=== PATIENT | male | born 1955 | race Caucasian/White ===

== ENCOUNTER 2021-08-21 08:49 | Emergency (ER) | payer MEDICARE, SELFPAY ==
[2021-08-21] VITALS (40 sets, daily range): BP systolic 116–162; BP diastolic 65–86; PULSE 49–69; RESP 10–23; TEMP 36.3–36.6; O2SAT 95–99
--- NOTE | 2021-08-21 08:45 | RT.EKG_ITS ---
APPROVED REPORT Exam: Resting ECG Reason for Exam: chest pain Patient Location: E HR:59 bpm ECG Measurements Heart Rate 59 AXIS MA 155 P 58 QRSd 106 QRS -40 QT 425 T -54 QTc 423 Conclusion Sinus bradycardia. Left axis deviation. Anterior Q >40mS, abnormal ST-T, V2-V5 Nonspecific repol abnormality, diffuse leads...ST dep, T flat/neg, ant/lat/inf
[2021-08-21 09:12] LABS: Abs Immature Grans 0.01 10^3/uL (0.0-0.06); Absolute Basophil Count 0.05 10^3/uL (0.0-0.2); Absolute Eosinophil Count 0.23 10^3/uL (0.0-0.7); Absolute Lymphocyte Count 1.09 10^3/uL (1.2-3.4); Absolute Monocyte Count 0.38 10^3/uL (0.1-0.8); Basophils % 1.1; Eosinophils % 4.9; HCT 45.5 % (40.0-50.0); HGB 15.3 g/dL (13.5-17.5); Immature Grans % 0.2; Lymphocytes % 23.4; MCH 30.7 pg (27.0-33.0); MCHC 33.6 % (32.0-36.0); MCV 91 fL (80-95); MPV 10.2 fL (8.0-11.0); Monocytes % 8.2; Neutrophils % 62.2; Platelet Count 172 10^3/uL (130-400); RBC 4.99 10^6/uL (4.36-5.78); RDW 11.9 % (11.8-14.1); RDW-SD 39.4 fL; WBC 4.66 10^3/uL (4.4-10.8)
--- NOTE | 2021-08-21 09:15 | ED.GENADUL_ITS ---
Discharge Plan Disposition Patient Disposition: HOME Condition: Stable Discharge Details Clinical Impression: Angina pectoris Primary Care Provider: Nisa Machado ED Provider: Good Molina Home Meds and New Rx's Prescriptions: New isosorbide mononitrate 30 mg tablet extended release 24 hr 30 mg PO DAILY 14 Days Qty: 14 0RF Continued losartan 50 mg tablet 50 tab PO DAILY Label Comments: TAKE ONE TABLET BY MOUTH EVERY DAY aspirin 81 mg Tablet,Delayed Release (Dr/Ec) 81 mg PO DAILY nitroglycerin 0.4 mg tablet, sublingual 0.4 tab sublingual PRN PRN Label Comments: PLACE ONE TABLET UNDER THE TONGUE EVERY DAY metoprolol succinate 25 mg tablet extended release 24 hr 25 mg PO DAILY Label Comments: TAKE ONE TABLET BY MOUTH EVERY DAY folic acid 800 mcg Tablet 800 mcg PO DAILY B12 Active 1,000 mcg Tablet,Chewable 1,000 mcg PO DAILY Discharge Instructions Instructions: Chest Pain (ED) Additional Instructions: I discussed your case with [facility] cardiology today. We will start Imdur 30 mg once daily in the morning. If you have chest/arm/jaw pain while on the Imdur, you may take a single nitroglycerin tablet by mouth, while seated. Any persistent discomfort should promote reevaluation in the ER. Return immediately or call 911 if you have persistent chest pain. Continue all previously prescribed medications. Medical Decision Making 66-year-old male with history of hypertension, who recently failed a stress test. Reports he has had 3 or more months of intermittent episodes of left arm and jaw discomfort associated with exertion. He also describes exertional weakness. This morning he slept later than usual, awoke feeling lightheaded, weak and with worse left arm pain. He notes that he had left arm pain yesterday for which he took his first nitroglycerin with improvement of the pain. He states that he is scheduled for outpatient cardiac catheterization on August 29 due to his recently failed stress test which was ordered by Dr. Ryan at [facility]. Patient arrives to ER complaining approximately 3 out of 10 left arm pain. His exam is reassuring. Patient placed on panel monitor and twelve-lead EKG obtained. This reveals a sinus rhythm at approximately [address] segment depressions and T wave inversions present in leads II, III and aVF. I received and reviewed medical records from [facility] noting stress test from July 29, 2021. This states that the ST segment depression in the lateral leads became more accentuated while in the patient exercised to 8 METS. The test was discontinued due to shortness of breath and fatigue. During recovery ST segments were found to be downgoing in leads 2, 3, aVF, V4 and V5. The patient does not have dynamic ST changes today, he appears to be at his baseline on twelve-lead EKG. Laboratory test today show an unremarkable CBC and chemistries. Troponin is negative x2. Chest x-ray unremarkable. Case discussed with on-call cardiology at [facility]. The patient's escalating anginal equivalents are concerning. They recommended starting Imdur 30 mg daily. Patient is able to discharge home per his wishes, but will have a strict return precaution. You may use 1 additional nitroglycerin while seated at home if needed. Any persistent discomfort should provoke a return to the ER. We will continue his other medications as recently initiated. HPI General Mode of arrival: ambulatory . Date/Time Provider Initiated Documentation: 08/21/21 08:50 . Limitations to Documentation: no limitations . Information obtained by: patient and family . History of Present Illness 66 year old M presents to the emergency department with the chief complaint of Weeks of arm and jaw, described as moderate, Quality is described as dull, and is localized to the left and upper extremity. Patient neck. Patient started experiencing this week(s) Rest improves symptom(s), Movement worsens symptoms . Patient notes weakness; denies diaphoresis. Patient did receive the following treatments prior to arrival, other (Took his morning medications) Related Data Home Medications Medication Instructions Recorded Confirmed aspirin 81 mg tablet,delayed 81 mg PO DAILY 08/21/21 08/21/21 release folic acid 800 mcg tablet 800 mcg PO DAILY 08/21/21 08/21/21 isosorbide mononitrate 30 mg 30 mg PO DAILY 2 weeks #14 tabs 08/21/21 tablet,extended release 24 hr losartan 50 mg tablet 50 tab PO DAILY 08/21/21 08/21/21 mecobalamin (vitamin B12) 1,000 1,000 mcg PO DAILY 08/21/21 08/21/21 mcg chewable tablet (B12 Active) metoprolol succinate 25 mg 25 mg PO DAILY 08/21/21 08/21/21 tablet,extended release 24 hr nitroglycerin 0.4 mg sublingual 0.4 tab sublingual PRN PRN 08/21/21 08/21/21 tablet Previous Rx's Medication Instructions Recorded isosorbide mononitrate 30 mg 30 mg PO DAILY 2 weeks #14 tabs 08/21/21 tablet,extended release 24 hr Allergies Allergy/AdvReac Type Severity Reaction Status Date / Time No Known Allergies Allergy Unverified 08/21/21 08:59 General Stated Complaint: Chest Pain GAURAV: 3 Review of Systems Narrative: No syncope. No significant chest pain. No recent illness. Reports exertional discomfort primarily in the left arm with weakness that improves with that improves with rest, occurring over weeks time. 8 systems were reviewed and otherwise negative PFSH All Active Problems (Updated 08/21/21 @ 13:21 by Good Molina MD) Injury, head (Acute) a. With contusion. b. with loc c. concussion Celiac disease (Chronic) Hypertension (Acute) Prediabetes (Acute) Angina pectoris (Chronic) Social History Smoking/Tobacco Use Status: Never Smoking risk assessment performed?: Yes Alcohol Intake: current Alcohol Intake frequency: a few times a week Drug use: Never Substance use type: does not use Do you feel safe at home: Yes Do you feel safe in your relationship?: Yes Exam Narrative Exam Narrative: GEN: awake, alert, oriented 3. Pleasant, well groomed, interactive. HEAD: Normocephalic, atraumatic ENT: Mucous membranes moist, oropharynx unremarkable, External ear exam unremarkable EYES: PERRL, EOMI NECK: Full ROM, no FILIPPO, no menigismus CHEST/RESP: Nontender, clear to auscultation bilateral, no wheeze/rhonchi/rales CARDIOVASCULAR: RRR, no murmur, rub michael. 2+ Rad pulse bilateral ABDOMEN: Soft, nontender, no mass. +Bowel sounds EXT: Full ROM, no edema, no rash Neuro: Grossly normal neurologic exam, conversant, interactive. Psych: Speech fluent, thoughts congruent, affect normal Course Vital Signs Vital signs: Vital Signs Temperature 36.6 C 08/21/21 08:53 Pulse 61 08/21/21 08:53 Respiratory Rate 15 08/21/21 08:53 Blood Pressure 144/80 H 08/21/21 08:53 Pulse Oximetry 99 08/21/21 08:53 Temperature 36.6 C 08/21/21 08:53 Temperature Source Skin 08/21/21 08:53 Pulse 63 08/21/21 09:09 Pulse 61 08/21/21 09:10 Respiratory Rate 23 08/21/21 09:10 Respiratory Effort 08/21/21 09:02 Respiratory Depth Normal 08/21/21 09:02 Respiratory Pattern Normal 08/21/21 09:02 Blood Pressure 162/85 H 08/21/21 09:09 Blood Pressure Mean 104 08/21/21 09:09 Blood Pressure Position Supine 08/21/21 08:53 Pulse Oximetry 99 08/21/21 09:10 Oxygen Delivery Method Room Air 08/21/21 08:53 Oxygen Flow Rate 0 08/21/21 08:53 Pain Level 4 08/21/21 08:53 Lab/Test Results Lab/Test Results: Laboratory Tests Range/Units 08/21/21 09:05 WBC (4.4-10.8) 10^3/uL 4.66 RBC (4.36-5.78) 10^6/uL 4.99 Hgb (13.5-17.5) g/dL 15.3 Hct (40.0-50.0) % 45.5 MCV (80-95) fL 91 MCH (27.0-33.0) pg 30.7 MCHC (32.0-36.0) % 33.6 RDW (11.8-14.1) % 11.9 Plt Count (130-400) 10^3/uL 172 MPV (8.0-11.0) fL 10.2 Immature Gran % 0.2 Neutrophils % 62.2 Lymphocytes % 23.4 Monocytes % 8.2 Eosinophils % 4.9 Basophils % 1.1 Nucleated RBC % (0.0-0.3) % 0.0 Absolute Neutrophils (1.2-6.7) 10^3/uL 2.90 Absolute Lymphocytes (1.2-3.4) 10^3/uL 1.09 L Absolute Monocytes (0.1-0.8) 10^3/uL 0.38 Absolute Eosinophils (0.0-0.7) 10^3/uL 0.23 Absolute Basophils (0.0-0.2) 10^3/uL 0.05 PAWSS Have you Been Recently Intoxicated or Drunk Within the Last 30 days?: Yes Have you Ever Experienced Previous Episodes of Alcohol Withdrawal?: No Have you ever Experienced Withdrawal Seizures?: No Have you ever Experienced Delirium Tremens(DT)s?: No Have you ever undergone Alcohol Rehabilitation Treatment (i.e, inpt ot outpatient treatment programs)?: No Have you ever Experienced Blackouts?: No Have you ever Combined Alcohol with other Downers within the last 90 days?: No Have you ever Combined Alcohol with any other Substance of Abuse during the last 90 days?: No Positive Blood Alcohol level on Presentation? [PCS.BAL]: No Evidence of Increased Autonomic Activity (i.e. HR>120, tremor, sweating, agitat ion, nausea)?: No Result: 1
[2021-08-21] MEDS: Aspirin 81 MG CHEW 162 MG PO (09:19)
[2021-08-21] MEDS: nitroGLYcerin 0.4 MG TAB SL (09:19)
--- OUTSIDE RECORDS SUMMARY | 2021-08-21 09:28 | XMS_ITS | Encounter Summary ---
:1955 Author Organization [facility] [place] [address] Care Team Providers Name Role Phone Nisa Machado MD Primary Care Provider Encounter Details Date Type Department Care Team Description 01/12/2020 Telephone Dermatology at [facility] Dilcia Pablo MD [address] [place] [address] [facility] [phone] [place], [place] [address] (Wo rk) Social History Tobacco Use Types Packs/Day Years Used Date Never Smoker Smokeless Tobacco: Never Used Alcohol Use Standard Drinks/Week Comments Yes 14 (1 standard drink = 0.6 oz pure alcoh ol) last drink 10/07/19 Alcohol Habits Answer Date Recorded How often do you have a drink containing alcohol? Not asked How many drinks containing alcohol do you have on a Not aske d typical day when you are drinking? How often do you have six or more drinks on one Not asked occasion? Comment: last drink 10/07/19 10/17/2019 Sex Assigned at Date Recorded Male 01/25/2021 11:16 AM EST documented as of this encounter Miscellaneous Notes Telephone Encounter - Keiry Venegas LPN - 01/12/2020 1:12 PM EST Spoke with patient and discussed biopsy results today indicating a BCC on the religious. Reviewed recommendation from Dr. Bella for [facility]. Patient verbalized understanding. Will refer to [facility] and patient will wait for call from [facility] accredited legal secretary to schedule documented in this encounter Plan of Treatment Upcoming Encounters Date Type Specialty Care Team Description 08/29/2021 Hospital Encounter Cardiology Wliliams Rodriguez, Scre ening for cardiovascular condition; Abnormal stress test; [facility] Chest dis comfort CARDIOLOGY DEPT. [place], [place] [address] 08/29/2021 Surgery Cardiology Williams Rodriguez, CARDIAC CA THETERIZATION [facility] CARDIOLOGY DEPT. [place], [place] [address] Scheduled Procedures Name Priority Associated Diagnoses Date/Time CORONARY ANGIOGRAPHY; W Screening for cardiovasc ular 08/29/2021 9:30 AM EDT LHC,POSSIBLE PCI condition Abnormal stress test Chest discomfort documented as of this encounter Visit Diagnoses Not on filedocumented in this encounter Care Teams Chief Science Officer Relationship Specialty Start Date End Date Nisa Machado MD PCP - General 07/26/14 [address] [place] [address] documented as of this encounter
--- OUTSIDE RECORDS SUMMARY | 2021-08-21 09:28 | XMS_ITS | Clinical Summary ---
:1955 Author Organization [facility] [place] [address] Care Team Providers Name Role Phone Nisa Machado MD Primary Care Provider Allergies Active Allergy Reactions Severity Noted Date Comments Gluten Diarrhea Medium 10/13/2014 Medications Medication Sig Dispensed Refills Start Date End Date Status ketoconazole (NIZORAL) Apply topically to 60 g 3 01/04/20 20 Active 2 % Cream affected area on the eyebrows twice daily as needed. losartan (Cozaar) 50 Take 50 mg by 0 Active mg Tablet mouth daily. Active Problems Problem Noted Date Nevus 10/13/2014 Seborrheic keratosis 10/13/2014 Encounters Date Type Specialty Care Team Description 08/09/2021 Orders Only Cardiology Cleveland Leon PA Screenmario g for cardiovascular condition; Abnormal stress test; Chest discomfor t from Last 3 Months Immunizations Name Administration Dates Next Due Moderna Covid-19 (Sensory Scientist 100mcg) Vaccine 12/15/2020, 2020, 04/25/2020 Social History Tobacco Use Types Packs/Day Years [...] Date Recorded Male 01/25/2021 11:16 AM EST Last Filed Vital Signs Vital Sign Reading Time Taken Comments Blood Pressure 136/83 03/14/2020 8:00 AM EST Pulse 67 03/14/2020 8:00 AM EST Temperature 36.2 ??C (97.2 ??F) 10/18/2019 11:43 AM EDT Respiratory Rate 14 10/18/2019 12:50 PM EDT Oxygen Saturation 99% 10/18/2019 12:50 PM EDT Inhaled Oxygen Concentration - - Weight 77.1 kg (170 lb) 10/18/2019 8:54 AM EDT Height 185.4 cm (6' 1) 10/18/2019 8:54 AM EDT Body Mass Index 22.43 10/18/2019 8:54 AM EDT Plan of Treatment Upcoming Encounters Date Type Specialty Care Team Description 08/29/2021 Hospital Encounter Cardiology Williams Rodriguez, Scre ening for cardiovascular condition; Abnormal stress test; [facility] Chest dis comfort CARDIOLOGY DEPT. [place] [address] 08/29/2021 Surgery Cardiology Williams Rodriguez, CARDIAC CA THETERIZATION [facility] CARDIOLOGY DEPT. [place], [place] [address] Scheduled Procedures Name Priority Associated Diagnoses Date/Time CORONARY ANGIOGRAPHY; W Screening for cardiovasc ular 08/29/2021 9:30 AM EDT LHC,POSSIBLE PCI condition Abnormal stress test Chest discomfort Health Maintenance Due Date Last Done Comments Hepatitis C Screening 08/09/1971 Lipid Screening 08/09/1971 Tdap adult 1972 Tetanus vaccine 1972 Colonoscopy 1998 Zoster vaccine (1 of 2) 08/09/2003 Pneumoccocal Vaccine: 65+ (1 - PCV) 2018 Influenza (Flu) vaccine (1 of 1 - 10/24/2020 Influenza standard series) Covid-19 Vaccine (4 - Booster for 04/17/2021 12/15/2020, , Moderna series) 04/25/2020 Procedures Procedure Name Priority Date/Time Associated Diagnosis Comme nts LAB SCAN 08/06/2021 12:00 AM Results for this EDT procedure are i n the results section . LAB SCAN 08/06/2021 12:00 AM Results for this EDT procedure are i n the results section . LAB SCAN 08/06/2021 12:00 AM Results for this EDT procedure are i n the results section . from Last 3 Months Results SCAN DOC: LAB (08/06/2021 12:00 AM EDT)Only the most recent of3 resultswithin the time period is included. Narrative This result has an attachment that is no t available. 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
--- OUTSIDE RECORDS SUMMARY | 2021-08-21 09:28 | XMS_ITS | Encounter Summary ---
:1955 Author Organization [facility] Address [address] [place] [address] Care Team Providers Name Role Phone Unavailable Primary Care Provider Unavailable Encounter Details Date Type Department Care Team Description 11/06/2008 Orders Only [facility] Javier Pearson MD [facility] [address] [place] [address] [place], [place] [address] [phone] Social History Tobacco Use Types Packs/Day Years Used Date Never Assessed Alcohol Habits Answer Date Recorded How often do you have a drink containing alcohol? Never 10/08/2019 How many drinks containing alcohol do you have on a typical Not asked day when you are drinking? How often do you have six or more drinks on one occasion? No t asked Comment: Not asked Sex Assigned at Date Recorded Not on file documented as of this encounter Plan of Treatment Not on filedocumented as of this encounter Procedures Procedure Name Priority Date/Time Associated Diagnosis Comme [facility] SURGICAL PATHOLOGY Routine 11/06/2008 0:00 EDT Re sults for this procedure are i n the results section. documented in this encounter Results SURGICAL PATHOLOGY (11/06/2008 0:00 EDT) Pathology Report: SURGICAL PATHOLOGY REPORT ? YAQUELIN REID Reports generated via [employer] interface contain original data; ? LAB however they are lacking the format of the original report. ? Caution should be taken when reading/interpreting unformatted reports. ? Name: ? LJ, RENÉ L ? Accession #: ? [id number] ? : ? 1955 (Age: 53) ??M ? Collec t Date: ? 11/06/2008 ? Location: ? [facility] ? R eceive Date: ? 11/06/2008 ? Provider: JAVIER TUTTLE MD ? Copy to: PANCHO HOLLINGSWORTH MD ? Final Pathologic Diagnosis: ? A. ?Duodenum, b iopsies: ? 1. ?Intraepithe lial lymphocytosis with mild villous blunting, suggestive of celiac sprue. ? B. ?Stomach, sherry dy, biopsies: ? 1. ?Oxyntic muc rigoberto with mild chronic inflammation. ? 2. ?No Helicoba cter pylori-like microorganisms on H&E-stained ? sections. ? C. ?Esophagus, biopsies: ? 1. ?Squamocolum aida junctional mucosa with reactive squamous and columnar epithelial changes. ? 2. ? Oxyntic-type column ar mucosa with mild chronic inflammation. ? 3. ? No goblet cells or intestinal metaplasia. ? 4. ? No intraepithelial eosinophils or neutrophils. ? D. ?Terminal il eum, biopsies: ? 1. ?Intestinal mucosa with no specific histopathologic diagnosis. ? E. ?Colon, righ t, random, biopsies: ? 1. ?Colonic muc rigoberto with focal surface epithelial hyperplastic change. ?? 2. ? No features of senior database administrator joselito inflammatory bowel disease. ? F. ?Colon, hepa tic flexure, polyp, biopsies: ? 1. ?Hyperplasti c polyp (three pieces); no adenoma. ? G. ?Colon, sple joselito flexure, polyp, biopsies: ? 1. ?Hyperplasti c polyp (two pieces); no adenoma. ? H. ?Colon, left , random, biopsies: ? 1. ?Colonic muc rigoberto with no specific histopathologic diagnosis. ? 2. ? No features of senior database administrator joselito inflammatory bowel disease. ? I. ?Colon, rect osigmoid, polyp, biopsy: ? 1. ?Colorectal mucosa (one piece) with surface epithelial hyperplastic ?? change. ? J. ?Rectum, ran dom, biopsies: ? 1. ?Colorectal mucosa with no specific histopathologic diagnosis. ? 2. ? No features of senior database administrator joselito inflammatory bowel disease. ? K. ?Rectum, low , polyp, biopsy: ? 1. ?Hyperplasti c polyp (one piece); no adenoma. ? Comment: ? This case was reviewe d at intradepartmental consultation conference. ??(Dr. Rowe)/mk ? Document reviewed and electr onically signed by: ? Nancy Rowe MD ? Report ??Date: 11/08/2008 15 :18 ? By the signature above, the attending physician certifies that he/she has ? personally conducted a gross and/or microscopic examination of the described ? specimens and rendered or co nfirmed the above diagnosis. ? Specimen(s) Received: ? A. ?Bx duodenum ? B. ? Bx gastric body ? C. ? Bx ? Rizzo's ? D. ? Bx terminal ileum ? E. ? Bx random right col on ??includes ascending and transverse colon ? F. ? Hepatic flexure donna yp ? G. ? Splenic flexure donna yp ? H. ? Bx random left colo n ? I. ? Rectosigmoid polyp ? J. ? Bx random rectum ? K. ? Low rectal polyp ? Clinical History: ? GERD, diarrhea; (+) F H celiac (brother); (+) celiac and IBD labs; A-C ??EGD; D-K - colonoscopy ? Gross Description: ? [facility] labelled René Calhoun and #1 bx ? duodenum are four biopsies which vary in size from 0.3 x 0.1 x 0.1 cm up to 0.6 x 0.4 x 0.3 cm. ??The specim ens are submitted intact as (A1) and (A2). ? [facility] René Calhoun and #2 bx gastric ? body are two biopsies measu ring 0.3 x 0.3 x 0.2 cm, each. ??The specimens are ?? submitted intact as (B). ? [facility]ceived in [facility] labelled René Calhoun and #3 bx ? Rizzo's are two biopsies measuring 0.3 x 0.2 x 0.1 cm and 0.3 x 0.3 x 0.3 cm. The specimens are submitted intact as (C). ? Received in [facility]'s fixat stacy labelled René Calhoun and #4 bx terminal ?? ileum are two biopsies radha uring 0.3 x 0.2 x 0.2 cm and 0.3 x 0.3 x 0.1 cm. ? The specimens are submitted intact as (D). ? Received in [facility]'s fixat stacy labelled René Calhoun and #5 bx random ? right colon are five biopsi es which vary in size from 0.1 cm in diameter up to 0.3 x 0.2 x 0.2 cm. ??The sp ecimens are submitted intact as (E1) and (E2). ? Received in [facility]'s fixat stacy labelled René Calhoun and #6 hepatic ? flexure polyp are three bio psies which vary in size from 0.2 x 0.1 x 0.1 cm up to 0.4 x 0.2 x 0.2 cm. ??The specimens are submitted intact as (F). ? Received in [facility]'s fixat stacy labelled Acesloane René and #7 splenic ? flexure polyp are two biops ies measuring 0.2 x 0.2 x 0.1 cm and 0.4 x 0.3 x 0.1 cm. ??The specimens are subm itted intact as (G). ? Received in [facility]'s fixat stacy labelled Lj René and #8 bx random left colon are five biopsies whi ch vary in size from 0.2 x 0.2 x 0.2 cm up to 0.8 x 0.2 x 0.1 cm. ??The specimen s are submitted intact as (H1) and (H2). ? Received in [facility]'s fixat stacy labelled Lj René and #9 rectosigmoid ?? polyp is a 0.3 x 0.2 x 0.2 cm polypoid biopsy. ??The specimen is submitted ? intact as (I). ? Received in [facility] fixat stacy labelled Lj René and #10 bx random ? rectum are two biopsies, ea ch measuring approximately 0.4 x 0.3 x 0.2 cm. ??The specimens are submitted inta ct as (J). ? Received in [facility] fixat stacy labelled Acesloane René and #11 low rectal ?? polyp is a 0.4 x 0.4 x 0.2 cm polypoid structure. ??The specimen is submitted ?? intact as (K). ??(SHERYL Tessito re)/cherryn ? End of Report ? Specimen Performing Organization Address City/State/ZIP Code Phon e Number [facility] [address] [place] [address] SERVICES [facility] [address] [place] [address] documented in this encounter Visit Diagnoses Not on filedocumented in this encounter
--- OUTSIDE RECORDS SUMMARY | 2021-08-21 09:28 | XMS_ITS | Encounter Summary ---
:1955 Author Organization [facility] Address [address] [place] [address] Care Team Providers Name Role Phone Unavailable Primary Care Provider Unavailable Encounter Details Date Type Department Care Team Description 04/26/2008 Before [facility] - Onel Skinner Converted Visit Elle Almazan MD (Elle) [address] [facility] [place] [address], [place] [id number] [place] [id number] Social History Tobacco Use Types Packs/Day Years [...] Procedure Name Priority Date/Time Associated Diagnosis [facility]me [facility] SURGICAL PATHOLOGY Routine 04/26/2008 0:00 EST Re sults for this procedure are i n the results section. documented in this encounter Results SURGICAL PATHOLOGY (04/26/2008 0:00 EST) Pathology Report: SURGICAL PATHOLOGY REPORT ? [facility] Reports generated via [employer] interface contain original data; ? LAB however they are lacking the format of the original report. ? Caution should be taken when reading/interpreting unformatted reports. ? Name: ? ZACHERY, RENÉ L ? Accession #: ? [id number] ? : ? 1955 (Age: 52) ??M ? Collec t Date: ? 04/26/2008 ? Location: ? [facility] ? Re ceive Date: ? 04/27/2008 ? Provider: MOHAMMED TARRABAIN MD ? Copy to: ? Final Pathologic Diagnosis: ? Skin of voodoo, right , shave biopsy: ? - Seborrheic keratosis, infl chung. ? Microscopic Description: ? The stratum corneum i s thickened by laminated orthohyperkeratosis. ??The ? epidermis is hyperplastic wi th papillomatosis and acanthosis. ??The keratinocytes have a basaloid appearance w ith round regular nuclei. ??(Dr. De Leon)/mpl ? Document reviewed and electr onically signed by: ? Ree De Leon MD ? Report ??Date: 05/01/2008 13 :14 ? By the signature above, the attending physician certifies that he/she has ? personally conducted a gross and/or microscopic examination of the described ? specimens and rendered or co nfirmed the above diagnosis. ? Specimen(s) Received: ? 2 cm shave bx (dermab lade) lesion from R voodoo ? Clinical History: ? Lesion on R voodoo fo r few weeks, raised, no itching ? Gross Description: ? Received in formalin labelled Tirey is a shave biopsy of neal skin which ?? measures 0.8 x 0.7 x 0.1 cm. There is an eccentric neal grainy irregular papule ?? which measures 0.5 x 0.4 x 0 .1 cm. ??The specimen is trisected and submitted ? entirely in one cassette. ?? (Ammy. Mehul)/mms ? End of Report ? Specimen Performing Organization Address City/State/ZIP Code Phon e Number [facility] [address] [place] [address] [facility] [address] [place] [address] documented in this encounter Visit Diagnoses Not on filedocumented in this encounter
--- OUTSIDE RECORDS SUMMARY | 2021-08-21 09:28 | XMS_ITS ---
:1955 Author Organization [facility] Address [address], [place] [id number] Care Team Providers Name Role Phone Nisa Machado Unavailable Unavailable PROBLEMS Type Condition ICD9-CM ZHR38-RV Onset Condition SNOMED Cod e Code Code Dates Status Problem Idiopathic peripheral 337.00 Active 98409719 autonomic neuropathy, unspecified Problem Cellulitis and abscess 682.3 Active 644717971 of upper arm and forearm Problem Other and unspecified 272.4 Active 99742152 hyperlipidemia Problem Pure 272.0 Active 353588938 hypercholesterolemia Problem Unspecified disorder of 709.9 Active 29352933 skin and subcutaneous tissue Problem Pure E78.00 Active 713631273 hypercholesterolemia, unspecified Problem Celiac disease 579.0 Active 38370 1005 Problem Male erectile disorder F52.21 Active 845510621 Problem Impaired fasting glucose 790.21 Activ e 745363902 Problem Unspecified hemorrhoids K64.9 Active 55624332 Problem Essential (primary) I10 Active 68988142 hypertension Problem Other idiopathic G90.09 Active 864 13584 peripheral autonomic neuropathy Problem Celiac disease K90.0 Active 91087 1005 ALLERGIES No Known Allergies ENCOUNTERS Encounter Location Date Diagnosis [facility] [address] [place] [address] Rd Jul, Chest angie n, unspecified R07.9 [facility] [address] [place], and Dyspnea, unspecified R06.00 [place] [id number] [facility] [address] Jul, Pain in r ight knee M25.561 [facility] [address] [place], [place] [id number] [facility] [address] June, Chest angie n, unspecified R07.9 ; [facility] [address] [place], Dyspnea, uns pecified R06.00 and [place] [id number] Other fatigue R5 3.83 [facility] [address] 19 Nov, 2020 [facility] [address] [place], [place] [id number] [facility] [address] [place] [address] Rd 15 Aug, 2020 Encounter for general adult [facility] [address] [place], medical exam ination without [place] [id number] abnormal finding s Z00.00 [facility] [address] [place] [address] Rd 15 Aug, 2020 Encounter for general adult [facility] [address] [place], medical exam ination without [place] [id number] abnormal finding s Z00.00 ; Essential (prima ry) hypertension I10 ; Other fatigue R53.83 ; Encounter for screening for ma lignant neoplasm of pros strickland Z12.5 and Male erectile di sorder F52.21 [facility] [address] [place] [address] Rd Feb, [facility] [address] [place], [place] [id number] [facility] [address] [place] [address] Rd 15 Feb, 2020 [facility] [address] [place] [id number] [facility] [address] [place] [address] Rd Dec, Essential (primary) [facility] [address] [place], hypertension I10 [place] [id number] [address] 12 Nov, 2019 Essential (primary) [facility] [address] [place], hypertension I10 [place] [id number] [address] 18 Oct, 2019 Pure hype rcholesterolemia, [facility] [address] [place], unspecified E78.00 [place] [id number] [facility] [address] [place] [address] Rd 10 Oct, 2019 Essential (primary) [facility] [address] [place], hypertension I10 [place] [id number] [address] Sep, Encounter for other [facility] [address] [place], preprocedura l examination [place] [id number] Z01.818 ; Spinal stenosis, lumbar region wi th neurogenic claudication M48 .062 and Encounter for im munization Z23 [facility] [address] [place] [address] Rd Sep, [facility] [address] [place] [id number] [address] Aug, [facility] [address] [place] [id number] [facility] [address] [place] [address] Rd Aug, Encounter for general adult [facility] [address] [place], medical exam ination with [place] [id number] abnormal finding s Z00.01 ; Pure hypercholesterol emia, unspecified E78. 00 ; Essential (primary) hypert ension I10 ; Celiac disease K 90.0 ; Encounter for va reening for malignant neopla sm of prostate Z12.[address] for screening for ma lignant neoplasm of colo n Z12.11 [facility] [address] [place] [address] Rd Jul, [facility] [address] [place], [place] [id number] [address] Jul, Medicine [address] [place] [id number] [address] Aug, Olecranon bursitis, left elbow [facility] [address] [place], M70.22 [place] [id number] [address] Jul, Otalgia, bilateral H92.03 and Medicine [address] [place], Pure hyperch olesterolemia, [place] [id number] unspecified E78. [address] May, Pure hype rcholesterolemia, Medicine [address] [place], unspecified E78.00 [place] [id number] [address] May, Medicine [address] [place] [id number] [address] Apr, Pure hype rcholesterolemia, [facility] [address] [place], unspecified E78.00 [place] [id number] [address] Apr, Encounter for general adult [facility] [address] [place], medical exam ination with [place] [id number] abnormal finding s Z00.01 ; Essential (prima ry) hypertension I10 ; Disorder of the skin and sub cutaneous tissue, unspecif ied L98.9 ; Pain in unspecif ied ankle and joints of unspec ified foot M25.579 ; Encoun ter for screening for ma lignant neoplasm of colo n Z12.11 and Trochanteric bur sitis, left hip M70.[address] Mar, [facility] [address] [place], [place] [id number] [address] Nov, [facility] [address] [place] [id number] [facility] [address] [place] [address] Rd Nov, Pain in r ight ankle and joints [facility] [address] [place], of right lazaro t M25.571 [place] [id number] [facility] [address] [place] [address] Rd Dec, Pain in l eft ankle and joints [facility] [address] [place], of left foot M25.572 ; [place] [id number] Trochanteric bur sitis, right hip M70.61 ; Ess ential (primary) hypert ension I10 and Encounter for im munization Z23 [facility] [address] [place] [address] Rd Aug, Celluliti s of right upper limb [facility] [address] [place], L03.113 and Encounter for [place] [id number] immunization Z23 [facility] [address] [place] [address] Rd June, Motion si ckness, sequela [facility] [address] [place] [address], T75.3XXS [place] [id number] [address] May, Encounter for general adult [facility] [address] [place], medical exam ination with [place] [id number] abnormal finding s Z00.01 ; Other idiopathic peripheral autonomic neurop athy G90.09 ; Celiac disease K 90.0 and Essential (prima ry) hypertension I10 [address] June, Encounter for general adult [facility] [address] [place], medical exam ination without [place] [id number] abnormal finding s Z00.[address] Dec, Encounter for general adult [facility] [address] [place] [address], medical exam ination with [place] [id number] abnormal finding s Z00.01 ; Unspecified hemo rrhoids K64.9 and Encounter fo r immunization Z23 [facility] [address] [place] [address] Rd Jul, Herpes zo ster without mention [facility] [address] [place], of complicat ion 053.9 and [place] [id number] Unspecified diso rder of skin and subcutaneous tissue 709.9 [facility] [address] [place] [address] Rd Feb, Acute bro nchitis 466.0 [facility] [address] [place] [id number] [facility] [address] [place] [address] Rd Jan, Pain in j oint, pelvic region [facility] [address] [place], and thigh 71 9.45 [place] [id number] [facility] [address] [place] [address] Rd Sep, Concussio n, with loss of [facility] [address] [place], consciousnes s of 30 minutes or [place] [id number] less 850.11 [facility] [address] [place] [address] Rd Aug, [facility] [address] [place], [place] [id number] [facility] [address] [place] [address] Rd Aug, [facility] [address] [place] [id number] [address] Aug, Routine g eneral medical [facility] [address] [place], examination at [facility] [id number] facility V70.0 ; Pure hypercholesterol emia 272.0 and Celiac disease 5 79.0 [facility] [address] [place] [address] Rd June, Other and unspecified [facility] [address] [place], hyperlipidem ia 272.4 [place] [id number] [facility] [address] [place] [address] Rd May, Routine g eneral medical [facility] [address] [place], examination at [facility] [id number] facility V70.0 ; Idiopathic peripheral auton omic neuropathy, unsp ecified 337.00 ; Impaired fasti ng glucose 790.21 ; Celiac disease 579.0 ; Lipoma of other skin and subcutaneous tis pablo 214.1 and Special screenin g for malignant neoplasm of pros strickland V76.44 [facility] [address] [place] [address] Rd Jan, Celluliti s and abscess of upper [facility] [address] [place], arm and fore arm 682.3 [place] [id number] [facility] [address] [place] [address] Rd Jan, Routine g eneral medical [facility] [address] [place], examination at [facility] [id number] facility V70.0 IMMUNIZATIONS Vaccine Route Administration Date Status FLUAD Unknown Oct 17, 2019 Administered Shingrix Unknown Apr 18, 2021 Administered zostavax Unknown Jan 17, 2015 Administered Pneumococcal Unknown Feb 21, 2021 Administered Influenza (split) Unknown Dec 25, 2017 Administered Influenza (split) Unknown Dec 31, 2016 Administered Moderna COVID 19 vaccine Unknown September 06, 2020 Adminis tered Influenza (split) Unknown Jan 12, 2015 Administered DTP Unknown September 18, 2016 Administered DT Unknown Feb 24, 2004 Administered SOCIAL HISTORY Qualifiers Date Never Smoker REASON FOR REFERRAL FUNCTIONAL STATUS PLAN OF CARE Activity Details Follow Up prn, 6 Weeks Reason:PE Future Appointment Provider Name:Nisa Conrad Artis chu, 2021-09-17 08:30:00 AM, [address] [facility], [address], [place], [place], [id number], Pending Test Urinalysis, Routine Pending Test Urinalysis, Complete Pending Test Urinalysis, Complete Pending Test Urinalysis, Complete Pending Test Urinalysis, Complete Pending Test Vitamin B12 Pending Test Folate (Folic Acid), Serum Future/Pending Procedure ECG RECORDING Future/Pending Procedure VENIPUNCT, ROUTINE* Future/Pending Procedure IMMUNIZATION ADMIN Future/Pending Procedure IMMUNIZATION ADMIN Future/Pending Procedure VENIPUNCT, ROUTINE* Future/Pending Procedure VENIPUNCT, ROUTINE* Future/Pending Procedure IMMUNIZATION ADMIN Future/Pending Procedure VENIPUNCT, ROUTINE* Future/Pending Procedure VENIPUNCT, ROUTINE* VITAL SIGNS Temperature 97.8 degrees Fahrenheit 2014-07-24 Temperature 97.8 degrees Fahrenheit 2014-03-10 Temperature 97.8 degrees Fahrenheit 2011-02-21 Heart Rate 60 /min 2021-07-29 Heart Rate 78 /min 2021-07-15 Heart Rate 72 /min 2020-09-06 Heart Rate 72 /min 2020-09-06 Heart Rate 72 /min 2020-01-03 Heart Rate 72 /min 2019-12-05 Heart Rate 78 /min 2019-11-03 Heart Rate 72 /min 2019-09-05 Heart Rate 72 /min 2015-06-25 Heart Rate 72 /min 2014-01-30 Heart Rate 65 /min 2013-10-17 Heart Rate 68 /min 2012-07-02 Heart Rate 72 /min 2012-06-21 Height 72 in 2021-07-29 Height 72 in 2021-07-15 Height 72 in 2020-09-06 Height 72 in 2020-09-06 Height 72 in 2020-01-03 Height 72 in 2019-12-05 Height 72 in 2019-11-03 Height 72 in 2019-10-17 Height 72 in 2019-09-05 Height 72 in 2018-09-21 Height 72 in 2018-08-10 Height 72 in 2018-05-04 Height 72 in 2017-12-15 Height 72 in 2016-12-31 Height 72 in 2016-09-18 Height 72 in 2016-07-10 Height 72 in 2016-06-10 Height 72 in 2015-06-25 Height 72 in 2015-01-12 Height 72 in 2014-07-24 Height 72 in 2014-03-10 Height 72 in 2014-01-30 Height 72 in 2013-10-17 Height 72 in 2013-09-16 Height N/A in 2012-07-02 Height 72 in 2012-06-21 Height 72 in 2011-02-21 Weight 181 lbs 2021-07-29 Weight 181 lbs 2021-07-15 Weight 181 lbs 2020-09-06 Weight 181 lbs 2020-09-06 Weight 180 lbs 2020-01-03 Weight 175 lbs 2019-12-05 Weight 171 lbs 2019-11-03 Weight 170 lbs 2019-10-17 Weight 177 lbs 2019-09-05 Weight 190 lbs 2018-08-10 Weight 195 lbs 2018-05-04 Weight 190 lbs 2017-12-15 Weight 190 lbs 2016-12-31 Weight 190 lbs 2016-09-18 Weight 190 lbs 2016-07-10 Weight 190 lbs 2016-06-10 Weight 185 lbs 2015-06-25 Weight 186 lbs 2015-01-12 Weight 180 lbs 2014-07-24 Weight 180 lbs 2014-03-10 Weight 180 lbs 2014-01-30 Weight 183 lbs 2013-09-16 Weight 176 lbs 2012-06-21 Weight 185 lbs 2011-02-21 BMI 24.55 kg/m2 2021-07-29 BMI 24.55 kg/m2 2021-07-15 BMI 24.55 kg/m2 2020-09-06 BMI 24.41 kg/m2 2020-01-03 BMI 23.73 kg/m2 2019-12-05 BMI 23.19 kg/m2 2019-11-03 BMI 23.05 kg/m2 2019-10-17 BMI 24.00 kg/m2 2019-09-05 BMI 25.77 kg/m2 2018-08-10 BMI 26.44 kg/m2 2018-05-04 BMI 25.77 kg/m2 2017-12-15 BMI 25.77 kg/m2 2016-12-31 BMI 25.77 kg/m2 2016-09-18 BMI 25.77 kg/m2 2016-07-10 BMI 25.77 kg/m2 2016-06-10 BMI 25.09 kg/m2 2015-06-25 BMI 25.22 kg/m2 2015-01-12 BMI 24.41 kg/m2 2014-07-24 BMI 24.41 kg/m2 2014-03-10 BMI 24.41 kg/m2 2014-01-30 BMI 24.82 kg/m2 2013-09-16 BMI 23.87 kg/m2 2012-06-21 BMI 25.09 kg/m2 2011-02-21 Blood pressure systolic 130 mm Hg 2021-07-29 Blood pressure diastolic 76 mm Hg 2021-07-29 MEDICATIONS Medication Instructions Dosage Frequency Start End Date Duration Stat us Sildenafil Orally Once a 1 tablet 24h Nov, Active Citrate 100 MG day as needed 2020 Ibuprofen 800 Orally Three 1 tablet 8h Not- Takin MG times a day with food g or milk as needed Losartan Orally Once a 1 tablet 24h Oct, Potassium 50 day 2019 Tylenol 325 MG Orally every 4 1 tablet 4h N ot-Takin hrs as needed g PROCEDURES Procedure Date Ordered Result Body Site FLUAD QIV Oct 17, 2019 VENIPUNCT, ROUTINE* Jan 12, 2015 URINE-NO MICRO September 05, 2019 GLYCATED HEMOGLOBIN TEST June 21, 2012 ANNUAL WELLNESS VST; PPS SUBSQT VST September 06, 2020 -ELECTROCARDIOGRAM, COMPLETE Oct 17, 2019 VENIPUNCT, ROUTINE* September 16, 2013 DOT June 25, 2015 General Health Panel Jan 12, 2015 URINALYSIS- COMPLETE May 04, 2018 ASSAY TEST FOR BLOOD, FECAL May 04, 2018 URINALYSIS- COMPLETE June 21, 2012 Influenza (split) Jan 12, 2015 VENIPUNCT, ROUTINE* June 10, 2016 ADMN FLU VAC NO FEE SCHED SAME DAY Oct 17, 2019 LIPID PANEL Jan 12, 2015 IMMUNIZATION ADMIN Dec 31, 2016 IMMUNIZATION ADMIN September 18, 2016 VITAMIN B-12 Jan 28, 2011 COLONOSCOPY AND BIOPSY 2007-08-30 Normal URINALYSIS- COMPLETE September 16, 2013 LIPID PANEL June 21, 2012 ANNUAL [facility] VST; PERSNL PPS INIT September 05, 2019 ASSAY OF PSA, TOTAL June 21, 2012 VENIPUNCT, ROUTINE* May 04, 2018 VENIPUNCT, ROUTINE* Jan 28, 2011 BLOOD FOLIC ACID SERUM Jan 28, 2011 VENIPUNCT, ROUTINE* June 21, 2012 TD VACCINE NO PRSRV >/= 7 IM September 18, 2016 IMMUNIZATION ADMIN Jan 12, 2015 DOT September 06, 2020 FLU VACC 4 NENITA 3 YRS PLUS IM Dec 31, 2016 RESULTS Name Result Date Reference Range BASIC METABOLIC PROFILE 2021-08-02 A/GAP 9.0 3.0-12.0 OSMOLARITY 274 275-295 B/CR 11.8 8.0-20.0 CBC, NO DIFF 2021-08-02 PROTHROMBIN TIME 2021-08-02 PROTIME 9.3 9.1-10.6 INR 0.9 0.9-1.1 INR_TEXT THERAPEUTIC INR RANGES FOR WARFARIN Uncomplicated venous thromboembolic disease 2 - 3 Lupus Anticoagulant and recurrent thrombosis 3 - 3.5 Mechanical prosthetic valve or recurrent thrombosis 2.5 - 3.5 VITAMIN B12 & FOLATE 2020-09-06 VIT B12 176 180-914 FOLATE 5.0 >=6.0 CBC, WITH AUTO DIFF 2020-09-06 COMPREHENSIVE METABOLIC 2020-09-06 PROFILE ALBUMIN 3.9 3.5-5.0 ALKALINE PHOS 58 32-92 A/GAP 10.0 3.0-12.0 B/CR 14.7 8.0-20.0 OSMOLARITY 277 275-295 GLOBULIN 1.9 2.3-3.5 A/G 2.1 1.0-2.5 PSA - SCREENING 2020-09-06 TSH 2020-09-06 TSH 1.40 0.45-5.33 CBC, WITH AUTO DIFF 2019-10-17 COMPREHENSIVE METABOLIC 2019-10-17 PROFILE ALBUMIN 3.9 3.5-5.0 ALKALINE PHOS 64 32-92 A/GAP 9.0 3.0-12.0 B/CR 27.2 8.0-20.0 OSMOLARITY 271 275-295 GLOBULIN 3.1 2.3-3.5 A/G 1.3 1.0-2.5 MR SPINE LUMBAR WO CONT 2019-10-11 CBC, WITH AUTO DIFF 2019-09-05 COMPREHENSIVE METABOLIC 2019-09-05 PROFILE ALBUMIN 3.7 3.5-5.0 ALKALINE PHOS 64 32-92 A/GAP 8.0 3.0-12.0 B/CR 16.5 8.0-20.0 OSMOLARITY 274 275-295 GLOBULIN 2.6 2.3-3.5 A/G 1.4 1.0-2.5 LIPID PROFILE 2019-09-05 LDL (CALCULATED) 143 RISK RATIO 4.1 RISK INTERP RISK MALE FEMALE 1/2 average 3.4 3.3 Average 5.0 4.4 2x Average 9.6 7.1 3x Average 23.4 11.0 PSA - SCREENING 2019-09-05 COMPREHENSIVE METABOLIC PANEL 2018-05-04 GLUCOSE 73 65-99 UREA NITROGEN (BUN) 15 7-25 CREATININE 1.12 0.70-1.25 eGFR NON-AFR. VINCENTIAN 69 > OR = 60 eGFR 80 > OR = 60 BUN/CREATININE RATIO NOT APPLICABLE 6-22 SODIUM 139 135-146 POTASSIUM 4.3 3.5-5.3 CHLORIDE 102 98-110 CARBON DIOXIDE 32 20-32 CALCIUM 9.3 8.6-10.3 PROTEIN, TOTAL 6.1 6.1-8.1 ALBUMIN 4.2 3.6-5.1 GLOBULIN 1.9 1.9-3.7 ALBUMIN/GLOBULIN RATIO 2.2 1.0-2.5 BILIRUBIN, TOTAL 0.6 0.2-1.2 ALKALINE PHOSPHATASE 70 40-115 AST 22 10-35 ALT 28 9-46 CBC (INCLUDES DIFF/PLT) 2018-05-04 WHITE BLOOD CELL COUNT 5.7 3.8-10.8 RED BLOOD CELL COUNT 5.25 4.20-5.80 HEMOGLOBIN 16.0 13.2-17.1 HEMATOCRIT 47.0 38.5-50.0 MCV 89.5 80.0-100.0 MCH 30.5 27.0-33.0 MCHC 34.0 32.0-36.0 RDW 12.6 11.0-15.0 PLATELET COUNT 185 140-400 MPV 11.6 7.5-12.5 ABSOLUTE NEUTROPHILS 3905 4027-0633 ABSOLUTE LYMPHOCYTES 6616 569-1613 ABSOLUTE MONOCYTES 479 200-950 ABSOLUTE EOSINOPHILS 251 15-500 ABSOLUTE BASOPHILS 63 0-200 NEUTROPHILS 68.5 LYMPHOCYTES 17.6 MONOCYTES 8.4 EOSINOPHILS 4.4 BASOPHILS 1.1 LIPID PANEL 2018-05-04 CHOLESTEROL, TOTAL 273 <200 HDL CHOLESTEROL 56 >40 TRIGLYCERIDES 294 <150 LDL-CHOLESTEROL 172 CHOL/HDLC RATIO 4.9 <5.0 NON HDL CHOLESTEROL 217 <130 TSH 2018-05-04 TSH 2.07 0.40-4.50 XR FOOT 3 VIEW RIGHT 2017-12-15 XR ANKLE 3 VIEWS LEFT 2016-12-31 COMPREHENSIVE METABOLIC PANEL 2016-06-10 GLUCOSE 105 65-99 UREA NITROGEN (BUN) 15 7-25 CREATININE 1.14 0.70-1.25 eGFR NON-AFR. VINCENTIAN 69 > OR = 60 eGFR 79 > OR = 60 BUN/CREATININE RATIO NOT APPLICABLE 08-14 SODIUM 140 135-146 POTASSIUM 4.2 3.5-5.3 CHLORIDE 104 98-110 CARBON DIOXIDE 26 20-31 CALCIUM 9.4 8.6-10.3 PROTEIN, TOTAL 6.2 6.1-8.1 ALBUMIN 4.1 3.6-5.1 GLOBULIN 2.1 1.9-3.7 ALBUMIN/GLOBULIN RATIO 2.0 1.0-2.5 BILIRUBIN, TOTAL 0.6 0.2-1.2 ALKALINE PHOSPHATASE 73 40-115 AST 20 10-35 ALT 26 9-46 CBC (INCLUDES DIFF/PLT) 2016-06-10 WHITE BLOOD CELL COUNT 5.8 3.8-10.8 RED BLOOD CELL COUNT 5.14 4.20-5.80 HEMOGLOBIN 15.6 13.2-17.1 HEMATOCRIT 46.9 38.5-50.0 MCV 91.3 80.0-100.0 MCH 30.4 27.0-33.0 MCHC 33.3 32.0-36.0 RDW 13.1 11.0-15.0 PLATELET COUNT 197 140-400 MPV 9.7 7.5-12.5 ABSOLUTE NEUTROPHILS 4083 2665-7037 ABSOLUTE LYMPHOCYTES [phone] ABSOLUTE MONOCYTES 429 200-950 ABSOLUTE EOSINOPHILS 209 15-500 ABSOLUTE BASOPHILS 58 0-200 NEUTROPHILS 70.4 LYMPHOCYTES 17.6 MONOCYTES 7.4 EOSINOPHILS 3.6 BASOPHILS 1.0 LIPID PANEL 2016-06-10 CHOLESTEROL, TOTAL 263 125-200 HDL CHOLESTEROL 51 > OR = 40 TRIGLYCERIDES 276 <150 LDL-CHOLESTEROL 157 <130 CHOL/HDLC RATIO 5.2 < OR = 5.0 NON HDL CHOLESTEROL 212 TSH 2016-06-10 TSH 1.79 0.40-4.50 COMPREHENSIVE METABOLIC PANEL 2015-01-12 GLUCOSE 96 65-99 UREA NITROGEN (BUN) 16 7-25 CREATININE 1.10 0.70-1.25 eGFR NON-AFR. VINCENTIAN 72 > OR = 60 eGFR 84 > OR = 60 BUN/CREATININE RATIO NOT APPLICABLE 22 SODIUM 140 135-146 POTASSIUM 4.6 3.5-5.3 CHLORIDE 104 98-110 CARBON DIOXIDE 29 19-30 CALCIUM 9.2 8.6-10.3 PROTEIN, TOTAL 6.8 6.1-8.1 ALBUMIN 4.3 3.6-5.1 GLOBULIN 2.5 1.9-3.7 ALBUMIN/GLOBULIN RATIO 1.7 1.0-2.5 BILIRUBIN, TOTAL 0.7 0.2-1.2 ALKALINE PHOSPHATASE 68 40-115 AST 20 10-35 ALT 19 9-46 CBC (INCLUDES DIFF/PLT) 2015-01-12 WHITE BLOOD CELL COUNT 5.7 3.8-10.8 RED BLOOD CELL COUNT 4.98 4.20-5.80 HEMOGLOBIN 15.7 13.2-17.1 HEMATOCRIT 46.6 38.5-50.0 MCV 93.5 80.0-100.0 MCH 31.6 27.0-33.0 MCHC 33.7 32.0-36.0 RDW 13.3 11.0-15.0 PLATELET COUNT 198 140-400 MPV 9.8 7.5-11.5 ABSOLUTE NEUTROPHILS 3608 8183-4157 ABSOLUTE LYMPHOCYTES [phone] ABSOLUTE MONOCYTES 496 200-950 ABSOLUTE EOSINOPHILS 148 15-500 ABSOLUTE BASOPHILS 51 0-200 NEUTROPHILS 63.3 LYMPHOCYTES 24.5 MONOCYTES 8.7 EOSINOPHILS 2.6 BASOPHILS 0.9 LIPID PANEL 2015-01-12 CHOLESTEROL, TOTAL 251 125-200 HDL CHOLESTEROL 66 > OR = 40 TRIGLYCERIDES 107 <150 LDL-CHOLESTEROL 164 <130 CHOL/HDLC RATIO 3.8 < OR = 5.0 NON HDL CHOLESTEROL 185 TSH 2015-01-12 TSH 1.86 0.40-4.50 COMPREHENSIVE METABOLIC PANEL 2013-09-16 GLUCOSE 101 65-99 UREA NITROGEN (BUN) 11 7-25 CREATININE 1.11 0.70-1.25 eGFR NON-AFR. VINCENTIAN 72 > OR = 60 eGFR 83 > OR = 60 BUN/CREATININE RATIO NOT APPLICABLE 6-22 SODIUM 139 135-146 POTASSIUM 4.4 3.5-5.3 CHLORIDE 103 98-110 CARBON DIOXIDE 25 19-30 CALCIUM 9.4 8.6-10.3 PROTEIN, TOTAL 7.0 6.1-8.1 ALBUMIN 4.3 3.6-5.1 GLOBULIN 2.7 1.9-3.7 ALBUMIN/GLOBULIN RATIO 1.6 1.0-2.5 BILIRUBIN, TOTAL 0.8 0.2-1.2 ALKALINE PHOSPHATASE 71 40-115 AST 24 10-35 ALT 26 9-46 CBC (INCLUDES DIFF/PLT) 2013-09-16 WHITE BLOOD CELL COUNT 5.5 3.8-10.8 RED BLOOD CELL COUNT 5.09 4.20-5.80 HEMOGLOBIN 15.7 13.2-17.1 HEMATOCRIT 47.3 38.5-50.0 MCV 93.0 80.0-100.0 MCH 30.9 27.0-33.0 MCHC 33.2 32.0-36.0 RDW 13.2 11.0-15.0 PLATELET COUNT 190 140-400 MPV 9.7 7.5-11.5 ABSOLUTE NEUTROPHILS 3883 0037-1856 ABSOLUTE LYMPHOCYTES [phone] ABSOLUTE MONOCYTES 374 200-950 ABSOLUTE EOSINOPHILS 99 15-500 ABSOLUTE BASOPHILS 39 0-200 NEUTROPHILS 70.6 LYMPHOCYTES 20.1 MONOCYTES 6.8 EOSINOPHILS 1.8 BASOPHILS 0.7 LIPID PANEL 2013-09-16 CHOLESTEROL, TOTAL 281 125-200 HDL CHOLESTEROL 63 > OR = 40 TRIGLYCERIDES 166 <150 LDL-CHOLESTEROL 185 <130 CHOL/HDLC RATIO 4.5 < OR = 5.0 NON HDL CHOLESTEROL 218 TSH 2013-09-16 TSH 1.99 0.40-4.50 CBC, WITH AUTO DIFF 2012-06-21 WBC 5.5 4.8-10.8 RBC 5.03 4.70-6.10 HEMOGLOBIN 15.6 14.0-18.0 HEMATOCRIT 47.0 42.0-52.0 MCV 93.3 80.0-94.0 MCH 31.1 27.0-31.0 MCHC 33.3 32.0-36.0 RDW 12.0 11.5-14.5 PLATELETS 186 130-400 MPV 9.6 7.4-10.4 NEUTROPHIL % 70.8 42.2-75.2 LYMPHS % 18.0 20.5-51.1 MONOCYTES % 8.1 1.7-9.3 EOSINOPHILS % 1.8 0.9-2.9 BASOPHILS % 1.3 0.0-0.8 NEUTROPHILS # 3.9 1.4-6.5 LYMPHOCYTES # 1.0 1.2-3.4 MONOCYTES # 0.4 0.1-0.6 EOSINOPHILS # 0.1 0.0-0.2 BASOPHILS # 0.1 0.0-0.2 COMPREHENSIVE METABOLIC 2012-06-21 PROFILE ANION GAP 6.0 3.0-12.0 BUN/CREATININE RATIO 15.2 8.0-20.0 OSMOLARITY 279 275-295 GLOBULIN 3.0 2.3-3.5 ALBUMIN/GLOBULIN RATIO 1.3 1.0-2.5 GLYCOHEMOGLOBIN A1C 2012-06-21 LIPID PROFILE 2012-06-21 LDL (CALCULATED) 160 10-100 RISK RATIO 3.8 PSA - SCREENING 2012-06-21 TSH 2012-06-21 REASON FOR VISIT Medicare Annual, follow up on stress test, right knee pain, Concern for BP, Rx Refill Request, Medical Certificate for [employer], Medicare Annual, RE:Re:COVID vaccine update, Re:COVID vaccine update,1 month follow up, follow up, Crestor Medication, BP is high, Pre Op for APD, BP has been high, nerve pain in back, Annual, Update Demographics - Additional Info, Update Demographics - Personal Info, Elbow infection, lipid follow up, Cholesterol Drug, follow up on cholesterol lab, Annual, Update Demographics - Personal Info, x rays, Thinks he may have broken a toe, hockey puck injury and hip pain, WC, dog bite, Would like a couple of rxs, 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 Insurance Providers [facility] Health Member Patient Patient Patient Patient Patient Subscriber Subscriber Subscriber Group Insurance Plan Plan Plan Plan ID Relationship Address Phone Name Date of ID Name Date of No Type Insurance Insurance Insurance Coverage to Subscriber Address Phone Name Dates Cigna [address] Cigna [address] self Alex [id number] [place] [address] Cigna True [phone] Cigna True self Alex [id number] [id number] [place] [id number] [phone] Alycia self Alex [id number] [facility] [id number] Medicare Ebony'l Medicare self Alex [id number] [facility] [employer] [address] [place] [address]
--- OUTSIDE RECORDS SUMMARY | 2021-08-21 09:28 | XMS_ITS | Encounter Summary ---
:1955 Author Organization [facility] Address [address] [place] [address] Care Team Providers Name Role Phone Nisa Machado MD Primary Care Provider Reason for Visit Reason Comments Leg Pain pt arrives with report of mu scle cramping and spasms in L leg down to L ankle. hx of same-caused by an injury. usually the pain is relieved with a chiropractor. he has an appt on thursday but is unable to sleep d/t pain. mildly uncomfortable in tria ge. hypertensive. other VSS. Encounter Details Date Type Department Care Team Description 10/08/2019 Emergency [facility] Emergency Department - Main [place] [address] [place] [id number] Social History Tobacco Use Types Packs/Day Years Used Date Never Smoker Smokeless Tobacco: Never Used Alcohol Use Standard Drinks/Week Comments Not Asked 0 (1 standard drink = 0.6 oz pure alcoho l) Alcohol Habits Answer Date Recorded How often do you have a drink containing alcohol? Never 10/08/2019 How many drinks containing alcohol do you have on a typical Not asked day when you are drinking? How often do you have six or more drinks on one occasion? No t asked Comment: Not asked Sex Assigned at Date Recorded Not on file COVID-19 Exposure Response Date Recorded In the last month, have you been in contact with No / Unsure 10/08/2019 0:31 EDT someone who was confirmed or suspected to have Coronavirus / COVID-19? documented as of this encounter Last Filed Vital Signs Vital Sign Reading Time Taken Comments Blood Pressure 166/111 10/08/2019 0030 EDT Pulse - - Temperature 36.6 ??C (97.9 ??F) 10/08/2019 0030 EDT Respiratory Rate 18 10/08/201929 EDT Oxygen Saturation 100% 10/08/201929 EDT Inhaled Oxygen Concentration - - Weight 79.4 kg (175 lb) 10/08/201929 EDT Height 182.9 cm (6') 10/08/201929 EDT Body Mass Index 23.73 10/08/201929 EDT documented in this encounter Discharge Disposition Disposition Code Departure Means Destination Left without being seen documented in this encounter ED Notes Nadia Hairston RN - 10/08/2019 0324 EDT Patient and walked out of ED before I could speak with them. The patient has been out of bed and ambulating around the ED appearing in no distress. Were made aware that delays were occurring and apologies for delays were made. Believe they left prior to being seen but they did not let us know before they left. Nadia Valentine RN - 10/08/2019 0230 EDT Back to room from triage. Aware that ER is full and PA will see patient as soon as possible. Appearscomfortable and in no distress. Nadia Valentine RN - 10/08/2019 0220 EDT OOB ambulating around ED 2. Gait steady. Awaiting PA/MD assessment. documented in this encounter Plan of Treatment Not on filedocumented as of this encounter Visit Diagnoses Not on filedocumented in this encounter Care Teams Custom Motorcycle Painter Relationship Specialty Start Date End Date Nisa Machado MD PCP - General 10/08/19 [address] [id number] documented as of this encounter
--- OUTSIDE RECORDS SUMMARY | 2021-08-21 09:28 | XMS_ITS | Encounter Summary ---
:1955 Author Organization [facility] [place] [address] Care Team Providers Name Role Phone Nisa Machado MD Primary Care Provider Reason for Visit Auth/Cert Specialty Diagnoses / Procedures Referred By Contact Refer red To Contact Diagnoses Spinal stenosis, lumbar region with neurogenic claudication HNP Procedures PRO LAMINOTOMY, LUMBAR DISK, 1 INTRSP PRO MICROSURG TECHNIQUES, REQ OPER MICROSCOPE LAMINOTOMY, DECOMPRESSION, FORAMINOTOMY, LUMBAR (WRVU 13.18) MICROSCOPE USE (WRVU 3.46) Referral ID Status Reason Start Date Expiration Date Visits Requ ested Visits Authorized [id number] 1 1 Encounter Details Date Type Department Care Team Description 10/18/2019 Ancillary Procedure Radiology Xray at [facility] [place] [address] Social History Tobacco Use Types Packs/Day Years [...] AM EST documented as of this encounter Plan of Treatment Upcoming Encounters Date Type Specialty Care Team Description 08/29/2021 Hospital Encounter Cardiology Williams Rodriguez, Scre ening for cardiovascular condition; Abnormal stress test; [facility] Chest dis comfort CARDIOLOGY DEPT. [place], [place] [address] 08/29/2021 Surgery Cardiology Williams Rodriguez, CARDIAC CA THETERIZATION [facility] CARDIOLOGY DEPT. [place], [place] [address] Scheduled Procedures Name Priority Associated Diagnoses Date/Time CORONARY ANGIOGRAPHY; W Screening for cardiovasc ular 08/29/2021 9:30 AM EDT LHC,POSSIBLE PCI condition Abnormal stress test Chest discomfort documented as of this encounter Procedures Procedure Name Priority Date/Time Associated Diagnosis Comme nts XR FLUORO NO RAD Routine 10/18/2019 11:30 AM Resu lts for this <1HR - OR USE EDT procedure are in the results section. documented in this encounter Results XR Fluoro No Rad <1Hr - OR Use (10/18/2019 11:30 AM EDT) Specimen (Source) Anatomical Location Collection Method / Collectio n Time Received Time / Laterality Volume Narrative RAD - 10/18/2019 11:30 AM EDT This exam is auto-finalizing. No interpr etation was done. Jelani Zuñiga MD IMG FLUORO ORDERABLES Performing Organization Address City/State/ZIP Code Phon e Number RAD [place], [place] documented in this encounter Visit Diagnoses Not on filedocumented in this encounter Care Teams Sales Department Manager Relationship Specialty Start Date End Date Nisa Machado MD PCP - General 07/26/[address] [place] [address] documented as of this encounter
--- OUTSIDE RECORDS SUMMARY | 2021-08-21 09:28 | XMS_ITS | Encounter Summary ---
:1955 Author Organization [facility] [place] [address] Care Team Providers Name Role Phone Nisa Machado MD Primary Care Provider Encounter Details Date Type Department Care Team Description 03/14/2020 [facility] Basal cell carcinoma Mee Lewis MD (BCC) of right [address] [facility] [address] [facility] [phone] [place] [address] Social History Tobacco Use Types Packs/Day Years [...] AM EST documented as of this encounter Progress Notes Iesha Mortensen LPN - 03/14/2020 7:45 AM EST Mohs consultation and preoperative note (H&P) Patient Name: Alex Calhoun Age: 64 y.o. Date of : 1955 Today's Date: 03/14/2020 REFERRING PROVIDER: prieto Bella MD CC: Mohs micrographic surgery for treatment of a cutaneous tumor HPI: Alex Calhoun is a 64 y.o. male presenting for biopsy-proven Basal Cell Carcinoma location on the Right [place] Sabianist. The dermatologic preoperative information sheet was reviewed with pertinent positive and negative as below. DERMATOLOGIC PRE-OPERATIVE EVALUATION AND REVIEW OF SYSTEMS History of Mohs surgery- Yes 06/11/2018 Right Sabianist region,Right Cheek,Dr. Rubio Pacemaker/Defibrillator-No Joint replacement or other implantable devices (e.g. Cochlear implant)-No Do you take a blood thinner-No History of organ transplant-No History of artificial valve or stroke-No History of liver disease or bleeding disorder-No Do you have any medical problems that may affect your upcoming surgery-No Do you have any concerns regarding your upcoming surgery-No Had back surgery in September 2019 We ask patients to discontinue Fish oil/Multivitamin/Vit E/?? supplements and natural medicines not prescribed by a physician 1 week prior to surgery. SOCIAL HISTORY: Makes Own Decisions Yes Hearing aid or other devices:No Relevant travel history or future plans:No Tobacco use (amount per day, type of tobacco.):No Do you have any physical limitations that may affect your surgery- No PAST MEDICAL HISTORY Past medical history reviewed PAST SURGICAL HISTORY Past surgical history reviewed ALLERGIES: Allergies reviewed MEDICATIONS: Medications reviewed documented in this encounter Plan of Treatment Upcoming Encounters Date Type Specialty Care Team Description 08/29/2021 Hospital Encounter Cardiology Williams Rodriguez, Scre ening for cardiovascular condition; Abnormal stress test; [facility] Chest dis comfort CARDIOLOGY DEPT. [place], [place] [address] 08/29/2021 Surgery Cardiology Williams Rodriguez, CARDIAC CA THETERIZATION [facility] CARDIOLOGY [place], [place] [address] Scheduled Procedures Name Priority Associated Diagnoses Date/Time CORONARY ANGIOGRAPHY; W Screening for cardiovasc ular 08/29/2021 9:30 AM EDT LHC,POSSIBLE PCI condition Abnormal stress test Chest discomfort documented as of this encounter Visit Diagnoses Diagnosis Basal cell carcinoma (BCC) of right temp le region Screening for cardiovascular condition Screening for other and unspecified card iovascular conditions Abnormal stress test Other nonspecific abnormal cardiovascula r system function study Chest discomfort Other chest pain Screening for cardiovascular condition Screening for other and unspecified card iovascular conditions Abnormal stress test Other nonspecific abnormal cardiovascula r system function study Chest discomfort Other chest pain documented in this encounter Care Teams Product Management Manager Relationship Specialty Start Date End Date Nisa Machado MD PCP - General 07/26/14 [address] [place] [address] documented as of this encounter
--- OUTSIDE RECORDS SUMMARY | 2021-08-21 09:28 | XMS_ITS | Clinical Summary ---
:1955 Author Organization [facility] Address [address] [place] [address] Care Team Providers Name Role Phone Nisa Machado MD Primary Care Provider Allergies Active Allergy Reactions Severity Noted Date Comments Gluten 10/08/2019 celiac Medications No known medications Surgical History Surgery Date Site/Laterality Comments ORTHOPEDIC SURGERY Medical History Medical History Date Comments Celiac disease Social History Tobacco Use Types Packs/Day Years [...] Assigned at Date Recorded Not on file Last Filed Vital Signs Vital Sign Reading Time Taken Comments Blood Pressure 166/111 10/08/2019 0030 EDT Pulse - - Temperature 36.6 ??C (97.9 ??F) 10/08/2019 0030 EDT Respiratory Rate 18 10/08/2019 0030 EDT Oxygen Saturation 100% 10/08/2019 0030 EDT Inhaled Oxygen Concentration - - Weight 79.4 kg (175 lb) 10/08/2019 0030 EDT Height 182.9 cm (6') 10/08/2019 0030 EDT Body Mass Index 23.73 10/08/2019 0030 EDT Plan of Treatment Health Maintenance Due Date Last Done Comments Fall Risk Screening 2018 Insurance Payer Benefit Plan / Subscriber ID Effective Phone Address T ype Group Dates MEDICARE MEDICARE A/B [id number] 2018-Prese [address] Medicare [place] [address] CIGNA CIGNA PPO [id number] 2006-Pres [phone] [id number] [phone] [place] [phone] Alex Calhoun Personal/Family Self 1955 [address] [place] [address] Alex Calhoun Personal/Family Self 1955 [address] [place] [address] Care Teams Electric Operator Relationship Specialty Start Date End Date Nisa Machado MD PCP - General 10/08/19 [address] [place] [address]
--- OUTSIDE RECORDS SUMMARY | 2021-08-21 09:28 | XMS_ITS | Encounter Summary ---
:1955 Author Organization [facility] Address [address] [place] [address] Care Team Providers Name Role Phone Nisa Machado MD Primary Care Provider Encounter Details Date Type Department Care Team Description 10/08/2019 Travel Social History Tobacco Use Types Packs/Day Years [...] / COVID-19? documented as of this encounter Plan of Treatment Not on filedocumented as of this encounter Visit Diagnoses Not on filedocumented in this encounter Care Teams Dip Brazier Relationship Specialty Start Date End Date Nisa Machado MD PCP - General 10/08/19 [address] [place] [address] documented as of this encounter
--- OUTSIDE RECORDS SUMMARY | 2021-08-21 09:28 | XMS_ITS | Encounter Summary ---
:1955 Author Organization [facility] [place] [address] Care Team Providers Name Role Phone Nisa Machado MD Primary Care Provider Encounter Details Date Type Department Care Team Description 03/14/2020 Procedure visit Dermatology at [facility] Jeff Abebe Basal cell carcinoma Mee Lewis MD (BCC) of right [address] [facility] [address] [facility] [phone] RD-DERMATOLOGY [place] [id number] Social History Tobacco Use Types Packs/Day Years [...] AM EST documented as of this encounter Last Filed Vital Signs Vital Sign Reading Time Taken Comments Blood Pressure 136/83 03/14/2020 8:00 AM EST Pulse 67 03/14/2020 8:00 AM EST Temperature - - Respiratory Rate - - Oxygen Saturation - - Inhaled Oxygen Concentration - - Weight - - Height - - Body Mass Index - - documented in this encounter Patient Instructions Patient InstructionsAlexanderTrueIesha waltonALICE - 03/14/2020 8:00 AM EST Your staff surgeon today was Jeff Abebe MD. Your wound(s) was repaired by [id number] stitchescalled a primary repair. You do not need to come back for suture removal because only absorbably sutures were used today. If the absorbable sutures bother your skin or do not absorb after 2 weeks, you may call us to remove them for you. Instructions are as below. Please keep this as a reference: Wound Care For wounds closed with absorbable-only stitches: ??? Gently remove your initial bandage (after 48 hours from surgery) and begin wound care as below. ??? If your initial bandage only lasts 24 hours (for example, falls off sooner), this is okay. Resume your wound care and bandaging instructions as below. ??? Change your bandage once a day (and whenever it becomes wet or soaks through). DO WOUND CARE FORONE WEEK. ??? For bandage changes: o Wash hands with soap and water, or use gloves that you can purchase a local pharmacy or drug store. o Clean the surgical area with cotton-tipped swabs or gauze dipped in soapy water (recommend liquid soap in clean room temperature water). Do not scrub the area or put direct shower water pressure ontoyour wound. It is okay to allow soapy water to run over your wound in the shower. o If you cannot remove crusted areas, you may soak with wet gauze first for 15 to 20 minutes to helpsoften it o Pat the area dry with clean gauze or cotton swabs. Do not rub. o Use a cotton swab to apply a generous layer of petroleum jelly over the incision lines and any open-wound areas. o Cover with clean nonstick gauze or other nonstick dressing, such as Telfa. This may be purchased over the counter at a drug store. Secure with paper tape or bandage. Band-aids are okay, but typicallyhave more adhesive that can irritate the skin compared to paper tape. o Continue wound care daily until stitches are removed. o Discontinue wound care after 7 days. o Allow the absorbable stitches to heal. If the top stitches that are absorbable are irritating yourskin, you may call us to have them removed. Otherwise, they will be absorbed naturally in approximately 2 weeks. It may absorb as quickly as 4 days. After Surgery 1. Avoid tobacco, smoking/vapors, cigars, and cannabis (marijuana) for at least 3 weeks after your surgery. These prevent proper healing and lead to worse scarring. Cutting back on tobacco is helpful if you cannot abstain completely. 2. Do not drink alcohol for roughly 3 days as this can slow healing or cause bleeding. 3. Do not participate in athletic activities for 1 week, unless you were told a different timeline during your visit. Athletic activity is a relative term, but this is considered to be anything that could potentially raise your heartrate or blood pressure. Elevating your heart rate and blood pressure increases the risk of swelling, bleeding, wound opening, and it could lead to worse scarring. Walkingat a leisurely pace is fine for most people, but not if you are walking for the purpose of exercise.When in doubt, take it easy or call us. 4. Do not lift anything heavier than 10 pounds until your sutures are removed. 5. Some manufacturing recruiter may need to be delayed or delegated such as vacuuming, mowing the lawn, snow shoveling, or caring for young children that need to be carried/lifted. Working any major muscle groups increases your heart rate and can increasing bleeding. 6. Avoid swimming, hot tubs, and direct water pressure for 3 weeks after surgery. You may shower, however, once your initial bandage comes off in 48 hours. 7. Avoid antibiotic ointments such as triple antibiotic creams. Stick with your wound care instructions, please. 8. Whenever possible, it is helpful to take photographs with your camera or cell phone of any problems or concerns you see with your wound. We often ask for photos when you call with questions. 9. Starting 2 months following surgery, you can begin firm massage to any areas of firm scar along your incision to soften the scar and reduce bumpiness. Do this 3 times per day, 3 minutes each time. Do not start massage before 2 months. 10. Your wound will appear almost completely healed soon after sutures are removed (about 1 week), but incisions can remain bright red for several weeks. Then the scarring and healing process continuesunder the skin for 6 months until to 2 years. The scar may become less red, less firm, and more subtle during this time; please note that the rate of improvement varies depending on the person. Most redness, discoloration, bumpiness resolves by 6 months, and most patients will look presentable within a few weeks after surgery. 11. Keep your follow-up appointments and make sure to continue to have your skin checked, as often as is recommended by your heel finisher, for new skin cancers. This is once per year for most patients. 12. Your can expect your scar to be red for several weeks with gradual fading of the redness. Your scar will also be raised and lumpy until the dissolvable sutures under the skin get absorbed by your body which can take 3-4 months. The scar will flatten eventually. a. If you have a skin condition called rosacea, the redness can last long-term, or you can get an increased appearance of red vessels to the skin. The appearance of vessels slightly improves, but tendsto respond well to laser treatments. 13. Occasionally, about 20% of the time on the face, the stitches under the skin can spit out of the incision to the surface. It can start out looking like a pimple or blemish directly on your incision. Sometimes you can feel something poking through the incision. it can look also minic a small areaof infection, so please let us know before you go to another provider for antibiotics. This means that the suture may need to be trimmed or removed when you return for your wound check. This typically occurs a few weeks after surgery if it does occur. 14. To optimize your scar, and best cosmetic result, please avoid direct sunlight to your incision for the first 6 months following surgery. UV ray exposure to your incision may cause the redness to last longer, or to cause permanent darkening of your scar. You can avoid sun by covering your incision w ith a bandage when outdoors, wearing broad-rimmed hats, and wearing SPF 30 to 50 sunscreen (broad spectrum). 15. Sometimes after your sutures are removed, your incision may still be healing for 1 more week. Because of this, avoid make-up and sunscreen until approximately 2 weeks after surgery. You can begin sooner if your skin edges look completely sealed. 16. Any time you have skin surgery or any type of surgery, you can experience mild sensation loss (numbness) in the area of surgery. Massage starting at 8 weeks after surgery can help. 17. Swelling and bruising is common, and expected, especially if your surgery site was on the forehead, cheeks, temples, nose, or eyelids. . Sometimes it can be quite profound, where the eyelids swell shut, or getting black eyes. This is especially true if you are on blood thinners such as aspirin. Swelling and bruising will peak at about 48 hours after surgery. Bruising and swelling will graduallyresolve. You can use ice packs or a bag of frozen peas for 15-20 minutes, 20 minutes off, up to 3-4 times daily to areas of swelling on the face. Use caution not to put the icy item directly onto your incision, or directly in contact with your skin as this can damage skin. Avoid prolonged use more than 20 minutes. The best way to use ice packs is over the bandage, or using a light cloth/paper towel barrier between the ice pack and your skin. You can ice for as many days as needed until swelling has resolved. Eyelid and lip swelling is typically the last type of swelling to resolve. o Keep in mind that if you do not want to use a bandage at all due to difficulty, allergies, irritation of skin, cost, time, or inconvenience --- you can certainly avoid bandages altogether. However, itis imperative that you continue with topical petrolatum ointment or Aquaphor (plain, fragrance-free). This may need to be applied several times daily if it gets wiped off, washed off, or dries out. Things to purchase for wound care: -Nonstick gauze -A tube or tub of petrolatum jelly (fragrance-free, no dye, not lotion) -paper tape -cotton swabs -gloves (optional) -Dial or other antibacterial liquid soap If you have specific questions or instructions, it can be written/typed by your nurse or doctor here: Antibiotics: If you were given antibiotic prescription, it is important to start them the evening of your surgerydate. However, most patients do not need antibiotics after surgery. For pain: Most patients of different ages do not require pain medications. If you do feel soreness, throbbing or sharp pains, start by taking over the counter extra strength acetaminophen (up to 3000 mg in a 24 hour period). Generally, we like you to avoid NSAIDS (non-steroid anti-inflammatory drugs such as ibuprofen) for the first 48 hours after surgery as this can increase risk of bleeding. However, if acetaminophen is not helping with pain, you can alternate acetaminophen with iburpofen or other NSAID. Icepacks over your bandage without getting your bandage wet can also help with pain and swelling. Frozen peas work well as ice packs. THIS IS AN EXAMPLE OF A PAIN TREATMENT SCHEDULE: 1) You can take 500 mg acetaminophen one tablet by mouth at 6:00pm. This is over the counter. 2) You can take 400 mg of ibuprofen two hours later, at 8:00 pm, or other NSAID such as naproxen, aslong as it does not interact with your other medications and your other doctors have not told you toavoid this. This is over the counter. Check to see how many milligrams (mg) each of your ibuprofen tablets are. Most of the time, ibuprofen comes in 200 mg tablets, so 400 mg would mean taking two of these tablets or capsules. 3) You can take 500 mg of acetaminophen at 10:00 pm. Keep track of your total acetaminophen in a 24 hour period as your maximum should be 3000 mg total in a 24 hour period of this medication. 4) At midnight, you can take another 400 mg of ibuprofen. 5) you can continue on this schedule over the next 2 days, making sure to keep tabs of your total acetaminophen. If you are still in pain after trying the above, please call us. When to call your surgeon: ??? Fever of 100.4 degrees Fahrenheit or higher ??? Bleeding not controlled with direct firm pressure to your wound. Bleeding is most common in the first 48 hours. ??? Pain that is worsening and not relieved by over the counter medications such as acetaminophen (up to 3000 mg in a 24 hour period) ??? Wound reopening after stitching ??? Pus or bad odor from your wound ??? Worsening redness and warmth around your wound ??? If you think your surgery site is infected, please call us before seeking care or antibiotics from other providers ??? Please call us before seeking care in an emergency room or primary care. ??? If you do call, please leave your full name, phone number, date of , date of surgery, and medical record number if you have it. If after hours, please call the pulp mill operator or [phone] and ask for the heel finisher on-call. If you have any non-urgent questions or concerns, please feel free to call my office or contact me through our patient portal, [employer], at [email or web address] How to contact us during business hours Dermatology at [facility] Road: Mohs scheduling or Mohs follow-up appointments: [phone] documented in this encounter Progress Notes Jeff Abebe MD - 03/14/2020 8:00 AM EST Images from the original note were not included. Summary of Procedure(s): Site: Right Superior [place] Tumor Type: Basal Cell Carcinoma Stages to clear tumor: Two Layers Repair: Complex Linear Closure Images: The patient was asked to call with any issues and is aware that I am available 15/09 should questionsarise. Please note that I have reviewed the preoperative checklist from today's nursing visit including relevant social history and medications. I have reviewed the preoperative photos if available and the biopsy report. VITAL SIGNS: Vitals: 03/14/20 0800 BP: 136/83 BP Location (NBP): Right arm Pulse: 67 PHYSICAL EXAMINATION: General: patient is awake, alert, oriented and in no acute distress. Skin: Focused examination of surgical site(s) performed which shows a well healed biopsy site with surrounding poorly defined pearly plaque. PHYSICIAN REVIEW OF REPORTS, RECORDS, IMAGES: 1) The accompanying pathology report(s) associated with aforementioned biopsy slide(s) were/was alsoreviewed. Assessment: Alex Calhoun is a 64 y.o. male presenting for: 1. Biopsy-proven Basal Cell Carcinoma,nodular, located on the Right Superior [facility] Plan: 1. Findings from the biopsy report, today's clinical exam, and other pertinent details were reviewedwith patient today. All questions were answered. 2. Discussed treatment options based on the above findings. We recommended Mohs micrographic surgeryfor treatment of this tumor. Mohs micrographic surgery was indicated due to patient, site and/or tumor characteristics (see operative report for specific indication). 3. We discussed risks, benefits, and alternative treatment options to the Mohs micrographic surgery procedure and pertinent information including but not limited to the following: ?? Risks include bleeding, infection, scar, recurrence, incomplete tumor removal or inability to cure with surgery alone if the tumor features are more aggressive than the initial pathology indicates. Occasionally, additional adjuvant treatments may be recommended. Additional risks include large wound, prolonged wound and healing, pain, swelling, bruising, increased appearance of vessels or worseningerythema of baseline skin; more rarely risks include damage to underlying structures such as nerves,cartilage, or muscle which could lead to temporary or permanent loss of sensation or motor function. ?? Benefit is precise tumor removal ?? If reconstruction is performed, it is specific to the patient and defect. ?? Discussed that the shape, size, depth of the wound is often not known until the tumor is cleared and thus the reconstruction options are sometimes not known until after tumor clearance. Occasionally, referrals to other providers may be recommended for reconstruction based on patient preference and need. ?? Reviewed the pros and cons of common reconstructions used for this tumor type, size, and location, and that reconstruction may lead to change in appearance. ?? Natural history of scar was discussed, including that the scar will continue to mature for 1-2 years. Recommended avoidance of special ointments or scar creams, and avoidance of direct sun exposure to the scar for optimal recovery. ?? Reviewed that there are some aspects of cosmesis that are dependent on patient's characteristics such as age, skin laxity/texture factors, inflammatory skin diseases such as rosacea, prior surgery/radiation, degree of actinic damage, smoking status, strength of the patient's immune system, diligentwound care, medications, and genetics. ?? Having Mohs surgery may lead to physical limitations for optimal healing, such as restricted physical activity and heavy lifting. 4. The nature of sun-induced photo-aging and skin cancers was discussed. Recommended sun avoidance when possible, especially peak hours of sun 10 am to 2pm, protective clothing such as wide-brimmed hats and long-sleeved clothing, and the use of SPF broad-spectrum sunscreen SPF 50 or higher. 5. Signs and symptoms of skin cancer reviewed. Patient to report any new, changing, or symptomatic lesions and follow up with his or her heel finisher or other skin provider. 6. Discussed avoiding direct sun exposure to scars for best cosmetic result. Note initiated by Iesha CHOWDHURY LPN has performed the documentation for this encounter in the presence of andacting as a scribe for Dr. Abebe I performed the above scribed service and agree with the accuracy of the documentation in this encounter. Reviewed and signed by: Jeff Abebe MD PhD Mohs Micrographic Surgery and Dermatologic Oncology Department of Dermatology Jeff Abebe MD - 03/14/2020 8:00 AM EST Mohs micrographic Surgery Operative Report Patient name: Alex Calhoun : 1955 Date: 03/14/2020 Staff Surgeon: Jeff Abebe MD PhD Nursing/Corrosion Technician(s): Iesha Chowdhury LPN Outside Laborer (s): Isatu Davies Pre-operative diagnosis: Basal Cell Carcinoma,nodular Post-operative diagnosis: Basal Cell Carcinoma,nodular Location/Site: Right Superior [place] Procedure: Mohs micrographic surgery Indication(s) for Mohs micrographic surgery: Anatomic location for tissue conservation Stages: 2 Preoperative size of tumor: 0.9 x 0.8 cm Stage I The nature and purpose of the procedure, associated risks, possible consequences and complications,and alternative forms of treatment were explained in detail. We reviewed the possible repairs based on the clinical appearance of tumor but discussed that often the repair options may not be known until the tumor has marc extirpated. Informed consent and permission to take photographs were obtained. The site was confirmed with the patient/authorized sales representative health insurance/referring physician and/or a photograph form time of biopsy. A pre-operative time-out (procedural pause) was conducted with no unresolved d iscrepancies noted. Local anesthesia was obtained with 1% lidocaine with 1:100,000 epinephrine. The surgical site was prepped and draped in the usual sterile manner. With all visible gross tumor completely excised, the borders of the tumor and 2-3 mm margins were excised as a complete layer. Hemostasis was achieved by electrocoagulation. The excised tissue was oriented and divided into 2 sections, chromacoded, and submitted for frozen sections. The patient to lerated the procedure well and without complications. On microscopic evaluation of the frozen sections, residual tumor was identified as Basal Cell Carcinoma on section A1 & A2. Stage II The surgical site was re-anesthetized with 1% lidocaine with 1:100,000 epinephrine, re-prepped and redraped in a sterile manner. The residual tumor was re-excised as a complete layer 2-3mm in thickness using the Mohs map to delineate area of residual tumor. Hemostasis was achieved with electrocoagulat ion. The tissue was oriented and divided into 1 sections, chromacoded, and submitted for frozen sections. The patient tolerated the procedure well and without complications. On microscopic evaluation of the frozen sections, no residual tumor was identified on the deep or outer border of the sections. Depth of excision subcutaneous tissue Final defect size: 1.5 x 1.4 cm Repair Operative Report (Complex Linear Repair) Patient name: Alex Calhoun : 1955 Clinical Diagnosis: Surgical defect secondary to Mohs microscopically controlled excision Size: 1.5 x 1.4 cm Location/Site: Right Superior [place] Indication: repair of wound for mormonism of function/anatomy Procedure: Complex linear layered closure of Mohs defect Staff Surgeon: Jeff Abebe MD PhD Nursing/Corrosion Technician(s): Sumaya Robles RN, Izabella Augustin CNC SPECIALIST, Iesha Chowdhury LPN, Radha Stinson CMA Due to the size and location of the defect resulting from the complete removal of the tumor, the postoperative risk of hemorrhage, infection, and the possibility of serious deformity from scarring, and in order to restore proper function and prevent loss of function, the defect was closed in the following manner. The nature and purpose of the procedure, associated risks, possible consequences, complications andalternative methods of treatment were explained to the patient in detail. An informed consent was obtained. The operative site was anesthetized with 1% lidocaine with 1:100,000 epinephrine. The site was prepped and draped in the usual sterile manner. The edges of the defect were widely undermined greater than the width of the defect as stated above. The edges could then be approximated without excesstension. Hemostasis was achieved with electrocoagulation. Redundant adjacent tissue was removed as needed. The deep tissues were apposed and sutured with 4-0 Monocryl sutures and the epidermal edges were approximated with 5-0 Fast Absorbing Gut running and/or interrupted sutures. The resulting complexlinear closure measured 3.0 cm. The surgical site was cleaned and white petrolatum with a Xeroform gauze pressure dressing applied.The patient tolerated the procedure well and without complications and was given both verbal and written instruction on postoperative wound care. Follow up as needed. The patient was discharged in goodcondition. Total local anesthesia with 1% lidocaine with 1:100,000 epinephrine used: 5cc Total local with 0.25% bupivacaine with 1:100,000 epinephrine used: 5cc Note initiated by Iesha CHOWDHURY LPN has performed the documentation for this encounter in the presence of andacting as a scribe for Dr. Abebe I performed the above scribed service and agree with the accuracy of the documentation in this encounter. Reviewed and signed by: Jeff Abebe MD PhD Mohs Micrographic Surgery and Dermatologic Oncology Department of Dermatology [address] [place] [address] documented in this encounter Plan of Treatment Upcoming Encounters Date Type Specialty Care Team Description 08/29/2021 Hospital Encounter Cardiology Williams Rodriguez, Scre ening for cardiovascular condition; Abnormal stress test; [facility] Chest dis comfort CARDIOLOGY DEPT. [place], [place] [address] 08/29/2021 Surgery Cardiology Williams Rodriguez, CARDIAC CA THETERIZATION [facility] CARDIOLOGY DEPT. [place], [place] [address] Scheduled Procedures Name Priority Associated [...] pain documented in this encounter Care Teams Automation Test Developer Relationship Specialty Start Date End Date Nisa Machado MD PCP - General 07/26/14 [address] [place] [address] documented as of this encounter
--- OUTSIDE RECORDS SUMMARY | 2021-08-21 09:28 | XMS_ITS | Encounter Summary ---
:1955 Author Organization [facility] [place] [address] Care Team Providers Name Role Phone Nisa [...] Expiration Date Visits Requ ested Visits Authorized [id number] 1 1 Encounter Details Date Type Department Care Team Description 10/18/2019 Anesthesia Event Operating Room Jeff Garcia Ziegler Day RETORT FURNACE OPERATOR [address] [place] [phone] ANESTHESIOLOGY [phone] [place], [place] [address] (Wo rk) Anesthesia Record Procedure Summary Procedure Name Responsible Anesthesia Start Anesthesia Stop Time Anesthesiologist Time Rush ÁLVAREZ Matthew D, RETORT FURNACE OPERATOR 10/18/19 1010 10/18/19 1151 DECOMPRESSION, FORAMINOTOMY, LUMBAR (WRVU 13.18) (Left Spine Lumbar) Events Date Time Event Comment 10/18/2019 0958 1010 AN Verify 1010 Start 1010 An Start Data 1015 An Induction 1015 An Intubation 1017 Anesthesia Ready 1127 Extubation/LMA Out 1139 an stop data 1139 Recovery or ICU Handoff Patient care was transferred to the destination unit staff after review of the patient's medica l history, current anesthetic/surgi jose status and plan, according to the Provider Handoff Checklist. 1151 Stop Name Total Midazolam 2 mg fentaNYL 100 mcg IV Lidocaine 100 mg Propofol 200 mg Rocuronium 40 mg Ondansetron 4 mg Dexamethasone 10 mg ePHEDrine 5 mg ceFAZolin (Ancef) 2 g in dextrose 5% 100 mL infusion 2 g lactated ringers infusion 100 mL Agents Name O2 Air N2O Sevoflurane (et) Blood No blood administrations on file. Lines, Drains, and Airways Type Details Placement Removal Incision 10/18/19; 1030; thoracic 10/18/19 1030 by Ray ospina spine Magali Ospina RN PIV 10/18/19; 0915; cephalic 10/18/19 0915 by Ramez, 10/18/19 1302 by vein (lateral side of arm), Sloane Conrad RN Stok es, Sarah Monsalve RN left; [id number] catheter system; 20 gauge; es; distraction; 1; cephalic vein (lateral side of arm), left, no redness, ecchymosis, warmth, swelling, pain, drainage; no longer indicated, removed per policy/procedure, catheter/device intact; 10/18/19; 1302 ETT Mask Ventilation: Easy (1); 10/18/19 1015 by Bakari dia, 10/18/19 1127 by ETT Type: Cuffed, Oral; ETT SANA Acosta, Jeff Mancia CRNA Size: 7.5 mm; Mac Blade: 4; Notes: Asleep, Pre-O2, Stylette; Attempts: 1; Laryngoscopy Grade: 2; ETT Placement Verified By: Auscultation, Capnometry, Visual; Secured at Teeth: 24 cm documented in this encounter Social History Tobacco Use Types Packs/Day Years [...] AM EST documented as of this encounter OR Notes Anesthesia Postprocedure Evaluation - Jeff Beverly CRNA - 10/18/2019 11:51 AM EDT Department of Anesthesiology Post-procedure Note Patient: Alex Calhoun Procedure Summary Date: 10/18/19 Room / Location: [facility] MA[facility] OR Anesthesia Start: 1010 Anesthesia Stop: 1151 Procedures: LAMINOTOMY, DECOMPRESSION, FORAMINOTOMY, LUMBAR (WRVU 13.18) (Left Spine Lumbar) MICROSCOPE USE (WRVU 3.46) (Left Back) Diagnosis: (HNP) Surgeon: Jelani Zuñiga MD Responsible Provider: Jeff Beverly CRNA Anesthesia Type: general ASA Status: 2 All Anesthesia Providers: SANA Independent: Jeff Beverly CRNA Vitals Value Taken Time BP Temp Pulse Resp SpO2 Pain Level Patient Location: PACU Level of Consciousness: Conscious but Sleepy Pain Management: Pain Being Addressed PONV: None Cardiovascular Status: At Baseline Respiratory Status: At Baseline Postoperative Fluid Status: Intravascular EUvolemia Possible Anesthetic Complications: NONE apparent at time of evaluation Final Primary Anesthesia Type: General (The anesthetic type performed was the same as planned.) Comments: Please see PACU flowsheet for VS. Report and care to RN Anesthesia Preprocedure Evaluation - Jeff Beverly CRNA - 10/18/2019 9:58 AM EDT Images from the original note were not included. Pre-Anesthesia Evaluation for: Alex Calhoun a 64 y.o. male. Procedure(s): LAMINOTOMY, DECOMPRESSION, FORAMINOTOMY, LUMBAR (WRVU 13.18) MICROSCOPE USE (WRVU 3.46) Patient Active Problem List Diagnosis ??? Nevus ??? Seborrheic keratosis Past Medical History: Diagnosis Date ??? High blood pressure last 3 to 4 months b/p high 10/17/19 ??? Transfusion history Past Surgical History: Procedure Laterality Date ??? ANKLE SURGERY Right 1979 ??? VASECTOMY 1994 Social History Tobacco Use ??? Smoking status: Never Smoker ??? Smokeless tobacco: Never Used Substance Use Topics ??? Alcohol use: Yes Alcohol/week: 14.0 standard drinks Types: 14 Cans of beer per week Comment: last drink 10/07/19 Social History Substance and Sexual Activity Drug Use Never Allergies Allergen Reactions ??? Gluten Diarrhea Medications: MAR and/or home medications have been reviewed. Physical Exam: Patient Vitals for the past 24 hrs: Temp Pulse Resp BP SpO2 O2 Device 10/18/19 0854 36.4 ??C (97.5 ??F) 96 16 163/87 98 % RA Body mass index is 22.43 kg/m??. Height: 185.4 cm (6' 1) Weight: 77.1 kg (170 lb) Airway Assessment: Mallampati: I TM distance: >3 FB Neck ROM: full Cardiovascular Assessment: Rhythm: regular Rate: normal Pulmonary Assessment: breath sounds clear to auscultation Dental Assessment: Misc Assessment: Patient is wearing No contact(s). IV access: Peripheral line Anesthesia Plan: ASA 2 general, with a(n) intravenous induction Informed Consent: Anesthetic plan and risks discussed with patient. Use of blood products discussed with patient who consented to blood products. PAT Clinic Note documented in this encounter Plan of Treatment Upcoming Encounters Date Type Specialty Care Team Description 08/29/2021 Hospital Encounter Cardiology Williams Rodriguez, Scre ening for cardiovascular condition; Abnormal stress test; [facility] Chest dis comfort CARDIOLOGY DEPT. [place], [place] [address] 08/29/2021 Surgery Cardiology Williams Rodriguez, CARDIAC CA THETERIZATION [facility] CARDIOLOGY DEPT. [place], [place] [address] Scheduled Procedures Name Priority Associated Diagnoses Date/Time CORONARY ANGIOGRAPHY; W Screening for cardiovasc ular 08/29/2021 9:30 AM EDT LHC,POSSIBLE PCI condition Abnormal stress test Chest discomfort documented as of this encounter Visit Diagnoses Not on filedocumented in this encounter Administered Medications Inactive Administered Medications - up to 3 most recent administrations Medication Order MAR Action Action Date Dose Rate Site ceFAZolin (Ancef) 2 g in dextrose Given 10/18/2019 10:23 AM EDT 2 g 5% 100 mL infusion 2 g, Intravenous, ONCE, 1 dose, On Thu10/18/19 at 0915, Administer over 30 Minutes, To be administered upon arrival to the OR within one hour prior to incision., Day of Surgery (Day of Procedure), Indication for (Active or Suspected): Prophylaxis dexamethasone (Decadron) injection Given 10/18/2019 10:15 AM EDT 10 mg PRN, Starting on Thu10/18/19 at 1015, Until Thu10/18/19 at 1151, Anesthesia Intra-op, Routine ePHEDrine injection Given 10/18/2019 10:41 AM EDT 5 mg PRN, Starting on Thu10/18/19 at 1041, Until Thu10/18/19 at 1151, Anesthesia Intra-op, Routine fentaNYL 50 mcg/mL multi-dose injection Given 10/18/2019 10:15 AM EDT 100 mcg PRN, Starting on Thu10/18/19 at 1015, Until Thu10/18/19 at 1151, Anesthesia Intra-op, Routine lidocaine (PF) (XYLOCAINE) 100 mg/5 mL (2 %) Given 10:15 AM EDT 100 mg injection PRN, Starting on Thu10/18/19 at 1015, Until Thu10/18/19 at 1151, Anesthesia Intra-op, Routine midazolam (PF) (VERSED) multi-dose injec tion Given 10/18/2019 10:10 AM EDT 2 mg PRN, Starting on Thu10/18/19 at 1010, Until Thu10/18/19 at 1151, Anesthesia Intra-op, Routine ondansetron (ZOFRAN) injection Given 10/18/2019 10:15 AM EDT 4 mg PRN, Starting on Thu10/18/19 at 1015, Until Thu10/18/19 at 1151, Anesthesia Intra-op, Routine propofol (DIPRIVAN) 10 mg/mL bolus injection Given 10:15 AM EDT 200 mg (Anesthesia) PRN, Starting on Thu10/18/19 at 1015, Until Thu10/18/19 at 1151, Anesthesia Intra-op rocuronium (Zemuron) 10 mg/mL injection Given 10/18/2019 10:15 AM EDT 40 mg PRN, Starting on Thu10/18/19 at 1015, Until Thu10/18/19 at 1151, Anesthesia Intra-op, Routine documented in this encounter Care Teams Electronic Bench Technician Relationship Specialty Start Date End Date Nisa Machado MD PCP - General 07/26/14 [address] [place] [address] documented as of this encounter
--- OUTSIDE RECORDS SUMMARY | 2021-08-21 09:28 | XMS_ITS | Encounter Summary ---
:1955 Author Organization [facility] Address [facility] [address] [place] [address] Care Team Providers Name Role Phone Nisa Machado MD Primary Care Provider Reason for Visit Reason Comments Skin Cancer Examination Encounter Details Date Type Department Care Team Description 01/31/2021 Office Visit Dermatology at [facility] borrheic keratoses; Mee Cheatham MD Dermal nevus; [address] [facility] Lipoma of left upper extremi ty; [place] [phone] Multiple benign nevi; [phone] [facility] History of basa l cell carcinoma (BCC) [address] [place], [place] [address] Social History Tobacco Use Types Packs/Day Years [...] documented as of this encounter Progress Notes Bill Bella MD - 01/31/2021 3:15 PM EST Images from the original note were not included. DEPARTMENT OF DERMATOLOGY Medical Dermatology Clinic Provider: BILL BELLA MD Patient's preferred name Jared Preferred contact method for results [x]Phone []myD-H []Letter Detailed phone message OK? Yes Are there any other people with whom we may discuss your care? 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 Patient returns to clinic today for a full skin exam with the following concerns: - Growth on the left scalp that that has recurred and is irritating - Raised lesion on the left cheek - Small pinpoint white nodules on the cheeks that intermittently appear. The lesions are hard. The lesions can be pruritic but are not painful. Last visit at Dermatology: 01/04/2020 Last visit with this provider: 01/04/2020 Medications: Reviewed in eD-H Allergies: Reviewed in eD-H Skin Examination: Full skin examination: Patient asked to undress to their comfort level. Verbalized that the provider???s preference is that the patient remove all clothing and that the provider will not examine areas patient elects to keep covered. Patient elects to keep underwear and socks on and have the following e xamined: scalp, hair, face, ears, neck, chest, axillae, abdomen, back, and upper and lower extremities (except feet). Genitalia and buttocks were not examined. Assessment/Plan A. Seborrheic Keratoses - Stuck on, waxy papules on the face, trunk, and extremities, including leftscalp. - Discussed benign nature of lesions and provided reassurance. No treatment necessary at this time. B. Dermal Nevus - [place], fleshy papule on the left cheek. - Discussed benign nature of lesion and provided reassurance. No treatment necessary at this time. C. Lipoma - 7 cm rubbery, subcutaneous nodule on the left upper arm. - Longstanding and unchanged. - Discussed benign nature of lesion and provided reassurance. No treatment necessary at this time. D. Benign Nevi - Scattered medium brown, evenly pigmented macules and papules on the trunk and extremities with reassuring pigment pattern on dermoscopy. - Discussed benign nature of lesions and provided reassurance. Will continue to monitor. E. History of BCC - Well-healed scars per skin history. - No evidence of recurrence; will continue to monitor. Other: ??? N/A RTC: 1 year for FSE []Note routed to departmental secretary [x]Recall placed in scheduling system []Appointment scheduled at checkout Scribe attestation: Katarzyna Sutherland and Mell Nettles CMA have performed the documentation forthis encounter in the presence of and acting as a scribe for BILL BELLA MD. I performed the above scribed service and agree with the accuracy of the documentation in this encounter. Reviewed and signed by: BILL BELLA MD Dermatology [facility] documented in this encounter Plan of Treatment Upcoming Encounters Date Type Specialty Care Team Description 08/29/2021 Hospital Encounter Cardiology Williams Rodriguez, Scre ening for cardiovascular condition; Abnormal stress test; [facility] Chest dis comfort CARDIOLOGY DEPT. [place], [place] [address] 08/29/2021 Surgery Cardiology Williams Rodriguez, CARDIAC CA THETERIZATION [facility] CARDIOLOGY DEPT. [place], [place] [address] Scheduled Procedures Name Priority Associated Diagnoses Date/Time CORONARY ANGIOGRAPHY; W Screening for cardiovasc ular 08/29/2021 9:30 AM EDT LHC,POSSIBLE PCI condition Abnormal stress test Chest discomfort documented as of this encounter Visit Diagnoses Diagnosis Seborrheic keratoses Dermal nevus Benign neoplasm of skin, site unspecifie d Lipoma of left upper extremity Multiple benign nevi Benign neoplasm of skin, site unspecifie d History of basal cell carcinoma (BCC) Screening for cardiovascular condition Screening for other and unspecified card iovascular conditions Abnormal stress test Other nonspecific abnormal cardiovascula r system function study Chest discomfort Other chest pain Screening for cardiovascular condition Screening for other and unspecified card iovascular conditions Abnormal stress test Other nonspecific abnormal cardiovascula r system function study Chest discomfort Other chest pain documented in this encounter Care Teams Checkering Machine Operator Relationship Specialty Start Date End Date Nisa Machado MD PCP - General 07/26/14 [address] [place] [address] documented as of this encounter
--- OUTSIDE RECORDS SUMMARY | 2021-08-21 09:28 | XMS_ITS | Encounter Summary ---
:1955 Author Organization [facility] Address [address] [place] [address] Care Team Providers Name Role Phone Nisa Machado MD Primary Care Provider Encounter Details Date Type Department Care Team Description 12/12/2019 Lab Requisition [facility] Encounter for Pathology & MD Ezekiel screening for Laboratory Medicine [address] [place] [address] RD of colon [address] [place] [phone] Social History Tobacco Use Types Packs/Day Years [...] Name Priority Date/Time Associated Diagnosis Comme nts SURGICAL PATHOLOGY Today 12/09/2019 10:31 Encounter for Resu lts for this EDT screening for procedure are in malignant neoplasm the resul ts of colon section. documented in this encounter Results SURGICAL PATHOLOGY (12/09/2019 10:31 EDT) Final Diagnosis A. COLON, ASCENDING, BIOPSY: [facility] - Tubular adenoma. [facility] B. COLON, HEPATIC FLEXURE, BIOPSY: SERVIC ES - Sessile serrated adenoma. C. RECTUM, BIOPSY: - Hyperplastic polyp. Attestation By the signature [facility] Amendment below, the attending CENTER electro nically physician certifies LABORATORY signed adriane Buchanan, that they have 1) SERVICES Opal Monsalve MD on personally conducted 020 at 1501 a gross and/or Electronicall y microscopic signed by Frank alva, examination of the Juanita Hooker on described 12/14/2019 at 1 052 specimen(s), and/or personally interpreted the results of laboratory testing of the described specimen(s), and 2) personally rendered or confirmed the above diagnosis. Clinical History Colorectal cancer [facility] screening; clinical CENTER diagnosis code: LABORATORY Z12.11 SERVICES Gross Description A. [facility] Received in formalin sonido d with proper patient identification (initials T, J) and A. Ascending colon polyp is a neal tissue (0.3 x 0.2 x 0.1 cm). Submitted in toto in A1. [facility] B. SERVICES Received in formalin sonido d with proper patient identification (initials T, J) and B. Hepatic flexure polyp is an aggregate of neal-brown tissue fragments (0.4 x 0.3 x 0.1 cm). Submitted in toto in B1. C. Received in formalin sonido d with proper patient identification (initials T, J) and C. Rectal polyp are 2 neal-brown tissue fragments (0.2 x 0.1 x 0.1 cm and 0.2 x 0.2 x 0.1 cm). Submitted in toto in C1. DANIEL DIAZ(ASC) 12/12/2019 8:55 Performing Lab [facility] Scanned Images [facility] SERVICES Specimen Tissue - Specimen from rectum (specimen) Tissue specimen (specimen) - Colon, Poly p Tissue specimen (specimen) - Specimen fr om rectum (specimen) Performing Organization Address City/State/ZIP Code Phon e Number [facility] [address] [place] [address] SERVICES documented in this encounter Visit Diagnoses Diagnosis Encounter for screening for malignant ne oplasm of colon Special screening for malignant neoplasm s, colon documented in this encounter Care Teams Inventory Checker Relationship Specialty Start Date End Date Nisa Machado MD PCP - General 10/08/19 [address] [place] [address] documented as of this encounter
--- OUTSIDE RECORDS SUMMARY | 2021-08-21 09:28 | XMS_ITS | Encounter Summary ---
:1955 Author Organization [facility] Address [address] [place] [address] Care Team Providers Name Role Phone Nisa Machado MD Primary Care Provider Reason for Visit Reason Comments Skin Check FSE Encounter Details Date Type Department Care Team Description 01/04/2020 Office Visit Dermatology at [facility] oplasm of uncertain behavior; Mee Cheatham MD SK (seborrheic keratosis); [address] [facility] Dermal nevus; [place] [address] Seborrheic dermatitis; [phone] [facility] History of basa l cell carcinoma (BCC) [address] [place], [place] [address] Social History Tobacco Use Types [...] documented as of this encounter Progress Notes Dilcia Bella MD - 01/04/2020 10:00 AM EST Images from the original note were not included. DERMATOLOGY ESTABLISHED PATIENT CLINIC NOTE Date of Service: 01/04/2020 Alex Calhoun : 1955 Provider: Dilcia Bella MD Chief Complaint Patient presents with ??? Skin Check FSE SKIN HX Personal History Y/N Date, location, treatment Melanoma N DN N SCC N BCC Y 06/01/18 A. Skin, right baptist, shave biopsy: - Basal cell carcinoma, infiltrating type with squamous differentiation, present at ??the peripheral and deep specimen edges S/p Mohs 06/18/2018 B. Skin, right cheek, shave ?? biopsy: - ??Basal cell carcinoma, superficial and early nodular type, present at the peripheral ??and deep specimen edges S/p Mohs 06/18/2018 AK or field cancerization therapy N 5FU/Carac: PDT: nicotinamide: [] Yes [] No Immunosuppression or malignancy N Blistering sunburns or tanning bed use N Other (i.e., eczema, psoriasis) Benign Appearing Nevi Seborrheic Keratoses Skin Tag Lipoma of Left Shoulder Relevant social history -?? 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 Family History Y/N Parents, siblings, children Melanoma Y Father NMSC N Other N Patient Preferences Preferred name Jared Preferred contact method [] Home [x] Cell [] myD-H [] Other: Permission to leave detailed message including results [x] Yes [] No Permission to discuss care with Lyudmila Preferred pharmacy [facility] Procedure Screening Questions Y/N Allergies to lidocaine or epinephrine N Blood thinners N Pacemaker or defibrillator N HPI Alex Calhoun is a 64 y.o. male, established patient last seen by me on 01/04/2019. Here today for a full skin exam with the following concerns: - [place] last [place] - Lesion on right baptist, seems to have started opening up in the last week, otherwise asymptomatic - New raised mole on the left postauricular - Dryness beneath his eyes - Raised area on left cheek Last FSE: 01/04/2019 MEDS Current Outpatient Medications Medication Sig Dispense Refill ??? HYDROcodone-acetaminophen (Thicket) 5-325 mg Tablet Take 1-2 tablets by mouth every 6 hours as needed for Pain. 10 tablet 0 No current facility-administered medications for this visit. ADR Allergies Allergen Reactions ??? Gluten Diarrhea ROS General: Feeling well Skin: Denies other skin complaints EXAM General: NAD, pleasant, cooperative Skin: Patient was asked to undress to the level of his comfort. Verbalized that the provider will not examine areas covered by underwear/mucous membranes. Patient's decision was to keep underwear and socks on and have the following examined: skin of the scalp, hair, face, ears, neck, chest, abdomen, back, axillae, upper and lower extremities, hands, and feet. Areas of face under mask examined (COVID-19): [x] Yes [] No Significant Skin Findings: A. Right baptist: 0.4cm pink scaly papule [Figure 1, Specimen A] Figure 1. A right baptist Photo(s) taken and charted with patient's verbal consent. B. Left cheek: [place], fleshy papule. C. Face, left postauricular: Brown papule/plaques with waxy stuck-on appearance. D. Eyebrows: Diffuse greasy, loosely adherent, scale E. Well-healed hypopigmented scar per skin history. ASSESSMENT/PLAN A. BCC vs. AK - Recommended a skin biopsy to confirm/clarify the nature of the skin lesion. After discussion of potential risks (scarring, bleeding, infection) and recurrence, patient agreed to proceed. - Patient denies allergy to lidocaine or epinephrine. Procedure: Skin biopsy by shave technique Location: right baptist Time: 10:30AM Discussed indications for procedure and expectations including risks and benefits. Verbal consent obtained. Skin prep with alcohol. Local anesthesia with 1% xylocaine, 1/100,000 epinephrine. A sample of the lesion was removed by shave technique to the level of the dermis and submitted to Pathology. Hemostasis obtained (AlCl and/or electrocautery). There were no complications; the pt. tolerated the procedure well. The wound was dressed. Post-procedure expectations, wound care and activity restrictions were reviewed. Follow-up based on pathology results. B. Dermal Nevus - Discussed benign nature of lesion and provided reassurance. No treatment necessary at this time. C. Seborrheic Keratoses - Etiology discussed - Patient reassured that benign in nature D. Seborrheic Dermatitis - Rx: ketoconazole 2% cream: Apply topically to affected area on the eyebrows twice daily as needed. E. H/O BCC - NER, will continue to monitor Follow Up: Based on biopsy results; otherwise RTC in 1 year (pt prefers to be seen in October 2020) for: [x] FSE [] Follow up [x] Recall placed in system [] Appointment scheduled before exiting Note initiated by: ANGELA Perales I am documenting this encounter acting as the scribe for and in the presence of Dr. Bella: Catherine Gibson I performed the above scribed service and agree with the accuracy of the documentation in this encounter. Dilcia Bella MD Radiologist Physician of Dermatology Department of Dermatology [facility] cc: Nisa Machado MD Dilcia Bella MD - 01/04/2020 10:00 AM EST CD, Biopsy shows BCC, recommend Mohs. Please notify patient and refer for Mohs. documented in this encounter Plan of Treatment Upcoming Encounters Date Type Specialty Care Team Description 08/29/2021 Hospital Encounter Cardiology Williams Rodriguez, Scre ening for cardiovascular condition; Abnormal stress test; [facility] Chest dis comfort CARDIOLOGY DEPT. [place], [place] [address] 08/29/2021 Surgery Cardiology Williams Rodriguez, CARDIAC CA THETERIZATION [facility] CARDIOLOGY DEPT. [place], [place] [address] Scheduled Procedures Name Priority Associated Diagnoses Date/Time CORONARY ANGIOGRAPHY; W Screening for cardiovasc ular 08/29/2021 9:30 AM EDT LHC,POSSIBLE PCI condition Abnormal stress test Chest discomfort documented as of this encounter Procedures Procedure Name Priority Date/Time Associated Diagnosis Comme nts SPECIMEN TO Routine 01/04/2020 11:07 AM Neoplasm of Results for this PATHOLOGY EST uncertain behavior procedure are in the results section. SURGICAL PATHOLOGY Routine 01/04/2020 10:30 AM Re sults for this REPORT EST procedure are i n the results section. documented in this encounter Results Specimen to Pathology (01/04/2020 11:07 AM EST) Specimen Anatomical Collection Method Collection Time Receive d Time (Source) Location / / Volume Laterality AP Specimen 01/04/2020 11:07 01/04/2020 4:03 AM EST PM EST Narrative [facility] - 01/04/2020 4:03 PM EST Specimen requisition ordered. ??Separate Pathology report to follow Resulting Agency Comment Spec In Lab Dilcia Bella MD PATHOLOGY/CYTOLOGY ORDERABLE S Performing Organization Address City/State/[place] [address] Surgical Pathology Report (01/04/2020 10:30 AM EST) Component Value Ref Test Analysis Performed At [facility] gist Range Method Time Signature Surgical [id number] ? Location: [facility] Report The signing pathologist has (i) examined the relevant preparation(s) for the [facility] specimen(s) and (ii) rendered or confirmed the diagnosis(es) . H[facility] . ?Surgic al Pathology DIAGNOSIS Right baptist, skin shave biopsy: - ??Basal cell carcinoma, nodular type, present at the speci men edges Electronically signed by: ??Larry Paez MD Verified: ??01/10/2020 ?Dermatopathologist Performed at: ??-[facility] Dept. of Pathology, [place], [place] SPECIMEN(S) SUBMITTED A - right baptist, skin shave biopsy (1) CLINICAL INFORMATION 4 mm pink scaly papule; BCC vs. AK SPECIMEN PROCESSING A - Labeled/Fixative: Patient demographics, formalin. Quantity/Size: ??Single, 0.4 x 0.2 x 0.1 cm. Tissue Description: Shave of granular, neal-white skin. Sections/Processing: Inked, bisected and entirely submitted in 1 cassette labeled A1. ??PPS Specimen (Source) Anatomical Collection Method Collection Time Re ceived Time Location / / Volume Laterality 01/04/2020 10:30 AM EST Dilcia Bella MD PATHOLOGY/CYTOLOGY ORDERABLE S Performing Organization Address City/State/[place] [address] documented in this encounter Visit Diagnoses Diagnosis Neoplasm of uncertain behavior Neoplasm of uncertain behavior, site uns pecified SK (seborrheic keratosis) Other seborrheic keratosis Dermal nevus Benign neoplasm of skin, site unspecifie d Seborrheic dermatitis Seborrheic dermatitis, unspecified History of basal cell carcinoma (BCC) Screening [...] pain documented in this encounter Care Teams Manager Bank Relationship Specialty Start Date End Date Nisa Machado MD PCP - General 07/26/14 [address] [place] [address] documented as of this encounter
--- OUTSIDE RECORDS SUMMARY | 2021-08-21 09:28 | XMS_ITS | Encounter Summary ---
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 Chest discomfort [facility] [place] [address] [place], [place] [phone] (Work) [phone] Social History Tobacco Use Types Packs/Day Years [...] ening for cardiovascular condition; Abnormal stress test; [facility] Chest dis comfort CARDIOLOGY DEPT. [place], [place] [address] 08/29/2021 Surgery Cardiology Williams Rodriguez, CARDIAC CA THETERIZATION [facility] CARDIOLOGY DEPT. [place], [place] [address] Scheduled Orders Name Type Priority Associated Diagnoses Order S chedule CBC (with Diff) Lab Routine Screening for Expected: 0 08/09/2021 cardiovascular c ondition (Approximate) Abnormal stress test Chest discomfort Basic Metabolic Panel Lab Routine Screening for Expec shashi: 08/09/2021 (non-fasting) cardiovascular c ondition (Approximate) Abnormal stress test Chest discomfort Scheduled Procedures Name Priority Associated Diagnoses Date/Time CORONARY ANGIOGRAPHY; W Screening for cardiovasc ular 08/29/2021 9:30 AM EDT LHC,POSSIBLE PCI condition Abnormal stress test Chest discomfort documented as of this encounter Visit Diagnoses Diagnosis Screening for cardiovascular condition Screening for other [...] pain documented in this encounter Care Teams Wind Up Worker Relationship Specialty Start Date End Date Nisa Machado MD PCP - General 07/26/14 [address] [place] [address] documented as of this encounter
--- OUTSIDE RECORDS SUMMARY | 2021-08-21 09:28 | XMS_ITS | Encounter Summary ---
:1955 Author Organization [facility] [place] [address] Care Team Providers Name Role Phone Nisa [...] Expiration Date Visits Requ ested Visits Authorized [id number] 1 1 Encounter Details Date Type Department Care Team Description 10/18/2019 Surgery Operating Room Maureen Mathis MD LAMINOTOMY, [facility] [address] DECOMPRESSION, [address] [place] [address] NEUROSURGERY-UVNN (WRVU 13.18) [phone] [place], [place] [address] (Wo rk) Social History Tobacco Use Types [...] Sign Reading Time Taken Comments Blood Pressure 156/93 10/18/2019 12:22 PM EDT Pulse 84 10/18/2019 12:22 PM EDT Temperature 36.2 ??C (97.2 ??F) 10/18/2019 11:43 AM EDT Respiratory Rate 14 10/18/2019 12:22 PM EDT Oxygen Saturation 98% 10/18/2019 12:22 PM EDT Inhaled Oxygen Concentration - - Weight 77.1 kg (170 lb) 10/18/2019 8:54 AM EDT Height 185.4 cm (6' 1) 10/18/2019 8:54 AM EDT Body Mass Index 22.43 10/18/2019 8:54 AM EDT documented in this encounter Discharge Instructions Patient InstructionsKatherine Castro PA - 10/18/2019 9:51 AM EDT Full recovery will depend on your having a strong, positive attitude, setting small goals for improvement and working steadily to accomplish each goal. FOLLOW UP APPOINTMENTS: You will be scheduled for a follow-up appointment four to six weeks after surgery with a Physician???s Metalizing Machine Operator Automatic at the surgeon???s office. You will have a follow up appointment with the neurosurgeon in three months. If you have sutures that need to be removed, a suture removal appointment will be made for 10-14 days after surgery. MEDICATIONS: ??? Take your medicine at the time your doctor ordered. ??? Keep a list of your medicines, vitamins, and herbal supplement you take. Keep this list with youat all times. Show it to your caregiver at every visit. Keep the list up-to-date. ??? Ask your caregiver or pharmacist to write an explanation of each medicine you are taking. This should include: why you are taking it, possible side effects, best time of day to take it, what foods to take the medication with or foods to avoid, and when to stop taking it. ??? Only take gioh-lma-zvklliq or prescription medicine for pain, discomfort or fever as directed byyour caregiver. ??? Consult your doctor or pharmacist with any questions. NEW MEDICATIONS AT DISCHARGE: []None []Given prescriptions in office preoperatively OR: Medication Dose/Route/ Frequency Prescription given? Reason for medication Medscape monograph discussed []Yes []No []Yes []No []Yes []No []Yes []No []Yes []No []Yes []No PAIN: ??? It is normal to have pain after your surgery; especially in the lower back. ??? This does not mean that the procedure was unsuccessful or that your recovery will be delayed. ??? Leg aching is also not uncommon. o This is primarily caused by inflammation of the previously compressed nerve. o The discomfort will gradually decrease as the nerve continues to heal. ??? You may also experience muscle spasms across your back and into your legs. ??? Medications will be given to control pain and decrease spasm intensity. ??? Moist heat and/or ice and frequent repositioning may also be helpful. DIET: ??? You may adjust your diet back to normal as your appetite returns. ??? Be sure to drink plenty of fluids, particularly water, and eat whole grain cereals, fruits and fruit juices to combat constipation that is sometimes caused by pain medications. ??? If constipation does occur, an over the counter laxative is acceptable. ??? Call your surgeon if you experience persistent nausea and vomiting. ACTIVITY: ??? Increase your activity slowly. Daily walking is the best exercise. Try to increase your distancea little each day. Go at a pace that doesn???t make you too tired or cause too much pain. ??? It is normal to tire easily for the first week or so after you return home. ??? Swimming after ten to fourteen days is encouraged, if feasible. ??? DO NOT sit for prolonged periods of time for six weeks following your surgery. o Brief periods of time, not to exceed thirty minutes are acceptable (meals or using the bathroom). o Change positions frequently to help eliminate muscle spasm and aching. o When sitting, choose a firm chair that will provide plenty of support. ??? DO NOT lift anything over five pounds. Keep in mind a gallon of milk weighs eight pounds. Do notlift anything that you cannot easily lift with one hand. ??? If you drop something on the floor, pick it up by bending at the knees to lower yourself. DO NOTbend at the waist. ACTIVITY (continued): ??? Sexual relations may be resumed during the recovery period, but positions that strain the back or cause pain should be avoided. ??? Consult your surgeon in regards to your driving status. There are no set time restrictions. Use common sense and do not attempt to resume driving until you feel completely comfortable to drive in an uninhibited manner. ??? It is recommended that you do not drive for the first 1-2 weeks or while taking narcotic pain relievers. ??? You may resume other physical activities including work only after consulting with your treatingphysician. POST ANESTHESIA/SEDATION: ??? You have received medication for sedation and comfort during your procedure. Because these have not completely left your system, please observe the following precautions: o Plan to relax for the next several hours. o DO NOT drive or operate machinery until the day after your procedure, longer as recommended by your surgeon. o Avoid alcohol for the next 24 hours. o Do not make any important personal or business decisions today. BANDAGE/SHOWERING: ??? You will have Dermabond over the incision (typically a purple glue like substance), with inner sutures that do not need to be removed. The Dermabond will gradually fall off. ??? You may have sutures that require removal. If these are used you will be scheduled for a suture removal appointment within 10 to 14 days of the procedure. ??? You may shower after three to five days. ??? Do NOT scrub the incision. ??? Pat the area dry with a towel after showering. ??? Avoid soaking (baths, hot tubs, swimming, etc) until approximately two weeks after your surgery,when your wound is all the way healed. SEEK IMMEDIATE MEDICAL CARE/CALL YOUR SURGEON IF: ??? There is redness, swelling or increasing pain at the wound. SEEK IMMEDIATE MEDICAL CARE/CALL YOUR SURGEON IF (continued): ??? You notice purulent (colored, pus-like) drainage coming from the wound. ??? You notice a foul smell coming from the wound or bandage. ??? You experience urinary problems. ??? You experience any NEW weakness or numbness in your arms or legs. ??? You develop an oral temperature above 101 degrees F. ??? There is a breaking open of the wound. The edges do not stay together after the sutures or tape has been removed. ??? There is persistent bleeding from an incision. If you have any questions, please call [facility] Neuro[facility] at [phone], during business hours of Thursday through Thursday from 8:00 a.m. until 4:00 p.m. In case of emergency duringnon-business hours, please call the same main number and follow the prompts to page the neurosurgeonon call. SMOKING CESSATION INFORMATION: ??? [place] QUITLINE: ??? [place] QUITLINE: ??? [email or web address] If you smoke, stop now! Smoking may impede healing. MAKE SURE YOU: ??? Understand these instructions. ??? Will seek medical care if you are feeling poor, or get worse. ??? Will call the surgeon???s office with any questions or concerns at : [phone] The above information has been presented or demonstrated. I/we have had the opportunity to ask questions. I/we fully understand the instructions given. I/we have received a copy of this form. documented in this encounter Medications at Time of Discharge Medication Sig Dispensed Refills Start Date End Date HYDROcodone-acetaminophe Take 1-2 tablets by 10 tablet 0 03/14/2020 n (Croswell) 5-325 mg mouth every 6 hours Tablet as needed for Pain. documented as of this encounter Progress Notes Sarah Duron RN - 10/18/2019 1:10 PM EDT Pt walked to BR with gait belt and stand by assist. All instruction reviewed and written given to ptand family by Charlette Mota RN. No further questions at this time. documented in this encounter H&P Notes Katherine Castro PA - 10/18/2019 9:30 AM EDT Patient Name: Alex Calhoun Patient Age: 64 y.o. Birthdate: 1955 Admit date: 10/18/2019 Attending Physician: Jelani Zuñiga MD The patient's history and physical exam have been reviewed and completed. There has been no intervalchange from that of the pre-operative history and physical exam done within the last 30 days. documented in this encounter Miscellaneous Notes Op Note - Jelani Zuñiga MD - 10/18/2019 11:41 AM EDT [facility] [place] [address] Patient Name: Alex Calhoun : [id number] MR#: [id number] Case Date: 10/18/2019 Case Scheduled Time: 1003 Surgeon: Surgeon(s) and Role: * Jelani Zuñiga MD - Primary * Katherine Castro PA - Physician Metalizing Machine Operator Automatic Preoperative diagnosis: HNP Postoperative diagnosis: HNP Procedure(s) (LRB): LAMINOTOMY, DECOMPRESSION, FORAMINOTOMY, LUMBAR (WRVU 13.18) (Left) MICROSCOPE USE (WRVU 3.46) (Left) Anesthesia: General Estimated Blood Loss: * No values recorded between 10/18/2019 10:30 AM and 10/18/2019 11:23 AM * Specimens removed during surgery: None Drains: * No LDAs found * Surgical Closure: Primary Closure - skin incision is completely closed without any wires, milena, drains or other devices Disposition: awakened from anesthesia, extubated and taken to the recovery room in a stable condition, having suffered no apparent untoward event. Condition: doing well without problems Complications: none (Please see the Surgical Encounter Summary for any Implant and Specimen details pertinent to this patient.) Findings: hnp. No complications or problems. No csf. No unusual bleeding. No motor discharges. Sponge and needle counts correct. Correct level confirmed at multiple points throughout the surgery with intraoperative fluoroscopy and of course the intraoperative findings. Surgical Indications: Alex Calhoun is a 64 y.o. year old male who is suffering from a ruptured lumbar disc at L4/5 eccentric to the left. Please refer to my office notes for details of presentation,findings on exam, and medical decision making. he has requested that we consider surgical treatment of this condition. Pros and cons, rationale and risks, options and alternatives have been thoroughly reviewed. The patient acknowledges the extensive list of risk of this surgery as explained in no uncertain terms. The patient acknowledges that I cannot provide a guarantee regarding the success of the p rocedure, the avoidance of complication, or the durability of the result. There has been ample opportunity for the patient to ask and have answered any and all questions, seek any additional information needed to make an informed decision, or seek additional professional opinion if desired. Understanding all of this, he requests that we proceed with operation. Procedure Description: Alex Calhoun was brought into the operating room. he underwent induction of a general endotracheal anesthetic, positioned prone and padded appropriately. The back was then prepped and draped in usual sterile fashion. We paused to confirm the patient's name and identifying information, site and type of surgery to be performed, presence of films if needed, availability of all anticipated necessary equipment and implants, administration of antibiotics and discussion of all other data relevant and required by the preoperative check-list. Once this had all been confirmed, we proceeded to localize the operative level fluoroscopically. Incision was made in the midline to allow access to the operative level. Dissection of the subcutaneous tissues was carried out using the monopolar electrocautery. A self retaining retractor was inserted. We opened the lumbar fascia in the midline, preserving the interspinous ligament. We then elevated the paraspinal musculature on the left side at the L 4/5 level. This was done in the subpereosteal plane. A Montanez retractor was utilized to maintain our exposure. We confirmed our level again with the fluoroscope. We brought in the high-powered operative microscope. Hemilaminotomy was performed along with a limited medial facetectomy. The ligamentum flavum was opened and removed in piecemeal fashion. Under the microscope, we were able tomobilize the thecal sac and nerve root, thereby exposing the disc herniation. The disc material was removed and the nerve root and thecal sac sufficiently decompressed. We followed the disc herniation back to the hiatus which would not permit passage of an instrument and appeared to be scarred down. Please see the Findings section for additional detail. We inspected thoroughly to ensure complete hemostasis. The dura was soft and pulsatile. There was no CSF seen. The retractors were released. The soft tissues were inspected to ensure complete hemostasis. We then infiltrated the paraspinal musculature, subcutaneous and subcuticular tissues with a mixture of exparel and 0.5% bupivacaine. The wound was flushed thoroughly with antibiotic irrigant. The effluent was crystal clear. Fentanyl epidural anesthetic was instilled. The lumbar fascia was reapproximated with interrupted 2-0 Vicryl sutures. Thesubcutaneous tissues were closed with inverted 2-0 Vicryl sutures. The subcuticular layer was closedwith inverted 3-0 Vicryl sutures. The skin edges were approximated with Dermabond, Benzoin and papertape. The patient was then allowed to awaken from anesthetic and transferred to the post-anesthesia c are unit in stable condition. Infection Bundle used? N/A Katherine Castro PA-C worked under my direction for the duration of the operative session. The medical billing assistant adequately prepped the operative site and maintained the best possible exposure of anatomy incident to the procedure. Jelani Zuñiga MD 10/18/2019 documented in this encounter Plan of Treatment Upcoming Encounters Date Type Specialty Care Team Description 08/29/2021 Hospital Encounter Cardiology [place], Scre ening for cardiovascular condition; Abnormal stress test; [facility] Chest dis comfort CARDIOLOGY DEPT. [place], [place] [address] 08/29/2021 Surgery Cardiology [place], CARDIAC CA THETERIZATION [facility] CARDIOLOGY DEPT. [place], [place] [address] Scheduled Procedures Name Priority Associated Diagnoses Date/Time CORONARY ANGIOGRAPHY; W Screening for cardiovasc ular 08/29/2021 9:30 AM EDT LHC,POSSIBLE PCI condition Abnormal stress test Chest discomfort documented as of this encounter Procedures Procedure Name Priority Date/Time Associated Comments Diagnosis XR FLUORO NO RAD Routine 10/18/2019 11:30 AM Resu lts for this <1HR - OR USE EDT procedure are in the results section. MICROSCOPE USE (WRVU 10/18/2019 10:09 AM HNP 3.46) EDT LAMINOTOMY, 10/18/2019 10:09 AM HNP DECOMPRESSION, EDT FORAMINOTOMY, LUMBAR (WRVU 13.18) documented in this encounter Results XR Fluoro No Rad <1Hr - OR Use (10/18/2019 11:30 AM EDT) Specimen (Source) Anatomical Location Collection Method / Collectio n Time Received Time / Laterality Volume Narrative RAD - 10/18/2019 11:30 AM EDT This exam is auto-finalizing. No interpr etation was done. Jelani Zuñiga MD IMG FLUORO ORDERABLES Performing Organization Address City/State/ZIP Code Phon e Number [place], [place] documented in this encounter Visit Diagnoses Not on filedocumented in this encounter Administered Medications Inactive Administered Medications - up to 3 most recent administrations Medication Order MAR Action Action Date Dose Rate Site BUpivacaine (PF) Given 10/18/2019 10:40 AM 30 mLs 19- Surgical Site (MARCAINE) 0.5 % (5 EDT mg/mL) injection ONCE PRN, Starting on 10/18/19 at 1040, Until Tu10/18/19 at 1310, Intra-Operative (Intra-Procedure), Routine BUpivacaine liposome (PF) Given 10/18/2019 10:41 AM 20 mLs 19- Surgical Site (EXPAREL) 1.3 % (13.3 mg/mL) EDT injection for infiltration ONCE PRN, Starting on 10/18/19 at 1041, Until 10/18/19 at 1310, Intra-Operative (Intra-Procedure) ceFAZolin (Ancef) injection Given 10/18/2019 10:41 AM EDT 1 g 19- Surgical Site ONCE PRN, Starting on 10/18/19 at 1041, Until 10/18/19 at 1310, Intra-Operative (Intra-Procedure), Routine HYDROcodone-acetaminophen (Croswell) 5-325 mg Given 10/17 12:22 PM EDT 1 tablet per tablet 2 tablet 2 tablet, Oral, EVERY 4 HOURS PRN, Starting on Thu10/18/19 at 1153, Until Thu10/18/19 at 1309, Pain, For moderate to severe pain (4-10) Initial dose 5mg. If pain control not adequate in 60 minutes, give an additional 5 mg., PACU Recovery, Routine lactated ringers infusion New Bag 10/18/2019 9:15 AM EDT 1,000 mLs 50 mL/hr 1,000 mL, at 50 mL/hr, Intravenous, CONTINUOUS, Starting on Thu10/18/19 at 1030, Until Thu10/18/19 at 1309, Day of Surgery (Day of Procedure) thrombin (bovine) Given 10/18/2019 10:42 AM 5,000 Units 19- Surgical Site (THROMBIN-JMI) solution EDT ONCE PRN, Starting on Thu10/18/19 at 1042, Until Thu10/18/19 at 1310, Intra-Operative (Intra-Procedure) documented in this encounter Active and Recently Administered Medications Times are shown in EDT. Scheduled Medication Order 10/16/2019 10/17/2019 10/18/2019 ceFAZolin (Ancef) 2 g in dextrose 5% 100 mL infusion (COMPLETED) 1023 (Given - Provider: Jeff Beverly CRNA) 2 g, Intravenous, ONCE, 1 dose, 10/17 at 0915, Administer over 30 Minutes, To be administered upon arrival to the OR within one hour prior to incision., Day of Surgery (Day of Procedure), Indication for (Active or Suspected): Prophylaxis Continuous Medication Order 10/16/2019 10/17/2019 10/18/2019 lactated ringers infusion (CANCELED) 0915 (New Bag - Provider: Sloane Myrick RN)1010 (Anesthesia Volume Adjustment - Provider: Jeff Beverly CRNA) 1,000 mL, at 50 mL/hr, Intravenous, CONT INUOUS, Starting e 10/18/19 at 1030, Until Thu10/18/19 at 1309, Day of Surgery (Day of Procedure) PRN Medication Order 10/16/2019 10/17/2019 10/18/2019 BUpivacaine (PF) (MARCAINE) 0.5 % (5 mg/mL) injection (CANCELED) 1040 (Given - Provider: Jelani Zuñiga MD) ONCE PRN, Starting 10/18/19 at 1040, Until 10/18/19 at 1310, Intra- Operative (Intra-Procedure), Routine BUpivacaine liposome (PF) (EXPAREL) 1.3 % (13.3 mg/mL) injection for infiltration (CANCELED) 1041 (Given - Pr ovider: Jelani Zuñiga MD) ONCE PRN, Starting 10/18/19 at 1041, Until 10/18/19 at 1310, Intra- Operative (Intra-Procedure), Routine ceFAZolin (Ancef) injection (CANCELED) 1041 (Given - Provider: Jelani Zuñiga MD - Comment: 1 G Ancef in 1,000 mL NS) ONCE PRN, Starting 10/18/19 at 1041, Until 10/18/19 at 1310, Intra- Operative (Intra-Procedure), Routine HYDROcodone-acetaminophen ([place]) 5-325 mg per tablet 2 tablet ( CANCELED) 1222 (Given - Provider: Gricel Mota RN) 2 tablet, Oral, EVERY 4 HOURS PRN, Start ing e 10/18/19 at 1153, Until 10/18/19 at 1309, Pain, For moderate to severe pain (4-10) Initial dose 5mg. If pain control not adequate in 60 minutes, give an additional 5 mg., PACU Recovery, Routine thrombin (bovine) (THROMBIN-JMI) solution (CANCELED) 1042 (Given - Provider: Jelani Zuñiga MD) ONCE PRN, Starting 10/18/19 at 1042, Until 10/18/19 at 1310, Intra- Operative (Intra-Procedure) documented in this encounter Care Teams Bottom Turner Relationship Specialty Start Date End Date Nisa Machado MD PCP - General 07/26/14 [address] [place] [address] documented as of this encounter
--- OUTSIDE RECORDS SUMMARY | 2021-08-21 09:29 | XMS_ITS | Encounter Summary ---
:1955 Author Organization [facility] Address [address] [place] [address] Care Team Providers Name Role Phone Nisa Machado MD Primary Care Provider Encounter Details Date Type Department Care Team Description 06/18/2018 Telephone Dermatology at [facility] Nadia Pittman RN [address] [place] [address] Social History Tobacco Use Types Packs/Day Years Used Date Never Smoker Sex Assigned at Date Recorded Male 01/25/2021 11:16 AM EST documented as of this encounter Miscellaneous Notes Telephone Encounter - Nadia Pittman RN - 06/18/2018 2:57 PM EDT Returned Alex's call regarding wound care. Instructions reviewed, patient verbalized understanding and will call with any further questions. documented in this encounter Plan of Treatment Upcoming Encounters Date Type Specialty Care Team Description 08/29/2021 Hospital Encounter Cardiology [place], Scre ening for cardiovascular condition; Abnormal stress test; [facility] Chest dis comfort DR CARDIOLOGY DEPT. [place], [place] [address] 08/29/2021 Surgery Cardiology [place], CARDIAC CA THETERIZATION [facility] CARDIOLOGY DEPT. [place], [place] [address] Scheduled Procedures Name Priority Associated Diagnoses Date/Time CORONARY ANGIOGRAPHY; W Screening for cardiovasc ular 08/29/2021 9:30 AM EDT LHC,POSSIBLE PCI condition Abnormal stress test Chest discomfort documented as of this encounter Visit Diagnoses Not on filedocumented in this encounter Care Teams Client Technical Support Associate Relationship Specialty Start Date End Date Nisa Machado MD PCP - General 07/26/14 [address] [place] [address] documented as of this encounter
--- OUTSIDE RECORDS SUMMARY | 2021-08-21 09:29 | XMS_ITS | Encounter Summary ---
:1955 Author Organization [facility] [place] [address] Care Team Providers Name Role Phone Nisa Machado MD Primary Care Provider Encounter Details Date Type Department Care Team Description 10/17/2019 External Results Pre-Admission Testing at [facility] [address] [place] [address] Social History Tobacco Use Types Packs/Day [...] Description 08/29/2021 Hospital Encounter Cardiology [place], Alexia ening for cardiovascular condition; Abnormal stress test; [facility] Chest dis comfort DR CARDIOLOGY DEPT. [place], [place] [address] 08/29/2021 Surgery Cardiology [place], CARDIAC CA THETERIZATION [facility] CARDIOLOGY DEPT. [place], [place] [address] Scheduled Procedures Name Priority Associated Diagnoses Date/Time CORONARY ANGIOGRAPHY; W Screening for cardiovasc ular 08/29/2021 9:30 AM EDT LHC,POSSIBLE PCI condition Abnormal stress test Chest discomfort documented as of this encounter Procedures Procedure Name Priority Date/Time Associated Diagnosis Comme nts LAB SCAN Routine 10/17/2019 Results for thi s procedure are in the resu lts section. ECG SCAN Routine 10/17/2019 Results for thi s procedure are in the resu lts section. documented in this encounter Results Scan Doc: Lab (10/17/2019) Narrative This result has an attachment that is no t available. Historical Provider MEDIA MGR SCAN EXT ORDR/RSLT Scan Doc: ECG (10/17/2019) Narrative This result has an attachment that is no t available. Historical Provider MEDIA MGR SCAN EXT ORDR/RSLT documented in this encounter Visit Diagnoses Not on filedocumented in this encounter Care Teams Forestry Aid Relationship Specialty Start Date End Date Nisa Machado MD PCP - General 07/26/14 [address] [place] [address] documented as of this encounter
--- OUTSIDE RECORDS SUMMARY | 2021-08-21 09:29 | XMS_ITS | Encounter Summary ---
:1955 Author Organization [facility] [place] [address] Care Team Providers Name Role Phone Nisa [...] Expiration Date Visits Requ ested Visits Authorized [id number] 1 1 Encounter Details Date Type Department Care Team Description 10/18/2019 Hospital Encounter Post Acute Care Jelani Zuñiga acement of lumbar Unit at Estela Cardenas MD intervertebral disc Day 10 [address] without myelopathy [address] [place] [facility] [address] [place] [address] Social History Tobacco Use Types Packs/Day Years [...] Sign Reading Time Taken Comments Blood Pressure 174/99 10/18/2019 12:50 PM EDT Pulse 76 10/18/2019 12:50 PM EDT Temperature 36.2 ??C (97.2 ??F) [...] six weeks after surgery with a Physician???s Embossing Unit Operator at the surgeon???s office. You will have [...] to stop taking it. ??? Only take volz-nts-meajreg or prescription medicine for pain, discomfort or [...] If you have any questions, please call [facility] Neurology and Neurosurgery at [phone], during business hours of Thursday through Thursday from 8:00 a.m. until 4:00 p.m. In case of emergency duringnon-business hours, please call the same main number and follow the prompts to page the neurosurgeonon call. SMOKING CESSATION INFORMATION: ??? [place] QUITLINE: ??? [place] QUITLINE: ??? www.[employer] If you smoke, stop now! Smoking may impede healing. MAKE SURE YOU: ??? Understand these instructions. ??? Will seek medical care if you are feeling poor, or get worse. ??? Will call the surgeon???s office with any questions or concerns at : [phone] The above information has been presented or demonstrated. I/we have had the opportunity to ask questions. I/we fully understand the instructions given. I/we have received a copy of this form. documented in this encounter Medications at Time of Discharge Medication Sig Dispensed Refills Start Date End Date HYDROcodone-acetaminophe Take 1-2 tablets by 10 tablet 0 03/14/2020 n ([place]) 5-325 mg mouth every 6 hours Tablet [...] Zuñiga MD - 10/18/2019 11:41 AM EDT [facility] [place] [address] Patient Name: Alex Calhoun : [id number] MR#: [id number] Case Date: 10/18/2019 Case Scheduled Time: 1003 Surgeon: Surgeon(s) and Role: * Jelani Zuñiga MD - Primary * Katherine Castro PA - Physician Embossing Unit Operator Preoperative diagnosis: HNP Postoperative diagnosis: HNP Procedure(s) [...] the duration of the operative session. The nurses medical assistants phlebotomists adequately prepped the operative site and maintained the best possible exposure of anatomy incident to the procedure. Jelani Zuñiga MD 10/18/2019 documented in this encounter Plan of Treatment Upcoming Encounters Date Type Specialty Care Team Description 08/29/2021 Hospital Encounter Cardiology Williams Rodriguez, Scre ening for cardiovascular condition; Abnormal stress test; [facility] Chest dis comfort CARDIOLOGY DEPT. [place], [place] [address] 08/29/2021 Surgery Cardiology Williams Rodriguez, CARDIAC CA THETERIZATION [facility] CARDIOLOGY DEPT. [place], [place] [address] Scheduled Procedures Name Priority Associated [...] Time Received Time / Laterality Volume Narrative DH RAD - 10/18/2019 11:30 AM EDT This exam is auto-finalizing. No interpr etation was done. Jelani Zuñiga MD IMG FLUORO ORDERABLES Performing Organization Address City/State/ZIP Code Phon e Number RAD RAD [place], [place] documented in this encounter Visit Diagnoses Diagnosis Displacement of lumbar intervertebral di sc without myelopathy Screening for cardiovascular condition Screening for other and unspecified card iovascular conditions Abnormal stress test Other nonspecific abnormal cardiovascula r system function study Chest discomfort Other chest pain Screening for cardiovascular condition Screening for other and unspecified card iovascular conditions Abnormal stress test Other nonspecific abnormal cardiovascula r system function study Chest discomfort Other chest pain documented in this encounter Administered Medications Inactive Administered Medications - up to 3 most recent administrations Medication Order MAR Action Action Date Dose Rate Site HYDROcodone-acetaminophen Given 10/18/2019 12:22 PM EDT 1 tablet ([place]) 5-325 mg per tablet 2 tablet 2 tablet, Oral, [...] 1309, Day of Surgery (Day of Procedure) documented in this encounter Active and Recently Administered Medications Times are shown in EDT. Scheduled Medication Order 10/16/2019 10/17/2019 10/18/2019 ceFAZolin (Ancef) 2 g in dextrose 5% 100 mL infusion (COMPLETED) 1023 (Given - Provider: Jeff Beverly CRNA) 2 g, Intravenous, ONCE, 1 dose, Tue 10/17 at 0915, Administer over 30 Minutes, [...] at 50 mL/hr, Intravenous, CONT INUOUS, Starting 10/18/19 at 1030, Until 10/18/19 at 1309, Day of Surgery (Day of [...] ovider: Jelani Zuñiga MD) ONCE PRN, Starting Tue 8/ at 1041, Until Tue 8/20 at 1310, Intra- Operative (Intra-Procedure), Routine ceFAZolin (Ancef) injection (CANCELED) 1041 (Given - Provider: Jelani Zuñiga MD - Comment: 1 G Ancef in 1,000 mL NS) ONCE PRN, Starting Tue 8/ at 1041, Until Tue 8 at 1310, Intra- Operative (Intra-Procedure), Routine HYDROcodone-acetaminophen ([place]) 5-325 mg per tablet 2 tablet ( CANCELED) 1222 (Given - Provider: Gricel Mota RN) 2 tablet, Oral, EVERY 4 HOURS PRN, Start ing Thu10/18/19 at 1153, Until Thu10/18/19 at 1309, Pain, For moderate to severe pain (4-10) Initial dose 5mg. If pain control not adequate in 60 minutes, give an additional 5 mg., PACU Recovery, Routine thrombin (bovine) (THROMBIN-JMI) solution (CANCELED) 1042 (Given - Provider: Jelani Zuñiga MD) ONCE PRN, Starting e 10/18/19 at 1042, Until Thu10/18/19 at 1310, Intra- Operative (Intra-Procedure) documented in this encounter Care Teams Geriatric Nurse Practitioner Relationship Specialty Start Date End Date Nisa Machado MD PCP - General 07/26/14 [address] [place] [address] documented as of this encounter
--- OUTSIDE RECORDS SUMMARY | 2021-08-21 09:29 | XMS_ITS | Encounter Summary ---
:1955 Author Organization [facility] [place] [address] Care Team Providers Name Role Phone Nisa Machado MD Primary Care Provider Encounter Details Date Type Department Care Team Description 06/04/2018 Telephone Dermatology at [facility] [address] Call, Shaka Cedeno MD [address] [facility] [address] [facility] [phone] [place], [place] [address] (Wo rk) Social History Tobacco Use Types Packs/Day Years Used Date Never Smoker Sex Assigned at Date Recorded Male 01/25/2021 11:16 AM EST documented as of this encounter Miscellaneous Notes Telephone Encounter - Shaka Hagen - 06/04/2018 6:14 PM EDT Called patient to discuss the following biopsy results: Surgical Pathology DIAGNOSIS A. Skin, right jew, shave biopsy: - Basal cell carcinoma, infiltrating type with squamous differentiation, present at the peripheral and deep specimen edges B. Skin, right cheek, shave biopsy: - Basal cell carcinoma, superficial and early nodular type, present at the peripheral and deep specimen edges We reviewed the etiology of the diagnosis. After reviewing various treatment options, joint decisionto treat with Mohs. Instructed patient that he will be contacted by physician office secretary for further scheduling. Otherwise, patient states that the biopsy site is healing well. Instructed to continue with follow up in for 6 months for FBSE and to call with any questions or concerns. documented in this encounter Plan of Treatment Upcoming Encounters Date Type Specialty Care Team Description 08/29/2021 Hospital Encounter Cardiology Williams Rodriguez, Scre ening for cardiovascular condition; Abnormal stress test; [facility] Chest dis comfort DR CARDIOLOGY DEPT. [place], [place] [address] 08/29/2021 Surgery Cardiology Williams Rodriguez, CARDIAC CA THETERIZATION [facility] CARDIOLOGY DEPT. [place], [place] [address] Scheduled Procedures Name Priority Associated Diagnoses Date/Time CORONARY ANGIOGRAPHY; W Screening for cardiovasc ular 08/29/2021 9:30 AM EDT LHC,POSSIBLE PCI condition Abnormal stress test Chest discomfort documented as of this encounter Visit Diagnoses Not on filedocumented in this encounter Care Teams Neighborhood Planner Relationship Specialty Start Date End Date Nisa Machado MD PCP - General 07/26/[address] [place] [address] documented as of this encounter
--- OUTSIDE RECORDS SUMMARY | 2021-08-21 09:29 | XMS_ITS | Encounter Summary ---
:1955 Author Organization [facility] [place] [address] Care Team Providers Name Role Phone Nisa Machado MD Primary Care Provider Encounter Details Date Type Department Care Team Description 10/11/2019 Ancillary Procedure Radiology Library at [facility], Ara Cardenas [facility] [place] [address] [facility] [phone] [place], [place] [address] (Wo rk) Social History Tobacco Use Types Packs/Day Years Used Date Never Smoker Smokeless Tobacco: Never Used Sex Assigned at Date Recorded Male 01/25/2021 11:16 AM EST documented as of this encounter Plan of Treatment Upcoming Encounters Date Type Specialty Care Team Description 08/29/2021 Hospital Encounter Cardiology Williams Rodriguez, Scre ening for cardiovascular condition; Abnormal stress test; [facility] Chest dis comfort CARDIOLOGY DEPT. [place], [place] [address] 08/29/2021 Surgery Cardiology Williams Rodriguez, CARDIAC CA THETERIZATION [facility] CARDIOLOGY DEPT. [place], [place] [address] Scheduled Procedures Name Priority Associated Diagnoses Date/Time CORONARY ANGIOGRAPHY; W Screening for cardiovasc ular 08/29/2021 9:30 AM EDT C,POSSIBLE PCI condition Abnormal stress test Chest discomfort documented as of this encounter Procedures Procedure Name Priority Date/Time Associated Diagnosis Comme nts FILM LIBRARY Routine 10/11/2019 11:22 AM Results for this STORAGE ONLY MR EDT procedure ar e in SPINE the results section. documented in this encounter Results Film Library- Storage Only MR Spine (10/11/2019 11:22 AM EDT) Specimen (Source) Anatomical Location Collection Method / Collectio n Time Received Time / Laterality Volume Narrative RAD - 10/11/2019 11:22 AM EDT This exam is auto-finalizing. It's purpo se is for storage only. Jay Moore MD IMG FILM LIBRARY ORDERABLES Performing Organization Address City/State/ZIP Code Phon e Number [place], [place] documented in this encounter Visit Diagnoses Not on filedocumented in this encounter Care Teams Religion Department Chair Relationship Specialty Start Date End Date Nisa Machado MD PCP - General 07/26/14 [address] [place] [address] documented as of this encounter
--- OUTSIDE RECORDS SUMMARY | 2021-08-21 09:29 | XMS_ITS | Encounter Summary ---
:1955 Author Organization [place] [address] Care Team Providers Name Role Phone Nisa Machado MD Primary Care Provider Encounter Details Date Type Department Care Team Description 06/25/2018 Telephone Dermatology at [facility] Shaka Hagen MD [address] [facility] [place] [address] [facility] [phone] [place], [place] [address] (Wo rk) Social History Tobacco Use Types Packs/Day Years Used Date Never Smoker Sex Assigned at Date Recorded Male 01/25/2021 11:16 AM EST documented as of this encounter Miscellaneous Notes Telephone Encounter - Ca [place] - 06/25/2018 1:58 PM EDT I received a phone call from Alex Calhoun wanting to know if Dr. Hagen wanted to see him back for any kind of follow up. He did not have one scheduled. He had his mohs surgery done on 06/[address] Abebe did not mention anything about him coming back. He would like a call back at [phone] and it is ok to leave detailed message. documented in this encounter Plan of Treatment Upcoming Encounters Date Type Specialty Care Team Description 08/29/2021 Hospital Encounter Cardiology Williams Rodriguez, Scre ening for cardiovascular condition; Abnormal stress test; [facility] Chest dis comfort CARDIOLOGY DEPT. [place], [place] [address] 08/29/2021 Surgery Cardiology Williams Rodriguez, CARDIAC CA THETERIZATION MD [facility] CARDIOLOGY DEPT. [place], [place] [address] Scheduled Procedures Name Priority Associated Diagnoses Date/Time CORONARY ANGIOGRAPHY; W Screening for cardiovasc ular 08/29/2021 9:30 AM EDT LHC,POSSIBLE PCI condition Abnormal stress test Chest discomfort documented as of this encounter Visit Diagnoses Not on filedocumented in this encounter Care Teams Ply Splicer Relationship Specialty Start Date End Date Nisa Machado MD PCP - General 07/26/[address] [place] [address] documented as of this encounter
--- OUTSIDE RECORDS SUMMARY | 2021-08-21 09:29 | XMS_ITS | Encounter Summary ---
:1955 Author Organization [facility] [place] [address] Care Team Providers Name Role Phone Nisa Machado MD Primary Care Provider Reason for Visit Reason Comments Skin Check Encounter Details Date Type Department Care Team Description 10/13/2014 Office Visit Dermatology at [facility]; [place] MD Seborrheic keratosis [address] Brice B DERMATOLOGY [place], [place] [id number] [phone] Social History Tobacco Use Types Packs/Day Years Used Date Never Smoker Sex Assigned at Date Recorded Male 01/25/2021 11:16 AM EST documented as of this encounter Progress Notes Sher Haney MD - 10/13/2014 10:19 AM EDT Problem: Skin check. Jared is a 59-year-old gentleman who is referred today by Dr. Nisa Machado and Jay Cao for a general skin check. He has no personal history of skin cancer or melanoma. He had one mole on his right elbow that was once biopsied but came back benign. He is not aware of any personal or family history of skin cancer or melanoma. Physical examination reveals a pleasant 59-year-old gentleman who has a benign examination of the balding parietal scalp, the head and the neck, the chest, the back, hands, arms, forearms, thighs, and calves, feet, including the soles of the feet and the toe web spaces. Examination of the buttocks is also unremarkable. He has a seborrheic keratosis 1 cm in diameter on the left temporal scalp. Assessment and Plan: Benign skin examination. a. Patient reassured about benign skin examination. b. Discussed recognition of skin cancer. c. Reinforced sun avoidance precautions. d. Recommend that I see him p.r.n. for any skin lesions of concern. COPY: Jay Cao M.D. documented in this encounter Plan of Treatment Upcoming Encounters Date Type Specialty Care Team Description 08/29/2021 Hospital Encounter Cardiology Williams Rodriguez, Scre ening for cardiovascular condition; Abnormal stress test; [facility] Chest dis comfort DR CARDIOLOGY DEPT. [place], [place] [address] 08/29/2021 Surgery Cardiology Williams Rodriguez, CARDIAC CA THETERIZATION [facility] CARDIOLOGY DEPT. [place], [place] [address] Scheduled Procedures Name Priority Associated Diagnoses Date/Time CORONARY ANGIOGRAPHY; W Screening for cardiovasc ular 08/29/2021 9:30 AM EDT C,POSSIBLE PCI condition Abnormal stress test Chest discomfort documented as of this encounter Visit Diagnoses Diagnosis Nevus Benign neoplasm of skin, site unspecifie d Seborrheic keratosis Other seborrheic keratosis Screening for cardiovascular condition Screening for other and unspecified card iovascular conditions Abnormal stress test Other nonspecific abnormal cardiovascula r system function study Chest discomfort Other chest pain Screening for cardiovascular condition Screening for other and unspecified card iovascular conditions Abnormal stress test Other nonspecific abnormal cardiovascula r system function study Chest discomfort Other chest pain documented in this encounter Care Teams Care Transition Mgr Relationship Specialty Start Date End Date Nisa Machado MD PCP - General 07/26/14 [address] [place] [address] documented as of this encounter
--- OUTSIDE RECORDS SUMMARY | 2021-08-21 09:29 | XMS_ITS | Encounter Summary ---
:1955 Author Organization [facility] [place] [address] Care Team Providers Name Role Phone Nisa Machado MD Primary Care Provider Encounter Details Date Type Department Care Team Description 10/17/2019 Telephone Pre-Admission Jimena maria at [facility] [address] [place] [address] Social History Tobacco Use Types Packs/Day [...] documented as of this encounter Progress Notes Francine Cisneros RN - 10/17/2019 2:21 PM EDTSummary: covid screen EXPOSURE: Have you been in contact with anyone suspected of or confirmed to have COVID-19 in the PAST 14 DAYS? []Yes [x]No COVID-19 SCREENING: In the past 14 days, have you had any of the following symptoms: [] Fever (subjective or documented fever) [] Chills [] Cough [] Shortness of breath or difficulty breathing [] Fatigue [] Muscle or body aches [] Headache [] New loss of taste or smell [] Sore throat [] Nausea or vomiting [] Diarrhea [x]NONE OF THE ABOVE documented in this encounter Plan of Treatment Upcoming Encounters Date Type Specialty Care Team Description 08/29/2021 Hospital Encounter Cardiology Williams Rodriguez, Scre ening for cardiovascular condition; Abnormal stress test; [facility] Chest dis comfort CARDIOLOGY DEPT. [place], [place] [address] 08/29/2021 Surgery Cardiology Williams Rodriguez, CARDIAC CA THETERIZATION [facility] CARDIOLOGY DEPT. [place], [place] [address] Scheduled Procedures Name Priority Associated Diagnoses Date/Time CORONARY ANGIOGRAPHY; W Screening for cardiovasc ular 08/29/2021 9:30 AM EDT LHC,POSSIBLE PCI condition Abnormal stress test Chest discomfort documented as of this encounter Visit Diagnoses Not on filedocumented in this encounter Care Teams Waterproof Material Folder Relationship Specialty Start Date End Date Nisa Machado MD PCP - General 07/26/14 [address] [place] [address] documented as of this encounter
--- OUTSIDE RECORDS SUMMARY | 2021-08-21 09:29 | XMS_ITS | Encounter Summary ---
:1955 Author Organization [facility] [place] [address] Care Team Providers Name Role Phone Nisa Machado MD Primary Care Provider Reason for Visit Reason Comments Skin Check Focused Exam Encounter Details Date Type Department Care Team Description 01/04/2019 Office Visit Dermatology at [facility] De rmal nevus; Mee Cheatham MD SK (seborrheic keratosis); [address] [facility] History of basal cell carcin kirsten (BCC) [place] [address] [address] [phone] [facility] [place], [place] [address] Social History Tobacco Use Types Packs/Day Years Used Date Never Smoker Smokeless Tobacco: Never Used Sex Assigned at Date Recorded Male 01/25/2021 11:16 AM EST documented as of this encounter Progress Notes Dilcia Bella MD - 01/04/2019 11:15 AM EST DERMATOLOGY ESTABLISHED PATIENT CLINIC NOTE Date of service: 01/04/2019 Alex Calhoun : 1955 Provider: Dilcia Bella MD Chief Complaint Patient presents with ??? Skin Check Focused Exam SKIN HISTORY: 06/01/18 A. Skin, right adventism, shave biopsy: - Basal cell carcinoma, infiltrating type with squamous differentiation, present at ??the peripheral and deep specimen edges B. Skin, right cheek, shave ?? biopsy: - ??Basal cell carcinoma, superficial and early nodular type, present at the peripheral ??and deep specimen edges Other: Benign Appearing Nevi Seborrheic Keratoses Skin Tag Lipoma of Left Shoulder ?? Family History: Melanoma: Father ?? 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 No Pacemaker or Defibrillator? No Preferred name: Jared Preferred method of contact for results: Cell Phone OK to leave detailed message including biopsy results?: Yes Are there any other people with whom we may discuss your care with? , Lyudmila Porter Preferred Pharmacy? [facility] Alex Calhoun is a 63 y.o. year old male, established patient, new to me. Last seen by Dr. Hagen on06/01/18. Here today for a focused exam. Patient reports a raised spot on his left cheek, noticed inthe spring. Denies any associated itching, bleeding, or pain. MEDS: Current Outpatient Medications Medication Sig Dispense Refill ??? rosuvastatin (CRESTOR) 10 mg Tablet take 1 tablet by mouth once daily 0 No current facility-administered medications for this visit. ADR: Allergies Allergen Reactions ??? Gluten ROS General: feeling well Skin: denies other skin complaints EXAM General: NAD, pleasant, cooperative Skin: A focused skin examination of the face, significant for??the following: Significant skin findings: A. Left cheek: [place], fleshy papule. B. Face: Brown papule/plaques with waxy stuck-on appearance. C. Right adventism, right cheek: Well-healed hypopigmented scars per skin history. ASSESSMENT/PLAN: A. Dermal Nevus - Discussed benign nature of lesion and provided reassurance. No treatment necessary at this time. B. Seborrheic Keratoses - Etiology discussed - Patient reassured that benign in nature C. H/O BCC - NER, will continue to monitor - Discussed importance of sun protection, sun avoidance strategies, protective clothing, and sunscreen. Follow up: RTC in June 2019 for follow up and full skin exam, sooner if needed. Reminder placed in scheduling system. Instructed to call with questions or concerns. I am documenting this encounter acting as the scribe for and in the presence of Dr. Bella: ROLAND THOMAS LPN and Catherine Gibson I performed the above scribed service and agree with the accuracy of the documentation in this encounter. Dilcia Bella MD Gym Instructor of Dermatology, Department of Surgery [facility] documented in this encounter Plan of Treatment Upcoming Encounters Date Type Specialty Care Team Description 08/29/2021 Hospital Encounter Cardiology Williams Rodriguez, Scre ening for cardiovascular condition; Abnormal stress test; [facility] Chest dis comfort DR CARDIOLOGY DEPT. [place], [place] [address] 08/29/2021 Surgery Cardiology Williams Rodriguez, CARDIAC CA THETERIZATION MD [facility] DR CARDIOLOGY DEPT. [place], [place] [address] Scheduled Procedures Name Priority Associated Diagnoses Date/Time CORONARY ANGIOGRAPHY; W Screening for cardiovasc ular 08/29/2021 9:30 AM EDT LHC,POSSIBLE PCI condition Abnormal stress test Chest discomfort documented as of this encounter Visit Diagnoses Diagnosis Dermal nevus Benign neoplasm of skin, site unspecifie d SK (seborrheic keratosis) Other seborrheic keratosis History of basal cell carcinoma (BCC) Screening [...] pain documented in this encounter Care Teams Prep Person Relationship Specialty Start Date End Date Nisa Machado MD PCP - General 07/26/14 [address] [place] [address] documented as of this encounter
--- OUTSIDE RECORDS SUMMARY | 2021-08-21 09:29 | XMS_ITS | Encounter Summary ---
:1955 [place] [address] Care Team Providers Name Role Phone Nisa Machado MD Primary Care Provider Reason for Visit Reason Comments Skin Lesion Consultation (Routine) - Specialty Diagnoses / Procedures Referred By Contact Refer red To Contact Dermatology Diagnoses Disorder of the skin and subcutaneous tissue, unspecified Nisa Machado MD [facility] Dermatology [address] [place] [address] [place] [address] [place] [address] Referral ID Status Reason Start Date Expiration Date Visits V isits Requested Authorized [id number] Consult, Test 05/04/2018 11/04/2018 3 3 & Treat PCP Updated and/or Approved Encounter Details Date Type Department Care Team Description 06/01/2018 [facility]; [facility] Neoplasm of uncertain behavi or of skin; [address] [place] (seborrheic keratosis); [place] [address] [facility] Seborrheic keratosis, inflam ed; [phone] RD-DERMATOLOGY Skin tag; [place], [place] [address] Lipoma, unspecified site Social History Tobacco Use Types Packs/Day Years Used Date Never Smoker Sex Assigned at Date Recorded Male 01/25/2021 11:16 AM EST documented as of this encounter Patient Instructions Patient InstructionsAkosua Waller LPN - 06/01/2018 9:30 AM EDT Treatment and Wound Care Instructions Your treatment today: You have had a shave biopsy of your skin, which is a removal of tissue for examination under a microscope. This wound will heal without stitches. Allow 3-6 weeks for the wound to heal. If bleeding occurs, hold firm pressure against the wound for 15 minutes. If bleeding continues, calls the office or go to your local emergency room. Please allow 1-2 weeks for the biopsy results to return. Your physician or nurse will contact you with the results by phone or letter; follow-up will be discussed at that time. Wound Care Instructions: You will need to keep the dressing placed over the wound dry and intact for 24 hours. Afterwards, perform the following wound care daily: ?? Wash your hands before changing the dressing. ?? Remove the bandage and clean the area with mild soap and water, then gently pat the area dry. ?? Apply a small amount of Vaseline to the area, then cover the wound with a band-aid. Change your dressing daily until the wound is fully healed. ?? A small amount of yellow drainage is part of normal healing. The area might appear as a small depression with redness around the edge of the wound. This is normal. ?? Please contact the office you you notice any of the following signs of infection: increased tenderness, pain, drainage, or redness that becomes hot or hard around the wound. If you have further questions or concerns, please call the office at [phone]. If it is after 5PM, or a holiday or weekend, please call [phone] and ask for the Welding Machine Operator [employer] Arc on-call. Inflamed Seborrheic Keratoses You were treated today with Liquid Nitrogen. Liquid nitrogen is extremely cold, and freezes the surface of the skin, causing the lesion to flake off. Treatment with liquid nitrogen can be uncomfortable, but discomfort should subside after a couple of hours. The area treated will look red and irritated, and it may blister up or turn dark, then fall off. This is normal! You do not need any special treatment for the area, but you may find cold compresses and/or a light application of Vaseline soothing. For best results, do not rub or pick at the healing lesion. Expected healing time is 3-4 weeks. Please contact the Dermatology clinic at [phone] if the lesion has not fully resolved after 6 weeks. documented in this encounter Progress Notes Call, Shaka Pao - 06/01/2018 9:30 AM EDT Images from the original note were not included. DERMATOLOGY - NEW PATIENT NOTE Date of service: 06/01/2018 Alex Calhoun : 1955, 62 y.o. Chief Complaint: Chief Complaint Patient presents with ??? Skin Lesion HPI: Alex Calhoun is a 62 y.o. male referred by Nisa Machado with the following concerns: Spot on the right Faith that has been there for a 3-4 years now. Patient states this spot comes andgoes. Patient states it scabs then falls off and scabs again. Currently this spot is healing. A second spot on the right cheek asymptomatic. Patient requesting head exam today. Relevant Skin History: - Okay to leave detailed message with results? 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 rosuvastatin (CRESTOR) 10 mg Tablet take 1 tablet by mouth once daily 0 No current facility-administered medications for this visit. Allergies: Allergies Allergen Reactions ??? Gluten Review of Systems: - General: Feels well. - Skin: No other skin concerns. Examination: - Constitutional: Patient was alert, well-appearing and in no noticeable distress. - Patient was asked to disrobe to the level of their comfort. Examination of skin from the waist up was performed. This includes examination of the skin of the face, ears, neck, chest, axillae, left and right upper extremities, hands, back, and abdomen. - A female nurse was present and on standby during my examination. Diagnosis/Skin findings/Assessment/Plan: # Benign Appearing Nevi: On the left cheek, and back multiple, 0.3-0.5cm, medium-brown, evenly-pigmented macules and papules. - Reassurance, discussed importance of ABCDE's and monthly self exams # Seborrheic Keratosis: Scattered brown and flesh colored waxy nummular stuck on plaques located on scalp - Reassured of benign nature, return to clinic if these lesions become inflamed or irritating # Rule out BCC. Caroline atrophic 6mm papule on the right church Shave??Biopsy Procedure Note:?? Location: Right church [A] The patient's consent was obtained. Risk of infection, scarring, nerve damage, pigment change, numbness, incomplete removal, recurrence, bleeding, pain and uncommonly so, allergic reaction to anesthesia were all reviewed. Alcohol preparation was used. Anesthesia obtained with 0.5% lidocaine without epi nephrine. A??shave biopsy was obtained and the specimen was sent to pathology for histologic evaluation.??Hemostasis obtained. (AlCl and/or electrocautery). ??Vaseline and bandaid were applied. Wound care was reviewed.There were no complications; the pt. tolerated the procedure well. # Rule out superficial BCC. On the right cheek thin ill defined 5mm pink papule. Shave??Biopsy Procedure Note:?? Location: Right cheek [B] The patient's consent was obtained. Risk of infection, scarring, nerve damage, pigment change, numbness, incomplete removal, recurrence, bleeding, pain and uncommonly so, allergic reaction to anesthesia were all reviewed. Alcohol preparation was used. Anesthesia obtained with 0.5% lidocaine without epi nephrine. A??shave biopsy was obtained and the specimen was sent to pathology for histologic evaluation.??Hemostasis obtained. (AlCl and/or electrocautery). ??Vaseline and bandaid were applied. Wound care was reviewed.There were no complications; the pt. tolerated the procedure well. # ISK vs SCCis: on the right arm erythematous scaly plaque Procedure Note: Procedure: Destruction of lesion(s) with cryotherapy. Number: 1 Location: as above Discussed procedure and expectations including risks (including risk of hypopigmentation) and benefits. Verbal consent obtained. Frozen with LN2, 15-30 second thaw time, TWICE. There were no complications; the patient tolerated the procedure well. Post-procedure expectations and wound care were reviewed. # Skin Tag/ Acrochordon: Patient with flesh colored soft pedunculated papules on the axilla. Discussed that these are benign cutaneous growths, many times associated with obesity, diabetes and increasing age - Reassurance # Lipoma: Patient with non tender, non fixed soft subcutaneous nodule located on the left shoulder - Instructed patient no treatment necessary, if the lesion become tender or begins to grow to contact clinic. RTC: Pending Pathology The following photos were obtained with patient consent: Note initiated by Akosua Waller LPN. I, Akosua Waller LPN, have performed the documentation for this encounter in the presence of andacting as a scribe for Shaka Hagen MD. I performed the services which were documented by the scribe, and I agree with the accuracy of the documentation in this encounter. Shaka Hagen MD Reviewed and signed by Shaka Hagen MD Resident in Dermatology [facility] Patient seen in conjunction with staff building construction contractor: Katrina Laboy MD Section of Dermatology [facility] Katrina Laboy MD - 06/01/2018 9:30 AM EDT I directly supervised Dr. Shaka Hagen during this office visit. Dr. Hagen presented the history and physical exam to me. I then saw and examined this patient with Dr. Hagen. We reviewed the history and pertinent details and I confirmed the physical findings. I agree with the details of the history and physical exam as documented in Dr. Hagen's note. ?? KATRINA LABOY MD Staff Physician Shaka Hagen - 06/01/2018 9:30 AM EDT Notified patient of results. Recommend Mohs surgery for both lesions. Informed patient that they would be contacted for surgery Lauri Hagen MD documented in this encounter Miscellaneous Notes Addendum Note - Katrina Laboy MD - 06/01/2018 9:30 AM EDT Addended by: KATRINA LABOY on: 06/02/2018 09:55 AM Modules accepted: Level of Service documented in this encounter Plan of Treatment Upcoming Encounters Date Type Specialty Care Team Description 08/29/2021 Hospital Encounter Cardiology Williams Rodriguez, Scre ening for cardiovascular condition; Abnormal stress test; [facility] Chest dis comfort DR CARDIOLOGY DEPT. [place], [place] [address] 08/29/2021 Surgery Cardiology Williams Rodriguez, CARDIAC CA THETERIZATION [facility] DR CARDIOLOGY DEPT. [place], [place] [address] Scheduled Procedures Name Priority Associated Diagnoses Date/Time CORONARY ANGIOGRAPHY; W Screening for cardiovasc ular 08/29/2021 9:30 AM EDT C,POSSIBLE PCI condition Abnormal stress test Chest discomfort documented as of this encounter Procedures Procedure Name Priority Date/Time Associated Diagnosis Comme nts SPECIMEN TO Routine 06/01/2018 12:19 PM Neoplasm of Results for this PATHOLOGY EDT uncertain behavior procedure are in of skin the results section. SURGICAL PATHOLOGY Routine 06/01/2018 9:30 AM Res ults for this REPORT EDT procedure are i n the results section. documented in this encounter Results Specimen to Pathology (06/01/2018 12:19 PM EDT) Specimen Anatomical Collection Method Collection Time Receive d Time (Source) Location / / Volume Laterality AP Specimen 06/01/2018 12:19 06/01/2018 6:18 PM EDT PM EDT Narrative [facility] - 06/01/2018 6:18 PM EDT Specimen requisition ordered. ??Separate Pathology report to follow Resulting Agency Comment Spec In Lab Katrina Laboy MD PATHOLOGY/CYTOLOGY ORDERABLE S Performing Organization Address City/State/ZIP Code Phon [place] [address] [facility] Surgical Pathology Report (06/01/2018 9:30 AM EDT) Component Value Ref Test Analysis Performed At [facility] gist Range Method Time Signature Surgical [id number] ? Location: [facility] Pathology [place] Report The signing pathologist has (i) examined the relevant preparation(s) for the [facility] specimen(s) and (ii) rendered or confirmed the diagnosis(es) . HOSPITAL LABORATORY . ?Surgic al Pathology DIAGNOSIS A. Skin, right church, shave biopsy: - Basal cell carcinoma, infi ltrating type with squamous differentiation, present at the peripheral and deep specimen edges B. Skin, right cheek, shave ?? biopsy: - ??Basal cell carcinoma, loyd perficial and early nodular type, present at the peripheral and deep specimen edges Electronically signed by: ??Savannah MARRERO, Karlos Cedeno Verified: ??06/04/2018 ?Dermatopathologist Performed at: ??-[facility] [place], [place], [place] CLINICAL INFORMATION Specimen Submitted: A - Skin, right church, shave biopsy (1) B - Skin, right cheek, shave (1) Clinical History and Diagnosis: A - Caroline atrophic 6 mm papule; rule out BCC B - Thin ill-defined 5 mm pink papule; rule out superficial BCC SPECIMEN PROCESSING A - Labeled/Fixative: A right church, formalin. Quantity/Size: ??Single, 0.7 x 0.4 x 0.1 cm. Tissue Description: Shave of neal-white and blue dyed, slight ly scaly skin. Sections/Processing: Inked, trisected and entirely submitted in 1 cassette labele d A1. B - Labeled/Fixative: B right cheek, formalin. Quantity/Size: ??Single, 0.5 x 0.3 x 0.1 cm. Tissue Description: Shave of kennedy-white and peripherally thai e dyed skin. Sections/Processing: Inked, bisected and entirely submitted in 1 cassette labeled B1. ??apb Specimen (Source) Anatomical Collection Method Collection Time Re ceived Time Location / / Volume Laterality 06/01/2018 9:30 AM EDT Shaka Hagen MD PATHOLOGY/CYTOLOGY ORDERABLE S Performing Organization Address City/State/ZIP [place] [address] documented in this encounter Visit Diagnoses Diagnosis Benign nevus Benign neoplasm of skin, site unspecifie d Neoplasm of uncertain behavior of skin SK (seborrheic keratosis) Other seborrheic keratosis Seborrheic keratosis, inflamed Inflamed seborrheic keratosis Skin tag Unspecified hypertrophic and atrophic co ndition of skin Lipoma, unspecified site Screening for cardiovascular condition Screening for other and unspecified card iovascular conditions Abnormal stress test Other nonspecific abnormal cardiovascula r system function study Chest discomfort Other chest pain Screening for cardiovascular condition Screening for other and unspecified card iovascular conditions Abnormal stress test Other nonspecific abnormal cardiovascula r system function study Chest discomfort Other chest pain documented in this encounter Care Teams Product Safety Professional Relationship Specialty Start Date End Date Nisa Machado MD PCP - General 07/26/[address] [place] [address] documented as of this encounter
--- OUTSIDE RECORDS SUMMARY | 2021-08-21 09:29 | XMS_ITS | Encounter Summary ---
:1955 Author Organization [facility] [place] [address] Care Team Providers Name Role Phone Nisa Machado MD Primary Care Provider Encounter Details Date Type Department Care Team Description 06/18/2018 Telephone Dermatology at [facility] MisJeff gregory MD [address] [facility] [place] [address] [facility]-DERMATOLOGY [phone] [place], [place] [address] (Wo rk) Social History Tobacco Use Types Packs/Day Years Used Date Never Smoker Sex Assigned at Date Recorded Male 01/25/2021 11:16 AM EST documented as of this encounter Miscellaneous Notes Telephone Encounter - Amarilis Mcclelland R - 06/18/2018 8:25 AM EDT Alex contacted the clinic today with a few questions following his recent procedure: 1) Wound care instructions state to discontinue wound care after 7 days. Is this 7 days from the surgery date or 7 days from removal/change of initial bandage (which he was instructed to leave on for 48 hours after his surgery) 2) Are there any recommendations for wound care/ scar care after the 7 days period? (Example: continue to apply vaseline) 3) When will be okay for him to begin applying sunblock to the surgical area? Patient can be reached at [phone] to discuss the above questions. If he is not available when called he has given permission to leave a detailed message. documented in this encounter Plan of Treatment Upcoming Encounters Date Type Specialty Care Team Description 08/29/2021 Hospital Encounter Cardiology Williams Rodriguez, Scre ening for cardiovascular condition; Abnormal stress test; [facility] Chest dis comfort CARDIOLOGY DEPT. [place], [place] [address] 08/29/2021 Surgery Cardiology Williams Rodriguez, CARDIAC CA THETERIZATION [facility] CARDIOLOGY DEPT. [place], [place] [address] Scheduled Procedures Name Priority Associated Diagnoses Date/Time CORONARY ANGIOGRAPHY; W Screening for cardiovasc ular 08/29/2021 9:30 AM EDT LHC,POSSIBLE PCI condition Abnormal stress test Chest discomfort documented as of this encounter Visit Diagnoses Not on filedocumented in this encounter Care Teams Telephone Quotation Clerk Relationship Specialty Start Date End Date Nisa Machado MD PCP - General 07/26/14 [address] [place] [address] documented as of this encounter
--- OUTSIDE RECORDS SUMMARY | 2021-08-21 09:29 | XMS_ITS | Encounter Summary ---
:1955 Author Organization [facility] [place] [address] Care Team Providers Name Role Phone Nisa Machado MD Primary Care Provider Reason for Visit Reason Comments Basal Cell Carcinoma Encounter Details Date Type Department Care Team Description 06/11/2018 Procedure visit D[facility]ology at [facility] Basal cell carcinoma (BCC) of right mormon region; Mee RMD Basal cell carcinoma (BCC) of right aury k [address] [place] [facility] [address] [facility] [phone] [place] [id number] Social History Tobacco Use Types Packs/Day Years Used Date Never Smoker Sex Assigned at Date Recorded Male 01/25/2021 11:16 AM EST documented as of this encounter Last Filed Vital Signs Vital Sign Reading Time Taken Comments Blood Pressure 150/86 06/11/2018 10:08 AM EDT Pulse 67 06/11/2018 10:08 AM EDT Temperature - - Respiratory Rate - - Oxygen Saturation - - Inhaled Oxygen Concentration - - Weight - - Height - - Body Mass Index - - documented in this encounter Patient Instructions Patient InstructionsIesha Mortensen LPN - 06/11/2018 10:30 AM EDT Your staff surgeon today was Jeff Abebe MD. Your wound(s) was repaired by [id number] stitches called a primary repair. You do not need to come back for suture removal because only absorbably sutures were used today. If the absorbable sutures bother your skin or do not absorb after 2 weeks, youmay call us to remove them for you. [...] until your sutures are removed. 5. Some employment agency manager may need to be delayed or delegated [...] as often as is recommended by your base filler operator, for new skin cancers. This is once [...] it. If after hours, please call the boom operator or [phone] and ask for the base filler operator on-call. If you have any non-urgent questions or concerns, please feel free to call my office or contact me through our patient portal, [employer], at [email or web address] How to contact us during business hours Dermatology at [facility] [address]: Mohs scheduling or Mohs follow-up appointments: [phone] documented in this encounter Progress Notes Jeff Abebe MD - 06/11/2018 10:30 AM EDT Images from the original note were not included. Summary of Procedure(s): Site: right cheek / right mormon Tumor Type: Basal Cell Carcinoma Stages to clear tumor: right cheek - one stage, right mormon- two stages Repair: Right cheek- intermediate linear closure, right mormon- complex linear closure Images: All absorbable sutures were used and the patient can return as needed. The patient was asked to callwith any issues and is aware that I am available 15/09 should questions arise. Mohs consultation and preoperative note (H&P) Patient Name: Alex Calhoun Age: 62 y.o. Date of : 1955 Today's Date: 06/11/2018 REFERRING PROVIDER: Shaka Hagen MD CC: Mohs micrographic surgery for treatment of a cutaneous tumor HPI: Alex Calhoun is a 62 y.o. male presenting for biopsy-proven Basal Cell Carcinoma,infiltrating type with squamous differentiation ,present a the peripheral and deep specimen edges location on the Right Judaism. Basal Cell Carcinoma,superficial and early nodular type,present at the peripheral and deep specimen edges,located on the Right cheek. The dermatologic preoperative information sheet was reviewed with pertinent positive and negative as below. DERMATOLOGIC PRE-OPERATIVE EVALUATION AND REVIEW OF SYSTEMS History of Mohs surgery-No Pacemaker/Defibrillator-No Joint replacement or other implantable devices-No (e.g. Cochlear implant)-No Do you take a blood thinner- No History of organ transplant-No History of artificial valve or stroke- No History of liver disease or bleeding disorder- No Do you have any medical problems that may affect your upcoming surgery-No Do you have any concerns regarding your upcoming surgery-No We ask patients to discontinue Fish oil/Multivitamin/Vit E/?? supplements and natural medicines not prescribed by a physician 1 week prior to surgery. SOCIAL HISTORY: Makes Own Decisions Yes Hearing aid or other devices: No Relevant travel history or future plans: No Tobacco use (amount per day, type of tobacco.):No Do you have any physical limitations that may affect your surgery-No PAST MEDICAL HISTORY Past medical history reviewed PAST SURGICAL HISTORY Past surgical history reviewed ALLERGIES: Allergies reviewed MEDICATIONS: Medications reviewed VITAL SIGNS: BP 150/86 (BP Location (NBP): Left arm, Patient Position: Sitting, BP Cuff Sizes: Adult (25-34 cm)) Pulse 67 PHYSICAL EXAMINATION: General: patient is awake, alert, oriented and in no acute distress. Skin: Focused examination of surgical site(s) performed which shows an erythematous scar corresponding with recent biopsy site with surrounding poorly defined pearly plaques. PHYSICIAN REVIEW OF REPORTS, RECORDS, IMAGES: 1) The accompanying pathology report(s) associated with aforementioned biopsy slide(s) were/was alsoreviewed. Assessment: Alex Calhoun is a 62 y.o. male presenting for: 1. Biopsy-proven basal cell carcinoma located on the right cheek. 2. Biopsy-proven basal cell carcinoma located on the right mormon. Plan: 1. Findings from the biopsy report, my independent review of the histopathology from the biopsy slides, today's clinical exam, and other pertinent details were reviewed with patient today. All questions were answered. 2. [...] and follow up with his or her base filler operator or other skin provider. 6. Discussed avoiding direct sun exposure to scars for best cosmetic result. Jeff Abebe MD PhD Mohs Micrographic Surgery and Dermatologic Oncology Section of Dermatology, Department of Surgery Jeff Abebe MD - 06/11/2018 10:30 AM EDT Mohs micrographic Surgery Operative Report Site 1- right cheek Patient name: Alex Calhoun : 1955 Date: 06/11/2018 Staff Surgeon: Jeff Abebe MD PhD Nursing/Ux Consultant(s):Assistants: Sumaya Robles LPN, Izabella Judd CMA, Nadia SketlonTrue JENKINS; Radha Stinson CMA, Ruth Vincent LPN Patent Engineer (s): Anabel Johnson Pre-operative diagnosis: Basal Cell Carcinoma, superficial Post-operative diagnosis: Basal Cell Carcinoma, superficial Location/Site: right cheek Procedure: Mohs micrographic surgery Indication(s) for Mohs micrographic surgery: Anatomic location for tissue conservation Stages: 1 Preoperative size of tumor: 0.7 x 0.6 cm Stage I The nature and purpose [...] The site was confirmed with the patient/authorized tour sales representative/referring physician and/or a photograph form time of [...] deep or outer border of the sections. The final size of the defect after complete tumor removal was 1.1 x 1.0 cm, extending to level of subcutaneous tissue. Repair Operative Report Clinical Diagnosis: 1.1 X 1.0 cm surgical defect secondary to Mohs microscopically controlled excision Location/Site: right cheek Indication: repair of wound for anatomic/functional jew Procedure: Intermediate linear closure of Mohs defect Due to the size and location of [...] and draped in the usual sterile manner. Moderate undermining of the surrounding tissue was performed for tension free closure as necessary and redundant tissue excised. The deep tissues were apposed and sutured with 4-0 Monocryl sutures and the epidermal edges were approximated with 6-0 Fast A bsorbing Gut running and/or interrupted sutures. .The resulting intermediate linear closure measured3.3 cm. The surgical site was cleaned and white petrolatum with a pressure dressing was applied. Mohs micrographic Surgery Operative Report Site 2- right mormon Patient name: Alex Calhoun : 1955 Date: 06/11/2018 Staff Surgeon: Jeff Abebe MD PhD Nursing/Ux Consultant(s): Assistants: Sumaya Robles LPN, Izabella Judd CMA, Nadia Pittman RN, Iesha Mortensen LPN; Radha Stinson CMA, Ruth Vincent LPN Patent Engineer (s): Melinda Johnson Pre-operative diagnosis: Basal Cell Carcinoma, infiltrative Post-operative diagnosis: Basal Cell Carcinoma infiltrative Location/Site: right mormon Procedure: Mohs micrographic surgery Indication(s) for Mohs micrographic surgery: Anatomic location for tissue conservation Stages: 2 Preoperative size of tumor: 0.7 x 0.7 cm Stage I The nature and purpose [...] The site was confirmed with the patient/authorized tour sales representative/referring physician and/or a photograph form time of [...] frozen sections, residual tumor was identified as basal cell carcinoma, infiltrative on section A2 (see section number on map). Stage II The surgical site was re-anesthetized with 1% lidocaine with 1:100,000 epinephrine, re-prepped and redraped in a sterile manner. The residual tumor was re-excised as a complete layer 2-3mm in thickness using the Mohs map to delineate area of residual tumor. Hemostasis was achieved with electrocoagulat ion. The tissue was oriented and divided into 2 sections, chromacoded, and submitted for frozen sections. The patient tolerated the procedure well and without complications. On microscopic evaluation of the frozen sections, no residual tumor was identified on the deep or outer border of the sections. Depth of excision subcutaneous tissue Final defect size: 1.4 x 1.1 cm Repair Operative Report (Complex Linear Repair) Patient name: Alex Calhoun : 1955 Clinical Diagnosis: 1.4 x 1.1 cm surgical defect secondary to Mohs microscopically controlled excision Location/Site: right mormon Indication: repair of wound for jew of function/anatomy Procedure: Complex linear layered closure of Mohs defect Due to the size and location of [...] edges of the defect were widely undermined at the dermal subcutaneous layer in all directions. Hemostasis was achieved with electrocoagulation. The edges could then be approximated without excess tension. The deep tissues were apposed and sutured with 4.0 Monocryl sutures and the epidermal edges were approximated with 6-0 fast absorbing gut runningand/or interrupted sutures. .The resulting complex linear closure measured 4.0 cm. The surgical site was cleaned and white petrolatum with a Xeroform gauze pressure dressing applied.The patient tolerated the procedure well and without complications and was given both verbal and written instruction on postoperative wound care. Follow up as needed. The patient was discharged in goodcondition. Total local anesthesia with 1% lidocaine with 1:100,000 epinephrine used: 10 cc Total local with 0.25% bupivacaine with 1:100,000 epinephrine used: 5 cc Jeff Abebe MD PhD Mohs Micrographic Surgery and Dermatologic Oncology Section of Dermatology, Department of Surgery documented in this encounter Plan of Treatment Upcoming Encounters Date Type Specialty Care Team Description 08/29/2021 Hospital Encounter Cardiology Michael, Williams T, Scre ening for cardiovascular condition; Abnormal stress test; [facility] Chest dis comfort CARDIOLOGY DEPT. [place], [place] [address] 08/29/2021 Surgery Cardiology Williams Rodriguez, CARDIAC CA THETERIZATION [facility] CARDIOLOGY DEPT. [place], [place] [address] Scheduled Procedures Name Priority Associated Diagnoses Date/Time CORONARY ANGIOGRAPHY; W Screening for cardiovasc ular 08/29/2021 9:30 AM EDT LHC,POSSIBLE PCI condition Abnormal stress test Chest discomfort documented as of this encounter Visit Diagnoses Diagnosis Basal cell carcinoma (BCC) of right temp le region Basal cell carcinoma (BCC) of right aury k Screening for cardiovascular condition Screening for other and unspecified card iovascular conditions Abnormal stress test Other nonspecific abnormal cardiovascula r system function study Chest discomfort Other chest pain Screening for cardiovascular condition Screening for other and unspecified card iovascular conditions Abnormal stress test Other nonspecific abnormal cardiovascula r system function study Chest discomfort Other chest pain documented in this encounter Care Teams Manager Drilling Relationship Specialty Start Date End Date Nisa Machado MD PCP - General 07/26/[address] [place] [address] documented as of this encounter
--- OUTSIDE RECORDS SUMMARY | 2021-08-21 09:29 | XMS_ITS | Encounter Summary ---
:1955 [place] [address] Care Team Providers Name Role Phone Nisa Machado MD Primary Care Provider Encounter Details Date Type Department Care Team Description 06/08/2018 Telephone Dermatology at [facility] MisJeff MD [address] [facility] [place] [address] [facility] [phone] [place], [place] [address] (Wo rk) Social History Tobacco Use Types Packs/Day Years Used Date Never Smoker Sex Assigned at Date Recorded Male 01/25/2021 11:16 AM EST documented as of this encounter Miscellaneous Notes Telephone Encounter - Iesha Mortensen LPN - 06/08/2018 3:52 PM EDT Mohs consultation and preoperative note (H&P) Patient Name: Alex Calhoun Age: 62 y.o. Date of : 1955 Today's Date: 06/08/2018 REFERRING PROVIDER: Shaka Hagen MD CC: Mohs micrographic surgery for treatment of a cutaneous tumor HPI: Alex Calhoun is a 62 y.o. male presenting for biopsy-proven Basal Cell Carcinoma,infiltrating type with squamous differentiation ,present a the peripheral and deep specimen edges location on the Right Catholic. Basal Cell Carcinoma,superficial and early nodular type,present [...] ening for cardiovascular condition; Abnormal stress test; [facility] Chest dis comfort CARDIOLOGY DEPT. [place], [place] [address] 08/29/2021 Surgery Cardiology Williams Rodriguez, CARDIAC CA THETERIZATION [facility] CARDIOLOGY DEPT. [place], [place] [address] Scheduled Procedures Name Priority Associated Diagnoses Date/Time CORONARY ANGIOGRAPHY; W Screening for cardiovasc ular 08/29/2021 9:30 AM EDT C,POSSIBLE PCI condition Abnormal stress test Chest discomfort documented as of this encounter Visit Diagnoses Not on filedocumented in this encounter Care Teams Staff Engineer Relationship Specialty Start Date End Date Nisa Machado MD PCP - General 07/26/[address] [place] [address] documented as of this encounter
--- NOTE | 2021-08-21 09:30 | RT.EKG_ITS ---
APPROVED REPORT Exam: Resting ECG Reason for Exam: L chest pain Patient Location: E HR:56 bpm ECG Measurements Heart Rate 56 AXIS VA 166 P 68 QRSd 111 QRS -34 QT 448 T -40 QTc 431 Conclusion Sinus bradycardia. Left axis deviation. Anterior Q >40mS, abnormal ST-T, V2-V5 Nonspecific repol abnormality, diffuse leads...ST dep, T flat/neg, ant/lat/inf. No significant change
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
[2021-08-21 09:34] LABS: ALT 24 U/L (16-63); AST 18 U/L (15-37); Albumin 3.4 g/dL (3.4-5.0); Alkaline Phosphatase 76 U/L (46-116); Anion Gap 5.6 mmol/L (3-11); BUN 15 mg/dL (7-18); Bilirubin, Total 0.7 mg/dL (0.2-1.0); CO2 29.4 mmol/L (21.0-32.0); Calcium 8.8 mg/dL (8.5-10.1); Chloride 104 mmol/L (98-107); Glucose 109 mg/dL (74-106); Magnesium 2.3 mg/dL (1.8-2.4); Sodium 139 mmol/L (136-145); Total Protein 6.5 g/dL (6.4-8.2); Troponin I < 50 ng/L (<or=60)
--- NOTE | 2021-08-21 09:41 | DI.RAD_ITS ---
Exam(s) XR PORTABLE CHEST AP EXAM: XR PORTABLE CHEST AP CLINICAL HISTORY: L arm pain. TECHNIQUE: 2D digital imaging was performed. COMPARISON: No exams were available for comparison FINDINGS: LUNGS: Clear. No pleural abnormality seen. HEART: Normal. MEDIASTINUM: Normal. OTHER FINDINGS: None. IMPRESSION: No acute pulmonary findings. DATA REPOSITORY: RADIATION DOSE DELIVERED: Total DLP
[2021-08-21 09:49] LABS: Creatine Kinase 101 U/L (39-308)
--- NOTE | 2021-08-21 12:00 | RT.EKG_ITS ---
APPROVED REPORT Exam: Resting ECG Reason for Exam: CHest pain Patient Location: E HR:50 bpm ECG Measurements Heart Rate 50 AXIS WI 161 P 54 QRSd 105 QRS -35 QT 462 T -36 QTc 420 Conclusion Sinus bradycardia...rate< 60 LVH with secondary repolarization abnormality...multi-LVH criteria, abnrm ST-T Anterior infarct, old...Q >40mS, abnormal ST-T, V2-V5
[2021-08-21 12:16] LABS: Troponin I < 50 ng/L (<or=60)
[2021-08-21] MEDS: Isosorbide Mononitrate 30 MG TABCR PO (13:25)
== END 2021-08-21 14:07 | disposition home or self-care (01) ==
PROVIDERS: Emergency Provider Emergency Medicine; PCP Internal Medicine
DX: I20.9 Angina pectoris, unspecified (principal); M79.602 Pain in left arm; R07.9 Chest pain, unspecified
CPT/HCPCS: 36415; 80053; 82550; 93005; 99284; 71045; 83735; 84484; 85025; 93010

== ENCOUNTER 2021-10-23 08:00 | Outpatient (RCR) | payer MEDICARE, SELFPAY | END 2021-10-23 23:59 | disposition home or self-care (01) | LOC: CR 08:00 | PROVIDERS: PCP Internal Medicine; Referring Provider Internal Medicine; Visit Provider Internal Medicine Cardiovascular Disease | DX: Z51.89 Encounter for other specified aftercare (principal); I25.10 Atherosclerotic heart disease of native coronary artery without angina pectoris; Z95.1 Presence of aortocoronary bypass graft | CPT/HCPCS: S9472 ==

== ENCOUNTER 2021-11-20 08:12 | Outpatient (RCR) | payer MEDICARE, SELFPAY ==
--- OUTSIDE RECORDS SUMMARY | 2021-11-08 08:45 | XMS_ITS | Encounter Summary ---
:1955 Author Organization [facility] Address [address] [place] [address] Care Team Providers Name Role Phone Unavailable Primary Care Provider Unavailable Encounter Details Date Type Department Care Team Description 04/26/[address] [facility] Converted Visit Elle Almazan MD (Elle) [address] [facility] [address] [place], [place] [id number] [place] [id number] Social History Tobacco Use Types Packs/Day Years [...] Procedure Name Priority Date/Time Associated Diagnosis Comme [facility] SURGICAL PATHOLOGY Routine 04/26/2008 0:00 EST Re sults for this procedure are i n the results section. documented in this encounter Results SURGICAL PATHOLOGY (04/26/2008 0:00 EST) Pathology Report: SURGICAL PATHOLOGY REPORT ? [facility] Reports generated via [employer] interface contain original data; ? LAB however they are lacking the format of the original report. ? Caution should be taken when reading/interpreting unformatted reports. ? Name: ? ZACHERY, RENÉ L ? Accession #: ? [id number] ? : ? 1955 (Age: 52) ??M ? Collec t Date: ? 04/26/2008 ? Location: ? [facility] ? Re ceive Date: ? 04/27/2008 ? Provider: MOHAMMED TARRABAIN MD ? Copy to: ? Final Pathologic Diagnosis: ? Skin of congregational, right , shave biopsy: ? - Seborrheic [...] shave bx (dermab lade) lesion from R congregational ? Clinical History: ? Lesion on R congregational fo r few weeks, raised, no itching [...] Organization Address City/State/ZIP Code Phon e Number [facility] [address] [place] [address] SERVICES [facility] [address] [place] [address] documented in this encounter Visit Diagnoses Not on filedocumented in this encounter
--- OUTSIDE RECORDS SUMMARY | 2021-11-08 08:45 | XMS_ITS | Encounter Summary ---
:1955 Author Organization [facility] Address [address] [place] [address] Care Team Providers Name Role Phone Unavailable Primary Care Provider Unavailable Encounter Details Date Type Department Care Team Description 11/06/2008 Orders Only [facility] Javier Pearson MD [facility] [address] [place] [address] [place], [place] [address] [phone] Social History Tobacco Use Types Packs/Day Years [...] Procedure Name Priority Date/Time Associated Diagnosis [facility] SURGICAL PATHOLOGY Routine 11/06/2008 0:00 EDT Re sults for this procedure are i n the results section. documented in this encounter Results SURGICAL PATHOLOGY (11/06/2008 0:00 EDT) Pathology Report: SURGICAL PATHOLOGY REPORT ? YAQUELIN REID Reports generated via [employer] interface contain original data; ? LAB however they are lacking the format of the original report. ? Caution should be taken when reading/interpreting unformatted reports. ? Name: ? LJ, RENÉ L ? Accession #: ? [id number] ? : ? 1955 (Age: 53) ??M [...] change. ?? 2. ? No features of charge rn joselito inflammatory bowel disease. ? F. ?Colon, hepa tic flexure, polyp, biopsies: ? 1. ?Hyperplasti c polyp (three pieces); no adenoma. ? G. ?Colon, sple joselito flexure, polyp, biopsies: ? 1. ?Hyperplasti c polyp (two pieces); no adenoma. ? H. ?Colon, left , random, biopsies: ? 1. ?Colonic muc rigoberto with no specific histopathologic diagnosis. ? 2. ? No features of charge rn joselito inflammatory bowel disease. ? I. ?Colon, rect osigmoid, polyp, biopsy: ? 1. ?Colorectal mucosa (one piece) with surface epithelial hyperplastic ?? change. ? J. ?Rectum, ran dom, biopsies: ? 1. ?Colorectal mucosa with no specific histopathologic diagnosis. ? 2. ? No features of charge rn joselito inflammatory bowel disease. ? K. ?Rectum, [...] colonoscopy ? Gross Description: ? [facility] labelled René Calhoun and #1 bx ? duodenum are four biopsies which vary in size from 0.3 x 0.1 x 0.1 cm up to 0.6 x 0.4 x 0.3 cm. ??The specim ens are submitted intact as (A1) and (A2). ? [facility] labelled René Calhoun and #2 bx gastric ? body are two biopsies measu ring 0.3 x 0.3 x 0.2 cm, each. ??The specimens are ?? submitted intact as (B). ? [facility] in [facility] labelled René Calhoun and #3 bx ? Rizzo's are two biopsies measuring 0.3 x 0.2 x 0.1 cm and 0.3 x 0.3 x 0.3 cm. The specimens are submitted intact as (C). ? Received in [facility] fixat stacy labelled René Calhoun and #4 bx terminal ?? ileum are two biopsies radha uring 0.3 x 0.2 x 0.2 cm and 0.3 x 0.3 x 0.1 cm. ? The specimens are submitted intact as (D). ? Received in [facility]'s fixat stacy labelled René Calhoun and #5 bx random ? right colon are five biopsi es which vary in size from 0.1 cm in diameter up to 0.3 x 0.2 x 0.2 cm. ??The sp ecimens are submitted intact as (E1) and (E2). ? Received in [facility]'s fixat stacy labelled René Calhoun and #6 hepatic ? flexure polyp are three bio psies which vary in size from 0.2 x 0.1 x 0.1 cm up to 0.4 x 0.2 x 0.2 cm. ??The specimens are submitted intact as (F). ? Received in [facility]'s fixat stacy labelled Acesloane René and #7 splenic ? flexure polyp are two biops ies measuring 0.2 x 0.2 x 0.1 cm and 0.4 x 0.3 x 0.1 cm. ??The specimens are subm itted intact as (G). ? Received in [facility]'s fixat stacy labelled Lj René and #8 bx random left colon are five biopsies whi ch vary in size from 0.2 x 0.2 x 0.2 cm up to 0.8 x 0.2 x 0.1 cm. ??The specimen s are submitted intact as (H1) and (H2). ? Received in [facility]'s fixat stacy labelled Lj René and #9 [...] Organization Address City/State/ZIP Code Phon e Number [facility] [address] [place] [address] SERVICES [facility] [address] [place] [address] documented in this encounter Visit Diagnoses Not on filedocumented in this encounter
--- OUTSIDE RECORDS SUMMARY | 2021-11-08 08:45 | XMS_ITS | Encounter Summary ---
:1955 Author Organization Health system Address [address] [place] [address] Care Team Providers Name Role Phone Nisa Machado MD Primary Care Provider Encounter Details Date Type Department Care Team Description 12/12/2019 Lab Requisition [facility] Harrison Martinez Encounter for Pathology & MD Ezekiel screening for Laboratory Medicine [address] [place] [address] RD of colon [address] [place] [phone] Social History Tobacco Use Types Packs/Day Years [...] - Hyperplastic polyp. Attestation By the signature [facility] Amendment below, the attending CENTER electro [...] the above diagnosis. Clinical History Colorectal cancer [facility] screening; clinical CENTER diagnosis code: LABORATORY Z12.11 SERVICES Gross Description A. [facility] Received in formalin sonido d with [...] C1. DANIEL DIAZ(ASC) 12/12/2019 8:55 Performing Lab [facility] Scanned Images [facility] Specimen Tissue - Specimen from rectum (specimen) Tissue specimen (specimen) - Colon, Poly p Tissue specimen (specimen) - Specimen fr om rectum (specimen) Performing Organization Address City/State/ZIP Code Phon e Number [facility] [address] [place] [address] SERVICES documented in this encounter Visit Diagnoses Diagnosis Encounter for screening for malignant ne oplasm of colon Special screening for malignant neoplasm s, colon documented in this encounter Care Teams Multimedia Teacher Relationship Specialty Start Date End Date Nisa Machado MD PCP - General 10/08/19 [address] [place] [address] documented as of this encounter
--- OUTSIDE RECORDS SUMMARY | 2021-11-08 08:45 | XMS_ITS | Encounter Summary ---
:1955 Author Organization [facility] Address [address] [place] [address] Care Team Providers Name Role Phone Nisa [...] on filedocumented in this encounter Care Teams Leather Sorter Relationship Specialty Start Date End Date Nisa Machdao MD PCP - General 10/08/19 [address] [place] [address] documented as of this encounter
--- OUTSIDE RECORDS SUMMARY | 2021-11-08 08:45 | XMS_ITS | Clinical Summary ---
:1955 Author Organization Health system Address [address] [place] [address] Care Team Providers Name Role Phone Nisa [...] T ype Group Dates MEDICARE MEDICARE A/B [id number] 2018-Prese [address] [place] [id number] CIGNA CIGNA PPO [id number] 2006-Pres [phone] [id number] [place]ENDR[place] GIBBS [phone] Alex Calhoun Personal/Family Self 1955 [address] [place] [address] Alex Calhoun Personal/Family Self 1955 [address] [place] [address] Care Teams Public Accountant Relationship Specialty Start Date End Date Nisa Machado MD PCP - General 10/08/19 [address] [place] [address]
--- OUTSIDE RECORDS SUMMARY | 2021-11-08 08:46 | XMS_ITS | Encounter Summary ---
:1955 Author Organization [place] [address] Care Team Providers Name Role Phone Nisa Machado MD Primary Care Provider Reason for Referral Home Health Care (Routine) - Authorized Specialty Diagnoses / Procedures Referred By Contact Refer red To Contact Diagnoses S/P CABG (coronary artery bypass graft) Camron Guthrie MD [facility] [place] [address] Referral ID Status Reason Start Date Expiration Visits Visits Date Requested Authorized [id number] Authorized Consult, 09/02/2021 03/01/2022 999 999 Test & Treat Reason for Visit Reason Comments Chest Pain Left arm Auth/Cert Specialty Diagnoses / Procedures Referred By Contact Refer red To Contact Diagnoses Chest pain Coronary artery disease of [place] artery of [place] heart with stable angina pectoris Camron Guthrie MD [facility] Procedures PRO INPT INITIAL COMP/COMP/HIGH 70 MIN ER IPI [facility] [place] [address] Referral ID Status Reason Start Date Expiration Date Visits Requ ested Visits Authorized [id number] 1 1 Encounter Details Date Type Department Care Team Description 08/25/2021 - Hospital Encounter Cardiac Special Daniel Helton DO [facility] [place] [address] S/P CABG (coronary artery bypass graft) (Primary Dx); 09/02/2021 Care Unit Camron Darby MD [facility] [place] [address] Chest pain; [facility] Coronary artery disease of [place] artery of [place] heart with stable angina pectoris; [facility] Coronary artery disease invo lving [place] coronary artery of [place] heart [place] [id number] Social History Tobacco Use Types Packs/Day Years [...] Sign Reading Time Taken Comments Blood Pressure 122/73 09/02/2021 3:59 AM EDT Pulse 66 09/02/2021 3:59 AM EDT Temperature 36.6 ??C (97.9 ??F) 09/02/2021 3:59 AM EDT Respiratory Rate 16 09/02/2021 3:59 AM EDT Oxygen Saturation 97% 09/02/2021 3:59 AM EDT Inhaled Oxygen Concentration - - Weight 85 kg (187 lb 6.3 oz) 08/31/2021 5:58 AM EDT Height 185.4 cm (6' 1) 08/25/2021 12:31 PM EDT Body Mass Index 24.72 08/25/2021 12:31 PM EDT documented in this encounter Discharge Summaries Timo Dotson PA - 09/02/2021 6:46 AM EDT Inpatient - Discharge Summary Patient Name: Alex Bingham Patient Age: 66 y.o. Birthdate: 1955 Language: Citizen Of [place] Race: White Ethnicity: Not nor Admit Date: 08/25/2021 Discharge Date: 09/02/21 Attending Physician: Camron Guthrie MD Follow-up Recommendations for Providers: ??? Please continue routine management of cardiovascular risk factors including blood pressure, lipids, glucose, etc. ??? Please note any changes to medications. ??? Patient to follow up with Cardiac Surgeon, Dr. Camron Guthrie, 4 weeks with a chest x-ray and EKG. 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 Chest pain Resolved Hospital Problems No resolved problems to display. Other Diagnoses (Chronic Problems): Active Non-Hospital Problems Diagnosis ??? CAD (coronary artery disease) ??? Nevus ??? Seborrheic keratosis Discharged to: Patient discharged to home Functional and Cognitive Status: Stable Discharge Conditions/Prognosis: Stable Past Medical History: Diagnosis Date ??? High blood pressure last 3 to 4 months b/p high 10/17/19 ??? in the past 3 months ??? Transfusion history Past Surgical History: Procedure Laterality Date ??? ANKLE SURGERY Right 1979 ? ? PRG CATH PLOR LEFT HEART CATH & ARTS W/INJ & ANGIO IMG S&I N/A 08/23/2021 CORONARY ANGIOGRAPHY; W [facility],POSSIBLE PCI performed by Renard Weber MD at [facility] CATH LABS ??? PRO CABG, ARTERIAL, SINGLE N/A 08/28/2021 @CABG, USING ARTERIAL GRAFT;SINGLE ARTERIAL GRAFT (WRVU 33.75) performed by Camron Guthrie MD at [facility] MAIN OR ??? PRO CABG, ARTERY-VEIN, FIVE N/A 08/28/2021 @CABG; 5 VENOUS GRAFTS & ARTERIAL GRAFT (WRVU 14.14) performed by Camron Guthrie MD at [facility] MAIN OR ??? PRO ENDOSCOPY W/VIDEO-ASST VEIN HARVEST, CABG N/A 08/28/2021 ENDOSCOPIC HARVEST VEIN(S) FOR CABG (WRVU 0.31) performed by Camron Guthrie MD at [facility] MAIN OR ??? PRO LAMINOTOMY, LUMBAR DISK, 1 INTRSP Left 10/18/2019 LAMINOTOMY, DECOMPRESSION, FORAMINOTOMY, LUMBAR (WRVU 13.18) performed by Jelani Zuñiga MD at [facility] MAIN OR ??? PRO MICROSURG TECHNIQUES, REQ OPER MICROSCOPE Left 10/18/2019 MICROSCOPE USE (WRVU 3.46) performed by Jelani Zuñiga MD at [facility] OR ??? VASECTOMY 1994 Prior To Admission Medications Medications Prior to Admission Medication Sig Dispense Refill Last Dose ??? metoprolol succinate XL (Toprol-XL) 25 mg Tablet Sustained Release 24 hr Take 25 mg by mouth daily. 08/25/2021 at Unknown time ??? isosorbide mononitrate CR (Imdur) 30 mg Tablet Sustained Release 24 hr Take 30 mg by mouth daily. 08/25/2021 at Unknown time ??? aspirin EC 81 mg Tablet, Delayed Release (E.C.) Take 81 mg by mouth daily. 08/25/2021 at Unknown time ??? cyanocobalamin, Vitamin B-12, (Vitamin B-12) 1,000 mcg Tablet Take 1,000 mcg by mouth daily. 08/25/2021 at Unknown time ??? folic acid (FOLVITE) 800 mcg Tablet Take 800 mcg by mouth daily. 08/25/2021 at Unknown time ??? losartan (Cozaar) 50 mg Tablet Take 50 mg by mouth daily. 08/25/2021 at Unknown time ??? [DISCONTINUED] chlorhexidine (HIBICLENS) 4 % Liquid Apply topically daily as needed. Shower fromhead to toe with Chlorhexidine the night before surgery . 120 mL 0 ??? ketoconazole (NIZORAL) 2 % Cream Apply topically to affected area on the eyebrows twice daily asneeded. 60 g 3 More than a month at Unknown time Updated Allergies/ADRs: Allergies Allergen Reactions ??? Gluten Diarrhea History of Presentation: Alex Bingham is a 66 y.o. male with a history of stable angina - his anginal equivalent being left arm pain - who was found to have severe multivessel CAD on cardiac cath last Thursday. He elected to go home on house arrest until planned CABG this Thursday but unfortunately today after doing some light walking in his driveway and around his house he developed left arm pain again. He took a sl nitro and came to the ED. Current pain level is 1-2/10 in his left arm, worst it's ever been is 6/10, he's had left chest and jaw pain as well as nausea in the past but denies those symptoms today. ?? Denies chest pain, dyspnea, lightheadedness, syncope, palpitations, cough, edema, nausea, vomiting, diaphoresis, weight gain. Major Procedures/Operations: 08/28/21: CABGx6; CABG times 6: FERNANDO to LAD, SVG to rca and pl, svg to om1 with svg to om2 and om3 y'ed off it. Hospital Course: Unstable Angina MV CAD s/p CABGx6 Alex Bingham was admitted to [facility] on 08/25/2021 via the Cardiac Surgery Service with unstable angina. His angina was managed with IV nitroglycerin and heparin. GDMT with aspirin, statin, and beta blockade was continued. He remained stable while he awaited surgery and wasbrought to the operating room where Dr. Camron Guthrie performed coronary artery bypass grafting. He tolerated the procedure and was brought to the Cardiovascular Intensive Care Unit for recovery. He initially required the pharmacologic support of intravenous levophed. He was extubated from the ventilator on the day of surgery. All drips were weaned to off. Routine postoperative and home medications were started. Aspirin 81mg daily was started. Statin therapy was started. He was started on beta blockade and this was optimized. Diuretics were not started and he autodiuresed appropriately. Plavix was started for [place]gi[place] CAD. He was transferred to the Intermediate Cardiac Care Unit for continued rehabilitation. All tubes, lines, and epicardial pacing wires were removed without incident. He voided normally after his [place] was removed. POSTOP AFIB He developed atrial fibrillation post-operative and was loaded with amiodarone for rhythm control. He will continue on amiodarone for 1 month until follow up with cardiac surgery. His statin dose was halved given the interaction with amiodarone and increased risk of rhabdomyolysis. He was already on beta blockade as above. He converted to sinus rhythm on amiodarone. He was in sinus at the time of discharge. He was seen by Physical Therapy and Cardiac Rehabilitation. Sternal precaution education was provided. His discharge plan at this time is to discharge home with VNA. The remainder of his hospital course was uneventful and by postoperative day #5 he had met all criteria for discharge. Pain was controlled on oral medications. He had walked 5 minutes and gone up and down stairs. He was tolerating a regular diet and had a bowel movement. Vital Signs at Discharge: Last set of vitals: BP 122/73 (BP Location (NBP): Left arm, Patient Position: Lying) Pulse 66 Temp 36.6 ??C (97.9 ??F) (Oral) Resp 16 Ht 185.4 cm (6' 1) Wt 85 kg (187 lb 6.3 oz) SpO2 97% BMI 24.72 kg/m?? Patient Vitals for the past 168 hrs: Weight 08/31/21 0558 85 kg (187 lb 6.3 oz) 08/30/21 0514 87.3 kg (192 lb 7.4 oz) 08/29/21 0500 84.9 kg (187 lb 2.7 oz) 08/28/21 0554 81.9 kg (180 lb 8.9 oz) 08/27/21 0551 81.6 kg (179 lb 14.3 oz) Current weight: 85 kg kg Admit/Preop weight: 81.6 kg Pertinent physical exam findings prior to discharge: Physical Exam: General: Sitting in bed. NAD. Pleasant. Neuro: Awake and alert. Moves all extremities with equal strength. CN intact. Lungs: Normal effort on RA Heart: RRR, NSR on tele. Abdomen: Soft, NTND Ext: warm, trace LE Edema bilat Incisions: BRODY CDI. Tubes/Lines/Drains: PIV Important Studies and Lab Data: Lab Results Component Value Date WBC 9.6 (H) 08/30/2021 RBC 3.64 (L) 08/30/2021 HGB 11.2 (L) 08/30/2021 HCT 32.6 (L) 08/30/2021 PLATELET 162 08/30/2021 Recent Labs 08/28/21 1701 INR 1.5 Lab Results Component Value Date NA 136 08/30/2021 K 4.0 09/02/2021 CL 102 08/30/2021 CO2 26 08/30/2021 BUN 13 08/30/2021 CREATININE 0.88 08/30/2021 Pending Studies and Lab Data: none Immunizations Given this Hospitalization: Immunization History Administered Date(s) Administered ??? Moderna Covid-19 (Museum Curator 100mcg) Vaccine 04/25/2020, 05/23/2020, 12/15/2020 Smoking Status at Discharge: Social History Tobacco Use Smoking Status Never Smoker Smokeless Tobacco Never Used STS Data Medications: Pre-operative beta yoel? Given Discharge beta yoel? Given Discharge lipid therapy? Given Discharge anti-platelet therapy? Given Discharge SHELBIE or ARB restarted? Not indicated Discharge Medications: Your Medications New Medications Dose Details acetaminophen 500 mg Tab Commonly known as: Tylenol Take 2 tablets by mouth every 6 hours as needed for Pain. 1,000 mg Quantity: 30 tablet Refills: 1 AMIOdarone 200 mg Tab Commonly known as: Paceron Take 1 tablet by mouth 2 times daily. 200 mg Quantity: 60 tablet Refills: 0 atorvastatin 80 mg Tab Commonly known as: Lipitor Take 0.5 tablets by mouth every evening. 40 mg Quantity: 30 tablet Refills: 1 clopidogreL 75 mg Tab Commonly known as: Plavix Take 1 tablet by mouth daily. 75 mg Quantity: 90 tablet Refills: 3 metoproloL tartrate 25 mg Tab Commonly known as: Lopressor Take 1 tablet by mouth 2 times daily. 25 mg Quantity: 60 tablet Refills: 1 Continued medications, unchanged Dose Details aspirin EC 81 mg Tbec Take 81 mg by mouth daily. 81 mg Refills: 0 cyanocobalamin (Vitamin B-12) 1,000 mcg Tab Commonly known as: Vitamin B-12 Take 1,000 mcg by mouth daily. 1,000 mcg Refills: 0 folic acid 800 mcg Tab Commonly known as: FOLVITE Take 800 mcg by mouth daily. 800 mcg Refills: 0 ketoconazole 2 % Crea Commonly known as: Nizoral Apply topically to affected area on the eyebrows twice daily as needed. Quantity: 60 g Refills: 3 STOPPED Medications chlorhexidine 4 % Liqd Commonly known as: HIBICLENS isosorbide mononitrate CR 30 mg Tablet sr Commonly known as: Imdur losartan 50 mg Tab Commonly known as: Cozaar metoprolol succinate XL 25 mg Tablet sr Commonly known as: Toprol-XL Instructions Given to Patient at Discharge: General Instructions None Cardiac Surgery Discharge Instructions: Call your doctor if: You have a fever of greater than 101 degrees, shaking chills, if you develop redness or drainage from your incision sites, or if you have questions. Please call your surgeon's office if you have any discharge or drainage from your chest incision. Your surgeon, Dr. Camron Guthrie and/or the Cardiac Surgery Physician Travel Pta Team may be reached at . Weight: Weigh yourself daily. Please call the office if you notice increasing weight, increasing fluid retention (edema), and/or SOB. Sternal (breast bone) precautions: No lifting greater than 7-10 pounds; no pushing or pulling with upper extremities; no excessive chest stretching for the first 4 weeks. Further instructions will be given to you at your follow-up appointment. Activity level: Walk three times a day. You should continue to increase your walks by 1-2 minutes each day. It is expected that you will be walking 20-30 minutes twice a day within 3-4 weeks after discharge to home. Rest between activities and after meals. Use common sense, don't exhaust yourself. Biking: You may use a stationary bicycle whenever you are comfortable enough to permit this. Tightenthe resistance slightly. Increase the amount of time on the bicycle as you would do for your walks, a minute or two each day. No biking outside until after your return appointment with Dr. Camron Guthrie. You may use a Runge Track or treadmill but avoid any pulling motion with the arms. Home activities: You may do light housework, e.g. dusting, setting the table, washing dishes, preparing a meal. Light carpentry and gardening are allowed. Avoid trying to open tight jars and stuck windows. No vacuuming, mopping, raking, shoveling, digging or hoeing until after your return visit with the surgeon. Sexual activity: You may engage in sexual activity when you feel ready. Use a position that protectsyour sternum (breastbone). Do not have your partner lie on your chest. Stairs: There are no restrictions on stair climbing. Use common sense. Don't exhaust yourself. Activities outside the home: After the first week home you may go out to dinner, visit friends, go to a movie, go to mormon, etc. Heavy activities: No hunting, skiing, jogging, snow shoveling, snowmobiling, lawn mowing, swimming, golf or tennis until after your return appointment with the surgeon. Do not ride motorcycles, [employer] tractors or horses. Avoid the use of a rifle with kickback against the shoulder for six months. Sleep: Try to establish normal sleep patterns. Long naps during the day may make it hard for you to sleep at night. Use the pain medication at bedtime for the first week at home. Smoking: It is very important that you not smoke after surgery. Smoking cessation education was provided as appropriate. If you need further assistance with this please call and you will be referred toa smoking cessation specialist. Medications: Take only those medications listed on your discharge information. Keep your pain under control so you can be active, do your coughing and breathing exercises and sleep. Contact us if the pain medication isn't working for you. Do not take any herbal preparations until after you return to see the surgeon. Special Physician Instructions: DO NOT USE ANY IBUPROFEN (ADVIL, MOTRIN, ETC) OR OTHER NSAIDS (NONSTEROIDAL ANTI-INFLAMMATORY DRUGS) FOR A TOTAL OF 10 DAYS AFTER SURGERY. PLEASE CONTACT THE CARDIOTHORACIC SURGERY OFFICE IF YOU HAVE QUESTIONS ABOUT WHICH DRUGS YOU SHOULD NOT USE. . Diet: You should follow a regular diet until your appetite returns to normal. At that point in time you should resume a low fat, low cholesterol, [place] [employer] Diet. Driving: No driving until cleared by your surgeon. Avoid long trips if possible. If you must go on along trip, stop the car and walk every hour. Shower/Bath: You may shower daily. No baths, soaking, or swimming until cleared by your surgeon. Wound care: Wash your incisions daily with soap and rinse well, pat dry. Assess for any signs of infection such as increased redness, pain, warmth or drainage. Please call your surgeon's office if you have any discharge or drainage from your chest incision. If there is a lot of swelling, apply shelbie wraps during the day and remove at bedtime. Elevate your legs when you are sitting. MEDICATION REFILL REQUESTS - Please note that Cardiac Surgery will not maintain regular refill requests for your medications as these can change during and after your recovery while being managed by your PCP and/or Forest Nursery Worker. For future medication refills, please refer to your PCP and/or Forest Nursery Worker after your discharge from our service. Thank you REMOVE CHEST TUBE SUTURES ON OR AFTER 09/07/21 Home oxygen therapy: N/A Follow up appointments: ??? You have an appointment with your Cardiac Surgeon, Dr. Camron Guthrie, 4 weeks on 10/08 with a chest x-ray and EKG before your appointment. Cardiac Rehabilitation: You will be contacted as an outpatient. Future Appointments and Orders Future Appointments and Orders Future Appointments Provider Department Dept Phone 10/08/2021 11:45 AM [facility] DX ROOM 1 XRay at [facility] Arrive at: Program Writer Area [phone] Please go to Program Writer Area ([place] Location). 10/08/2021 1:00 PM Camron Guthrie MD Cardiac Surgery at [facility] Arrive at: Program Writer Area [phone] Future Orders Complete By Expires Referral to Home Health [REF34 Custom] As directed Process Instructions: If no progress note charted, please enter Clinical details in comments. Scheduling Instructions: Comments: Please evaluate Alex Bingham for admission to Home Health. [address] [address] (home) Date of : 1955 Inpatient DOCUMENTATION FOR VNA SERVICES (INCLUDING THOSE PATIENTS WITH MEDICARE COVERAGE REQUIRING HOME VNA SERVICES AND/OR HOSPICE SERVICES) PATIENT'S LOCATION: Alex Bingham [address] [address] (home) Cell: Telephone Information: Exterior Interior Specialist's Name: Self In discussion with the attending physician, it is certified that this patient is under their care and that they, or a Nurse Practitioner,Clinical Nurse specialist or Physician Travel Pta who is working directly with them, had a face to face encounter that meets the physician face to face encounter requirements with this patient on 09/02/21 The encounter with the patient was in whole, or in part, for the following medical condition, which is the primary reason for home health care services: s/p cabg 08/28/10 In discussion with the provider, it is certified that, based on their findings, the following services are medically necessary for home health services. To provide the following care/treatments with the clinical findings supporting the need for servicesas follows: HOME CARE ORDERS: RN ORDERS:Assess wound or incision, vital signs, cardiopulmonary status, nutrition, hydration, elimination, meds effectiveness and management; reinforce education re health issues PT ORDERS: Continue rehab for endurance, gait stability and strength with mobility and transfers. Home safety evaluation. Home exercise program if appropriate. OT: assess and continue rehab for managing ADL's. HOME HEALTH CARE AGENCY: [facility] [address] [place] [address] Start of care: 24 to 48 hours FOR MEDICARE ONLY: (please delete this section if not Medicare) In discussion with the attending physician, it is certified that the clinical findings support that this patient is homebound because absences from home require considerable and taxing effort due to: Patient is unable to leave home without assistance and ambulation is severely limited by pain, decreased strength and/or endurance. Please note that any additional orders needs or changes will need to be obtained from this patient'sPCP: Nisa Machado MD [address] [facility] [address] All VNA agencies which cover the area of patient's residence have been reviewed, either verbally or in writing, and patient/family have chosen the home health care agency noted Questions: Disciplines Requested: Nursing Physical Therapy Occupational Therapy Arrangements for VNA/home care: As above. VN RN OR PCP TO PLEASE REMOVE CHEST TUBE SUTURES ON OR AFTER 09/07/21 Signed: TIMO DOTSON PA-C [facility] Section of Cardiac Surgery [facility] [phone] FAX [phone] Date: 09/02/2021 CC: MD Shin Belle Joseph P, MD [facility] [place] [address] documented in this encounter Discharge Instructions Patient InstructionsTimo Dotson PA - 09/02/2021 9:30 AM EDT Cardiac Surgery Discharge Instructions: Call your doctor if: You have a fever of greater than 101 degrees, shaking chills, if you develop redness or drainage from your incision sites, or if you have questions. Please call your surgeon's office if you have any discharge or drainage from your chest incision. Your surgeon, Dr. Camron Guthrie and/or the Cardiac Surgery Physician Travel Pta Team may be reached at . Weight: Weigh yourself daily. Please call the office if you notice increasing weight, increasing fluid retention (edema), and/or SOB. Sternal (breast bone) precautions: No lifting greater than 7-10 pounds; no pushing or pulling with upper extremities; no excessive chest stretching for the first 4 weeks. Further instructions will be given to you at your follow-up appointment. Activity level: Walk three times a day. You should continue to increase your walks by 1-2 minutes each day. It is expected that you will be walking 20-30 minutes twice a day within 3-4 weeks after discharge to home. Rest between activities and after meals. Use common sense, don't exhaust yourself. Biking: You may use a stationary bicycle whenever you are comfortable enough to permit this. Tightenthe resistance slightly. Increase the amount of time on the bicycle as you would do for your walks, a minute or two each day. No biking outside until after your return appointment with Dr. Camron Guthrie. You may use a Runge Track or treadmill but avoid any pulling motion with the arms. Home activities: You may do light housework, e.g. dusting, setting the table, washing dishes, preparing a meal. Light carpentry and gardening are allowed. Avoid trying to open tight jars and stuck windows. No vacuuming, mopping, raking, shoveling, digging or hoeing until after your return visit with the surgeon. Sexual activity: You may engage in sexual activity when you feel ready. Use a position that protectsyour sternum (breastbone). Do not have your partner lie on your chest. Stairs: There are no restrictions on stair climbing. Use common sense. Don't exhaust yourself. Activities outside the home: After the first week home you may go out to dinner, visit friends, go to a movie, go to mormon, etc. Heavy activities: No hunting, skiing, jogging, snow shoveling, snowmobiling, lawn mowing, swimming, golf or tennis until after your return appointment with the surgeon. Do not ride motorcycles, [employer] tractors or horses. Avoid the use of a rifle with kickback against the shoulder for six months. Sleep: Try to establish normal sleep patterns. Long naps during the day may make it hard for you to sleep at night. Use the pain medication at bedtime for the first week at home. Smoking: It is very important that you not smoke after surgery. Smoking cessation education was provided as appropriate. If you need further assistance with this please call and you will be referred toa smoking cessation specialist. Medications: Take only those medications listed on your discharge information. Keep your pain under control so you can be active, do your coughing and breathing exercises and sleep. Contact us if the pain medication isn't working for you. Do not take any herbal preparations until after you return to see the surgeon. Special Physician Instructions: DO NOT USE ANY IBUPROFEN (ADVIL, MOTRIN, ETC) OR OTHER NSAIDS (NONSTEROIDAL ANTI-INFLAMMATORY DRUGS) FOR A TOTAL OF 10 DAYS AFTER SURGERY. PLEASE CONTACT THE CARDIOTHORACIC SURGERY OFFICE IF YOU HAVE QUESTIONS ABOUT WHICH DRUGS YOU SHOULD NOT USE. . Diet: You should follow a regular diet until your appetite returns to normal. At that point in time you should resume a low fat, low cholesterol, [place] [employer] Diet. Driving: No driving until cleared by your surgeon. Avoid long trips if possible. If you must go on along trip, stop the car and walk every hour. Shower/Bath: You may shower daily. No baths, soaking, or swimming until cleared by your surgeon. Wound care: Wash your incisions daily with soap and rinse well, pat dry. Assess for any signs of infection such as increased redness, pain, warmth or drainage. Please call your surgeon's office if you have any discharge or drainage from your chest incision. If there is a lot of swelling, apply shelbie wraps during the day and remove at bedtime. Elevate your legs when you are sitting. MEDICATION REFILL REQUESTS - Please note that Cardiac Surgery will not maintain regular refill requests for your medications as these can change during and after your recovery while being managed by your PCP and/or Forest Nursery Worker. For future medication refills, please refer to your PCP and/or [facility] Nurs[facility] Worker after your discharge from our service. Thank you REMOVE CHEST TUBE SUTURES ON OR AFTER 09/07/21 Home oxygen therapy: N/A Follow up appointments: You have an appointment with your Cardiac Surgeon, Dr. Camron Guthrie, 4 weeks on 10/08 with a chest x-ray and EKG before your appointment. Cardiac Rehabilitation: You will be contacted as an outpatient. documented in this encounter Medications at Time of Discharge Medication Sig Dispensed Refills Start Date End Date acetaminophen (Tylenol) Take 2 tablets by 30 tablet 1 09/02 500 mg Tablet mouth every 6 hours as needed for Pain. atorvastatin (Lipitor) 80 Take 0.5 tablets by 30 tablet 1 0 09/02/2021 mg Tablet mouth every evening. clopidogreL (Plavix) 75 mg Take 1 tablet by 90 tablet 3 12/2021 Tablet mouth daily. metoproloL tartrate Take 1 tablet by 60 tablet 1 09/02/2021 (Lopressor) 25 mg Tablet mouth 2 times daily. aspirin EC 81 mg Tablet, Take 81 mg by mouth 0 Delayed Release (E.C.) daily. cyanocobalamin, Vitamin Take 1,000 mcg by 0 B-12, (Vitamin B-12) 1,000 mouth daily. mcg Tablet folic acid (FOLVITE) 800 Take 800 mcg by mouth 0 mcg Tablet daily. ketoconazole (NIZORAL) 2 % Apply topically to 60 g 3 1 03/05/2019 Cream affected area on the eyebrows twice daily as needed. AMIOdarone (Paceron) 200 Take 1 tablet by 60 tablet 0 09/02 mg Tablet mouth 2 times daily. documented as of this encounter Progress Notes Yuan Cortez, PT - 09/01/2021 11:35 AM EDT Physical Therapy Note Treatment Number PT: 3 Patient profile: Alex Bingham??is a 66 y.o.??male??with PMH of ??CAD, pre- diabetic, peripheral neuropathy, HTN, s/p lumbar discectomy??who is??1 Day Post- Op??s/p CABGx6 Interval History: on iv amio, but ready to transition to oral per team. Social History: Pt lives with his in a multi-level home with 3 stairs to enter and a flight of stairs to bedroom. 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 Does not use a device. ?? Precautions/Special Considerations: STERNAL PRECAUTIONS (No pushing, pulling or lifting >8-10lbs); at risk to fall; cardiac monitoring Mobility and Positioning Recommendations: ?? Ambulate 3-4x/daily with nursing with no device and supervision ?? OOB in chair for all meals Subjective: My wants to speak with a PT about moving at home? Objective: Patient seen for physical therapy and demonstrated the following: Pain: c/o some mild incisional discomfort (un-rated) Vital Signs: SpO2 98%, HR 70; BP 121/71 sitting Mental Status: A&O x 4, safety awareness good throughout session with exception to bed mobility (Wanted to slide off bed into quadruped position and push up from the floor, which in addition to being unsafe would violate sternal precautions.) ?? Skin: Sternal incision CDI. ?? Musculoskeletal: ROM: WFL Strength: Charlette MCQUEEN's 5/5 Bed Mobility: HOB flat, without bed rails Supine to Sit: X 2 reps after instruction with his present. She was able to practice assisting him with trunk sidely to sit. He is able to roll independently and he is able to get LE' over the EOBindependently. Sit to Supine: with Supervision after instruction x 2 reps with present. Transfers: Sit to Stand: IND (able to maintain precautions / get up without pushing whatsoever) Stand to Sit: IND Bed to Chair: IND Gait: Did not practice as he has been walking with nsg. He was able to walk in/out of bathroom with IV pole independently. Stairs: nt Balance: wfl sitting and standing. Pt and instructed at length on safety at home, precautions and reasons behind them, walking program at home until cardiac rehab is initiated. Pt and his had many questions about precautions, car transfers, activity at home and home going. Questions were answered and goals have been met. Assessment: Alex Bingham was seen today for physical therapy treatment. Patient was seen with hiswife today so that she could observe his mobility and assist with bed mobility. Pt is mobilizing independently without a device on level and stairs. His is able to assist with bed mobility as needed. She verbalized understanding today and was able to assist. All goals have been met. D/c inpt PT. Discharge Recommendations: Based on the current findings, Anticipated Discharge Disposition (PT): home when medically ready forhospital discharge. Consult Recommendations: No other consults recommended at this time. Equipment needs: Anticipated Equipment Needs at Discharge (PT): None Goals to be achieved by 09/01/21. 1. Pt will perform supine to sit transfers with supervision to/from flat bed, log roll technique with assist of family. Met, 2. Pt will perform sit><stand transfers with supervision with no device MET 3. Pt will perform bed to chair transfers with supervision with no device MET 4. Pt will ambulate at least 160' with supervision with no device. MET 5. Pt will perform 12 stairs with rail, LRAD and supervision. MET ?? Plan: Therapy Frequency (PT): MonitorPatient agrees with plan as stated. Total Minutes, Physical Therapy: 30 (TEF x 2 745-8:00 and [id number]) YUAN CORTEZ, PT Pager: [phone] Physical Therapy Inpatient Rehabilitation Department William Willis PA - 09/01/2021 10:31 AM EDT Cardiac Surgery Progress Note HPI Alex Bingham is a 66 y.o. male with PMH of CAD, pre-diabetic, peripheral neuropathy, HTN, s/p lumbar discectomy who is 4 Days Post-Op s/p CABGx6 Events: Afib with RVR. Converted to SR on amio drip ~1000 JU overnight S: Feels tired. Could feel his heart racing when it was going fast. Ambulating. Tolerating diet. Voiding. +BM. Denies dyspnea. O: Temp: [36.4 ??C (97.5 ??F)-37.1 ??C (98.8 ??F)] Heart Rate: [63-86] Resp: [16-18] BP: (107-146)/(51-77) SpO2: [96 %-99 %] Heart Rate from SpO2: [63 bpm-78 bpm] I/O last 3 completed shifts: In: 1575 [P.O.:1570; I.V.:5] Out: 2850 [Urine:2850] I/O this shift: In: - Out: 600 [Urine:600] Physical Exam: General: Sitting in bed. NAD. Pleasant. Neuro: Awake and alert. Moves all extremities with equal strength. CN intact. Lungs: Normal effort on RA Heart: RRR, NSR on tele. Abdomen: Soft, NTND Ext: warm, trace LE Edema bilat Incisions: BRODY CDI. Tubes/Lines/Drains: PIV A&P 66 y.o. male 4 Days Post-Op CABGx6. Recovering well from surgery. Post-op afib. Amio to PO Increase BB prn No lasix Plavix for burden of [place] CAD. Indefinitely if tolerated. Neuro: APAP 1g q6h, Oxy 5-10 q4h prn CV: metop 25, amio 200 bid, statin Pulm: RA, pulm toilet GI: Regular diet, protonix, RBOs : Voiding Renal: UOP adequate, no lasix Heme: ASA 81, Plavix for [place] burden of CAD, B12, folate ID: no issues Endo: no DM Dispo: Floor status, Full code Discussed with attending surgeon on AM rounds DANIEL LOONEY 09/01/2021 Vidhya Hdz, PT - 08/31/2021 4:53 PM EDT Physical Therapy Note Treatment Number PT: 2 Patient profile: Alex Bingham??is a 66 y.o.??male??with PMH of ??CAD, pre- diabetic, peripheral neuropathy, HTN, s/p lumbar discectomy??who is??1 Day Post- Op??s/p CABGx6 Interval History: Moved to [facility]. Short bursts of afib overnight. Social History: Pt lives with his in a multi-level home with 3 stairs to enter and a flight of stairs to bedroom. 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 Does not use a device. ?? Precautions/Special Considerations: STERNAL PRECAUTIONS (No pushing, pulling or lifting >8-10lbs); at risk to fall; cardiac monitoring Mobility and Positioning Recommendations: ?? Ambulate 3-4x/daily with nursing with no device and supervision ?? OOB in chair for all meals Subjective: What if I slid off the bed onto my hands and knees and got up from there? Objective: Patient seen for physical therapy and demonstrated the following: Pain: c/o some mild incisional discomfort (un-rated) Vital Signs: VSS on RA Mental Status: A&O x 4, safety awareness good throughout session with exception to bed mobility (Wanted to slide off bed into quadruped position and push up from the floor, which in addition to being unsafe would violate sternal precautions.) ?? Skin: Sternal incision CDI. ?? Musculoskeletal: ROM: WFL Strength: B CHARISSE's 5/5 Bed Mobility: HOB flat, without bed rails Supine to Sit: many repetitions with verbal cues to roll onto side, and use momentum from bringing legs off EOB to bring trunk to upright position. Patient reminded to avoid pushing through arms and totry and stay in the tube, but consistently required Ozzy to come to fully upright position EOB. Patient educated on using extra pillows/wedge to assist with transition. Sit to Supine: supervision Transfers: Sit to Stand: IND (able to maintain precautions / get up without pushing whatsoever) Stand to Sit: IND Bed to Chair: IND Gait: Distance: 750 ft Device used: none Level of assist: line mgmt Gait mechanics: Presents with no significant gait deviations Stairs: Number of steps: 20 Device used: railx1 (for balance only/fngertip assist, not pushing) Level of assist: supervision Balance: Sitting Static: good Sitting Dynamic: good Standing Static: good Standing Dynamic / Gait: good Pt left in bedside recliner chair, with all needs met and with call jimenez in reach following visit. Assessment: Alex Bingham was seen today for physical therapy treatment. Patient tolerated therapywell and demonstrated improvements from his evaluation. Notably he was able to tolerate a significantly larger volume of therapy, and required less assist with all functional activities. That being said, Patient continues to require light assist when transitioning from supine > sit from flat bed, and would benefit from 1 additional PT session to practice bed mobility strategies prior to discharge. Discharge Recommendations: Based on the current findings, Anticipated Discharge Disposition (PT): home when medically ready forhospital discharge. Consult Recommendations: No other consults recommended at this time. Equipment needs: Anticipated Equipment Needs at Discharge (PT): None Goals to be achieved by 09/01/21. 1. Pt will perform supine to sit transfers with supervision to/from flat bed, log roll technique with assist of family. Improving 2. Pt will perform sit><stand transfers with supervision with no device MET 3. Pt will perform bed to chair transfers with supervision with no device MET 4. Pt will ambulate at least 160' with supervision with no device. MET 5. Pt will perform 12 stairs with rail, LRAD and supervision. MET ?? Plan: Therapy Frequency (PT): 1-2 more times for therapy interventions as outlined in initial evaluation. Patient agrees with plan as stated. Time IN / OUT: 2636-8136 Total Minutes, Physical Therapy: 25 Vidhya Hdz PT , DPT Pager: [phone] Physical Therapy Inpatient Rehabilitation Department Cinthia Nagy RN - 08/31/2021 3:04 PM EDT OUTCOME EVALUATION NOTE: OUTCOME SUMMARY: Patient converted to AFIB c RVR this AM. AOx4, no reports of CP or SOB. Denies pain. Remains on RA. Ambulated Twice in hallway Currently SR with PAC on tele. See scanned docs. Amiodarone running @ 0.5mg/min. Clean, dry and wellapproximated Incisions. PLAN MOVING FORWARD: Continue to actively monitor. D/C planning as appropriate INDIVIDUALIZED FALL PREVENTION INTERVENTIONS: Patient-specific fall risk factors per assessment: [current deficits]: tele wires, unfamiliar environment. Assistance [level of assistance required for transfers and ambulation]: SBA Supervision [direct monitoring required during toileting and ADLs]: Eyes only Surveillance [continuous indirect monitoring]: Tele, purposeful rounding, call jimenez within reach Patient-specific fall prevention interventions for sensory deficits provided, if applicable: Room near RN station, Door open, non-skin socks on when OOB, Lighting adjusted for specific tasks/activities, bed in lowest locked position. CARE PLAN GOAL OUTCOME EVALUATION: Ongoing Large BM this evening. Timo Dotson PA - 08/31/2021 5:51 AM EDT Cardiac Surgery Progress Note HPI Alex Bingham is a 66 y.o. male with PMH of CAD, pre-diabetic, peripheral neuropathy, HTN, s/p lumbar discectomy who is 3 Days Post-Op s/p CABGx6 Events: -Short bursts afib overnight and this AM. PO amio load began. -Plavix started for [place] burden of coronary disease S: Doing ok. No big complaints other than can feel his heart racing when it goes fast. Glad it does not sustain. Breathing ok. Pain tolerable. Winsome diet. + flatus. -BM. Denies n/v, fever, chills, SOB, CP, abd pain. O: Temp: [36.6 ??C (97.9 ??F)-36.9 ??C (98.4 ??F)] Heart Rate: [85-100] Resp: [15-20] BP: (117-147)/(63-86) SpO2: [95 %-100 %] Heart Rate from SpO2: [71 bpm-166 bpm] Physical Exam: General: Sitting in bed. NAD. Pleasant. Neuro: Awake and alert. Moves all extremities with equal strength. CN intact. Lungs: Normal effort on RA, Bs equal bilat, no w/r/r Heart: RRR, S1S2, NSR on tele. Abdomen: Soft, NTND, hypoactive bowel sounds. Ext: warm, trace LE Edema bilat Incisions: dressing CDI without drainage or crepitus. Tubes/Lines/Drains: I/O last 3 completed shifts: In: 1265 [P.O.:1260; I.V.:5] Out: 2825 [Urine:2825] A&P 66 y.o. male 3 Days Post-Op s/p CABGx6. Recovering well from surgery. Post-op afib. Metop at 25 bid may increase later Amio gtt and bolus No lasix Plavix for burden of [place] CAD. Indefinitely if tolerated. Neuro:APAP 1g q6h, Oxy 5-10 q4h prn CV: metop 25, amio gtt and bolus, statin Pulm: NC to keep spo2>92%, pulm toilet GI: Regular diet, protonix, RBOs : Voiding Renal: UOP adequate, no lasix Heme: ASA 81, Plavix for [place] burden of CAD ID: periop abx complete Endo: no DM Dispo: Floor status, Full code Discussed with attending surgeon on AM rounds DANIEL OTTO 08/31/2021 Jenny Zayas RN - 08/30/2021 11:43 PM EDT OUTCOME EVALUATION NOTE: OUTCOME SUMMARY: Pt A&Ox4. VSS on RA, see flowsheet. No reports of CP or SOB. NSR on tele with frequent PACs, seescanned docs. Pt had short run of atrial tach up to 170s, notified, VSS and asymptomatic. One time metop given per order. Another short run of atrial tach, notified and amiodarone given per order, see MAR. CXR this AM. IND in room, following sternal precautions. I/O, see flowsheet. Call jimenez within reach. PLAN MOVING FORWARD: Monitor Tele CT Pathway - needs BM Discharge planning as appropriate Christiano Rabago RN - 08/30/2021 10:19 PM EDT Report called to [facility] RN Jinny, pt transferred to [facility] in wheelchair with belongings/chart. Transferred on RA, no active gtts. Jay Ortiz PA - 08/30/2021 10:30 AM EDT Cardiac Surgery Progress Note HPI Alex Bingham is a 66 y.o. male with PMH of CAD, pre-diabetic, peripheral neuropathy, HTN, s/p lumbar discectomy who is 2 Days Post-Op s/p CABGx6 Events: Pathway, floor status Metop CTs out Continues to autodiurese Plavix started for [place] burden of coronary disease S: Pain controlled. OOB to chair. Tolerating sips and chips. No nausea/vomiting. Denies fever or chills. O: Temp: [36.6 ??C (97.9 ??F)-36.9 ??C (98.4 ??F)] Heart Rate: [74-100] Resp: [9-20] BP: (113-137)/(65-77) SpO2: [95 %-99 %] Heart Rate from SpO2: [74 bpm-99 bpm] Physical Exam: General: Sitting in chair. NAD. Pleasant. Neuro: Awake and alert. Moves all extremities with equal strength. Lungs: Normal effort on RA, Bs equal bilat, no w/r/r Heart: RRR, S1S2, NSR on tele. Abdomen: Soft, NTND, hypoactive bowel sounds. Ext: warm, trace LE Edema bilat Incisions: dressing CDI without drainage or crepitus. Tubes/Lines/Drains: TPW, Valladares Drips: none I/O last 3 completed shifts: In: 1825.2 [P.O.:780; I.V.:1045.2] Out: 4200 [Urine:3885; Drains:15; Other:300] Net -1.1L A&P 66 y.o. male 2 Days Post-Op s/p CABGx6. Recovering well from surgery. Metop 12.5' No lasix Plavix for burden of [place] CAD. Indefinitely if tolerated. PW out Valladares out Neuro:APAP 1g q6h, Oxy 5-10 q4h prn CV: metop 12.5', statin Pulm: NC to keep spo2>92%, pulm toilet GI: Regular diet, protonix, RBOs : Valladares out Renal: UOP adequate, no lasix Heme: ASA 81, Plavix for [place] burden of CAD ID: periop abx complete Endo: no DM Dispo: Floor status, Full code Discussed with attending surgeon on AM rounds DANIEL Castillo 08/30/2021 Song Shen, PT - 08/29/2021 3:13 PM EDT Physical Therapy Evaluation Patient profile:Alex Bingham is a 66 y.o. male with PMH of CAD, pre-diabetic, peripheral neuropathy, HTN, s/p lumbar discectomy who is 1 Day Post-Op s/p CABGx6 Events: Pathway Extubated 2200 On nitro/nicard overnight for HTN Autodiuresing ~2L UOP overnight Patient with the following active problems: Past Medical History: Diagnosis Date ??? High blood pressure last 3 to 4 months b/p high 10/17/19 ??? in the past 3 months ??? Transfusion history Past Surgical History: Procedure Laterality Date ??? ANKLE SURGERY Right 1979 ??? PRO CABG, ARTERIAL, SINGLE N/A 08/28/2021 @[facility], USING ARTERIAL GRAFT;SINGLE ARTERIAL GRAFT (WRVU 33.75) performed by Camron Guthrie MD at [facility] MAIN OR ??? PRO CABG, ARTERY-VEIN, FIVE N/A 08/28/2021 @[facility]; 5 VENOUS GRAFTS & ARTERIAL GRAFT (WRVU 14.14) performed by Camron Guthrie MD at [facility] MAIN OR ??? PRO ENDOSCOPY W/VIDEO-ASST VEIN HARVEST, CABG N/A 08/28/2021 ENDOSCOPIC HARVEST VEIN(S) FOR CABG (WRVU 0.31) performed by Camron Guthrie MD at [facility] MAIN OR ??? PRO LAMINOTOMY, LUMBAR DISK, 1 INTRSP Left 10/18/2019 LAMINOTOMY, DECOMPRESSION, FORAMINOTOMY, LUMBAR (WRVU 13.18) performed by Jelani Zuñiga MD at [facility] MAIN OR ??? PRO MICROSURG TECHNIQUES, REQ OPER MICROSCOPE Left 10/18/2019 MICROSCOPE USE (WRVU 3.46) performed by Jelani Zuñiga MD at [facility] MAIN OR ??? VASECTOMY 1994 Social History: Pt lives with his in a multi-level home with 3 stairs to enter and a flight of stairs to bedroom. 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 Does not use a device. Precautions/Special Considerations: STERNAL PRECAUTIONS (No pushing, pulling or lifting >8-10lbs); at risk to fall; IJ; luis; pacing wires Mobility and Positioning Recommendations: ?? Ambulate 3-4x/daily with nursing with no device and 1 assist ?? OOB in chair for all meals Subjective: ???I am pretty active. I will try to do more. Maybe some pain medication would be good.?? Objective: Pt seen in the [facility] for initial evaluation, post operative protocol exs and precaution teaching w/ transfers and gait. Pt in chair at start of session; in chair at end of session with call jimenez in reach. Vital Signs: SpO2 (RA) 100 % BP (MAP) 144/58 mmHg HR 88 bpm Incentive Spirometer: 1750 mL with cues Pain: 6/10 reported by patient at rest; 6/10 with mobility. Medicated at start of session Mental Status: A & O x 4 Skin: Sternal incision CDI. Musculoskeletal: ROM: WFL Strength: Charlette LE's 5/5 Bed Mobility: Supine ->Sit: not assessed; up in chair at start of session Transfers: Sit to Stand: cg assist x 1, no device Stand to Sit: cg assist x 1 Gait: Ambulated 160 ft with no device with Cg assist x 1; 2 standing rest breaks; cues for breathingtechnique. Balance: good Stairs: not assessed Education/Exercise Instruction: Pt issued an exercise list and instructed in the ex's for home including: ankle pumps, shoulder ff to prevent shoulder contractures, IS with deep breathing and cough technique. Pt was instructed in precautions and demonstrated understanding. Assessment: Pt is s/p above CT surgery with sternotomy presenting with expected post operative pain,impaired skin integrity, impaired breathing mechanics, impaired cough, impaired activity tolerance resulting in decreased functional balance, impaired transfers and gait. Pt requires cues for sternal precautions, pacing and breathing techniques with all mobility at this time. Pt ambulated around the unit today with good balance with vitals stable on RA. Anticipate pt will make gains with mobility andbe safe for home d/c with assist once medically ready. He will benefit from frequent walks with nursing. Plan: 1-2 more sessions for continued transfer training, gait, stairs and pt education. Discharge Recommendations: Home with Equipment needs for home at d/c: No equipment necessary Goals to be achieved by 09/01/21. 1. Pt will perform supine to sit transfers with supervision to/from flat bed, log roll technique with assist of family. 2. Pt will perform sit><stand transfers with supervision with no device 3. Pt will perform bed to chair transfers with supervision with no device 4. Pt will ambulate at least 160' with supervision with no device. 5. Pt will perform 12 stairs with rail, LRAD and supervision. Patient status, treatment, and mobility recommendations have been discussed with nursing, Care management and Medical team. Thank you for this consult. 2017 PT Evaluation Code Rationale: ?? Diagnosis & Pertinent Co-Morbidities, personal factors, and present illness affecting Plan ofCare: (see above); Additional personal factors or co- morbidities that impact plan: ?? Total # of Factors: 0 1-2 3+ x ?? Examination of body system impairments, functional limitations and behaviors, and/or participation restrictions. Addressing 1-2 elements Addressing 3 + elements Addressing 4 + elements x ?? Clinical presentation: See assessment above. Stable/Uncomplicated Evolving/Fluctuating Symptoms Unstable/Unpredictable x ?? Clinical decision making of moderate complexity based on pt's functional performance as outlined in this evaluation. SONG SHEN, PT Pager: [phone] Physical Therapy Inpatient Rehabilitation Department Time IN / OUT: 145-215 Total time: 30 mins (eval) Jay Ortiz PA - 08/29/2021 9:05 AM EDT Cardiac Surgery Progress Note HPI Alex Bingham is a 66 y.o. male with PMH of CAD, pre-diabetic, peripheral neuropathy, HTN, s/p lumbar discectomy who is 1 Day Post-Op s/p CABGx6 Events: Pathway Extubated 2200 On nitro/nicard overnight for HTN Autodiuresing ~2L UOP overnight S: Pain controlled. OOB to chair. On RA this AM. Tolerating sips and chips. No nausea/vomiting. Denies fever or chills. O: Temp: [35 ??C (95 ??F)-37 ??C (98.6 ??F)] Heart Rate: [52-94] Resp: [10-23] BP: (106-118)/(54-61) SpO2: [95 %-100 %] Heart Rate from SpO2: [49 bpm-94 bpm] Physical Exam: General: Sitting in chair. NAD. Pleasant. Neuro: Awake and alert. Moves all extremities with equal strength. Lungs: Normal effort on RA, decreased at the bases bilat Heart: RRR, S1S2, NSR on tele. Abdomen: Soft, NTND, hypoactive bowel sounds. Ext: warm, trace LE Edema bilat Incisions: dressing CDI without drainage or crepitus. Tubes/Lines/Drains: RIJ, A-line, Mediastinal CT, TPW, Valladares, PIV Hemodynamics: CI 2.8 PAP 18/2 CVP 1 Drips: none I/O last 3 completed shifts: In: 2184.4 [P.O.:120; I.V.:1247.4; Blood:817] Out: 5555 [Urine:5070; Drains:15; Other:370; Blood:100] Mediastinal CTs - 370 since OR, SS, no air leak Net -1.6L A&P 66 y.o. male 1 Day Post-Op s/p CABGx6. Extubated. HDS off vasoactive drips. Recovering well from surgery. Metop 12.5 No lasix CTs out Plavix for burden of [place] CAD. Indefinitely if tolerated. Transfer Neuro:APAP 1g q6h, Oxy 5-10 q4h prn CV: metop 12.5, statin Pulm: NC to keep spo2>92%, pulm toilet GI: NPO till flatus, protonix, RBOs : [place] Renal: UOP adequate, no lasix Heme: ASA 81, Plavix for [place] burden of CAD ID: periop abx complete Endo: no DM Dispo: CVCC, Full code, Transfer Discussed with attending surgeon on AM rounds DANIEL Castillo 08/29/2021 Timo Dotson PA - 08/28/2021 6:24 AM EDT Cardiac Surgery Progress Note Alex Bingham is a 66 y.o. male with severe multivessel CAD who admitted with UA. PMH of CAD, pre-diabetic, peripheral neuropathy, HTN, lumbar discectomy. 24h Events: Hemodynamically stable on nitro and heparin. TO OR TODAY. S: Currently without complaints. Doing ok. No discomfort on nitro and heparin. Ready for surgery today. Winsome diet. Ambulating. Breathing ok. Denies SOB, dizziness, palpitations. O: Temp: [36.4 ??C (97.5 ??F)-37 ??C (98.6 ??F)] Heart Rate: [50-57] Resp: [16] BP: (100-124)/(52-66) SpO2: [96 %-100 %] Heart Rate from SpO2: [47 bpm-59 bpm] Drips: Nitro 30 Hep gtt 08/27 700 - 08/28 07 In: 820 [P.O.:820] Out: 2425 [Urine:2425] Admit weight: 81.65 kg Current weight: Weight: 81.9 kg (180 lb 8.9 oz) Physical Exam: General: no acute distress, in bed Pulm: non-labored, CTA bilat Cardiac: regular rate and rhythm, without murmur/gallop/rub Vascular: warm, no LE edema Abd: non-tender, non-distended, active bowel sounds Neuro: A&Ox4, no focal deficits Integ: no rashes or lesions Assessment/Plan: 66 y.o. male with known severe multivessel CAD who is admitted with unstable angina. Plan for CABG Thursday unless symptoms progress or patient becomes unstable. Cont medical management - ASA, statin, BB Hold losartan today. Nitro and heparin gtt for chest pain Monitor for further symptoms Second case today for OR. Neuro: acetaminophen PRN, dilaudid PRN CV: Nitro gtt, atorvastatin, metoprolol, losartan Pulm: RA GI: Gluten free diet : Voiding Renal: Cr WNL, UOP adequate Heme: ASA 81, heparin gtt ID: No issues Endo: Pre-DM, no insulin coverage needed at this time Dispo: ICCU, full code Discussed with attending surgeon on rounds this morning. DANIEL OTTO 08/28/2021 Between the hours of 1800 - 0600 and on the weekends please page [phone]. Roxy Parkinson RN - 08/28/2021 5:13 AM EDT OUTCOME EVALUATION NOTE: A/O X4, VSS on RA. Currently in sinus brett (see scan). Nitro is hanging at 30 mcg/min, heparin is hanging at is hanging running at 1000 u/hr. Ambulated independently in room. Night otherwise uneventful PLAN MOVING FORWARD: CABG monitor INDIVIDUALIZED FALL PREVENTION INTERVENTIONS: Patient-specific fall risk factors per assessment: [current deficits]: Tele, IV, unfamiliar environment Assistance [level of assistance required for transfers and ambulation]: ind Supervision [direct monitoring required during toileting and ADLs]: Independent Surveillance [continuous indirect monitoring]: Tele, pulse ox, purposeful hourly rounding Patient-specific fall prevention interventions for sensory deficits provided, if applicable: Non-skid socks on, room well lit and free of clutter, call jimenez within reach, personal items within reach, upper side rails raised X2, bed in lowest possible position CPG GOAL OUTCOME EVALUATION: Oxana Herrera RN - 08/27/2021 6:29 PM EDT OUTCOME EVALUATION NOTE: OUTCOME SUMMARY: Mr Bingham is A&Ox4 and on RA. Complained of 3/10 left arm pain relieved by titrating nitro gtt. EKG obtained, team aware. No SOB or headache. Ambulated in schulte x3. SB on tele - see scanned docs. Nitro and heparin gtt running. Call jimenez within reach. PLAN MOVING FORWARD: CABG afternoon 08/28. Continue to actively monitor. Discharge planning as appropriate. INDIVIDUALIZED FALL PREVENTION INTERVENTIONS: Patient-specific fall risk factors per assessment: [current deficits]: Tele wires, unfamiliar environment Assistance [level of assistance required for transfers and ambulation]: Ind Supervision [direct monitoring required during toileting and ADLs]: Ind Surveillance [continuous indirect monitoring]: Tele, purposeful hourly rounding, call jimenez within reach. Patient-specific fall prevention interventions for sensory deficits provided, if applicable: Lighting adjusted for specific tasks/activities, non-skid socks, bed in lowest/locked position. CPG GOAL OUTCOME EVALUATION: Ongoing Timo Dotson PA - 08/27/2021 7:54 AM EDT Cardiac Surgery Progress Note Alex Bingham is a 66 y.o. male with severe multivessel CAD who admitted with UA. PMH of CAD, pre-diabetic, peripheral neuropathy, HTN, lumbar discectomy. 24h Events: Hemodynamically stable on nitro and heparin S: Currently without complaints. Doing ok. No discomfort on nitro and heparin. Winsome diet. Ambulating.Breathing ok. Denies SOB, dizziness, palpitations. O: Temp: [36.5 ??C (97.7 ??F)-36.7 ??C (98.1 ??F)] Heart Rate: [46-57] Resp: [16-20] BP: (101-143)/(49-79) SpO2: [98 %-100 %] Heart Rate from SpO2: [46 bpm-58 bpm] Drips: Nitro 30 Hep gtt 08/26 0701 - 08/27 0700 In: 440 [P.O.:440] Out: 1250 [Urine:1250] Admit weight: 81.65 kg Current weight: Weight: 81.6 kg (179 lb 14.3 oz) Physical Exam: General: no acute distress, in bed Pulm: non-labored, CTA bilat Cardiac: regular rate and rhythm, without murmur/gallop/rub Vascular: warm, no LE edema Abd: non-tender, non-distended, active bowel sounds Neuro: A&Ox4, no focal deficits Integ: no rashes or lesions Assessment/Plan: 66 y.o. male with known severe multivessel CAD who is admitted with unstable angina. Plan for CABG Thursday unless symptoms progress or patient becomes unstable. Cont medical management - ASA, statin, BB Nitro and heparin gtt for chest pain Monitor for further symptoms NPO midnight Neuro: acetaminophen PRN, dilaudid PRN CV: Nitro gtt, atorvastatin, metoprolol, losartan Pulm: RA GI: Gluten free diet : Voiding Renal: Cr WNL, UOP adequate Heme: ASA 81, heparin gtt ID: No issues Endo: Pre-DM, no insulin coverage needed at this time Dispo: ICCU, full code Discussed with attending surgeon on rounds this morning. DANIEL OTTO 08/27/2021 Between the hours of 1800 - 0600 and on the weekends please page [phone]. Roxy Parkinson RN - 08/27/2021 6:00 AM EDT OUTCOME EVALUATION NOTE: A/O X4, VSS on RA. Currently in Sinus brett (see scan). Nitro is hanging running at 30mcg/min. Ambulated independently in room. Night otherwise uneventful. PLAN MOVING FORWARD: CABG on thursday INDIVIDUALIZED FALL PREVENTION INTERVENTIONS: Patient-specific fall risk factors per assessment: [current deficits]: Tele, IV, unfamiliar environment Assistance [level of assistance required for transfers and ambulation]: ind Supervision [direct monitoring required during toileting and ADLs]: ind Surveillance [continuous indirect monitoring]: Tele, pulse ox, purposeful hourly rounding Patient-specific fall prevention interventions for sensory deficits provided, if applicable: Non-skid socks on, room well lit and free of clutter, call jimenez within reach, personal items within reach, upper side rails raised X2, bed in lowest possible position CPG GOAL OUTCOME EVALUATION: Oxana Herrera RN - 08/26/2021 6:31 PM EDT OUTCOME EVALUATION NOTE: OUTCOME SUMMARY: Mr Bingham had an uneventful shift and is A&Ox4 on RA. No reports of CP or SOB. Complained of 3/10left arm pain and tingling in hand around 1500 . MD aware. Pain and tingling resolved with titratingnitro gtt to 40mcg/min, later reduced to 30mcg/min. Ambulated in schulte. NSR - SB on tele - see scanned docs. Heparin gtt initiated and nitro gtt maintained at 30 mcg. Call jimenez within reach. PLAN MOVING FORWARD: Prep for CABG 08/28. Continue to actively monitor. Discharge planning as appropriate. INDIVIDUALIZED FALL PREVENTION INTERVENTIONS: Patient-specific fall risk factors per assessment: [current deficits]: Tele wires, unfamiliar environment Assistance [level of assistance required for transfers and ambulation]: Ind Supervision [direct monitoring required during toileting and ADLs]: Ind Surveillance [continuous indirect monitoring]: Tele, purposeful hourly rounding, call jimenez within reach. Patient-specific fall prevention interventions for sensory deficits provided, if applicable: Lighting adjusted for specific tasks/activities, non-skid socks, bed in lowest/locked position. CPG GOAL OUTCOME EVALUATION: Ongoing Dona Oropeza PA - 08/26/2021 9:25 AM EDT Cardiac Surgery Progress Note Alex Bingham is a 66 y.o. male with severe multivessel CAD who admitted with UA. PMH of CAD, pre-diabetic, peripheral neuropathy, HTN, lumbar discectomy. 24h Events: Admitted from the ED with UA Started on nitro gtt, titrated to 20 overnight for left chest/arm pain with resolution Troponin neg x3 Hemodynamically stable S: Currently without complaint, denies pain to chest or left arm since nitro increased. Denies SOB, dizziness, palpitations. O: Temp: [36.5 ??C (97.7 ??F)-37 ??C (98.6 ??F)] Heart Rate: [49-58] Resp: [10-18] BP: (111-148)/(61-80) SpO2: [95 %-100 %] Heart Rate from SpO2: [54 bpm] Drips: Nitro 20 08/25 700 - 08/26 07 In: 736.3 [P.O.:670; I.V.:66.3] Out: 1100 [Urine:1100] Admit weight: 81.65 kg Current weight: Weight: 82 kg (180 lb 12.4 oz) Physical Exam: General: no acute distress, in bed Pulm: non-labored, CTA bilat Cardiac: regular rate and rhythm, without murmur/gallop/rub Vascular: warm, no LE edema Abd: non-tender, non-distended, active bowel sounds Neuro: A&Ox4, no focal deficits Integ: no rashes or lesions Assessment/Plan: 66 y.o. male with known severe multivessel CAD who is being admitted with unstable angina. Plan for CABG Thursday unless symptoms progress or patient becomes unstable. Cont medical management - ASA, statin, BB Nitro gtt for chest pain Starting heparin gtt given angina overnight Monitor for further symptoms Neuro: acetaminophen PRN, dilaudid PRN CV: Nitro gtt, atorvastatin, metoprolol, losartan Pulm: RA GI: Gluten free diet : Voiding Renal: Cr WNL, UOP adequate Heme: ASA 81, heparin gtt ID: No issues Endo: Pre-DM, no insulin coverage needed at this time Dispo: ICCU, full code Discussed with attending surgeon on rounds this morning. DANIEL Forbes 08/26/2021 Between the hours of 1800 - 0600 and on the weekends please page [phone]. Oxana Herrera RN - 08/25/2021 5:22 PM EDT OUTCOME EVALUATION NOTE: OUTCOME SUMMARY: Mr Bingham arrived from ED around 1530. He is A&Ox4 and on RA. No reports of CP or SOB. Complains of 2/10 left arm pain managed with Nitro gtt. Ambulated in room. NSR - SB on tele - see scanned docs.Nitro gtt running. Call jimenez within reach. PLAN MOVING FORWARD: NPO at midnight. Continue to actively monitor. Discharge planning as appropriate. INDIVIDUALIZED FALL PREVENTION INTERVENTIONS: Patient-specific fall risk factors per assessment: [current deficits]: Tele wires, unfamiliar environment Assistance [level of assistance required for transfers and ambulation]: Ind Supervision [direct monitoring required during toileting and ADLs]: Ind Surveillance [continuous indirect monitoring]: Tele, purposeful hourly rounding, call jimenez within reach. Patient-specific fall prevention interventions for sensory deficits provided, if applicable: Lighting adjusted for specific tasks/activities, non-skid socks, bed in lowest/locked position. CPG GOAL OUTCOME EVALUATION: Ongoing documented in this encounter H&P Notes William Willis PA - 08/25/2021 12:29 PM EDT Cardiac Surgery Admission H&P CC: left arm pain HPI: Alex Bingham is a 66 y.o. male with a history of stable angina - his anginal equivalent being left arm pain - who was found to have severe multivessel CAD on cardiac cath last Thursday. He elected to go home on house arrest until planned CABG this Thursday but unfortunately today after doing s ome light walking in his driveway and around his house he developed left arm pain again. He took a sl nitro and came to the ED. Current pain level is 1-2/10 in his left arm, worst it's ever been is 6/10, he's had left chest and jaw pain as well as nausea in the past but denies those symptoms today. Denies chest pain, dyspnea, lightheadedness, syncope, palpitations, cough, edema, nausea, vomiting, diaphoresis, weight gain. He took all of his meds this morning: Toprol XL 25 Imdur 30 Aspirin 81 Losartan 50 B12 Folate Review of Systems Constitutional: Negative for chills, diaphoresis and fever. Cardiovascular: Negative for chest pain, dyspnea on exertion, leg swelling and palpitations. Gastrointestinal: Negative for dysphagia, hematemesis, hematochezia, melena, nausea and vomiting. Genitourinary: Negative for hematuria. Neurological: Positive for numbness and paresthesias. Negative for focal weakness. Past Medical History: Severe multivessel CAD Pre-diabetic Peripheral neuropathy in both feet HTN Past Surgical History: Past Surgical History: Procedure Laterality Date ??? ANKLE SURGERY Right 1979 ??? PRO LAMINOTOMY, LUMBAR DISK, 1 INTRSP Left 10/18/2019 LAMINOTOMY, DECOMPRESSION, FORAMINOTOMY, LUMBAR (WRVU 13.18) performed by Jelani Zuñiga MD at [facility] MAIN OR ??? PRO MICROSURG TECHNIQUES, REQ OPER MICROSCOPE Left 10/18/2019 MICROSCOPE USE (WRVU 3.46) performed by Jelani Zuñiga MD at [facility] MAIN OR ??? VASECTOMY 1994 Denies previous chest surgery, abdominal surgery, vein, or other vascular surgery Social History: Social History Tobacco Use ??? Smoking status: Never Smoker ??? Smokeless tobacco: Never Used Substance Use Topics ??? Alcohol use: Yes Alcohol/week: 14.0 standard drinks Types: 14 Cans of beer per week Comment: last drink 10/07/19 ??? Drug use: Never Social History Social History Narrative ??? Not on file Family - here with and son Smoking - never ETOH - regular light use, none since Thursday Illicit drug use - denies Family History: No premature CAD Meds Prior to Admission: (Not in a hospital admission) Current Meds: Scheduled Meds: Continuous Infusions: PRN Meds:. Allergies: Allergies Allergen Reactions ??? Gluten Diarrhea Physical Exam: BP 148/76 Pulse 53 Temp 36.6 ??C (97.9 ??F) (Temporal) Resp 14 Ht 185.4 cm (6' 1) Wt 81.6kg (180 lb) SpO2 98% BMI 23.75 kg/m?? General: Sitting in bed. NAD. Appears stated age. Neuro: Awake and alert. Speech clear. Grossly nonfocal Heart: Brett, regular, SB on tele Lungs: Non-labored respirations on room air Abdomen: Soft Extremities: Warm, no edema, no varicosities. Diagnostics: Lab Results Component Value Date WBC 5.3 08/25/2021 RBC 4.70 08/25/2021 HGB 14.3 08/25/2021 HCT 42.8 08/25/2021 PLATELET 193 08/25/2021 Recent Labs 07/03/22 1244 INR 1.0 Lab Results Component Value Date NA 140 08/23/2021 K 4.2 08/23/2021 CL 105 08/23/2021 CO2 28 08/23/2021 BUN 10 08/23/2021 CREATININE 0.94 08/23/2021 Troponin: < 0.01 EKG: NSR, no ischemic changes CATH: severe multivessel CAD, 50% LM, total LAD and RCA, 80% OM1 TTE: normal LVEF 57%, +anteroseptal WMA, no HDS valvular disease CXR: clear Assessment and Plan: 66 y.o. male with known severe multivessel CAD who is being admitted with unstable angina. Will manage angina symptoms below and add heparin as needed if symptoms do not jose withnitroglycerin or troponin becomes positive. IV nitroglycerin Cycle troponin x3 total EKG prn for worsening angina Oxygen / dilaudid prn Plan for CABG Thursday unless symptoms worsen or patient becomes unstable -Admit to Cardiac Surgery, Dr. Guthrie Attending. -Condition: Guarded. Code status: Full code. -Activity: bedrest with bathroom privileges -Diet: Regular -VS and I/Os per protocol. -Telemetry. -Titrate NC O2 for SPO2 >94%. -PIV access. -Routine labs. T and S -Medications: Home medications reconciled as appropriate. Signed: DANIEL LOONEY 08/25/2021 documented in this encounter ED Notes Hope Herrera RN - 08/25/2021 2:36 PM EDT Attempting to call report to floor for over 20 min, will attempt to call back. Hope Herrera RN - 08/25/2021 2:19 PM EDT Pt with cont 2-3/10 intermittent pain to left arm, no n/t to fingers, NGT gtt infusing, pt with no c/o CP/SOB, no headache, diet order released and water/ice given, pt gluten free. Cullen Basilio MD - 08/25/2021 12:43 PM EDT ED Resident Note HPI: Alex Bingham is a 66 y.o. male who presents to the Emergency Department with a chief complaint ofchest tightness with shooting pain radiating from his chest down his left arm and to his left hand. He had a cardiac cath performed Thursday, 08/23, during which he was found to have severe multivessel CADand was scheduled for CABG with CT surgery for Monday 08/28, but was instructed to return to the hospital if he had any new or worsening chest pain. His chest pain started about an hour prior to arrival to the ED while he was resting in a chair at home and was not alleviated with sublingual nitro. Patient denies chest pain radiating to the back or neck, nausea, palpitations, pain with palpation of the sternum, cough, dyspnea. He has been taking all home medications as prescribed. Denies history of stroke or previous cardiac stents. Pt was seen under the supervision of an attending physician. ROS: Pertinent positives and negatives are included in the HPI, otherwise at least ten systems were reviewed and negative. Past Medical and Surgical Histories, Social History, Medications, Allergies were reviewed in the chart. Vitals: ED Triage Vitals BP: 148/76 [08/25/21 1230] Heart Rate: 53 [08/25/21 1230] Resp: 14 [08/25/21 1230] Temp: 36.6 ??C (97.9 ??F) [08/25/21 1231] Temp src: Temporal [08/25/21 1231] SpO2: 98 % [08/25/21 1230] O2 Device: RA [08/25/21 123] O2 Flow Rate (L/min): n/a Physical Exam: General: AAOx4, in NAD, reclined in bed HEENT: Normocephalic/atraumatic, EOMI Neck: Supple, full range of motion Cardiovascular: Regular rhythm. HR 55, no murmus Pulmonary: LCTAB, no retractions, no apparent respiratory dirstress Abdomen: Soft, non-distended Skin: [place], warm, dry Extremities: No deformities. ROM: full, upper and lower extremities bilaterally. Neuro: CN II-XII grossly intact bilaterally Psych: Normal mood and thought pattern. ED Course: I have reviewed labs and imaging, images and available reports, and they are significant for: CBC with diff, BMP, PT, INR, Troponin-T within normal limits. Nitro drip started Patient admitted to ICCU for nitro drip management and evaluation by CT surgery. I reviewed the EKG tracing: Rhythm: sinus bradycardia Rate: 49 BPM Relevant findings: T wave inversions in lead III with minimal ST segment elevations in leads V2, V3 and minimal depression in lead II. Assessment and Plan: 66 y.o. male with known severe triple vessel CAD presenting with chest tightness radiating into the left arm not alleviated by medications. Differential includes unstable angina 2/2 progression of known severe triple vessel CAD. Other less likely diagnoses considered include costochondritis, aortic dissection, GERD. EKG without evidence of STEMI. Troponin T within normal limits. Nitro drip started and patient admitted to ICCU. Patient is known to CT surgery and had CABG scheduled for this coming Thursday, 08/28. Cullen Basilio MD Resident 08/25/21 1721 Associated attestation - Oxana Helton DO - 08/26/2021 9:12 AM EDT ED ATTENDING ATTESTATION NOTE The patient was seen in conjunction with the resident physician. I have independently performed the reilly portions of the history and physical exam. I have reviewed the nursing notes, vital signs, and all diagnostic studies personally including labs, imaging studies and EKGs. I have discussed the details of the case with the resident and agree with the assessment and plan as described in the resident note unless noted otherwise. Oxana Helton DO - 08/25/2021 12:36 PM EDT Brief Attending Note I cared for the patient with the resident physician. Please see Dr. Basilio's note, associated with the encounter, for more details. HPI: Alex Bingham is a 66 y.o. with history of recent cardiac catheterization with known three-vessel disease who was anticipated to have a CABG on August 28 who presents to the ED with complaints of left shoulder pain. States that he had a cardiac catheterization earlier this week due to concern for coronary disease with persistent intermittent left shoulder pain, was diagnosed with three-vessel disease and scheduled to have CABG this week. Advised to return to the hospital if he had any worsening of his symptoms or persistence of his symptoms, this morning while at rest he developed left-sided shoulder pain which improved somewhat with sublingual nitro but never fully went away. He denies any nausea or diaphoresis, is not having any chest pain, no radiation of the symptoms, there is been no fevers or chills cough or cold symptoms. Patient called Dr. Guthrie who notified me of the patient's impending arrival and their desire to admit. ROS: Pertinent positives and negatives are included in the history of present illness, otherwise 10 systems are reviewed and negative Allergies: Allergies Allergen Reactions ??? Gluten Diarrhea Past Medical History: Diagnosis Date ??? High blood pressure last 3 to 4 months b/p high 10/17/19 ??? in the past 3 months ??? Transfusion history Past Surgical History: Procedure Laterality Date ??? ANKLE SURGERY Right 1979 ??? PRO LAMINOTOMY, LUMBAR DISK, 1 INTRSP Left 10/18/2019 LAMINOTOMY, DECOMPRESSION, FORAMINOTOMY, LUMBAR (WRVU 13.18) performed by Jelani Zuñiga MD at [facility] MAIN OR ??? PRO MICROSURG TECHNIQUES, REQ OPER MICROSCOPE Left 10/18/2019 MICROSCOPE USE (WRVU 3.46) performed by Jelani Zuñiga MD at [facility] MAIN OR ??? VASECTOMY 1994 Social History Tobacco Use ??? Smoking status: Never Smoker ??? Smokeless tobacco: Never Used Substance Use Topics ??? Alcohol use: Yes Alcohol/week: 14.0 standard drinks Types: 14 Cans of beer per week Comment: last drink 10/07/19 Last value Range last 24 hrs Temperature Temp: 36.6 ??C (97.8 ??F) Temp: [36.5 ??C (97.7 ??F)-37 ??C (98.6 ??F)] Heart Rate Heart Rate: 54 Heart Rate: [49-58] Blood Pressure BP: 134/70 BP: (111-148)/(61-80) Respiratory Rate Resp: 18 Resp: [10-18] SpO2 SpO2: 100 % SpO2: [95 %-100 %] Art BP BP (Arterial Line): -- Gen: well appearing, no distress Head: atraumatic, normocephalic ENT: anicteric sclera Resp: no respiratory distress CV: well perfused Abd: soft, nt Skin: warm and dry MS: No obvious deformity Neuro: speech fluent, no obvious deficit Psych: Normal mood ED Course as of 08/26/21 0911 Sun Aug 25, 2021 1252 I reviewed the patient's EKG: Sinus bradycardia with rate approximately 50, left axis deviation, there is no ST elevation, there is T wave inversion in lead III Assessment: 66 y.o. male presenting with left shoulder pain, concerning for unstable angina in the setting of known three-vessel disease. EKG without evidence of STEMI, nitro drip ordered and cardiothoracic surgery notified of the patient's arrival. He will be admitted to their service. Oxana Helton DO 08/26/21910 Emi Gonsalez RN - 08/25/2021 12:34 PM EDT DANIEL Villatoro paged by this RN per Dr. Guthrie request- returned call and confirmed that he will be in to see patient. documented in this encounter Miscellaneous Notes Consult Note - Macarena Aviles RN - 09/02/2021 10:17 AM EDT [facility] Alex Bingham was seen today regarding participation in the outpatient Phase 2 Cardiac Rehabilitation at [facility]. The patient agrees to a referral to this program. The referral will be sent at discharge and the patient should be contacted by the Program within 1- 2 weeks from discharge. Care Management Discharge - Thania العلي RN - 09/02/2021 9:38 AM EDT CARE MANAGEMENT FINAL DISCHARGE NOTE Chart reviewed, care reviewed with primary team and at interdisciplinary rounds. Patient is medically ready for discharge to home. Needs for Transition of Care: Per discharge instructions. Plan for discharge is: Home w/ Services Outpatient Agency/Support Group Needs: Homecare agency Home Health Services: Registered Nurse, Physical Therapy, Anticoagulation monitoring, Wound care Agency Referrals & Follow-up Care: Contact information for [facility], [address] [place] [address] Transportation: family or friend will provide Wheelchair van/Ambulance? No Functional status prior to admission: Independent Home Environment: Others in the home: spouse, child(patel), adult (Lives with Lyudmila and son Jorge). Current Living Arrangements: home/apartment/condo. Accessibility Concerns:Multilevel home. Current Functional Ability: Independent DME used at home: none DME Needed at Discharge: None Patient is insured through: Primary Insurance: [employer] MANAGED MEDICARE Payor: [employer] MEDICARE / Plan: [employer] TRUE CHOICE MANAGED MEDICARE PPO / Product Type: *No Product type* / Secondary Insurance: N/A Prescription Coverage: Yes This plan was formulated with input from patient, (please identify family/friend involved if applicable) and team. All are in agreement with plan. Plan of Care - Donna Felder RN - 09/01/2021 4:51 PM EDT OUTCOME EVALUATION NOTE: OUTCOME SUMMARY:Pt's amiodarone gtt is off, the pill form initiated, pt is in NSR, he ambulates independently, very good bed mobility. PLAN MOVING FORWARD: Continue ambulation with proper body mechanics. INDIVIDUALIZED FALL PREVENTION INTERVENTIONS: Patient-specific fall risk factors per assessment: [current deficits]: fresh post op Assistance [level of assistance required for transfers and ambulation]: none Supervision [direct monitoring required during toileting and ADLs]: none Surveillance [continuous indirect monitoring]: telemetry Patient-specific fall prevention interventions for sensory deficits provided, if applicable: n/a CPG GOAL OUTCOME EVALUATION: ongoing Plan of Care - Cinthia Nagy RN - 08/31/2021 3:12 PM EDT Problem: Adult Inpatient Plan of Care Goal: Plan of Care Review Outcome: Ongoing (Interventions Implemented as Appropriate) Goal: Patient-Specific Goal (Individualized) Outcome: Ongoing (Interventions Implemented as Appropriate) Goal: Absence of Hospital-Acquired Illness or Injury Outcome: Ongoing (Interventions Implemented as Appropriate) Goal: Optimal Comfort and Wellbeing Outcome: Ongoing (Interventions Implemented as Appropriate) Goal: Readiness for Transition of Care Outcome: Ongoing (Interventions Implemented as Appropriate) Problem: Dysrhythmia Goal: Normalized Cardiac Rhythm Outcome: Ongoing (Interventions Implemented as Appropriate) Problem: Activity Intolerance (Cardiovascular Surgery) Goal: Improved Activity Tolerance Outcome: Ongoing (Interventions Implemented as Appropriate) Problem: Adjustment to Surgery (Cardiovascular Surgery) Goal: Optimal Coping with Heart Surgery Outcome: Ongoing (Interventions Implemented as Appropriate) Problem: Bleeding (Cardiovascular Surgery) Goal: Absence of Bleeding Outcome: Ongoing (Interventions Implemented as Appropriate) Problem: Bowel Elimination Impaired (Cardiovascular Surgery) Goal: Effective Bowel Elimination Outcome: Ongoing (Interventions Implemented as Appropriate) Problem: Cardiac Function Impaired (Cardiovascular Surgery) Goal: Effective Cardiac Function Outcome: Ongoing (Interventions Implemented as Appropriate) Problem: Cerebral Tissue Perfusion Risk (Cardiovascular Surgery) Goal: Effective Cerebral Perfusion Outcome: Ongoing (Interventions Implemented as Appropriate) Problem: Fluid Imbalance (Cardiovascular Surgery) Goal: Fluid Balance Outcome: Ongoing (Interventions Implemented as Appropriate) Problem: Infection (Cardiovascular Surgery) Goal: Absence of Infection Signs and Symptoms Outcome: Ongoing (Interventions Implemented as Appropriate) Problem: Ongoing Anesthesia Effects (Cardiovascular Surgery) Goal: Anesthesia/Sedation Recovery Outcome: Ongoing (Interventions Implemented as Appropriate) Problem: Pain (Cardiovascular Surgery) Goal: Acceptable Pain Control Outcome: Ongoing (Interventions Implemented as Appropriate) Problem: Postoperative Nausea and Vomiting (Cardiovascular Surgery) Goal: Nausea and Vomiting Relief Outcome: Ongoing (Interventions Implemented as Appropriate) Problem: Postoperative Urinary Retention (Cardiovascular Surgery) Goal: Effective Urinary Elimination Outcome: Ongoing (Interventions Implemented as Appropriate) Problem: Respiratory Compromise (Cardiovascular Surgery) Goal: Effective Oxygenation and Ventilation Outcome: Ongoing (Interventions Implemented as Appropriate) Care Management - Thania العلي RN - 08/30/2021 10:24 AM EDT OFFICE OF CARE MANAGEMENT PROGRESS NOTE LOS: Hospital Day 5 days Chart reviewed, care reviewed with primary team and at interdisciplinary rounds. Patient continues to meet inpatient level of care related to: chest pain Functional status prior to admission: Independent Home Environment: Others in the home: spouse, child(patel), adult (Lives with Lyudmila and son Jorge). Current Living Arrangements: home/apartment/condo. Accessibility Concerns: Multilevel home. Current Functional Ability: Independent DME used at home: none DME Needed at Discharge: None Patient is insured through: Primary Insurance: CIGNA MANAGED MEDICARE Payor: CIGNA MANAGED MEDICARE / Plan: [employer] CHOICE MANAGED MEDICARE PPO / Product Type: *No Product type* / Secondary Insurance: N/A Last Physical Therapy Recommendation: (home with ) with None Last Occupational Therapy Recommendation: with Plan for discharge is: Home w/ Services Outpatient Agency/Support Group Needs: Homecare agency Home Health Services: Registered Nurse, Physical Therapy, Anticoagulation monitoring, Wound care Agency Referrals: Not Applicable - [facility] Transportation: family or friend will provide Barriers to discharge: None ICU Needs: none / ready for downgrade Plan going forward: Care Management will continue to follow and assist with discharge planning and coordination of care as indicated. Anticipated Date of Discharge: 09/03/2021 OR Attestation - Camron Guthrie MD - 08/28/2021 2:14 PM EDT Attestation: Case Date: 08/28/2021 I performed this procedure without the involvement of a resident. Camron Guthrie MD 08/30/2021 Brief Op Note - Camron Guthrie MD - 08/28/2021 2:12 PM EDT Brief Operative Note Patient Name: Alex Bingham : [id number] MR#: [id number] Case Date: 08/28/2021 Surgeon: Surgeon(s) and Role: * Camron Guthrie MD - Primary * Keiko Torres PA - Physician Travel Pta * Dona Oropeza PA - Physician Travel Pta Preoperative diagnosis: CAD Postoperative diagnosis: CAD Procedure(s) (LRB): @CABG, USING ARTERIAL GRAFT;SINGLE ARTERIAL GRAFT (WRVU 33.75) (N/A) @CABG; 5 VENOUS GRAFTS & ARTERIAL GRAFT (WRVU 14.14) (N/A) ENDOSCOPIC HARVEST VEIN(S) FOR CABG (WRVU 0.31) (N/A) Anesthesia: General Findings: good targets of moderate size, good conduit Complications: none Estimated Blood Loss: * No values recorded between 08/28/2021 2:12 PM and 08/28/2021 5:40 PM No values recorded between 08/28/2021 2:12 PM and 08/28/2021 5:40 PM * Specimens removed during surgery: None Fluids: Intraprocedure Crystalloid Total Intake Cell Saver Volume 573 mL Platelets Volume 244 mL Total Intake 817 mL Output Urine Output 975 mL Blood Loss 100 mL Total Output 1075 mL Net Net Volume -258 mL PRBCs: none (See Anesthesia Record/Report for Other Blood Products) Urine Output: 975 mL Drains: 2 med tubes Disposition: taken directly to the ICU, intubated and in a critical condition. Condition: doing well without problems (Please see the Surgical Encounter Summary for any Implant and Specimen details pertinent to this patient.) Surgical Infection Prevention Bundle Used? No Op Note - Camron Guthrie MD - 08/28/2021 2:12 PM EDT 08/30/2021 Alex Bingham 1955 [id number] Preoperative Diagnosis: Coronary artery disease Unstable Angina Postoperative Diagnosis: Coronary artery diseaseUnstable Angina Procedure: CABG times 6: FERNANDO to LAD, SVG to rca and pl, svg to om1 with svg to om2 and om3 y'ed off it. Endoscopic vein harvest Surgeon: Camron Guthrie M.D. Travel Pta: Sarita MARQUEZ Anesthesia: General endotracheal anesthesia Drains: Two mediastinal tubes Pacing Wires: Two A-wires, two V-wires. EBL: 200 mL Findings: good targets of moderate size, good conduit Procedure: The patient was taken to the Operating Room and had a radial A-line placed. All the proper lines and monitors were placed by Anesthesia. The patient was then prepped and draped in the normalsterile fashion. The right leg was used to harvest the greater saphenous vein using an endoscopic technique. A vertical incision was made on the medial aspect of the knee. The Hemopro2 system was used to dissect out the vein anterior and posteriorly. All the side branches were cauterized. The vein was ligated distallyand proximally. It was removed through the incision at the knee. The vein was flushed with heparinized saline in a reverse direction. All the side branches were clipped. The vein was untwisted and striped with a sterile pen. The leg had a FINESSE drain placed in it. It was irrigated out with antibiotic solution and closed immediately. The chest was opened along the midline. Cautery was used on the sternal edges and bone wax was lightly applied to the divided marrow of the sternum. The left latoya-sternum was elevated. The pleura were taken down, and the mammary artery was dissected free clipping all side branches. Heparin was given. Several minutes later the distal end of the mammary was clipped and tied on the chest wall, and the bleeding end had a bulldog placed across it. It was prepared for bypass by spatulating it open, injecting it with verapamil, and rolling it up into a nitroglycerin-soaked sponge. The MORRO had excellent flow. The Rultract was removed. Two antibiotic-soaked towels were used to bumper the sternum. The sternal retractor was used to openthe sternum. The overlying pericardium was opened in an inverse-T fashion and hung to the edge of the sternal retractor. Full-dose heparin was given. The aorta was cannulated. The right atrium had the venous cannula placed through the IVC. A retrograde was placed through the right atrium into the coronary sinus. The antegrade was place mid ascending aorta which also doubled as the root vent. With theACT above 450, we went on bypass. The targets were inspected. The aorta was crossclamped and the heart was arrested with cold blood cardioplegia antegrade and retrograde. We drifted to 32 degrees Celsius. The bypasses were as follows: The pl target was identified and opened and in an end to side fashion the SVG was anastomosed with arunning 7.0 prolene. Cardiopelegia was given down the graft and there were no leaks. The heart was filled and the graft was measured for length and trimmed. A punch was made in the aorta and a proximalanastomosis was created with a 6-0. A washer was used to identify the proximal. The same procedures was completed for rca, om1 om2 and om3 and cardioplegia was given between all bypasses. The morro was taken out of the left chest and a slit was created in the L side of the pericardium making sure to identify the L phrenic nerve. The morro was anastomosed to the LAD with a running 8-0 prolene. The bulldog was removed to test the graft then replaced. At this point, hotshots were given. The heart began beating in a sinus rhythm. The crossclamp was removed. The grafts were inspected. The heart was allowed to re-perfuse. The retrograde was removed andoversewn; so was the antegrade. An angled chest tube was placed behind the heart. Both chests were suctioned out, and the lungs were re-inflated. After a period of rewarming and allowing the heart to re-perfuse, we from bypass. The venous cannula was removed and the pursestring was tied downand oversewn. Protamine was given. The aortic cannula was removed. Both pursestrings were tied down and oversewn. We had no further bleeding. A straight chest tube was placed in front of the heart. Vanco paste was applied to the sternum. Interrupted steel cables were used to close the chest, several layers of Vicryl, and a 4-0 Monocryl were used to close the overlying soft tissue. Glue and clean dry sterile dressings were applied. The patient was transported to the [facility] on [facility]. All counts were correct. Care Management - Thania العلي RN - 08/27/2021 12:56 PM EDT OFFICE OF CARE MANAGEMENT PROGRESS NOTE LOS: Hospital Day 2 days Chart reviewed, care reviewed with primary team and at interdisciplinary rounds. Patient continues to meet inpatient level of care related to: chest pain Functional status prior to admission: Independent Home Environment: Others in the home: spouse, child(patel), adult (Lives with Lyudmila and son Jorge). Current Living Arrangements: home/apartment/condo. Accessibility Concerns: Multilevel home. Current Functional Ability: Independent DME used at home: none DME Needed at Discharge: None Patient is insured through: Primary Insurance: [employer] MANAGED MEDICARE Payor: [employer] MEDICARE / Plan: [employer] TRUE CHOICE MANAGED MEDICARE PPO / Product Type: *No Product type* / Secondary Insurance: N/A Last Physical Therapy Recommendation: with Last Occupational Therapy Recommendation: with Plan for discharge is: Home w/ Services Outpatient Agency/Support Group Needs: Homecare agency Home Health Services: Registered Nurse, Physical Therapy, Anticoagulation monitoring, Wound care Agency Referrals: I have met with the patient to: ?? discuss discharge planning needs. ?? provide the [facility], Office of Care Management letter from the Special Warfare Boat Operator pertaining to rehab referrals. ?? provide a letter describing our affiliations within the [facility] and educate about their right to choose where referrals are sent. ?? provide a list of Home Health Agencies / Durable Medical Equipment vendors which serve their preferred geographic area. ?? provided patient with [facility] Star Quality Rating handout. They have requested referrals to: [facility] [address] [place] [id number] Note routed to a It Applications Manager who will communicate referrals to facilities and provide any required information. Transportation: family or friend will provide Barriers to discharge: None Plan going forward: Care Management will continue to follow and assist with discharge planning and coordination of care as indicated. Anticipated Date of Discharge: 09/02/2021 Plan to monitor patient progress. Assess care needs and make referrals as needed. CABG tomorrow. Consult Note - Mell Quiroga RPH - 08/26/2021 9:42 AM EDT [facility] Medication List Update for Medication Reconciliation 08/26/21 9:42 AM Alex Bingham 1955 Allergies Allergen Reactions ??? Gluten Diarrhea ??? Person Interviewed: patient ??? Quality of Interview/accuracy of medication list: excellent ??? Sources used to compile medication list: [x] Epic medication list [x] SureScripts [] PCP/Specialist list [] Retail pharmacy [] Patient list [] MAR [] Other ??? Changes made to home medication list: o Additions: - none o Deletions: - Chlorhexidine o Changes: - Folic acid 800mcg PO daily ??? Additional Notes: none ??? Recommended changes: none The home medication list is now updated to the best of my knowledge and is ready to be reconciled bythe provider. Please contact the [facility] Medication Reconciliation Pharmacist at for any questions. Mell Quiroga RPH Initial Assessments - Ramana Chavez RN - 08/25/2021 2:28 PM EDTSummary: No CM discharge needs identified Office of Care Management Initial Assessment Medical record reviewed. Reason for Hospitalization: 66 y.o. male with known severe multivessel CAD who is being admitted with unstable angina. Will manage angina symptoms below and add heparin as needed if symptoms do not jose with nitroglycerin or troponin becomes positive. (from 08/25/21 Cardiac Surgery H&P) Last COVID test: None ordered Present on Admission: ??? Chest pain Hospitalizations Within the Past 30 Days: planned readmission (Admitted inpatient to on 08/23 for coronary artery disease: discharged to wait at home for 08/28 catheter finisher and inspector appointment.) Patient receiving hospital care under Inpatient status. Admission order reviewed. Primary Insurance on file: CIGNA MANAGED MEDICARE Secondary Insurance on file: None Primary care provider on file: Nisa Machado MD [phone] Pharmacy: [id number] - [facility], [place] - [address] [facility] [address] [facility] [address] Advance Care Planning: Attempt Cardiopulmonary Resuscitation - Inpatient Received -Advanced Directive: Yes, on file Who is your DPOA-HC?: Child (Amor Patel [phone] is primary DPOAH; son Agus [phone] secondary.) Current Functional Ability: Independent Functional Status Prior to Admission: Independent Home Environment: Others in the home: spouse, child(patel), adult (Lives with Lyudmila and son Jorge). Current Living Arrangements: home/apartment/condo. Accessibility Concerns:Multilevel home Current DME: none [address] [place], [place] [id number] Social & Family Supports: Extended Emergency Contact Information Primary Emergency Contact: Lyudmila Porter Address: [address] [place] [address] Mobile Relation: Spouse Secondary Emergency Contact: Jorge Bingham Address: [address] [place] [address] Mobile Relation: Child Current Care Provided by: self Transportation: no concerns Transportation Anticipated: family or friend will provide Assessment: Patient with no apparent RNCM/SW needs at this time. No housing, transportation, insurance, resources concerns identified at this time. Supports in place to achieve a safe post-hospital transition. No identified barriers to accessing necessary care and/or follow-up after discharge. Plan: Patient to d/c to home via private vehicle when medically ready. Registered Nurse Leaf Sticker / Concrete Batching Plant Operator will continue to follow patient???s progress and remain available if situation changes for coordination of care, psychosocial support and/or discharge planning. ED Triage - Hope Herrera RN - 08/25/2021 12:31 PM EDT Pt to have Card Cath on Thu, now told to come to ED for shooting left arm pain/n/t to finger tips, on monitors, EKG ordered, family at side, Pt is fully vaccinated for COVID. HPI (Adult) Stated Reason for Visit: pt with hx of cardiac cath scheduled for Thu, told by Dr Guthrie to come to ED as pt now experiencing intermittent shooting pain with n/t to tips of left arm, no SOB/CP, on monitors brett, EKG ordered, family at side, fully vax. History Obtained From: patient, family, physician office Precipitating Event(s): none Onset of Symptoms: worsening Duration (Hours): 3 Additional Details: 81mg ASA documented in this encounter Plan of Treatment Upcoming Encounters Date Type Specialty Care Team Description 11/26/2021 Appointment Radiology Camron Guthrie MD [facility] [place], [place] [address] (Wo rk) 11/26/2021 Office Visit Cardiac Surgery Camron Guthrie MD [facility] [place], [place] [address] (Wo rk) Scheduled Orders Name Type Priority Associated Order Schedule Diagnoses Transesophageal Echo/OR Echocardiography Routine Coronary josee ry One Time for 1 disease of [place] Occurrence s artery of [place] starting heart with stable 08/25/2021 until angina pectoris 08/25/2021 Transesophageal Echo/OR Echocardiography Routine Coronary josee ry One Time for 1 disease involving Occurrence s [place] coronary starting artery of [place] 08/25/2021 until heart with 08/25/2021 unstable angina pectoris Scheduled Referrals Name Type Priority Associated Diagnoses Order S chedule Referral to Home Outpatient Referral Routine S/P CABG (coronar y Ordered: Health artery bypass graft) 022 documented as of this encounter Procedures Procedure Name Priority Date/Time Associated Comments Diagnosis LAB SCAN 09/03/2021 12:00 AM EDT HC POTASSIUM Routine 09/02/2021 4:15 Results for this AM EDT procedure are i n the results section. HC VENIPUNCTURE Routine 09/01/2021 4:48 Results f or this AM EDT procedure are i n the results section. XR CHEST PA AND LATERAL Routine 08/31/2021 8:50 R esults for this AM EDT procedure are i n the results section. HEMOGRAM Routine 08/30/2021 11:08 Results for this PM EDT procedure are i n the results section. DIFFERENTIAL, AUTOMATED Routine 08/30/2021 11:08 Results for this PM EDT procedure are i n the results section. HC CBC,PLT & AUTO DIFF Routine 08/30/2021 11:08 PM EDT HC VENIPUNCTURE Routine 08/30/2021 11:08 Results for this PM EDT procedure are i n the results section. HC POTASSIUM Routine 08/30/2021 5:00 Results for this AM EDT procedure are i n the results section. POCT GLUCOSE Routine 08/29/2021 12:15 Results for this PM EDT procedure are i n the results section. POCT GLUCOSE Routine 08/29/2021 8:08 Results for this AM EDT procedure are i n the results section. POCT GLUCOSE Routine 08/29/2021 6:00 Results for this AM EDT procedure are i n the results section. HEMOGRAM Routine 08/29/2021 2:15 Results for this AM EDT procedure are i n the results section. DIFFERENTIAL, AUTOMATED Routine 08/29/2021 2:15 R esults for this AM EDT procedure are i n the results section. HC CBC,PLT & AUTO DIFF Routine 08/29/2021 2:15 AM EDT HC TROPONIN T Routine 08/29/2021 2:15 Results for this AM EDT procedure are i n the results section. BASIC METABOLIC PANEL Routine 08/29/2021 2:15 Res ults for this (NON-FASTING) AM EDT procedure are in the results section. POCT GLUCOSE Routine 08/29/2021 2:11 Results for this AM EDT procedure are i n the results section. POCT GLUCOSE Routine 08/29/2021 12:02 Results for this AM EDT procedure are i n the results section. EXTUBATE Routine 08/28/2021 9:57 PM EDT HC HEMOGLOBIN, BLOOD Routine 08/28/2021 9:51 Resu lts for this PM EDT procedure are i n the results section. HC POTASSIUM Routine 08/28/2021 9:51 Results for this PM EDT procedure are i n the results section. BLOOD GAS 2 ARTERIAL Routine 08/28/2021 9:49 Resu lts for this PM EDT procedure are i n the results section. XR CHEST ONE VIEW STAT 08/28/2021 7:35 Results for this PM EDT procedure are i n the results section. ENDOTRACHEAL TUBE Routine 08/28/2021 6:52 POSITION CHANGE PM EDT XR CHEST ONE VIEW STAT 08/28/2021 6:42 Results for this PM EDT procedure are i n the results section. BLOOD GAS 2 ARTERIAL Routine 08/28/2021 6:32 Resu lts for this PM EDT procedure are i n the results section. EKG 12-LEAD STAT 08/28/2021 6:12 S/P CABG (coronary Result s for this PM EDT artery bypass procedure are in graft) the results section. PREPARE PLATELETS, STAT 08/28/2021 5:30 Result s for this APHERESIS PM EDT procedure are i n the results section. SCAN, PERIPHERAL BLOOD STAT 08/28/2021 5:01 Re sults for this PM EDT procedure are i n the results section. HC HEMOGRAM STAT 08/28/2021 5:01 Results for this PM EDT procedure are i n the results section. HC PARTIAL STAT 08/28/2021 5:01 Results for this THROMBOPLASTIN TIME PM EDT procedur e are in the results section. HC PROTHROMBIN TIME STAT 08/28/2021 5:01 Resul ts for this PM EDT procedure are i n the results section. HC FIBRINOGEN TITER STAT 08/28/2021 5:01 Resul ts for this PM EDT procedure are i n the results section. BLOOD GAS 2 ARTERIAL Routine 08/28/2021 4:34 Resu lts for this PM EDT procedure are i n the results section. HC HEMOGLOBIN, BLOOD STAT 08/28/2021 4:19 Resu lts for this PM EDT procedure are i n the results section. HC FIBRINOGEN TITER STAT 08/28/2021 4:19 Resul ts for this PM EDT procedure are i n the results section. HC PLATELET COUNT STAT 08/28/2021 4:19 Results for this PM EDT procedure are i n the results section. BLOOD GAS 2 ARTERIAL Routine 08/28/2021 4:00 Resu lts for this PM EDT procedure are i n the results section. BLOOD GAS 2 ARTERIAL Routine 08/28/2021 3:22 Resu lts for this PM EDT procedure are i n the results section. BLOOD GAS 2 ARTERIAL Routine 08/28/2021 3:00 Resu lts for this PM EDT procedure are i n the results section. BLOOD GAS 2 VENOUS Routine 08/28/2021 2:59 Result s for this PM EDT procedure are i n the results section. BLOOD GAS 2 ARTERIAL Routine 08/28/2021 2:07 Resu lts for this PM EDT procedure are i n the results section. ENDOSCOPIC HARVEST Yes 08/28/2021 1:22 Coronary artery VEIN(S) FOR CABG (WRVU PM EDT disease involving 0.31) [place] coronary artery of [place] heart with unstable angina pectoris @CABG; 5 VENOUS GRAFTS & Yes 08/28/2021 1:22 Coronary josee ry ARTERIAL GRAFT (WRVU PM EDT disease involving 14.14) [place] coronary artery of [place] heart with unstable angina pectoris @CABG, USING ARTERIAL Yes 08/28/2021 1:22 Coronary artery GRAFT;SINGLE ARTERIAL PM EDT disease involving GRAFT (WRVU 33.75) [place] coronary artery of [place] heart with unstable angina pectoris TRANSESOPHAGEAL Routine 08/28/2021 12:50 Chest pain Results for this ECHOCARDIOGRAM IN THE OR PM EDT pro cedure are in the results section. PREPARE RBC STAT 08/28/2021 12:30 Results for this PM EDT procedure are i n the results section. POCT GLUCOSE Routine 08/28/2021 12:12 Results for this PM EDT procedure are i n the results section. 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 HEMOGRAM Routine 08/28/2021 5:17 Results for this AM EDT procedure are i n the results section. DIFFERENTIAL, AUTOMATED Routine 08/28/2021 5:17 R esults for this AM EDT procedure are i n the results section. HC VENIPUNCTURE Routine 08/28/2021 5:17 AM EDT EKG 12-LEAD STAT 08/27/2021 11:43 Chest pain Results for this AM EDT procedure are i n the results section. HC UNFRACTIONATED Routine 08/27/2021 4:48 Results for this HEPARIN (HEP UFH) AM EDT procedure are in the results section. HEMOGRAM Routine 08/27/2021 4:48 Results for this AM EDT procedure are i n the results section. DIFFERENTIAL, AUTOMATED Routine 08/27/2021 4:48 R esults for this AM EDT procedure are i n the results section. HC CBC,PLT & AUTO DIFF Routine 08/27/2021 4:48 AM EDT HC VENIPUNCTURE Routine 08/26/2021 9:57 Results f or this PM EDT procedure are i n the results section. HC TROPONIN T STAT 08/26/2021 4:46 Results for this AM EDT procedure are i n the results section. HC TROPONIN T STAT 08/25/2021 7:55 Results for this PM EDT procedure are i n the results section. POCT GLUCOSE Routine 08/25/2021 7:54 Results for this PM EDT procedure are i n the results section. TYPE AND SCREEN VALIDITY STAT 08/25/2021 1:26 Results for this PM EDT procedure are i n the results section. ABORH RECHECK STATUS STAT 08/25/2021 1:26 Resu lts for this PM EDT procedure are i n the results section. ABO/RH TYPING STAT 08/25/2021 1:26 Results for this PM EDT procedure are i n the results section. ANTIBODY SCREEN STAT 08/25/2021 1:26 Results f or this PM EDT procedure are i n the results section. HC ANTIBODY STAT 08/25/2021 1:26 DETECTION,CAPTURE-R PM EDT HEMOGRAM STAT 08/25/2021 12:44 Results for this PM EDT procedure are i n the results section. DIFFERENTIAL, AUTOMATED STAT 08/25/2021 12:44 Results for this PM EDT procedure are i n the results section. HC PROTHROMBIN TIME STAT 08/25/2021 12:44 Resu lts for this PM EDT procedure are i n the results section. HC CBC,PLT & AUTO DIFF STAT 08/25/2021 12:44 PM EDT HC TROPONIN T STAT 08/25/2021 12:44 Results fo r this PM EDT procedure are i n the results section. BASIC METABOLIC PANEL STAT 08/25/2021 12:44 Re sults for this (NON-FASTING) PM EDT procedure are in the results section. EKG 12-LEAD STAT 08/25/2021 12:38 Results for this PM EDT procedure are i n the results section. documented in this encounter Results SCAN DOC: LAB (09/03/2021 12:00 AM EDT) Narrative This result has an attachment that is no t available. Unknown MEDIA MGR SCAN EXT ORDR/RSLT Potassium (09/02/2021 4:15 AM EDT) athologist Signature Potassium 4.0 3.5 - 5.0 [facility] LABORATORY Comment: Please note: ??Patients with WBC >100,00 0 may have falsely elevated Potassium levels. ??For accurate Potassium quantif ication in these patients send serum separator tube (gold top) for subsequent determinations. ??Contact the Clinical Chemistry Laboratory if there are any qu estions. Specimen Anatomical Collection Method Collection Time Receive d Time (Source) Location / / Volume Laterality Blood 09/02/2021 4:15 AM 2 4:57 EDT AM EDT Resulting Agency Comment Spec In Lab Camron Guthrie MD CHEMISTRY ORDERABLES Performing Organization Address City/State/[place] [address] Potassium (09/01/2021 4:48 AM EDT) athologist Signature Potassium 4.3 3.5 - 5.0 [facility] LABORATORY Comment: Please note: ??Patients with WBC >100,00 0 may have falsely elevated Potassium levels. ??For accurate Potassium quantif ication in these patients send serum separator tube (gold top) for subsequent determinations. ??Contact the Clinical Chemistry Laboratory if there are any qu estions. Specimen Anatomical Collection Method Collection Time Receive d Time (Source) Location / / Volume Laterality Blood 09/01/2021 4:48 AM 2 5:15 EDT AM EDT Resulting Agency Comment Spec In Lab Camron Guthrie MD CHEMISTRY ORDERABLES Performing Organization Address City/State/ZIP Code Phon e Number [place] [id number] XR Chest PA & Lateral (Generic) (08/31/2021 8:50 AM EDT) Anatomical Region Laterality Modality Chest N/A Digital Radiography Specimen (Source) Anatomical Location Collection Method / Collectio n Time Received Time / Laterality Volume Impressions 08/31/2021 8:59 AM EDT Interval removal of the support apparatus. Interval development of bibasilar opacities, left greater than right, like ly some combination of pleural fluid and atelectasis. The aerated pulmonary paren chyma is clear. Thank you for letting us participate in the care of this patient. ??If you are a health care provider and have any questi ons regarding this report, please contact the number below. ??For patients who have questions please contact the health outdoor emergency care technician that requested your imaging first. ? Narrative 08/31/2021 8:59 AM EDT EXAMINATION: XR CHEST PA AND LATERAL (GENERIC) CLINICAL HISTORY: s/p CABG TECHNIQUE: PA and lateral views of the chest COMPARISON: August 28, 2021 FINDINGS: See impression. Procedure Note Geovani Collins MD - 08/31/2021For matting of this note might be different from the original. EXAMINATION: XR CHEST PA AND LATERAL (FluentialIC) CLINICAL HISTORY: s/p CABG TECHNIQUE: PA and lateral views of the chest COMPARISON: August 28, 2021 FINDINGS: See impression. IMPRESSION Interval removal of the support apparatu s. Interval development of bibasilar opacities, left greater than right, like ly some combination of pleural fluid and atelectasis. The aerated pulmonary paren chyma is clear. Thank you for letting us participate in the care of this patient. If you are a health care provider and have any questi ons regarding this report, please contact the number below. For patients w ho have questions please contact the health outdoor emergency care technician that requested your imaging first. Camron Guthrie MD IMG DX ORDERABLES (ABNORMAL) Differential, Automated (08/30/2021 11:08 PM EDT) [facility] Method Time Signature Neutrophils % 74.4 % [facility] LABORATORY Neutr Abs (ANC) 7.11 (H) 1.70 - [facility] 6.10 [facility] x10(3)/[facility] LABORATORY Lymphocytes % 10.7 % [facility] LABORATORY Lymphocytes Abs 1.0 0.9 - 3.2 [facility] x10(3)/[facility] LABORATORY Monocytes % 11.3 % [facility] LABORATORY Monocyte Abs 1.1 (H) 0.3 - 0.9 [facility] x10(3)/[facility] LABORATORY Eosinophils % 2.8 % [facility] LABORATORY Eosinophils Abs 0.3 0.0 - 0.4 [facility] x10(3)/[facility] LABORATORY Basophils % 0.4 % [facility] LABORATORY Basophils Abs 0.0 0.0 - 0.1 [facility] x10(3)/[facility] LABORATORY Immature Gran % 0.40 % [facility] LABORATORY Comment: Immature granulocytes(IG's)percentage an d absolute count will include metamyelocytes, myelocytes, and promyelo cytes. Blood smears from CBCs yielding IG's will be scanned manually for concor dance. If this scan disagrees with the automated IG or if promyelocytes are not ed, a manual differential will be performed. Lily Gran Abs 0.04 0.00 - 0.04 x10(3)/[facility] LABORATORY Specimen Anatomical Collection Method Collection Time Receive d Time (Source) Location / / Volume Laterality Blood 08/30/2021 11:08 08/30/2021 PM EDT 11:22 PM EDT Resulting Agency Comment Spec In Lab Jay SANCHEZ HEMATOLOGY ORDERABLES Performing Organization Address City/State/[place] [address] (ABNORMAL) Hemogram (08/30/2021 11:08 PM EDT) Analysis Performed At Patho logist Time Signature WBC 9.6 (H) 4.0 - 9.5 [facility] x10(3)/[facility] LABORATORY RBC 3.64 (L) 4.58 - [facility] 5.[facility] x10(6)/[facility] LABORATORY Hemoglobin 11.2 (L) 13.7 - [facility] 16.5 g/dL [facility] LABORATORY Hematocrit 32.6 (L) 40.5 - [facility] 48.5 % [facility] LABORATORY MCV 89.6 82.9 - [facility] 93.1 [facility] LABORATORY MCH 30.8 27.5 - [facility] 32.1 pg [facility] LABORATORY MCHC 34.4 32.0 - [facility] 35.7 g/dL [facility] LABORATORY Platelets 162 145 - 357 [facility] x10(3)/[facility] LABORATORY RDWSD 39.8 36.0 - [facility] 45.0 [facility] LABORATORY RDWCV 12.2 11.4 - [facility] 13.8 % [facility] LABORATORY MPV 10.8 7.6 - 12.9 [facility] LABORATORY nRBC % Auto 0.0 % [facility] LABORATORY nRBC Abs Auto 0.000 0.000 - [facility] 0.000 [facility] x10(3)/[facility] LABORATORY Specimen Anatomical Collection Method Collection Time Receive d Time (Source) Location / / Volume Laterality Blood 08/30/2021 11:08 08/30/2021 PM EDT 11:22 PM EDT Resulting Agency Comment Spec In Lab Jay SANCHEZ HEMATOLOGY ORDERABLES Performing Organization Address City/State/[place] [address] (ABNORMAL) Basic Metabolic Panel (non-fasting) (08/30/2021 11:08 PM EDT) P athologist Signature Glucose Lvl 125 65 - 199 [facility] mg/dL [facility] LABORATORY Comment: Diabetes: >=200 mg/dL plus symp toms BUN 13 10 - 20 mg/dL [facility] LABORATORY Creatinine 0.88 0.80 - 1.50 mg/dL [facility] LABORATORY Sodium 136 135 - 145 mmol/L [facility] LABORATORY Potassium 3.8 3.5 - 5.0 mmol/L [facility] LABORATORY Comment: Please note: ??Patients with WBC >100,00 0 may have falsely elevated Potassium levels. ??For accurate Potassium quantif ication in these patients send serum separator tube (gold top) for subsequent determinations. ??Contact the Clinical Chemistry Laboratory if there are any qu estions. Chloride 102 98 - 107 mmol/L [facility] LABORATORY CO2 26 22 - 31 mmol/L [facility] LABORATORY Anion Gap 8 5 - 15 mmol/L [facility] LABORATORY Calcium 8.2 (L) 8.5 - 10.5 mg/dL [facility] LABORATORY Estimated GFR 94 >=60 mL/min/1.73 m?? [facility] LABORATORY Comment: This patient's estimated GFR was calcula shashi using the 2020 CKD-EPI equation. The estimated GFR can vary from the radha ured GFR by up to 30% in the absence of rapidly changing kidney function. Assess ment of the estimated GFR is not appropriate when creatinine concentratio ns are rapidly changing. For clinical situations in which a more precise estim ate of GFR is necessary, consider alternative methods of GFR estimation loyd ch as a 24-hour urine creatinine clearance. Assignment of CKD stage 1-5 for patients with an eGFR near the transition point between stages may be based on clinical assessment of muscle mass and symptoms in addition to eGFR. Specimen Anatomical Collection Method Collection Time Receive d Time (Source) Location / / Volume Laterality Blood 08/30/2021 11:08 08/30/2021 PM EDT 11:22 PM EDT Resulting Agency Comment Spec In Lab Camron Guthrie MD CHEMISTRY ORDERABLES Performing Organization Address City/[facility]/[place] [address] Potassium (08/30/2021 5:00 AM EDT) athologist Signature Potassium 4.2 3.5 - 5.0 [facility] mmol/L [facility] LABORATORY Comment: Please note: ??Patients with WBC >100,00 0 may have falsely elevated Potassium levels. ??For accurate Potassium quantif ication in these patients send serum separator tube (gold top) for subsequent determinations. ??Contact the Clinical Chemistry Laboratory if there are any qu estions. Specimen Anatomical Collection Method Collection Time Receive d Time (Source) Location / / Volume Laterality Blood 08/30/2021 5:00 AM 5:14 EDT AM EDT Resulting Agency Comment Spec In Lab Camron Guthrie MD CHEMISTRY ORDERABLES Performing Organization Address [facility] Code Phon e Number [address] POCT Glucose (08/29/2021 12:15 PM EDT) athologist Signature POC Glucose 125 65 - 199 [facility] mg/dL [facility] LABORATORY Comment: Supplemental ranges: <140 mg/dL before meals <180 mg/dL all other times of the day Specimen Anatomical Collection Method Collection Time Receive d Time (Source) Location / / Volume Laterality Blood 08/29/2021 12:15 08/29/2021 PM EDT 12:15 PM EDT Camron Guthrie MD POINT OF CARE TEST ORDERABLE S Performing Organization Address City/[facility]/[place] [address] POCT Glucose (08/29/2021 8:08 AM EDT) athologist Signature POC Glucose 143 65 - 199 [facility] mg/dL [facility] LABORATORY Comment: Supplemental ranges: <140 mg/dL before meals <180 mg/dL all other times of the day Specimen Anatomical Collection Method Collection Time Receive d Time (Source) Location / / Volume Laterality Blood 08/29/2021 8:08 AM 2 8:08 EDT AM EDT Camron Guthrie MD POINT OF CARE TEST ORDERABLE S Performing Organization Address City/State/ZIP Code Phon e Number [address] POCT Glucose (08/29/2021 6:00 AM EDT) athologist [facility] POC Glucose 121 65 - 199 [facility] mg/dL [facility] LABORATORY Comment: Supplemental ranges: <140 mg/dL before meals <180 mg/dL all other times of the day Specimen Anatomical Collection Method Collection Time Receive d Time (Source) Location / / Volume Laterality Blood 08/29/2021 6:00 AM 2 6:00 EDT AM EDT Camron Guthrie MD POINT OF CARE TEST ORDERABLE S Performing Organization Address City/State/ZIP Code Phon e Number [address] (ABNORMAL) Differential, Automated (08/29/2021 2:15 AM EDT) [facility] gist Method Time Signature Neutrophils % 89.6 % [facility] LABORATORY Neutr Abs (ANC) 9.77 (H) 1.70 - [facility] 6.10 [facility] x10(3)/[facility] L LABORATORY Lymphocytes % 4.1 % [facility] LABORATORY Lymphocytes Abs 0.4 (L) 0.9 - 3.2 [facility] x10(3)/[facility] LABORATORY Monocytes % 5.2 % [facility] LABORATORY Monocyte Abs 0.6 0.3 - 0.9 [facility] x10(3)/[facility] LABORATORY Eosinophils % 0.2 % [facility] LABORATORY Eosinophils Abs 0.0 0.0 - 0.4 [facility] x10(3)/[facility] LABORATORY Basophils % 0.4 % [facility] LABORATORY Basophils Abs 0.0 0.0 - 0.1 [facility] x10(3)/[facility] LABORATORY Immature Gran % 0.50 % [facility] LABORATORY Comment: Immature granulocytes(IG's)percentage an d absolute count will include metamyelocytes, myelocytes, and promyelo cytes. Blood smears from CBCs yielding IG's will be scanned manually for concor dance. If this scan disagrees with the automated IG or if promyelocytes are not ed, a manual differential will be performed. Lily Gran Abs 0.06 (H) 0.00 - 0.04 x10(3)/[facility] LABORATORY Specimen Anatomical Collection Method Collection Time Receive d Time (Source) Location / / Volume Laterality Blood 08/29/2021 2:15 AM 2:20 EDT AM EDT Resulting Agency Comment Spec In Lab William SANCHEZ HEMATOLOGY ORDERABLES Performing Organization Address City/State/[place] [address] (ABNORMAL) Hemogram (08/29/2021 2:15 AM EDT) Analysis Performed At Patho logist Time Signature WBC 10.9 (H) 4.0 - 9.5 [facility] x10(3)/[facility] LABORATORY RBC 4.20 (L) 4.58 - [facility] 5.54 [facility] x10(6)/[facility] LABORATORY Hemoglobin 12.9 (L) 13.7 - [facility] 16.5 g/dL [facility] LABORATORY Hematocrit 37.4 (L) 40.5 - [facility] 48.5 % [facility] LABORATORY MCV 89.0 82.9 - [facility] 93.1 fL [facility] LABORATORY MCH 30.7 27.5 - [facility] 32.1 pg [facility] LABORATORY MCHC 34.5 32.0 - [facility] 35.7 g/dL [facility] LABORATORY Platelets 180 145 - 357 [facility] x10(3)/[facility] LABORATORY RDWSD 38.7 36.0 - [facility] 45.0 [facility] LABORATORY RDWCV 11.9 11.4 - [facility] 13.8 % [facility] LABORATORY MPV 10.5 7.6 - 12.9 [facility] LABORATORY nRBC % Auto 0.0 % [facility] LABORATORY nRBC Abs Auto 0.000 0.000 - [facility] 0.000 [facility] x10(3)/[facility] LABORATORY Specimen Anatomical Collection Method Collection Time Receive d Time (Source) Location / / Volume Laterality Blood 08/29/2021 2:15 AM 2:20 EDT AM EDT Resulting Agency Comment Spec In Lab William SANCHEZ HEMATOLOGY ORDERABLES Performing Organization Address City/State/[place] [address] (ABNORMAL) Basic Metabolic Panel (non-fasting) (08/29/2021 2:15 AM EDT) P athologist Signature Glucose Lvl 146 65 - 199 [facility] mg/dL [facility] LABORATORY Comment: Diabetes: >=200 mg/dL plus symp toms BUN 10 10 - 20 mg/dL [facility] LABORATORY Creatinine 0.75 (L) 0.80 - 1.50 mg/dL [facility] LABORATORY Sodium 135 135 - 145 mmol/L [facility] LABORATORY Potassium 4.1 3.5 - 5.0 mmol/L [facility] LABORATORY Comment: Please note: ??Patients with WBC >100,00 0 may have falsely elevated Potassium levels. ??For accurate Potassium quantif ication in these patients send serum separator tube (gold top) for subsequent determinations. ??Contact the Clinical Chemistry Laboratory if there are any qu estions. Chloride 105 98 - 107 mmol/L [facility] LABORATORY CO2 21 (L) 22 - 31 mmol/L [facility] LABORATORY Anion Gap 9 5 - 15 mmol/L [facility] LABORATORY Calcium 7.7 (L) 8.5 - 10.5 mg/dL [facility] LABORATORY Estimated GFR 98 >=60 mL/min/1.73 m?? [facility] LABORATORY Comment: This patient's estimated GFR was calcula shashi using the 2020 CKD-EPI equation. The estimated GFR can vary from the radha ured GFR by up to 30% in the absence of rapidly changing kidney function. Assess ment of the estimated GFR is not appropriate when creatinine concentratio ns are rapidly changing. For clinical situations in which a more precise estim ate of GFR is necessary, consider alternative methods of GFR estimation loyd ch as a 24-hour urine creatinine clearance. Assignment of CKD stage 1-5 for patients with an eGFR near the transition point between stages may be based on clinical assessment of muscle mass and symptoms in addition to eGFR. Specimen Anatomical Collection Method Collection Time Receive d Time (Source) Location / / Volume Laterality Blood 08/29/2021 2:15 AM 2 2:20 EDT AM EDT Resulting Agency Comment Spec In Lab Camron Guthrie MD CHEMISTRY ORDERABLES Performing Organization Address City/State/[place] [address] (ABNORMAL) Troponin (08/29/2021 2:15 AM EDT) athologist Signature Troponin-T 0.45 (H) 0.00 - [facility] 0.00 ng/mL [facility] LABORATORY Comment: The 99th percentile for Troponin T is le ss than 0.01 ng/mL, any detectable cTnT concentration using this assay should be considered elevated. According to the third universal definit ion of myocardial infarction the following criteria with a clinical prese ntation consistent with acute myocardial ischemia meets the diagnosis for a myocardial infarction (DE). Detection of a rise and/or fall of cTnT, with at least one value greater than the 99th percentile (> or = 0.01) and wi th at least one of the following ?? Symptoms of ischemia ?? New or presumed new significant ST-se gment-T wave (ST-T) changes or new left bundle branch block (LBBB) ?? Development of pathologic Q waves in the ECG ?? Imaging evidence of new loss of viabl e myocardium or new regional wall motion abnormality ?? Identification of an intracoronary th rombus by angiography or autopsy Samples for cTnT testing should be obtai abdoulaye serially upon first assessment and again 3 to 6 hours later. If the clinica l suspicion is high and previous samples have been negative an additional sample may be indicated. Reference: Third [place] Definition of Myocardial Infarction. Journal of the [place] [employer] 2012;60:1581-98 Specimen Anatomical Collection Method Collection Time Receive d Time (Source) Location / / Volume Laterality Blood 08/29/2021 2:15 AM 2 2:20 EDT AM EDT Resulting Agency Comment Spec In Lab Camron Guthrie MD CHEMISTRY ORDERABLES Performing Organization Address City/[facility]/ZIP [facility] Phon e Number [address] POCT Glucose (08/29/2021 2:11 AM EDT) athologist Signature POC Glucose 135 65 - 199 [facility] mg/dL [facility] LABORATORY Comment: Supplemental ranges: <140 mg/dL before meals <180 mg/dL all other times of the day Specimen Anatomical Collection Method Collection Time Receive d Time (Source) Location / / Volume Laterality Blood 08/29/2021 2:11 AM 2 2:11 EDT AM EDT Camron Guthrie MD POINT OF CARE TEST ORDERABLE S Performing Organization Address City/[facility]/[place] [address] POCT Glucose (08/29/2021 12:02 AM EDT) athologist Signature POC Glucose 122 65 - 199 [facility] mg/dL [facility] LABORATORY Comment: Supplemental ranges: <140 mg/dL before meals <180 mg/dL all other times of the day Specimen Anatomical Collection Method Collection Time Receive d Time (Source) Location / / Volume Laterality Blood 08/29/2021 12:02 08/29/2021 AM EDT 12:02 AM EDT Camron Guthrie MD POINT OF CARE TEST ORDERABLE S Performing Organization Address City/[facility]/[place] [address] (ABNORMAL) Hemoglobin (08/28/2021 9:51 PM EDT) P athologist Signature Hemoglobin 13.1 (L) 13.7 - [facility] 16.[facility] g/dL [facility] LAB[facility]ORY Specimen Anatomical Collection Method Collection Time Receive d Time (Source) Location / / Volume Laterality Blood 08/28/2021 9:51 PM 2 EDT 10:01 PM EDT Resulting Agency Comment Spec In Lab Camron Guthrie MD HEMATOLOGY ORDERABLES Performing Organization Address [facility]/ZIP [facility] Phon e Number [address] Potassium (08/28/2021 9:51 PM EDT) athologist Signature Potassium 4.6 3.5 - 5.0 [facility] mmol/L [facility] LAB[facility] Comment: Please note: ??Patients with WBC >100,00 0 may have falsely elevated Potassium levels. ??For accurate Potassium quantif ication in these patients send serum separator tube (gold top) for subsequent determinations. ??Contact the Clinical Chemistry Laboratory if there are any qu estions. Specimen Anatomical Collection Method Collection Time Receive d Time (Source) Location / / Volume Laterality Blood 08/28/2021 9:51 PM 2 EDT 10:01 PM EDT Resulting Agency Comment Spec In Lab Camron Gutrhie MD CHEMISTRY ORDERABLES Performing Organization Address City/[facility] [place] [address] (ABNORMAL) BLOOD GAS 2 ARTERIAL (08/28/2021 9:49 PM EDT) Analysis Performed At Patho logist Time Signature pH Art 7.34 (L) 7.35 - [facility] 7.45 [facility] LABOR[facility]ORY pCO2 Art 42 35 - 45 [facility] mmHg [facility] pO2 Art 90 85 - 104 [facility] LABORATORY HCO3 Art 21.7 20.0 - [facility] 26.0 [facility] mmol/[facility] LABORATORY BE Art -4.2 (L) -3.0 - 3.0 [facility] mmol/L [facility] LABOR[facility]ORY Hgb Blood Gas 14.2 13.7 - [facility] 16.5 g/dL [facility] O2HB Art 94.7 94.0 - [facility] 97.0 % [facility] COHB Art 0.3 % [facility] LABORAT[facility] Comment: Nonsmokers: 0.5-1.5% COHB Smokers: Variable, but usually less than 10% Toxic: 20-30% COHB Lethal: Greater than 60% COHB METHB Art 0.8 <=1.5 % [facility] LABORATORY Na Whole Blood 137 135 - 145 mmol/L [facility]OR[facility] K Whole Blood 4.5 3.5 - 5.0 mmol/L [facility] Comment: Please note: Patients with WBC >100,000 may have falsely elevated Potassium levels. Contact the Clinical Chemistry L aboratory if there are any questions. ICa Whole Blood 1.22 1.15 - 1.33 mmol/L [facility] LABOR[facility] Comment: Note: ??Total bilirubin higher than 20 m g/dL may lead to falsely low ionized calcium. CL Whole Blood 106 98 - 107 mmol/L [facility] LABORATORY Gluc Whole Bld 145 65 - 199 mg/dL [facility] LABORATORY Comment: Diabetes: >=200 mg/dL plus symp toms. Lactate WB 1.4 0.5 - 2.2 mmol/L [facility] LABORATORY FIO2 Art 40 % [facility] PF Ratio Art 225 [facility] LABORATORY Specimen Anatomical Collection Method Collection Time Receive d Time (Source) Location / / Volume Laterality Blood 08/28/2021 9:49 PM 9:49 EDT PM EDT Camron Guthrie MD CHEMISTRY ORDERABLES Performing Organization Address City/State/[place] [address] XR Chest One View (08/28/2021 7:35 PM EDT) Anatomical Region Laterality Modality Chest N/A Digital Radiography Specimen (Source) Anatomical Location Collection Method / Collectio n Time Received Time / Laterality Volume Impressions 08/28/2021 7:37 PM EDT Satisfactorily positioned endotracheal tube 5 cm proximal to the wes. Thank you for letting us participate in the care of this patient. ??If you are a health care provider and have any questi ons regarding this report, please contact the number below. ??For patients who have questions please contact the health outdoor emergency care technician that requested your imaging first. ? Electronically signed by: Kayleen Mckeon MD , [facility] ([phone]), at 08/28/2021 7:37 PM Narrative 08/28/2021 7:37 PM EDT EXAMINATION: XR CHEST ONE VIEW CLINICAL HISTORY: pulled back ett 1 cm TECHNIQUE: 1 view of the chest COMPARISON: August 28, 2021 at 1844 hours FINDINGS: Endotracheal tube satisfactorily positio abdoulaye 5 cm proximal to the wes. Remaining tubes and lines are unchanged. No pleural effusion. No pneumothorax. No consolidation. Procedure Note Kayleen Mckeon MD - 08/28/2021 EXAMINATION: XR CHEST ONE VIEW CLINICAL HISTORY: pulled back ett 1 cm TECHNIQUE: 1 view of the chest COMPARISON: August 28, 2021 at 1844 hours FINDINGS: Endotracheal tube satisfactorily positio abdoulaye 5 cm proximal to the wes. Remaining tubes and lines are unchanged. No pleural effusion. No pneumothorax. No consolidation. IMPRESSION Satisfactorily positioned endotracheal t ube 5 cm proximal to the wes. Thank you for letting us participate in the care of this patient. If you are a health care provider and have any questi ons regarding this report, please contact the number below. For patients w ho have questions please contact the health outdoor emergency care technician that requested your imaging first. Electronically signed by: Kayleen Mckeon MD , [facility] ([phone]), at 08/28/2021 7:37 PM Camron Guthrie MD IMG DX ORDERABLES XR Chest One View (08/28/2021 6:42 PM EDT) Anatomical Region Laterality Modality Chest N/A Digital Radiography Specimen (Source) Anatomical Location Collection Method / Collectio n Time Received Time / Laterality Volume Impressions 08/28/2021 7:04 PM EDT Cannot assess position of endotracheal tube. Recommend repeat radiograph. Thank you for letting us participate in the care of this patient. ??If you are a health care provider and have any questi ons regarding this report, please contact the number below. ??For patients who have questions please contact the health outdoor emergency care technician that requested your imaging first. ? Electronically signed by: Kayleen Mckeon MD , [facility] ([phone]), at 08/28/2021 7:04 PM Narrative 08/28/2021 7:04 PM EDT EXAMINATION: XR CHEST ONE VIEW CLINICAL HISTORY: s/p cabg TECHNIQUE: 1 view of the chest COMPARISON: August 23, 2021 FINDINGS: Endotracheal tube tip is obscured by julio c rnotomy cables. Mediastinal drains. Enteric tube satisfactorily positioned w ith port just beyond the anticipated region of the gastroesophageal junction. Right internal jugular [place] catheter tip in the descending interloba r right pulmonary artery. CABG clips are present. Midline sternoto my cables. Reduced lung volumes. No pneumothorax. N o radiographic evident pleural effusion. Procedure Note Kayleen Mckeon MD - 08/28/2021 EXAMINATION: XR CHEST ONE VIEW CLINICAL HISTORY: s/p cabg TECHNIQUE: 1 view of the chest COMPARISON: August 23, 2021 FINDINGS: Endotracheal tube tip is obscured by julio c rnotomy cables. Mediastinal drains. Enteric tube satisfactorily positioned w ith port just beyond the anticipated region of the gastroesophageal junction. Right internal jugular [place] catheter tip in the descending interloba r right pulmonary artery. CABG clips are present. Midline sternoto my cables. Reduced lung volumes. No pneumothorax. N o radiographic evident pleural effusion. IMPRESSION Cannot assess position of endotracheal t ube. Recommend repeat radiograph. Thank you for letting us participate in the care of this patient. If you are a health care provider and have any questi ons regarding this report, please contact the number below. For patients w ho have questions please contact the health outdoor emergency care technician that requested your imaging first. Electronically signed by: Kayleen Mckeon MD , [facility] ([phone]), at 08/28/2021 7:04 PM Camron Guthrie MD IMG DX ORDERABLES (ABNORMAL) BLOOD GAS 2 ARTERIAL (08/28/2021 6:32 PM EDT) Analysis Performed At Patho logist Time Signature pH Art 7.41 7.35 - [facility] 7.45 [facility] pCO2 Art 33 (L) 35 - 45 [facility] mmHg [facility] pO2 Art 399 (H) 85 - 104 [facility] LABORATORY HCO3 Art 20.5 20.0 - [facility] 26.0 [facility] mmol/L [facility] LABORATORY BE Art -4.1 (L) -3.0 - 3.0 [facility] mmol/L [facility] Hgb Blood Gas 12.4 (L) 13.7 - [facility] 16.5 g/dL [facility] O2HB Art 97.9 (H) 94.0 - [facility] 97.0 % [facility] COHB Art 0.3 % [facility] Comment: Nonsmokers: 0.5-1.5% COHB Smokers: Variable, but usually less than 10% Toxic: 20-30% COHB Lethal: Greater than 60% COHB METHB Art 0.9 <=1.5 % [facility] Na Whole Blood 136 135 - 145 mmol/L [facility] K Whole Blood 3.9 3.5 - 5.0 mmol/L [facility] Comment: Please note: Patients with WBC >100,000 may have falsely elevated Potassium levels. Contact the Clinical Chemistry L aboratory if there are any questions. ICa Whole Blood 1.12 (L) 1.15 - 1.33 mmol/L [facility] Comment: Note: ??Total bilirubin higher than 20 m g/dL may lead to falsely low ionized calcium. CL Whole Blood 109 (H) 98 - 107 mmol/L [facility] LABORATORY Gluc Whole Bld 122 65 - 199 mg/dL [facility] Comment: Diabetes: >=200 mg/dL plus symp toms. Lactate WB 1.0 0.5 - 2.2 mmol/L [facility] LABORATORY FIO2 Art 100 % [facility] PF Ratio Art 399 [facility] LABORATORY Specimen Anatomical Collection Method Collection Time Receive d Time (Source) Location / / Volume Laterality Blood 08/28/2021 6:32 PM 6:32 EDT PM EDT Camron Guthrie MD CHEMISTRY ORDERABLES Performing Organization Address City/[facility] [place] [address] EKG 12 Lead (08/28/2021 6:12 PM EDT) [facility] gist Method Time Signature Ventricular rate 67 BPM MUSE SYSTEM Atrial Rate 67 BPM MUSE SYSTEM P-R Interval 186 ms MUSE SYSTEM QRS Duration 104 ms MUSE SYSTEM Q-T Interval 448 ms MUSE SYSTEM QTC Calculated 473 ms MUSE SYSTEM (Bezet) Calculated P Runge 75 degrees MUSE SYSTEM Calculated R Runge -30 degrees MUSE SYSTEM Calculated T Runge 26 degrees MUSE SYSTEM INTERPRETATION Normal sinus rhythm MUSE SYSTEM Incomplete right bundle branch block Anterior infarct (cited on or before 23-AUG-2021) Abnormal ECG When compared with ECG of 27-AUG-2021 11:43, Vent. rate has increased BY ??23 BPM Confirmed by Ronny Argueta ([id number]) on 08/29/2021 5:46:3 6 PM Specimen Anatomical Collection Method Collection Time Receive d Time (Source) Location / / Volume Laterality 08/28/2021 6:12 PM 2 5:46 EDT PM EDT Camron Guthrie MD ECG ORDERABLES Performing Organization Address City/[facility]/ZIP [facility] Phon e Number MUSE SYSTEM Prepare Platelets, Apheresis (08/28/2021 5:30 PM EDT) P athologist Signature Dispensed? Yes [facility] LABORATORY Specimen Anatomical Collection Method Collection Time Receive d Time (Source) Location / / Volume Laterality Blood 08/28/2021 5:30 PM 2 5:26 EDT PM EDT Camron Guthrie MD BLOOD BANK ORDERABLES Performing Organization Address City/[facility]/[place] [address] Scan, Peripheral Blood (08/28/2021 5:01 PM EDT) Patholo gist Method Time Signature Plat Estimate Decreased [facility] RBC Morphology Normal [facility] Specimen Anatomical Collection Method Collection Time Receive d Time (Source) Location / / Volume Laterality Blood 08/28/2021 5:01 PM 2 5:17 EDT PM EDT Resulting Agency Comment Spec In Lab Haydee Mejia MD HEMATOLOGY ORDERABLES Performing Organization Address City/[facility]/[place] [address] (ABNORMAL) Fibrinogen (08/28/2021 5:01 PM EDT) P athologist Signature Fibrinogen 193 (L) 200 - 393 [facility] mg/dL [facility] Comment: OR Result called by ?? CHE OR Result s read back by: ? Song Flowers at 2021-08-28 17:33:38 A fibrinogen level >100 mg/dL is adequat e for hemostasis in most patients without underlying bleeding disorders. Specimen Anatomical Collection Method Collection Time Receive d Time (Source) Location / / Volume Laterality Blood 08/28/2021 5:01 PM 2 5:17 EDT PM EDT Resulting Agency Comment Spec In Lab Julio C Linton MD HEMATOLOGY ORDERABLES Performing Organization Address City/[facility]/[place] [address] APTT (08/28/2021 5:01 PM EDT) P athologist Signature PTT 31 25 - 37 sec [facility] Comment: OR Result called by ?? GRAIJK OR Result s read back by: ? Song Flowers at 2021-08-28 17:33:38 The PTT is NOT appropriate for heparin m onitoring. Use the Anti-Xa level for heparin monitoring (HEP UFH) or LMWH mon itoring (HEP LMW). A PTT less than 37 seconds generally indicates adequate hem ostasis. Specimen Anatomical Collection Method Collection Time Receive d Time (Source) Location / / Volume Laterality Blood 08/28/2021 5:01 PM 2 5:17 EDT PM EDT Resulting Agency Comment Spec In Lab Julio C Linton MD HEMATOLOGY ORDERABLES Performing Organization Address City/State/[facility] [place] [address] (ABNORMAL) Prothrombin Time (08/28/2021 5:01 PM EDT) athologist Signature PT 16.6 (H) 9.4 - 12.5 [facility] LABORATORY Comment: OR Result called by ?? GRAIJK OR Result s read back by: ? Song Flowers at 2021-08-28 17:33:[address] [facility] LABORATORY Comment: OR Result called by ?? GRAIJK OR Result s read back by: ? Song Flowers at 2021-08-28 17:33:38 An INR <2.0 indicates adequate procoagul ant activity for hemostasis in most patients without underlying bleeding dis orders, though the INR may not adequately reflect hemostatic capacity i n patients with liver disease and synthetic impairment. The recommended ta rget INR range for therapeutic anticoagulation is 2.0 ? 3.0 for most applications, though lower and higher ranges may be appropriate depending on c linical circumstances. Specimen Anatomical Collection Method Collection Time Receive d Time (Source) Location / / Volume Laterality Blood 08/28/2021 5:01 PM 2 5:17 EDT PM EDT Resulting Agency Comment Spec In Lab Julio C Linton MD HEMATOLOGY ORDERABLES Performing Organization Address City/State/[place] [address] (ABNORMAL) Hemogram (08/28/2021 5:01 PM EDT) P athologist Signature WBC 3.8 (L) 4.0 - 9.5 [facility] x10(3)/[facility] LABORATORY RBC 2.96 (L) 4.58 - [facility] 5.54 [facility] x10(6)/[facility] LABORATORY Hemoglobin 9.2 (L) 13.7 - [facility] 16.5 g/dL [facility]OR[facility]ORY Hematocrit 27.0 (L) 40.5 - [facility] 48.5 % [facility] Comment: This result has been called to ALYCIA LERMA by Iesha Gonzalez on 08 28 2021 at 1813, and has been read back. correct platelet count MCV 91.2 82.9 - 93.1 [facility] LABORATORY MCH 31.1 27.5 - 32.1 pg [facility] LABORATORY MCHC 34.1 32.0 - 35.7 g/dL [facility] LABORATORY Platelets 41 (L) 145 - 357 x10(3)/[facility] LABORATORY RDWSD 39.7 36.0 - 45.0 [facility] LABORATORY RDWCV 11.9 11.4 - 13.8 % [facility] LABORATORY MPV 10.8 7.6 - 12.9 [facility] LABORATORY nRBC % Auto 0.0 % [facility] LABORATORY nRBC Abs Auto 0.000 0.000 - 0.000 x10(3)/[facility] LABORATORY Specimen Anatomical Collection Method Collection Time Receive d Time (Source) Location / / Volume Laterality Blood 08/28/2021 5:01 PM 5:17 EDT PM EDT Resulting Agency Comment Spec In Lab Julio C Linton MD HEMATOLOGY ORDERABLES Performing Organization Address City/State/[place] [address] (ABNORMAL) BLOOD GAS 2 ARTERIAL (08/28/2021 4:34 PM EDT) Analysis Performed At Patho logist Time Signature pH Art 7.35 7.35 - [facility] 7.45 [facility]ORY pCO2 Art 44 35 - 45 [facility] mmHg [facility] pO2 Art 484 (H) 85 - 104 [facility] mmHg [facility] LABORATORY HCO3 Art 23.6 20.0 - [facility] 26.0 [facility] mmol/L [facility] LABORATORY BE Art -2.1 -3.0 - 3.0 [facility] mmol/L [facility] LABORATORY Hgb Blood Gas 10.1 (L) 13.7 - [facility] 16.5 g/dL [facility] O2HB Art 98.6 (H) 94.0 - [facility] 97.0 % [facility] COHB Art 0.2 % [facility] LABORATORY Comment: Nonsmokers: 0.5-1.5% COHB Smokers: Variable, but usually less than 10% Toxic: 20-30% COHB Lethal: Greater than 60% COHB METHB Art 0.3 <=1.5 % [facility]ORATORY Na Whole Blood 132 (L) 135 - 145 mmol/L [facility] LABORATORY K Whole Blood 4.6 3.5 - 5.0 mmol/L [facility] LABORATORY Comment: Please note: Patients with WBC >100,000 may have falsely elevated Potassium levels. Contact the Clinical Chemistry L aboratory if there are any questions. ICa Whole Blood 1.05 (L) 1.15 - 1.33 mmol/L [facility] LABORATORY Comment: Note: ??Total bilirubin higher than 20 m g/dL may lead to falsely low ionized calcium. CL Whole Blood 106 98 - 107 mmol/L [facility] LABORATORY Gluc Whole Bld 114 65 - 199 mg/dL [facility] LABORATORY Comment: Diabetes: >=200 mg/dL plus symp toms. Lactate WB 1.0 0.5 - 2.2 mmol/L [facility] LABORATORY Specimen Anatomical Collection Method Collection Time Receive d Time (Source) Location / / Volume Laterality Blood 08/28/2021 4:34 PM 2 4:34 EDT PM EDT Camron Guthrie MD CHEMISTRY ORDERABLES Performing Organization Address City/[facility]/[place] [address] Platelet count (08/28/2021 4:19 PM EDT) athologist Signature Platelets 159 145 - 357 [facility] x10(3)/[facility] LABORATORY Plat Immature 4.2 0.0 - 7.4 [facility] [place] % % [facility] LABORATORY Comment: Limitation of the Immature Platelet Frac tion (IPF)-May be less reliable when the platelet count is less than 93s682/u L due to statistical imprecision. The IPF value provides an assessment of the Bone Marrow production status. ??It is useful in differentiating Thrombocyto penia caused by platelet destruction/consumption versus decreased production. It also helps to determine the imminent release of platelets and ca n be therefore a helpful parameter in Chemotherapy and Bone marrow transplant patients. ELEVATED IPF value: ?? When the bone marrow is in a state of over production such as when increased destruction and consumption are the unde rlying issue. ?? When the marrow is recovering post ch emotherapy or bone marrow transplant. LOW to NORMAL IPF value: ?? When the bone marrow in not respondin g and is in a decreased state of production. References: [employer] The Clinical Value of the Immature Platelet Fraction (IPF) in Cell Recovery Document Number [id number] 07/2010 [employer] The Role of the Imm ature Platelet Fraction (IPF) in the Differential Diagnosis of Thrombocytopen ia, Document [id number] V05/02/05 P0514 Specimen Anatomical Collection Method Collection Time Receive d Time (Source) Location / / Volume Laterality Blood 08/28/2021 4:19 PM 2 4:28 EDT PM EDT Resulting Agency Comment Spec In Lab Camron Guthrie MD HEMATOLOGY ORDERABLES Performing Organization Address City/[facility]/[place] [address] (ABNORMAL) Hemoglobin and Hematocrit, blood (08/28/2021 4:19 PM EDT) athologist Signature Hemoglobin 9.2 (L) 13.7 - 16.5 [facility] g/dL [facility] Comment: This result has been called to RUPAL CONLEY by Mayela Linder on 08 28 2021 at 1637, and has been read back. Hematocrit 27.0 (L) 40.5 - 48.5 % [facility]OR[facility] Comment: This result has been called to RUPAL CONLEY by Mayela Linder on 08 28 2021 at 1637, and has been read back. Specimen Anatomical Collection Method Collection Time Receive d Time (Source) Location / / Volume Laterality Blood 08/28/2021 4:19 PM 2 4:28 EDT PM EDT Resulting Agency Comment Spec In Lab Camron Guthrie MD HEMATOLOGY ORDERABLES Performing Organization Address City/[facility]/[place] [address] (ABNORMAL) Fibrinogen (08/28/2021 4:19 PM EDT) athologist Signature Fibrinogen 190 (L) 200 - 393 [facility] mg/dL [facility] Comment: OR Result called by ?? CHE OR Result s read back by: ? Rupal Mccain at 2021-08-28 16:41:38 A fibrinogen level >100 mg/dL is adequat e for hemostasis in most patients without underlying bleeding disorders. Specimen Anatomical Collection Method Collection Time Receive d Time (Source) Location / / Volume Laterality Blood 08/28/2021 4:19 PM 2 4:28 EDT PM EDT Resulting Agency Comment Spec In Lab Camron Guthrie MD HEMATOLOGY ORDERABLES Performing Organization Address City/[facility]/[place] [address] (ABNORMAL) BLOOD GAS 2 ARTERIAL (08/28/2021 4:00 PM EDT) Analysis Performed At Patho logist Time Signature pH Art 7.38 7.35 - [facility] 7.45 [facility] LABORATORY pCO2 Art 41 35 - 45 [facility] pO2 Art 483 (H) 85 - 104 [facility] LABORATORY HCO3 Art 23.8 20.0 - [facility] 26.0 [facility] mmol/[facility] LABORATORY BE Art -1.4 -3.0 - 3.0 [facility] mmol/L [facility] LABORATORY Hgb Blood Gas 10.1 (L) 13.7 - [facility] 16.5 g/dL [facility] O2HB Art 98.7 (H) 94.0 - [facility] 97.0 % [facility] LABORAT[facility] COHB Art 0.2 % [facility] LABORATORY Comment: Nonsmokers: 0.5-1.5% COHB Smokers: Variable, but usually less than 10% Toxic: 20-30% COHB Lethal: Greater than 60% COHB METHB Art 0.3 <=1.5 % [facility] LABORAT[facility] Na Whole Blood 132 (L) 135 - 145 mmol/L [facility] LABORATORY K Whole Blood 4.9 3.5 - 5.0 mmol/L [facility] LABORATORY Comment: Please note: Patients with WBC >100,000 may have falsely elevated Potassium levels. Contact the Clinical Chemistry L aboratory if there are any questions. ICa Whole Blood 1.03 (L) 1.15 - 1.33 mmol/L [facility] LABOR[facility] Comment: Note: ??Total bilirubin higher than 20 m g/dL may lead to falsely low ionized calcium. CL Whole Blood 105 98 - 107 mmol/L [facility] LABORATORY Gluc Whole Bld 104 65 - 199 mg/dL [facility] LABORATORY Comment: Diabetes: >=200 mg/dL plus symp toms. Lactate WB 1.0 0.5 - 2.2 mmol/L [facility] LABORATORY Specimen Anatomical Collection Method Collection Time Receive d Time (Source) Location / / Volume Laterality Blood 08/28/2021 4:00 PM 4:00 EDT PM EDT Camron Guthrie MD CHEMISTRY ORDERABLES Performing Organization Address City/State/[place] [address] HOSPITAL LABORATORY Drive (ABNORMAL) BLOOD GAS 2 ARTERIAL (08/28/2021 3:22 PM EDT) Analysis Performed At Patho logist Time Signature pH Art 7.37 7.35 - [facility] 7.45 [facility] pCO2 Art 42 35 - 45 [facility] mmHg [facility] pO2 Art 527 (H) 85 - 104 [facility] LABORATORY HCO3 Art 24.1 20.0 - [facility] 26.0 [facility] mmol/L [facility] BE Art -1.2 -3.0 - 3.0 [facility] mmol/L [facility] Hgb Blood Gas 10.1 (L) 13.7 - [facility] 16.5 g/dL [facility] O2HB Art 98.8 (H) 94.0 - [facility] 97.0 % [facility] COHB Art 0.3 % [facility] Comment: Nonsmokers: 0.5-1.5% COHB Smokers: Variable, but usually less than 10% Toxic: 20-30% COHB Lethal: Greater than 60% COHB METHB Art 0.3 <=1.5 % [facility] Na Whole Blood 132 (L) 135 - 145 mmol/L [facility] K Whole Blood 4.7 3.5 - 5.0 mmol/L [facility] Comment: Please note: Patients with WBC >100,000 may have falsely elevated Potassium levels. Contact the Clinical Chemistry L aboratory if there are any questions. ICa Whole Blood 1.02 (L) 1.15 - 1.33 mmol/L [facility] Comment: Note: ??Total bilirubin higher than 20 m g/dL may lead to falsely low ionized calcium. CL Whole Blood 106 98 - 107 mmol/L [facility] Gluc Whole Bld 94 65 - 199 mg/dL [facility] Comment: Diabetes: >=200 mg/dL plus symp toms. Lactate WB 1.1 0.5 - 2.2 mmol/L [facility] Specimen Anatomical Collection Method Collection Time Receive d Time (Source) Location / / Volume Laterality Blood 08/28/2021 3:22 PM 3:22 EDT PM EDT Camron Guthrie MD CHEMISTRY ORDERABLES Performing Organization Address City/State/[place] [address] (ABNORMAL) BLOOD GAS 2 ARTERIAL (08/28/2021 3:00 PM EDT) Analysis Performed At Patho logist Time Signature pH Art 7.33 (L) 7.35 - [facility] 7.45 [facility] pCO2 Art 43 35 - 45 [facility]ORY pO2 Art 500 (H) 85 - 104 [facility] LABORATORY HCO3 Art 22.6 20.0 - [facility] 26.0 [facility] mmol/L [facility] BE Art -3.3 (L) -3.0 - 3.0 [facility] mmol/L [facility] Hgb Blood Gas 10.8 (L) 13.7 - [facility] 16.5 g/dL [facility] O2HB Art 98.9 (H) 94.0 - [facility] 97.0 % [facility] COHB Art 0.3 % [facility] Comment: Nonsmokers: 0.5-1.5% COHB Smokers: Variable, but usually less than 10% Toxic: 20-30% COHB Lethal: Greater than 60% COHB METHB Art 0.3 <=1.5 % [facility] Na Whole Blood 128 (L) 135 - 145 mmol/L [facility] K Whole Blood 3.7 3.5 - 5.0 mmol/L [facility] Comment: Please note: Patients with WBC >100,000 may have falsely elevated Potassium levels. Contact the Clinical Chemistry L aboratory if there are any questions. ICa Whole Blood 1.01 (L) 1.15 - 1.33 mmol/L [facility] Comment: Note: ??Total bilirubin higher than 20 m g/dL may lead to falsely low ionized calcium. CL Whole Blood 102 98 - 107 mmol/L [facility] Gluc Whole Bld 91 65 - 199 mg/dL [facility] Comment: Diabetes: >=200 mg/dL plus symp toms. Lactate WB 1.0 0.5 - 2.2 mmol/L [facility] Specimen Anatomical Collection Method Collection Time Receive d Time (Source) Location / / Volume Laterality Blood 08/28/2021 3:00 PM 3:00 EDT PM EDT Camron Guthrie MD CHEMISTRY ORDERABLES Performing Organization Address City/State/[place] [address] (ABNORMAL) BLOOD GAS 2 VENOUS (08/28/2021 2:59 PM EDT) Analysis Performed At Patho logist Time Signature pH Dick 7.30 (L) 7.32 - [facility] 7.42 [facility] pCO2 Dick 48 41 - 51 [facility]ORY pO2 Dick 66 (H) 25 - 40 [facility] LABORATORY HCO3 Dick 22.9 mmol/L [facility] BE Dick -3.5 mmol/L [facility] Hgb Blood Gas 10.8 (L) 13.7 - [facility] 16.5 g/dL [facility] O2HB Dick 89.6 % [facility] COHB Dick 0.3 % [facility] Comment: Nonsmokers: 0.5-1.5% COHB Smokers: Variable, but usually less than 10% Toxic: 20-30% COHB Lethal: Greater than 60% COHB METHB Dick 0.3 <=1.5 % [facility] Na Whole Blood 131 (L) 135 - 145 mmol/L [facility] K Whole Blood 3.8 3.5 - 5.0 mmol/L [facility] Comment: Please note: Patients with WBC >100,000 may have falsely elevated Potassium levels. Contact the Clinical Chemistry L aboratory if there are any questions. ICa Whole Blood 1.06 (L) 1.15 - 1.33 mmol/L [facility] Comment: Note: ??Total bilirubin higher than 20 m g/dL may lead to falsely low ionized calcium. CL Whole Blood 102 98 - 107 mmol/L [facility] Gluc Whole Bld 90 65 - 199 mg/dL [facility] Comment: Diabetes: >=200 mg/dL plus symp toms Lactate WB 1.0 0.5 - 2.2 mmol/L [facility] BGas Source Venous [facility] Specimen Anatomical Collection Method Collection Time Receive d Time (Source) Location / / Volume Laterality Blood 08/28/2021 2:59 PM 2 2:59 EDT PM EDT Camron Guthrie MD CHEMISTRY ORDERABLES Performing Organization Address City/State/[place] [address] (ABNORMAL) BLOOD GAS 2 ARTERIAL (08/28/2021 2:07 PM EDT) Analysis Performed At Patho logist Time Signature pH Art 7.46 (H) 7.35 - [facility] 7.45 [facility] pCO2 Art 31 (L) 35 - 45 [facility] LABOR[facility]ORY pO2 Art 314 (H) 85 - 104 [facility] LABORATORY HCO3 Art 21.5 20.0 - [facility] 26.0 [facility] mmol/[facility] BE Art -2.4 -3.0 - 3.0 [facility] mmol/L [facility] Hgb Blood Gas 12.6 (L) 13.7 - [facility] 16.5 g/dL [facility] O2HB Art 98.9 (H) 94.0 - [facility] 97.0 % [facility] COHB Art 0.4 % [facility] Comment: Nonsmokers: 0.5-1.5% COHB Smokers: Variable, but usually less than 10% Toxic: 20-30% COHB Lethal: Greater than 60% COHB METHB Art 0.3 <=1.5 % [facility] Na Whole Blood 139 135 - 145 mmol/L [facility] K Whole Blood 3.4 (L) 3.5 - 5.0 mmol/L [facility] Comment: Please note: Patients with WBC >100,000 may have falsely elevated Potassium levels. Contact the Clinical Chemistry L aboratory if there are any questions. ICa Whole Blood 1.08 (L) 1.15 - 1.33 mmol/L [facility] Comment: Note: ??Total bilirubin higher than 20 m g/dL may lead to falsely low ionized calcium. CL Whole Blood 111 (H) 98 - 107 mmol/L [facility] Gluc Whole Bld 91 65 - 199 mg/dL [facility] Comment: Diabetes: >=200 mg/dL plus symp toms. Lactate WB 0.9 0.5 - 2.2 mmol/L [facility] Specimen Anatomical Collection Method Collection Time Receive d Time (Source) Location / / Volume Laterality Blood 08/28/2021 2:07 PM 2:07 EDT PM EDT Camron Guthrie MD CHEMISTRY ORDERABLES Performing Organization Address City/State/[place] [address] Transesophageal Echo/OR (08/28/2021 12:50 PM EDT) Anatomical Region Laterality Modality Cardiac Other Specimen (Source) Anatomical Collection Method Collection Time Re ceived Time Location / / Volume Laterality 08/28/2021 12:50 PM EDT Narrative 08/29/2021 11:20 AM EDT [facility] ?[address] ? [place] [address] ?Voice: ?Fax: Name: ALEX IBNGHAM ? Study Date: 08/28/2021 12:50 PM ?Patient Location: OR^OR18^A : 1955 ? Account: [id number] Age: 66 yrs Gender: Male Ordering Physician: CAMRON GUTHRIE Referring Physician: CAMRON GUTHRIE Performed By: Julio C Linton MD Post Tricuspid ValveExam Location: No [facility] from pre-bypass exam. Interpretation Summary Pre Procedure Findings A complete transesophageal echocardiogra m was performed in the O.R. for immediate pre-operative and post-operative evaluat ion of cardiac function and valvular heart disease during cardiac surgery. Left ventricle is of normal size. Left v entricular ejection fraction is estimated visually at 60%. There are no segmental wall motion abnormalities. The right ventricle is of normal size. R ight ventricular wall thickness is normal. Right ventricular systolic function is n ormal. Left atrium is of normal size. There is no evidence for a patent foramen ovale. The right atrium is not well visualized. The aortic valve is structurally normal. There is trace aortic regurgitation. The mitral valve is structurally normal. There is trace mitral regurgitation. The tricuspid valve is structurally and functionally normal. The pulmonic valve appears to be structu rally and functionally normal. The aortic root is of normal size. No ab normalities are identified. No evidence of dissection. Post Procedure Findings Patient is s/p 4-vessel CABG. Left ventr icle is of normal size. Left ventricular ejection fraction is estimated visually at 60 %. There are no segmental wall motion abnormalities,. No changes from p re-bypass exam. The right ventricle is of normal size. Right ventricular systolic function appears to be normal without evidence of regional wall motion abnorma lities. No changes from pre-bypass exam. No changes from pre-bypass exam. No felix ges from pre-bypass exam. No changes from pre-bypass exam. Pre Procedure LVOT diam: 1.9 cm LV V1 VTI: 8.2 cm Ao V2 VTI: 21.3 cm AV VR_phl: 0.33 SV(LVOT): 22.5 ml Procedure Note Julio C Linton MD - 08/29/2021Formatt ing of this note might be different from the original. [facility] [address] [place] [address] Voice: Fax: Name: ALEX BINGHAM Study Date: 08/28/2021 12:50 PM Patient Location: OR^[place]18^A : 1955 Account: [id number] Age: 66 yrs Gender: Male Ordering Physician: CAMRON GUTHRIE Referring Physician: CAMRON GUTHRIE Performed By: Julio C Linton MD Post Tricuspid ValveExam Location: [facility] from pre-bypass exam. Interpretation Summary Pre Procedure Findings A complete transesophageal echocardiogra m was performed in the O.R. for immediate pre-operative and post-operative evaluat ion of cardiac function and valvular heart disease during cardiac surgery. Left ventricle is of normal size. Left v entricular ejection fraction is estimated visually at 60%. There are no segmental wall motion abnormalities. The right ventricle is of normal size. R ight ventricular wall thickness is normal. Right ventricular systolic function is n ormal. Left atrium is of normal size. There is no evidence for a patent foramen ovale. The right atrium is not well visualized. The aortic valve is structurally normal. There is trace aortic regurgitation. The mitral valve is structurally normal. There is trace mitral regurgitation. The tricuspid valve is structurally and functionally normal. The pulmonic valve appears to be structu rally and functionally normal. The aortic root is of normal size. No ab normalities are identified. No evidence of dissection. Post Procedure Findings Patient is s/p 4-vessel CABG. Left ventr icle is of normal size. Left ventricular ejection fraction is estimated visually at 60 %. There are no segmental wall motion abnormalities,. No changes from p re-bypass exam. The right ventricle is of normal size. Right ventricular systolic function appears to be normal without evidence of regional wall motion abnorma lities. No changes from pre-bypass exam. No changes from pre-bypass exam. No felix ges from pre-bypass exam. No changes from pre-bypass exam. Pre Procedure LVOT diam: 1.9 cm LV V1 VTI: 8.2 cm Ao V2 VTI: 21.3 cm AV VR_phl: 0.33 SV(LVOT): 22.5 ml Camron Guthrie MD ECHO ORDERABLES Prepare RBC (08/28/2021 12:30 PM EDT) athologist Signature Dispensed? Yes [facility] Specimen Anatomical Collection Method Collection Time Receive d Time (Source) Location / / Volume Laterality Blood 08/28/2021 12:30 08/28/2021 PM EDT 12:25 PM EDT Resulting Agency Comment Spec In Lab Camron Guthrie MD BLOOD BANK ORDERABLES Performing Organization Address City/State/ZIP Code Phon e Number [address] POCT Glucose (08/28/2021 12:12 PM EDT) athologist Signature POC Glucose 95 65 - 199 [facility] mg/dL [facility] Comment: Supplemental ranges: <140 mg/dL before meals <180 mg/dL all other times of the day Specimen Anatomical Collection Method Collection Time Receive d Time (Source) Location / / Volume Laterality Blood 08/28/2021 12:12 08/28/2021 PM EDT 12:12 PM EDT Camron Guthrie MD POINT OF CARE TEST ORDERABLE S Performing Organization Address [facility] Code Phon e Number [address] Heparin (unfractionated) Level (08/28/2021 5:17 AM EDT) athologist Signature Heparin UFH 0.43 IU/mL [facility] LABORATORY Comment: Heparin (anti-Xa) levels should be deter mined in a plasma sample that has been drawn 6 hours after a dose change to ramón roximate steady-state for continuous heparin infusions. Indication specific Heparin (anti-Xa) le vels based on order set selection: Acute DVT or PE treatment: 0.3 ? 0.7 IU/mL Thrombosis Prevention (eg. atrial fibril lation, kayla-procedural bridging, mechanical valves): 0.3 ? 0.7 IU/mL Acute Coronary Syndrome: 0.3 ? 0.7 IU/mL Stroke Indications: 0.3 ? 0.5 IU/mL Ultra-low intensity (select indications in cardiac surgery): 0.1 ? 0.3 IU/mL Specimen Anatomical Collection Method Collection Time Receive d Time (Source) Location / / Volume Laterality Blood 08/28/2021 5:17 AM 5:29 EDT AM EDT Resulting Agency Comment Spec In Lab Camron Guthrie MD HEMATOLOGY ORDERABLES Performing Organization Address City/[facility]/ZIP Code Phon e Number [address] Differential, Automated (08/28/2021 5:17 AM EDT) P athologist Signature Neutrophils % 64.1 % [facility] Neutr Abs (ANC) 4.12 1.70 - [facility] 6.10 [facility] x10(3)/[facility] LABORATORY Lymphocytes % 22.7 % [facility] Lymphocytes Abs 1.5 0.9 - 3.2 [facility] x10(3)/[facility] LABORATORY Monocytes % 8.4 % [facility] Monocyte Abs 0.5 0.3 - 0.9 [facility] x10(3)/[facility] LABORATORY Eosinophils % 3.9 % [facility] Eosinophils Abs 0.2 0.0 - 0.4 [facility] x10(3)/[facility] LABORATORY Basophils % 0.6 % [facility] Basophils Abs 0.0 0.0 - 0.1 [facility] x10(3)/[facility] LABORATORY Immature Gran % 0.30 % [facility] Comment: Immature granulocytes(IG's)percentage an d absolute count will include metamyelocytes, myelocytes, and promyelo cytes. Blood smears from CBCs yielding IG's will be scanned manually for concor dance. If this scan disagrees with the automated IG or if promyelocytes are not ed, a manual differential will be performed. Lily Gran Abs 0.02 0.00 - 0.04 x10(3)/[facility]ORATORY Specimen Anatomical Collection Method Collection Time Receive d Time (Source) Location / / Volume Laterality Blood 08/28/2021 5:17 AM 5:29 EDT AM EDT Resulting Agency Comment Spec In Lab Dona SANCHEZ HEMATOLOGY ORDERABLES Performing Organization Address City/State/[place] [address] (ABNORMAL) Hemogram (08/28/2021 5:17 AM EDT) Analysis Performed At Patho logist Time Signature WBC 6.4 4.0 - 9.5 [facility] x10(3)/[facility] LABORATORY RBC 4.07 (L) 4.58 - [facility] [place] 5.54 [facility] x10(6)/[facility] LABORATORY Hemoglobin 12.7 (L) 13.7 - [facility] [place] 16.5 g/dL [facility] Hematocrit 37.1 (L) 40.5 - [facility] [place] 48.5 % [facility] MCV 91.2 82.9 - [facility] 93.1 [facility] LABORATORY MCH 31.2 27.5 - [facility] [place] 32.1 pg [facility] MCHC 34.2 32.0 - [facility] 35.7 g/dL [facility] Platelets 173 145 - 357 [facility] x10(3)/[facility] LABORATORY RDWSD 40.2 36.0 - [facility] 45.0 [facility] LABORATORY RDWCV 12.1 11.4 - [facility] 13.8 % [facility]ATORY MPV 10.5 7.6 - 12.9 [facility] LABORATORY nRBC % Auto 0.0 % [facility] nRBC Abs Auto 0.000 0.000 - [facility] 0.000 [facility] x10(3)/[facility] LABORATORY Specimen Anatomical Collection Method Collection Time Receive d Time (Source) Location / / Volume Laterality Blood 08/28/2021 5:17 AM 5:29 EDT AM EDT Resulting Agency Comment Spec In Lab Dona SANCHEZ HEMATOLOGY ORDERABLES Performing Organization Address City/State/[place] [address] EKG 12 Lead (08/27/2021 11:43 AM EDT) Component Value Ref Range Test Analysis Performed Pathologis t Method Time At Signature Ventricular rate 44 BPM MUSE SYSTEM Atrial Rate 44 BPM MUSE SYSTEM P-R Interval 156 ms MUSE SYSTEM QRS Duration 104 ms MUSE SYSTEM Q-T Interval 446 ms MUSE SYSTEM QTC Calculated 381 ms MUSE SYSTEM (Bezet) Calculated P Runge 50 degrees MUSE SYSTEM Calculated R Runge -33 degrees MUSE SYSTEM Calculated T Runge -10 degrees MUSE SYSTEM INTERPRETATION Marked sinus bradycardia MUSE SYSTEM Left axis deviation Minimal voltage criteria for LVH, may be normal variant ( R in aVL ) Cannot rule out Anteroseptal infarct (cited on or before Aug-2021) Abnormal ECG When compared with ECG of 25-AUG-2021 12:38, No significant change was found Confirmed by MD May, [facility] ([id number]) on 08/27/2021 1:14: 33 PM Specimen Anatomical Collection Method Collection Time Receive d Time (Source) Location / / Volume Laterality 08/27/2021 11:43 08/27/2021 1:14 AM EDT PM EDT Camron Guthrie MD ECG ORDERABLES Performing Organization Address City/State/ZIP Code Phon e Number MUSE SYSTEM Heparin (unfractionated) Level (08/27/2021 4:48 AM EDT) athologist Signature Heparin UFH 0.41 IU/mL [facility] LABORATORY Comment: Heparin (anti-Xa) levels should be deter mined in a plasma sample that has been drawn 6 hours after a dose change to ramón roximate steady-state for continuous heparin infusions. Indication specific Heparin (anti-Xa) le vels based on order set selection: Acute DVT or PE treatment: 0.3 ? 0.7 IU/mL Thrombosis Prevention (eg. atrial fibril lation, kayla-procedural bridging, mechanical valves): 0.3 ? 0.7 IU/mL Acute Coronary Syndrome: 0.3 ? 0.7 IU/mL Stroke Indications: 0.3 ? 0.5 IU/mL Ultra-low intensity (select indications in cardiac surgery): 0.1 ? 0.3 IU/mL Specimen Anatomical Collection Method Collection Time Receive d Time (Source) Location / / Volume Laterality Blood 08/27/2021 4:48 AM 5:13 EDT AM EDT Resulting Agency Comment Spec In Lab Camron Guthrie MD HEMATOLOGY ORDERABLES Performing Organization Address City/[facility]/[place] [address] Differential, Automated (08/27/2021 4:48 AM EDT) athologist Signature Neutrophils % 67.0 % [facility] Neutr Abs (ANC) 4.56 1.70 - [facility] 6.10 [facility] x10(3)/[facility] LABORATORY Lymphocytes % 20.9 % [facility] Lymphocytes Abs 1.4 0.9 - 3.2 [facility] x10(3)/[facility] LABORATORY Monocytes % 7.9 % [facility] Monocyte Abs 0.5 0.3 - 0.9 [facility] x10(3)/[facility] LABORATORY Eosinophils % 3.2 % [facility] Eosinophils Abs 0.2 0.0 - 0.4 [facility] x10(3)/[facility] LABORATORY Basophils % 0.6 % [facility] Basophils Abs 0.0 0.0 - 0.1 [facility] x10(3)/[facility] LABORATORY Immature Gran % 0.40 % [facility] Comment: Immature granulocytes(IG's)percentage an d absolute count will include metamyelocytes, myelocytes, and promyelo cytes. Blood smears from CBCs yielding IG's will be scanned manually for concor dance. If this scan disagrees with the automated IG or if promyelocytes are not ed, a manual differential will be performed. Lily Gran Abs 0.03 0.00 - 0.04 x10(3)/[facility] LABORATORY Specimen Anatomical Collection Method Collection Time Receive d Time (Source) Location / / Volume Laterality Blood 08/27/2021 4:48 AM 5:12 EDT AM EDT Resulting Agency Comment Spec In Lab Dona SANCHEZ HEMATOLOGY ORDERABLES Performing Organization Address City/State/[place] [address] (ABNORMAL) Hemogram (08/27/2021 4:48 AM EDT) Analysis Performed At Patho logist Time Signature WBC 6.8 4.0 - 9.5 [facility] x10(3)/[facility] LABORATORY RBC 4.43 (L) 4.58 - [facility] 5.54 [facility] x10(6)/[facility] LABORATORY Hemoglobin 13.9 13.7 - [facility] 16.5 g/dL [facility] LABORATORY Hematocrit 40.3 (L) 40.5 - [facility] 48.5 % [facility] LABORATORY MCV 91.0 82.9 - [facility] [place] 93.1 [facility] LABORATORY MCH 31.4 27.5 - [facility] [place] 32.1 pg [facility] LABORATORY MCHC 34.5 32.0 - [facility] [place] 35.7 g/dL [facility] LABORATORY Platelets 177 145 - 357 [facility] [place] x10(3)/[facility] LABORATORY RDWSD 40.1 36.0 - [facility] [place] 45.0 [facility] LABORATORY RDWCV 12.0 11.4 - [facility] 13.8 % [facility] LABORATORY MPV 10.6 7.6 - 12.9 [facility] LABORATORY nRBC % Auto 0.0 % [facility]OR[facility]ORY nRBC Abs Auto 0.000 0.000 - [facility] 0.000 [facility] x10(3)/[facility] LABORATORY Specimen Anatomical Collection Method Collection Time Receive d Time (Source) Location / / Volume Laterality Blood 08/27/2021 4:48 AM 5:12 EDT AM EDT Resulting Agency Comment Spec In Lab Dona SANCHEZ HEMATOLOGY ORDERABLES Performing Organization Address City/State/[place] [address] Heparin (unfractionated) Level (08/26/2021 9:57 PM EDT) P athologist Signature Heparin UFH 0.37 IU/mL [facility] LABORATORY Comment: Heparin (anti-Xa) levels should be deter mined in a plasma sample that has been drawn 6 hours after a dose change to ramón roximate steady-state for continuous heparin infusions. Indication specific Heparin (anti-Xa) le vels based on order set selection: Acute DVT or PE treatment: 0.3 ? 0.7 IU/mL Thrombosis Prevention (eg. atrial fibril lation, kayla-procedural bridging, mechanical valves): 0.3 ? 0.7 IU/mL Acute Coronary Syndrome: 0.3 ? 0.7 IU/mL Stroke Indications: 0.3 ? 0.5 IU/mL Ultra-low intensity (select indications in cardiac surgery): 0.1 ? 0.3 IU/mL Specimen Anatomical Collection Method Collection Time Receive d Time (Source) Location / / Volume Laterality Blood 08/26/2021 9:57 PM 2 EDT 10:04 PM EDT Resulting Agency Comment Spec In Lab Camron Guthrie MD HEMATOLOGY ORDERABLES Performing Organization Address City/State/[place] [id number] Troponin (08/26/2021 4:46 AM EDT) athologist Signature Troponin-T <0.01 0.00 - 0.00 [place] ng/mL [facility] Comment: The 99th percentile for Troponin T is le ss than 0.01 ng/mL, any detectable cTnT concentration using this assay should be considered elevated. According to the third universal definit ion of myocardial infarction the following criteria with a clinical prese ntation consistent with acute myocardial ischemia meets the diagnosis for a myocardial infarction (DE). Detection of a rise and/or fall of cTnT, with at least one value greater than the 99th percentile (> or = 0.01) and wi th at least one of the following ?? Symptoms of ischemia ?? New or presumed new significant ST-se gment-T wave (ST-T) changes or new left bundle branch block (LBBB) ?? Development of pathologic Q waves in the ECG ?? Imaging evidence of new loss of viabl e myocardium or new regional wall motion abnormality ?? Identification of an intracoronary th rombus by angiography or autopsy Samples for cTnT testing should be obtai abdoulaye serially upon first assessment and again 3 to 6 hours later. If the clinica l suspicion is high and previous samples have been negative an additional sample may be indicated. Reference: Third [place] Definition of Myocardial Infarction. Journal of the [place] [employer] 2012;60:1581-98 Specimen Anatomical Collection Method Collection Time Receive d Time (Source) Location / / Volume Laterality Blood 08/26/2021 4:46 AM 2 4:56 EDT AM EDT Resulting Agency Comment Spec In Lab Camron Guthrie MD CHEMISTRY ORDERABLES Performing Organization Address City/[facility]/[place] [id number] Troponin (08/25/2021 7:55 PM EDT) athologist Signature Troponin-T <0.01 0.00 - 0.00 [facility]mL [facility] Comment: The 99th percentile for Troponin T is le ss than 0.01 ng/mL, any detectable cTnT concentration using this assay should be considered elevated. According to the third universal definit ion of myocardial infarction the following criteria with a clinical prese ntation consistent with acute myocardial ischemia meets the diagnosis for a myocardial infarction (DE). Detection of a rise and/or fall of cTnT, with at least one value greater than the 99th percentile (> or = 0.01) and wi th at least one of the following ?? Symptoms of ischemia ?? New or presumed new significant ST-se gment-T wave (ST-T) changes or new left bundle branch block (LBBB) ?? Development of pathologic Q waves in the ECG ?? Imaging evidence of new loss of viabl e myocardium or new regional wall motion abnormality ?? Identification of an intracoronary th rombus by angiography or autopsy Samples for cTnT testing should be obtai abdoulaye serially upon first assessment and again 3 to 6 hours later. If the clinica l suspicion is high and previous samples have been negative an additional sample may be indicated. Reference: Third [place] Definition of Myocardial Infarction. Journal of the [place] [employer] 2012;60:1581-98 Specimen Anatomical Collection Method Collection Time Receive d Time (Source) Location / / Volume Laterality Blood 08/25/2021 7:55 PM 2 8:00 EDT PM EDT Resulting Agency Comment Spec In Lab Camron Guthrie MD CHEMISTRY ORDERABLES Performing Organization Address City/State/[place] [address] POCT Glucose (08/25/2021 7:54 PM EDT) athologist Signature POC Glucose 98 65 - 199 [facility] mg/dL [facility] Comment: Supplemental ranges: <140 mg/dL before meals <180 mg/dL all other times of the day Specimen Anatomical Collection Method Collection Time Receive d Time (Source) Location / / Volume Laterality Blood 08/25/2021 7:54 PM 2 7:54 EDT PM EDT Camron Guthrie MD POINT OF CARE TEST ORDERABLE S Performing Organization Address City/[facility]/[place] [id number] Type and Screen Validity (08/25/2021 1:26 PM EDT) [facility] Method Time Signature T&S only valid [facility] Comment: This Type and Screen result is only valid at the [facility] Specimen Anatomical Collection Method Collection Time Receive d Time (Source) Location / / Volume Laterality Blood 08/25/2021 1:26 PM 2 1:29 EDT PM EDT Resulting Agency Comment Spec In Lab William SANCHEZ BLOOD BANK ORDERABLES Performing Organization Address City/[facility]/[place] [address] ABORH Recheck Status (08/25/2021 1:26 PM EDT) [facility] Method Time Signature ABORH Type Completed [facility] LABORATORY Specimen Anatomical Collection Method Collection Time Receive d Time (Source) Location / / Volume Laterality Blood 08/25/2021 1:26 PM 2 1:29 EDT PM EDT Resulting Agency Comment Spec In Lab William SANCHEZ BLOOD BANK ORDERABLES Performing Organization Address City/[facility]/[place] [phone] Antibody screen (08/25/2021 1:26 PM EDT) [facility] [employer] Method Time Signature Ab Screen Negative [facility] LABORATORY Expires at 08/28/2021 [place] [id number] on: [facility] Specimen Anatomical Collection Method Collection Time Receive d Time (Source) Location / / Volume Laterality Blood 08/25/2021 1:26 PM 2 1:29 EDT PM EDT Resulting Agency Comment Spec In Lab William Willis PA BLOOD BANK ORDERABLES Performing Organization Address City/State/[place] [address] [facility] [address] ABO/Rh Typing (08/25/2021 1:26 PM EDT) athologist [facility] ABORh Type O Neg [facility] Specimen Anatomical Collection Method Collection Time Receive d Time (Source) Location / / Volume Laterality Blood 08/25/2021 1:26 PM 2 1:29 EDT PM EDT Resulting Agency Comment Spec In Lab William SANCHEZ BLOOD BANK ORDERABLES Performing Organization Address City/State/[place] [address] [facility] [address] Differential, Automated (08/25/2021 12:44 PM EDT) athologist [facility] Neutrophils % 70.6 % [facility] Neutr Abs (ANC) 3.76 1.70 - [facility] 6.10 [facility] x10(3)/[facility] LABORATORY Lymphocytes % 17.4 % [facility] Lymphocytes Abs 0.9 0.9 - 3.2 [facility] x10(3)/[facility] LABORATORY Monocytes % 7.5 % [facility] Monocyte Abs 0.4 0.3 - 0.9 [facility] x10(3)/[facility] LABORATORY Eosinophils % 3.2 % [facility] Eosinophils Abs 0.2 0.0 - 0.4 [facility] x10(3)/[facility] LABORATORY Basophils % 0.9 % [facility] Basophils Abs 0.0 0.0 - 0.1 [facility] x10(3)/[facility] LABORATORY Immature Gran % 0.40 % [facility] Comment: Immature granulocytes(IG's)percentage an d absolute count will include metamyelocytes, myelocytes, and promyelo cytes. Blood smears from CBCs yielding IG's will be scanned manually for concor dance. If this scan disagrees with the automated IG or if promyelocytes are not ed, a manual differential will be performed. Lily Gran Abs 0.02 0.00 - 0.04 x10(3)/[facility] Specimen Anatomical Collection Method Collection Time Receive d Time (Source) Location / / Volume Laterality Blood 08/25/2021 12:44 08/25/2021 PM EDT 12:52 PM EDT Resulting Agency Comment Spec In Lab Oxana Helton DO HEMATOLOGY ORDERABLES Performing Organization Address City/[facility]/ZIP [facility] [address] Hemogram (08/25/2021 12:44 PM EDT) athologist Signature WBC 5.3 4.0 - 9.5 [facility] x10(3)/[facility] LABORATORY RBC 4.70 4.58 - [facility] 5.54 [facility] x10(6)/[facility] LABORATORY Hemoglobin 14.3 13.7 - [facility] 16.5 g/dL [facility] Hematocrit 42.8 40.5 - [facility] 48.5 % [facility] MCV 91.1 82.9 - [facility] 93.1 [facility] LABORATORY MCH 30.4 27.5 - [facility] 32.1 pg [facility] MCHC 33.4 32.0 - [facility] 35.7 g/dL [facility] Platelets 193 145 - 357 [facility] x10(3)/[facility] LABORATORY RDWSD 39.7 36.0 - [facility] 45.0 [facility] LABORATORY RDWCV 11.9 11.4 - [facility] 13.8 % [facility] MPV 10.2 7.6 - 12.9 [facility] LABORATORY nRBC % Auto 0.0 % [facility] LABORATORY nRBC Abs Auto 0.000 0.000 - [facility] 0.000 [facility] x10(3)/[facility] LABORATORY Specimen Anatomical Collection Method Collection Time Receive d Time (Source) Location / / Volume Laterality Blood 08/25/2021 12:44 08/25/2021 PM EDT 12:52 PM EDT Resulting Agency Comment Spec In Lab Oxana Helton DO HEMATOLOGY ORDERABLES Performing Organization Address City/State/[place] [address] Prothrombin Time (08/25/2021 12:44 PM EDT) athologist Signature PT 10.8 9.4 - 12.5 [facility] LABORATORY INR 1.0 [facility] Comment: An INR <2.0 indicates adequate procoagul ant activity for hemostasis in most patients without underlying bleeding dis orders, though the INR may not adequately reflect hemostatic capacity i n patients with liver disease and synthetic impairment. The recommended ta rget INR range for therapeutic anticoagulation is 2.0 ? 3.0 for most applications, though lower and higher ranges may be appropriate depending on c linical circumstances. Specimen Anatomical Collection Method Collection Time Receive d Time (Source) Location / / Volume Laterality Blood 08/25/2021 12:44 08/25/2021 PM EDT 12:52 PM EDT Resulting Agency Comment Spec In Lab Oxana Helton DO HEMATOLOGY ORDERABLES Performing Organization Address [facility]/[place] [address] Troponin (08/25/2021 12:44 PM EDT) athologist Signature Troponin-T <0.01 0.00 - 0.00 [facility] ng/mL [facility] Comment: The 99th percentile for Troponin T is le ss than 0.01 ng/mL, any detectable cTnT concentration using this assay should be considered elevated. According to the third universal definit ion of myocardial infarction the following criteria with a clinical prese ntation consistent with acute myocardial ischemia meets the diagnosis for a myocardial infarction ([place]). Detection of a rise and/or fall of cTnT, with at least one value greater than the 99th percentile (> or = 0.01) and wi th at least one of the following ?? Symptoms of ischemia ?? New or presumed new significant ST-se gment-T wave (ST-T) changes or new left bundle branch block (LBBB) ?? Development of pathologic Q waves in the ECG ?? Imaging evidence of new loss of viabl e myocardium or new regional wall motion abnormality ?? Identification of an intracoronary th rombus by angiography or autopsy Samples for cTnT testing should be obtai abdoulaye serially upon first assessment and again 3 to 6 hours later. If the clinica l suspicion is high and previous samples have been negative an additional sample may be indicated. Reference: Third [place] Definition of Myocardial Infarction. Journal of the [place] [employer] 2012;60:1581-98 Specimen Anatomical Collection Method Collection Time Receive d Time (Source) Location / / Volume Laterality Blood 08/25/2021 12:44 08/25/2021 PM EDT 12:52 PM EDT Resulting Agency Comment Spec In Lab Oxana Helton DO CHEMISTRY ORDERABLES Performing Organization Address City/State/[place] [address] Basic Metabolic Panel (non-fasting) (08/25/2021 12:44 PM EDT) P athologist Signature Glucose Lvl 104 65 - 199 [facility] mg/dL [facility] Comment: Diabetes: >=200 mg/dL plus symp toms BUN 13 10 - 20 mg/dL [facility] Creatinine 0.99 0.80 - 1.50 mg/dL [facility] Sodium 140 135 - 145 mmol/L [facility] Potassium 4.2 3.5 - 5.0 mmol/L [facility] Comment: Please note: ??Patients with WBC >100,00 0 may have falsely elevated Potassium levels. ??For accurate Potassium quantif ication in these patients send serum separator tube (gold top) for subsequent determinations. ??Contact the Clinical Chemistry Laboratory if there are any qu estions. Chloride 105 98 - 107 mmol/L [facility] CO2 26 22 - 31 mmol/L [facility] Anion Gap 9 5 - 15 mmol/L [facility] Calcium 9.0 8.5 - 10.5 mg/dL [facility] Estimated GFR 83 >=60 mL/min/1.73 m?? [facility] Comment: This patient's estimated GFR was calcula shashi using the 2020 CKD-EPI equation. The estimated GFR can vary from the radha ured GFR by up to 30% in the absence of rapidly changing kidney function. Assess ment of the estimated GFR is not appropriate when creatinine concentratio ns are rapidly changing. For clinical situations in which a more precise estim ate of GFR is necessary, consider alternative methods of GFR estimation loyd ch as a 24-hour urine creatinine clearance. Assignment of CKD stage 1-5 for patients with an eGFR near the transition point between stages may be based on clinical assessment of muscle mass and symptoms in addition to eGFR. Specimen Anatomical Collection Method Collection Time Receive d Time (Source) Location / / Volume Laterality Blood 08/25/2021 12:44 08/25/2021 PM EDT 12:52 PM EDT Resulting Agency Comment Spec In Lab Oxana Helton DO CHEMISTRY ORDERABLES Performing Organization Address City/State/[place] [address] EKG 12 Lead (08/25/2021 12:38 PM EDT) Component Value Ref Range Test Analysis Performed Pathologis t Method Time At Signature Ventricular rate 49 BPM MUSE SYSTEM Atrial Rate 49 BPM MUSE SYSTEM P-R Interval 154 ms MUSE SYSTEM QRS Duration 100 ms MUSE SYSTEM Q-T Interval 450 ms MUSE SYSTEM QTC Calculated 406 ms MUSE SYSTEM (Bezet) Calculated P Runge 42 degrees MUSE SYSTEM Calculated R Runge -31 degrees MUSE SYSTEM Calculated T Runge -17 degrees MUSE SYSTEM INTERPRETATION Sinus bradycardia MUSE SY STEM Left axis deviation Minimal voltage criteria for LVH, may be normal variant ( R in aVL ) Anteroseptal infarct (cited on or before 23-AUG-2021) Abnormal ECG When compared with ECG of 23-AUG-2021 09:26, No significant change was found Confirmed by MD MARCOS, NASH ([id number]) on 08/25/2021 2:14:20 PM Specimen Anatomical Collection Method Collection Time Receive d Time (Source) Location / / Volume Laterality 08/25/2021 12:38 08/25/2021 2:14 PM EDT PM EDT Oxana Helton DO ECG ORDERABLES Performing Organization Address City/State/ZIP Code Phon e Number MUSE SYSTEM documented in this encounter Visit Diagnoses Diagnosis S/P CABG (coronary artery bypass graft) - Primary Postsurgical aortocoronary bypass status Chest pain Chest pain, unspecified Coronary artery disease of [place] artery of [place] heart with stable angina pectoris Coronary artery disease involving [place] coronary artery of [place] heart with unstable angina pectoris documented in this encounter Admitting Diagnoses Diagnosis Chest pain Chest pain, unspecified documented in this encounter Administered Medications Inactive Administered Medications - up to 3 most recent administrations Medication Order MAR Action Action Date Dose Rate Site acetaminophen (Ofirmev) (1000 Given 08/29/2021 11:42 AM 1,000 mg 400 mL/hr mg/100 mL) infusion 1,000 mg EDT 1,000 mg, Intravenous, at 400 mL/hr, EVERY 6 HOURS SCHEDULED, 4 doses, First dose on Thu08/28/21 at 1900, Last dose on Thu08/29/21 at 1200, Maximum dose of acetaminophen is 4000 mg from all sources in 24 hours. When ordered for pain, acetaminophen should be given even when other ordered pain medications are indicated., Routine Given 08/29/2021 5:13 AM EDT 1,000 mg 400 mL/hr Given 08/28/2021 11:31 PM EDT 1,000 mg 400 mL/hr acetaminophen (Tylenol) tablet 1,000 mg Given 09/02/2021 5:46 AM EDT 1,000 mg 1,000 mg, Oral, EVERY 6 HOURS SCHEDULED, First dose on Thu08/29/21 at 1800, Until Discontinued, For pain when taking by mouth. Maximum dose of acetaminophen is 4000 mg from all sources in 24 hours. When ordered for pain, acetaminophen should be given even when other ordered pain medications are indicated., Routine Given 09/02/2021 12:03 AM EDT 1,000 mg Given 09/01/2021 5:43 PM EDT 1,000 mg AMIOdarone (CORDARONE) bolus from Bolus from Bag 08/31/2021 9:29 AM E DT 150 mg bag 150 mg 150 mg, Intravenous, ONCE, 1 dose, On 08/31/21 at 1000, Warning Vesicant/Irritant Medication , Routine AMIOdarone (Nexterone) (1.8 New Bag 09/01/2021 5:28 AM EDT 0.5 mg/min 16.7 mL/hr mg/mL) in dextrose (iso-osmotic) infusion 1 mg/min (33.3333 mL/hr, rounded to 33.3 mL/hr), Intravenous, CONTINUOUS, Starting on 08/31/21 at 1000, Until Thu09/01/21 at 1100, 1 mg/min for 6 hrs, then 0.5 mg/min for 18 hrs. After first 24 hours, order maintenance dose 0.5 mg/min. Use in-line filter. Warning Vesicant/Irritant Medication Rate/Dose Verify 08/31/2021 8:00 PM EDT 0.5 mg/min 16.7 mL/hr Rate/Dose Change 08/31/2021 5:47 PM EDT 0.5 mg/min 16.7 mL/hr AMIOdarone (Paceron) tablet 200 mg Given 09/02/2021 9:00 AM EDT 200 mg 200 mg, Oral, 2 TIMES DAILY, First dose on Thu09/01/21 at 0915, Until Discontinued, Routine Given 09/01/2021 8:56 PM EDT 200 mg Given 09/01/2021 8:34 AM EDT 200 mg AMIOdarone (Paceron) tablet 400 mg Given 08/31/2021 5:53 AM EDT 400 mg 400 mg, Oral, 3 TIMES DAILY, 9 doses, First dose on 08/31/21 at 0630, Last dose on Thu09/02/21 at 2100, Routine aspirin chewable tablet 81 mg Given 09/02/2021 8:15 AM EDT 81 mg 81 mg, Oral, DAILY, First dose on [place] 08/29/21 at 0900, Until Discontinued, Routine Given 09/01/2021 8:29 AM EDT 81 mg Given 08/31/2021 8:26 AM EDT 81 mg aspirin EC tablet 81 mg Given 08/28/2021 8:26 AM EDT 81 mg 81 mg, Oral, DAILY, First dose on Thu08/26/21 at 0900, Until Discontinued, Routine Given 08/27/2021 10:02 AM EDT 81 mg Given 08/26/2021 9:43 AM EDT 81 mg atorvastatin (Lipitor) tablet 80 mg Given 09/01/2021 5:43 PM EDT 80 mg 80 mg, Oral, EVERY EVENING, First dose on Thu08/25/21 at 1700, Until Discontinued, Routine Given 08/31/2021 5:39 PM EDT 80 mg Given 08/30/2021 5:27 PM EDT 80 mg bisacodyL (Dulcolax) suppository 10 mg Given 08/31/2021 5:42 PM EDT 10 mg 10 mg, Rectal, DAILY PRN, Starting on 08/31/21 at 0000, Until 09/02/21 at 1302, Constipation, Starting post-op day 3., Routine chlorhexidine (Peridex) 0.12 % oral solution Given 07/2021 9:37 PM EDT 15 mLs 15 mL 15 mL, Oral, EVERY 12 HOURS SCHEDULED (2 times per day), First dose on Thu08/28/21 at 2100, Until Discontinued, [employer] teeth, Routine clopidogreL (Plavix) tablet 75 mg Given 09/02/2021 8:15 AM EDT 75 mg 75 mg, Oral, DAILY, First dose on [place] 08/29/21 at 0900, Until Discontinued, Routine Given 09/01/2021 8:29 AM EDT 75 mg Given 08/31/2021 8:25 AM EDT 75 mg cyanocobalamin (Vitamin B-12) (Vitamin Given 09/02/2021 8:15 AM EDT 1,000 mcg B-12) tablet 1,000 mcg 1,000 mcg, Oral, DAILY, First dose on Thu08/26/21 at 0900, Until Discontinued, Routine Given 09/01/2021 8:29 AM EDT 1,000 mcg Given 08/31/2021 8:26 AM EDT 1,000 mcg dexmedeTOMIDine Rate/Dose Change 08/28/2021 8:27 PM 0.2 mcg/kg/hr 4.1 mL/hr (Precedex) (4 mcg/mL) in EDT sodium chloride 0.9% 100 mL infusion 0-1.7 mcg/kg/hr ? 81.9 kg (0-34.8075 mL/hr, rounded to 0-34.8 mL/hr), Intravenous, CONTINUOUS, Starting on Thu08/28/21 at 1900, Until Thu08/28/21 at 2157, Titrate to sedation level of RASS Goal (-)1 to 0 . Start at 0.4 mcg/kg/hr, adjust by 0.4 mcg/kg/hr every 15 minutes. Once stable, reassess patient every 30 minutes. Rate not to exceed 1.7 mcg/kg/hr. Change rate only after assessing and documenting RASS. Reassess sedation scores within 30 minutes after every rate change. If under sedated, increase rate by 0.4 mcg/kg/hr. If over sedated, hold sedative until target RASS (-)1 to 0 achieved and then restart at 50% of previous rate. Call warehouse engineer if goal not achieved at maximum rate. If SAT is ordered and if patient meets criteria for Spontaneous Awakening Trial, titrate per protocol. New Bag 08/28/2021 6:45 PM EDT 0.4 mcg/kg/hr 8.2 mL/hr Continued Bag 08/28/2021 6:00 PM EDT 0.4 mcg/kg/hr 8.2 mL/hr fentaNYL (PF) (50 Rate/Dose Change 08/28/2021 9:02 PM 12.5 mcg/hr 0.3 mL/hr mcg/mL) infusion EDT syringe 50 mL 0-100 mcg/hr (0-2 mL/hr), Intravenous, CONTINUOUS, Starting on Thu08/28/21 at 1900, Until [place] 08/29/21 at 1010, Titrate to patient comfort, pain scale 1-3. Start at 25 mcg/hr, adjust by 25 mcg/hr every 15 minutes. Dose not to exceed 100 mcg/hour., Routine Rate/Dose Verify 08/28/2021 9:00 PM EDT 25 mcg/hr 0.5 mL/hr Rate/Dose Verify 08/28/2021 8:00 PM EDT 25 mcg/hr 0.5 mL/hr folic acid (Folvite) tablet 400 mcg Given 09/02/2021 9:00 AM EDT 400 mcg 400 mcg, Oral, DAILY, First dose on Thu08/26/21 at 0900, Until Discontinued, Routine Given 09/01/2021 9:00 AM EDT 400 mcg Given 08/31/2021 8:26 AM EDT 400 mcg heparin (porcine) 50 units/mL New Bag 08/28/2021 12:45 PM 1,00 0 Units/hr 20 mL/hr in sodium chloride 0.45% 500 EDT mL infusion 0-5,000 Units/hr (0-100 mL/hr), Intravenous, CONTINUOUS, Starting on Thu08/26/21 at 0945, Until 08/28/21 at 1807, Begin infusion at 1,000 units per hr (12 units/kg/hr). Maximum initial infusion rate is 1,000 units/hr. Infusion doses are rounded to the nearest 50 units. Target Heparin UFH Level (anti-Xa activity) = 0.3 - 0.7 international unit/mL Start adjustment schedule 6 hours after starting infusion. If Heparin UFH Level is: - Less than 0.1 international unit/mL: Administer PRN bolus and increase rate by 350 units per hr (4 units/kg/hr) - 0.1 - 0.19 international unit/mL: Administer PRN bolus and increase rate by 150 units per hr (2 units/kg/hr) - 0.2 - 0.29 international unit/mL: NO BOLUS and increase rate by 150 units per hr (2 units/kg/hr) - 0.3 - 0.7 international unit/mL: No change - 0.71 - 0.79 international unit/mL: NO BOLUS and decrease rate by 100 units per hr (1 units/kg/hr) - 0.8 - 0.99 international unit/mL: NO BOLUS and decrease rate by 150 units per hr (2 units/kg/hr) - Greater than or equal to 1.00 international unit/mL: Hold infusion for 60 minutes then decrease rate by 250 units per hour (3 units/kg/hr) Repeat Heparin UFH Level 6 hours after initiating heparin. Then 6 hours after each dose adjustment. When 2 consecutive Heparin UFH Level within target range of 0.3 - 0.7 international unit/mL, change Heparin UFH Level to once every 24 hours with A.M. labs while on heparin. RN to order required Heparin UFH Level - Per Protocol, Routine New Bag 08/27/2021 9:58 AM EDT 1,000 Units/hr 20 mL/hr New Bag 08/26/2021 9:51 AM EDT 1,000 Units/hr 20 mL/hr HYDROmorphone (Dilaudid) (0.5 mg/0.5 mL) Given 08/31/2021 9:24 A M EDT 0.3 mg injection syringe 0.3 mg 0.3 mg, Intravenous, ONCE, 1 dose, On 08/31/21 at 1015, Routine losartan (Cozaar) tablet 50 mg Given 08/27/2021 10:03 AM EDT 50 mg 50 mg, Oral, DAILY, First dose on 08/26/21 at 0900, Until Discontinued, Routine Given 08/26/2021 9:43 AM EDT 50 mg magnesium hydroxide (Milk of Magnesia) (240 Given 09/01/2021 8:28 AM EDT 10 mLs mg/mL) oral liquid 10 mL 10 mL, Oral, DAILY, First dose on Thu08/30/21 at 0900, Until Discontinued, Post-op day 2. Do not use with renal insufficiency., Routine Given 08/31/2021 8:26 AM EDT 10 mLs Given 08/30/2021 9:14 AM EDT 10 mLs magnesium sulfate 2 g in sterile water New Bag 08/31/2021 2:43 AM EDT 2 g 25 mL/hr 50 mL infusion 2 g, Intravenous, ONCE, 1 dose, On 08/31/21 at 0330, Administer over 120 Minutes metoprolol tartrate (Lopressor) tablet 12.5 Given 08/2021 7:45 PM EDT 12.5 mg mg 12.5 mg, Oral, EVERY 12 HOURS SCHEDULED (2 times per day), First dose on Dunia 08/29/21 at 0900, Until Discontinued, Hold for SBP <90 or HR <60, Routine Given 08/29/2021 9:12 AM EDT 12.5 mg metoprolol tartrate (Lopressor) tablet 12.5 Given 09/2021 9:05 PM EDT 12.5 mg mg 12.5 mg, Oral, EVERY 8 HOURS SCHEDULED, First dose (after last modification) on Thu08/30/21 at 0915, Until Discontinued, Hold for SBP <90 or HR <60, Routine Given 08/30/2021 2:00 PM EDT 12.5 mg Given 08/30/2021 9:12 AM EDT 12.5 mg metoprolol tartrate (Lopressor) tablet 12.5 Given 09/2021 11:32 PM EDT 12.5 mg mg 12.5 mg, Oral, ONCE, 1 dose, On 08/31/21 at 0015, Routine metoproloL tartrate (Lopressor) tablet 2 5 mg Given 08/28/2021 8:27 AM EDT 25 mg 25 mg, Oral, EVERY 12 HOURS SCHEDULED (2 times per day), First dose on 08/26/21 at 0945, Until Discontinued, Hold for HR <50bpm, Routine Given 08/27/2021 8:17 PM EDT 25 mg Given 08/27/2021 10:03 AM EDT 25 mg metoproloL tartrate (Lopressor) tablet 2 5 mg Given 09/02/2021 8:15 AM EDT 25 mg 25 mg, Oral, EVERY 12 HOURS SCHEDULED (2 times per day), First dose (after last modification) on 08/31/21 at 0900, Until Discontinued, Hold for SBP <90 or HR <60, Routine Given 09/01/2021 8:56 PM EDT 25 mg Given 09/01/2021 8:29 AM EDT 25 mg mupirocin (Bactroban) 2 % ointment 1 eac h Given 08/28/2021 8:29 AM EDT 1 each 1 each, Topical (Top), 2 TIMES DAILY, First dose on Thu08/25/21 at 2100, Until Discontinued, Apply a small amount to each nostril twice daily. Given 08/27/2021 10:05 AM EDT 1 each Given 08/26/2021 9:46 AM EDT 1 each mupirocin (Bactroban) 2 % ointment 1 eac h Given 08/28/2021 8:29 AM EDT 1 each 1 each, Topical (Top), 2 TIMES DAILY, First dose on Thu08/27/21 at 0900, Until Discontinued, Apply a small amount to each nostril twice daily. Given 08/27/2021 9:00 PM EDT 1 each niCARdipine (Cardene) (0.2 Rate/Dose Change 08/29/2021 8:11 AM EDT 10 mg/hr 50 mL/hr mg/mL) in sodium chloride 200 mL infusion 0-15 mg/hr (0-75 mL/hr), Intravenous, CONTINUOUS, Starting on Thu08/28/21 at 2230, Until Dunia 08/29/21 at 1010, Titrate to SBP greater than 90 and less than 120 mmHg. Start at 5 mg/hour, titrate to maintain target SBP, adjust infusion rate by 2.5 mg/hour every 5 minutes to a maximum of 15 mg/hour., Routine Rate/Dose Change 08/29/2021 7:32 AM EDT 15 mg/hr 75 mL/hr Rate/Dose Change 08/29/2021 6:30 AM EDT 10 mg/hr 50 mL/hr niCARdipine (Cardene) 40 mg/200 mL (0.2 mg/mL) infusion 1 dose, Starting on Thu08/28/21 at 2132, Until Thu08/28/21 at 2137, Emilie Mosqueda: kylee overromid nitroGLYcerin (200 mcg/mL) in New Bag 08/25/2021 1:21 PM EDT 5 mcg/min 1.5 mL/hr dextrose 5% 250 mL infusion 5 mcg/min (1.5 mL/hr), Intravenous, CONTINUOUS, Starting on Thu08/25/21 at 1306, Until Thu08/25/21 at 1603, Maximum dose: 200 mcg/min, STAT nitroGLYcerin (200 mcg/mL) Rate/Dose Change 08/28/2021 11:05 AM 70 mcg/min 21 mL/hr in dextrose 5% 250 mL EDT infusion 0-200 mcg/min (0-60 mL/hr), Intravenous, CONTINUOUS, Starting on Thu08/25/21 at 1700, Until Thu08/28/21 at 1807, Titrate to angina pain 3/10 or less. Start at 10 mcg/min for pain not responsive to sublingual nitroGLYcerin and morphine and if systolic blood pressure (SBP) is 100 mmHg or greater. Adjust dose 10 mcg/min every 5 minutes if SBP is 100 mmHg or greater. Dose not to exceed 200 mcg/min., Routine New Bag 08/27/2021 8:17 PM EDT 60 mcg/min 18 mL/hr New Bag 08/27/2021 6:55 PM EDT 60 mcg/min 18 mL/hr nitroGLYcerin (200 Rate/Dose Change 08/28/2021 9:29 PM 125 mcg/min 37 .5 mL/hr mcg/mL) in dextrose 5% EDT 250 mL infusion 0-200 mcg/min (0-60 mL/hr), Intravenous, CONTINUOUS, Starting on Thu08/28/21 at 1900, Until Thu08/28/21 at 2157, For hypertension. Titrate to keep systolic blood pressure less than 120 mmHg. Initiate at 25 mcg/min. Adjust by 25 mcg/min every 5 minutes. Dose not to exceed 200 mcg/minute., Routine Rate/Dose Change 08/28/2021 9:25 PM EDT 100 mcg/min 30 mL/hr Rate/Dose Change 08/28/2021 9:20 PM EDT 75 mcg/min 22.5 mL/hr NORepinephrine (Levophed) Rate/Dose Change 08/28/2021 9:09 PM EDT 0 mcg/min 0 mL/hr (16 mcg/mL) in dextrose 5% 250 mL infusion 0-30 mcg/min (0-112.5 mL/hr), Intravenous, CONTINUOUS, Starting on Thu08/28/21 at 1900, Until Dunia 08/29/21 at 1010, Titrate to keep systolic blood pressure greater than 90 mmHg. Start at 2 mcg/minute and adjust by 2 mcg/min every 3 minutes. Dose not to exceed 30 mcg/minute. Begin if PHENYLephrine and/or vasopressin ineffective. Call pager # [phone] if initiated., Routine Rate/Dose Verify 08/28/2021 9:00 PM EDT 0.507 mcg/min 1.9 mL/hr Rate/Dose Change 08/28/2021 6:45 PM EDT 0.5 mcg/min 1.9 mL/hr oxyCODONE (Roxicodone) tablet 5-10 mg Given 08/30/2021 2:03 PM EDT 5 mg 5-10 mg, Oral, EVERY 4 HOURS PRN, Starting on Thu08/28/21 at 1807, Until Thu09/02/21 at 1302, Pain, - When tolerating oral medications. - Initial dose 5 mg. - If pain control not adequate in 60 minutes, give additional 5 mg., Routine Given 08/29/2021 9:58 PM EDT 5 mg Given 08/29/2021 2:08 PM EDT 5 mg pantoprazole (Protonix) injection 40 mg Given 08/29/2021 9:12 AM EDT 40 mg 40 mg, Intravenous, DAILY, First dose on Thu08/28/21 at 1900, Until Discontinued, Reconstitute with 10 mL of normal saline to a concentration of 4 mg/mL and infuse slowly over 2 minutes. , Routine Given 08/28/2021 6:26 PM EDT 40 mg pantoprazole EC (Protonix) tablet 40 mg Given 09/02/2021 8:15 AM EDT 40 mg 40 mg, Oral, DAILY, First dose on Thu08/28/21 at 1900, Until Discontinued, DO NOT CRUSH OR OPEN If unable to take PO, may give IV, Routine Given 09/01/2021 8:29 AM EDT 40 mg Given 08/31/2021 8:25 AM EDT 40 mg propofoL (Diprivan) (10 Rate/Dose Change 08/28/2021 8:11 PM 30 mcg/ kg/min 14.7 mL/hr mg/mL) infusion EDT 0-50 mcg/kg/min ? 81.9 kg (0-24.57 mL/hr, rounded to 0-24.6 mL/hr), Intravenous, CONTINUOUS, Starting on Thu08/28/21 at 1900, Until Thu08/28/21 at 2157, Titrate to sedation level of RASS Goal (-) 1. Start at 10 mcg/kg/min, adjust rate by 5 mcg/kg/min every 3 minutes. Dose not to exceed 50 mcg/kg/minute. Discontinue upon extubation., Routine Rate/Dose Verify 08/28/2021 8:00 PM EDT 50 mcg/kg/min 24.6 mL/hr Rate/Dose Verify 08/28/2021 7:00 PM EDT 50 mcg/kg/min 24.6 mL/hr senna-docusate (Pericolace) 8.6-50 mg per Given 2021 8:05 PM EDT 2 tablets tablet 2 tablet 2 tablet, Oral, DAILY, First dose on Dunia 08/29/21 at 2100, Until Discontinued, Post-op day 1, Routine Given 08/30/2021 9:05 PM EDT 2 tablets Given 08/29/2021 9:58 PM EDT 2 tablets sodium chloride 0.9 % (flush) (BD PosiFlush Given 08/28/2021 8:2 8 AM EDT 5 mLs Normal Saline 0.9) flush 5 mL 5 mL, Intravenous, 2 TIMES DAILY, First dose on Thu08/25/21 at 2100, Until Discontinued, Routine Given 08/27/2021 8:17 PM EDT 5 mLs Given 08/27/2021 10:04 AM EDT 5 mLs sodium chloride 0.9 % (flush) (BD PosiFlush Given 09/01/2021 8:5 7 PM EDT 5 mLs Normal Saline 0.9) flush 5 mL 5 mL, Intravenous, EVERY 8 HOURS, First dose on Thu08/29/21 at 1100, Until Discontinued, Routine Given 08/31/2021 11:51 AM EDT 5 mLs Given 08/30/2021 5:00 AM EDT 5 mLs sodium chloride 0.9% Rate/Dose Verify 08/28/2021 10:00 PM 1 mL/hr 1 mL/hr infusion EDT 0-500 mL/hr, Intravenous, CONTINUOUS, Starting on Thu08/28/21 at 1900, Until Thu08/29/21 at 1010, Bolus 250 mL every 5 minutes as needed for volume replacement to maintain cardiac index greater than or equal to 2.0 L/min/M2. Maximum volume 2 L. Call warehouse engineer for additional fluid orders: pager #[phone]. Rate/Dose Verify 08/28/2021 9:00 PM EDT 1 mL/hr 1 mL/hr Rate/Dose Verify 08/28/2021 8:00 PM EDT 1 mL/hr 1 mL/hr sodium chloride 0.9% Rate/Dose Verify 08/29/2021 1:00 AM 30 mL/hr 3 0 mL/hr infusion EDT 10-30 mL/hr, Intravenous, DAILY PRN, Starting on Thu08/28/21 at 1807, Until Thu08/29/21 at 1010, Side port TKO rate, per [facility] nursing protocol. Rate/Dose Verify 08/29/2021 12:00 AM EDT 30 mL/hr 30 mL/hr Rate/Dose Verify 08/28/2021 11:00 PM EDT 30 mL/hr 30 mL/hr sodium chloride 0.9% Rate/Dose Verify 08/29/2021 6:00 AM 30 mL/hr 3 0 mL/hr infusion EDT 10-30 mL/hr, Intravenous, DAILY PRN, Starting on Thu08/28/21 at 1807, Until Thu08/29/21 at 1010, Side port TKO rate, per [facility] nrusing protocol. Rate/Dose Verify 08/29/2021 5:00 AM EDT 30 mL/hr 30 mL/hr Rate/Dose Verify 08/29/2021 4:00 AM EDT 30 mL/hr 30 mL/hr documented in this encounter Active and Recently Administered Medications Times are shown in EDT. Scheduled Medication Order 08/31/2021 09/01/2021 09/02/2021 acetaminophen (Tylenol) tablet 1,000 mg 0528 (Given - Provider: Jenny Zayas, RN)1146 (Given - Provider: Cinthia Angela RN)1738 (Given - Provider: Cinthia Angela RN) 0000 (Not Given - Provider: Dave aburto RN - Reason: Patient/family refused)0528 (Given - Provider: Jenny Zayas, DRE)1204 (Given - Provider: Donna Fedler RN)1743 (Given - Provider: Donna Felder RN) 0003 (Given - Provider: Amy Adan RN)0546 (Given - Provider: Amy Adan RN) 1,000 mg, Oral, EVERY 6 HOURS SCHEDULED, First dose on Dunia 08/29/21 at 1800, Until Discontinued, For pain when taking by mouth. Maximum dose of acetaminophen is 4000 mg from all sources in 24 hours. When ordered for pain, acetaminophen should b e given even when other ordered pain medications are indicated., Routine AMIOdarone (CORDARONE) bolus from bag 150 mg (COMPLETE D) 0929 (Bolus from Bag - Provider: Cinthia Angela RN) 150 mg, Intravenous, ONCE, 1 dose, On Sa t 08/31/21 at 1000, Warning Vesicant/Irritant Medication , Routine AMIOdarone (Paceron) tablet 200 mg 0834 (Given - Provider: Donna Felder RN)2056 (Given - Provider: Amy Adan RN) 0900 (Given - Provider: Donna Felder RN) 200 mg, Oral, 2 TIMES DAILY, First dose on 09/01/21 at 0915, Until Discontinued, Routine AMIOdarone (Paceron) tablet 400 mg (CANCELED) 0553 (Gi dick - Provider: Jenny Zayas, DRE - Comment: QTC 0.42) 400 mg, Oral, 3 TIMES DAILY, 9 doses, Fi rst dose on 08/31/21 at 0630, Last dose on Thu09/02/21 at 2100, Routine aspirin chewable tablet 81 mg 0826 (Given - Provider: Lizzeth Angela RN) 0829 (Given - Provider: Donna Felder RN) 0815 (Given - Provider: Donna Felder RN) 81 mg, Oral, DAILY, First dose on Dunia 08/29/21 at 0900, Until Discontinued, Routine atorvastatin (Lipitor) tablet 80 mg 1739 (Given - Prov ider: Cinthia Angela RN) 1743 (Given - Provider: Donna Felder RN) 80 mg, Oral, EVERY EVENING, First dose o n 08/25/21 at 1700, Until Discontinued, Routine clopidogreL (Plavix) tablet 75 mg 0825 (Given - Provider: Dar Angela RN) 0829 (Given - Provider: Donna Felder RN) 0815 (Given - Provider: Donna Felder RN) 75 mg, Oral, DAILY, First dose on Dunia 08/29/21 at 0900, Until Discontinued, Routine cyanocobalamin (Vitamin B-12) (Vitamin B-12) tablet 1, 000 mcg 08 (Given - Provider: Cinthia Angela RN) 0829 (Given - Provider: Donna taylor RN) 0815 (Given - Provider: Donna taylor RN) 1,000 mcg, Oral, DAILY, First dose on n 08/26/21 at 0900, Until Discontinued, Routine folic acid (Folvite) tablet 400 mcg 08 (Given - Prov ider: Cinthia Angela RN) 0900 (Given - Provider: Donna Felder RN) 0900 (Given - Provider: Donna Felder RN) 400 mcg, Oral, DAILY, First dose on Thu08/26/21 at 0900, Until Discontinued, Routine HYDROmorphone (Dilaudid) (0.5 mg/0.5 mL) injection syr lavelle 0.3 mg (COMPLETED) 923 (Given - Provider: Cinthia Angela RN) 0.3 mg, Intravenous, ONCE, 1 dose, On 08/31/21 at 1015, Routin e magnesium hydroxide (Milk of Magnesia) (240 mg/mL) ora l liquid 10 mL 08 (Given - Provider: Cinthia Angela RN) 0828 (Given - Provider: Donna taylor RN) 0900 (Not Given - Provider: oDnna Jacques RN - Reason: Patient/family refused) 10 mL, Oral, DAILY, First dose on 10/14 at 0900, Until Discontinued, Post- op day 2. Do not use with renal insufficiency., Routine magnesium sulfate 2 g in sterile water 50 mL infusion (COMPLETED) 024 (New Bag - Provider: Jenny Zayas, DRE)442 (Stopped - Provider: Jenny Zayas, DRE) 2 g, Intravenous, ONCE, 1 dose, On Sat at 0330, Administer over 120 Minutes metoproloL tartrate (Lopressor) tablet 25 mg 825 (Giv en - Provider: Cinthia Angela RN)2004 (Given - Provider: Jenny Zayas RN) 828 (Given - Provider: Donna Felder RN)2055 (Given - Provider: Amy Adan RN) 08 (Given - Provider: Donna Fleder RN) 25 mg, Oral, EVERY 12 HOURS SCHEDULED (2 times per day), First dose (after last modification) on 08/31/21 at 0900, Until Discontinued, Hold for SBP <90 or HR <60, Routine pantoprazole EC (Protonix) tablet 40 mg 08 (Given - Provider: Cinthia Angela RN) 08 (Given - Provider: Donna Felder RN) 08 (Given - Provider: Donna Felder RN) 40 mg, Oral, DAILY, First dose on 08/14 at 1900, Until Discontinued, DO NOT CRUSH OR OPEN If unable to take PO, may give IV, Routine senna-docusate (Pericolace) 8.6-50 mg per tablet 2 tab let 2004 (Given - Provider: Jenny Zayas, DRE) 2099 (Not Given - Provider: Amy dexter RN - Reason: Patient/family refused) 2 tablet, Oral, DAILY, First dose on Dunia 08/29/21 at 2100, Until Discontinued, Post-op day 1, Routine sodium chloride 0.9 % (flush) (BD PosiFlush Normal Yomi ine 0.9) flush 5 mL 0300 (Not Given - Provider: Jenny Zayas RN - Reason: Order parameters not met)1151 (Given - Provider: Cinthia Angela RN)1900 (Not Given - Provider: Jenny Zayas RN - Reason: Order parameters not met) 0300 (Not Given - Provider: Jenny Zayas RN - Reason: Order parameters not met)1100 (Not Given - Provider: Donna Felder RN - Reason: See comment - Comment: infusing)205 (Given - Provider: Amy Adan RN) 0300 (Not Given - Provider: Amy Adan RN - Reason: See comment)1100 (Due) 5 mL, Intravenous, EVERY 8 HOURS, First dose on Dunia 08/29/21 at 1100, Until Discontinued, Routine Continuous Medication Order 08/31/2021 09/01/2021 09/02/2021 AMIOdarone (Nexterone) (1.8 mg/mL) in de xtrose (iso-osmotic) infusion (CANCELED) 0925 (New Bag - Provider: Cinthia Angela RN)1147 (New Bag - Provider: Cinthia Angela RN)1739 (New Bag - Provider: Cinthia Angela RN)1747 (Rate/Dose Change - Provider: Cinthia Angela RN) 0528 (New Bag - Provider: Jenny Zayas RN)1152 (Stopped - Provider: Donna Felder, DRE) 1 mg/min (33.3333 mL/hr, rounded to 33.3 mL/hr), Intravenous, CONTINUOUS, Starting on 08/31/21 at 1000, Until 09/01/21 at 1100, 1 mg/min for 6 hrs, then 0.5 mg/min for 18 hrs. After first 24 hours, 2000 (Rate/Dose Verify - Provider: Jenny Zayas, DRE) order maintenance dose 0.5 mg/min. Use in-line filter. Warning Vesicant/Irritant Medication PRN Medication Order 08/31/2021 09/01/2021 09/02/2021 bisacodyL (Dulcolax) suppository 10 mg 1742 (Given - P rovider: Cinthia Angela RN) 10 mg, Rectal, DAILY PRN, Starting on Sa t 08/31/21 at 0000, Until Thu09/02/21 at 1302, Constipation, Starting post-op day 3., Routine ondansetron (pf) (Zofran) (2 mg/mL) injection 4 mg 4 mg, Intravenous, EVERY 8 HOURS PRN, St arting on Thu08/28/21 at 1807, Until Thu09/02/21 at 1302, Nausea oxyCODONE (Roxicodone) tablet 5-10 mg 5-10 mg, Oral, EVERY 4 HOURS PRN, Starti ng on Thu08/28/21 at 1807, Until Thu09/02/21 at 1302, Pain, - When tolerating oral medications. - Initial dose 5 mg. - If pain control not adequate in 60 minutes, give additional 5 mg., Routine documented in this encounter Care Teams Contact Center Engineer Relationship Specialty Start Date End Date Nisa Machado MD PCP - General 07/26/[address] [place] [address] documented as of this encounter
--- OUTSIDE RECORDS SUMMARY | 2021-11-08 08:46 | XMS_ITS | Encounter Summary ---
:1955 Author Organization [facility] Address [address] [place] [address] Care Team Providers Name Role Phone Nisa Machado MD Primary Care Provider Encounter Details Date Type Department Care Team Description 10/08/2021 Hospital Encounter XRay at [facility] Camron Melissa Coronary artery [address] [facility] [address] Monserrat MD disease, unspecified [place], [place] [facility] [place] [id number] roblero, unspecified [phone] CARDIOTHORACIC whether angin a SURGERY present, unspecified [place], [place] [id number] transplanted heart Social History Tobacco Use Types Packs/Day Years [...] AM EST documented as of this encounter Medications at Time of Discharge [...] times daily. documented as of this encounter Plan of Treatment Upcoming Encounters Date Type Specialty Care Team Description 11/26/2021 Appointment Radiology Camron Melissa MD [facility] CARDIOTHORACIC S [place], [place] [address] (Esau rk) 11/26/2021 Office Visit Cardiac Surgery Camron Melissa MD [facility]ARDI[facility] [place], [place] [address] (Esau rk) documented as of this encounter Procedures Procedure Name Priority Date/Time Associated Diagnosis Comme nts XR CHEST PA AND Routine 10/08/2021 11:36 Coronary artery Resul ts for this LATERAL AM EDT disease, unspecified procedu re are in vessel or lesion the results type, unspecified section. whether angina present, unspecified whether [place] or transplanted heart documented in this encounter Results XR Chest PA & Lateral (Generic) (10/08/2021 11:36 AM EDT) Anatomical Region Laterality Modality Chest N/A Digital Radiography Specimen (Source) Anatomical Location Collection Method / Collectio n Time Received Time / Laterality Volume Impressions 10/08/2021 1:50 PM EDT Slight interval increase of small left pleural effusion with associated compressive atelectasis. I have personally reviewed the image(s) and the resident's interpretation and agree with the findings, Jake Lora MD at 10/08/2021 1:50 PM Thank you for letting us participate in the care of this patient. ??If you are a health care provider and have any questi ons regarding this report, please contact the number below. ??For patients who have questions please contact the health inpatient care manager rn that requested your imaging first. ? Electronically signed by: Juanita García, [facility] ([phone]), at 10/08/2021 1:50 PM Narrative 10/08/2021 1:50 PM EDT EXAMINATION: XR CHEST PA AND LATERAL (GENERIC) CLINICAL HISTORY: s/p CABG TECHNIQUE: PA and lateral views of the chest COMPARISON: Chest radiograph 09/10/2021. FINDINGS: Median sternotomy wires are intact. Surg ical liz project in the mediastinum. The right lung is clear. Interval increase of small left pleural effusion and associated compressive atelectasis. No right pleural effusion. No pneumothorax. Cardiomediastinal silhouette, hilar cont ours and pulmonary vascular markings are normal. No acute osseous abnormality. Moderate d egenerative changes to the thoracic spine. Procedure Note Jake Lora MD - 10/08/2021 EXAMINATION: XR CHEST PA AND LATERAL (GE NERIC) CLINICAL HISTORY: s/p CABG TECHNIQUE: PA and lateral views of the chest COMPARISON: Chest radiograph 09/10/2021. FINDINGS: Median sternotomy wires are intact. Surg ical liz project in the mediastinum. The right lung is clear. Interval increase of small left pleural effusion and associated compressive atelectasis. No right pleural effusion. No pneumothorax. Cardiomediastinal silhouette, hilar cont ours and pulmonary vascular markings are normal. No acute osseous abnormality. Moderate d egenerative changes to the thoracic spine. IMPRESSION Slight interval increase of small left p leural effusion with associated compressive atelectasis. I have personally reviewed the image(s) and the resident's interpretation and agree with the findings, Jake Lora MD at 10/08/2021 1:50 PM Thank you for letting us participate in the care of this patient. If you are a health care provider and have any questi ons regarding this report, please contact the number below. For patients w ho have questions please contact the health inpatient care manager rn that requested your imaging first. Electronically signed by: Juanita García, [facility] ([phone]), at 10/08/2021 1:50 PM Camron Melissa MD IMG DX ORDERABLES documented in this encounter Visit Diagnoses Diagnosis Coronary artery disease, unspecified ves nathan or lesion type, unspecified whether angina present, unspecified whether aimee ve or transplanted heart documented in this encounter Care Teams Site Operations Manager Relationship Specialty Start Date End Date Nisa Machado MD PCP - General 07/26/14 [address] [facility] [address] [place] [address] documented as of this encounter
--- OUTSIDE RECORDS SUMMARY | 2021-11-08 08:46 | XMS_ITS | Encounter Summary ---
:1955 Author Organization [facility] Address [address] [place] [address] Care Team Providers Name Role Phone Nisa Machado MD Primary Care Provider Encounter Details Date Type Department Care Team Description 08/29/2021 Orders Only Cardiac Surgery Camron Melissa Coronary artery [facility] MD Monserrat disease, unspecified Drive [facility] vessel or lesion type, [place], [place] DR unspecified whether [phone] CARDIOTHORACIC angina present, SURGERY unspecified whether [place], [place] [address] [place] or transplanted [phone] heart (Work) Social History Tobacco Use Types Packs/Day Years [...] Description 11/26/2021 Appointment Radiology Camron Melissa MD [facility] CARDIOTHORACIC S [place], [place] [address] (Wo rk) 11/26/2021 Office Visit Cardiac Surgery Camron Melissa MD [facility] CARDIOTHORACIC S [place], [place] [address] (Wo rk) documented as of this encounter Results EKG 12 Lead (10/08/2021 1:01 PM EDT) Component Value Ref Range Test Analysis Performed Pathologis t Method Time At Signature Ventricular rate 51 BPM MUSE SYSTEM Atrial Rate 51 BPM MUSE SYSTEM P-R Interval 166 ms MUSE SYSTEM QRS Duration 100 ms MUSE SYSTEM Q-T Interval 478 ms MUSE SYSTEM QTC Calculated 440 ms MUSE SYSTEM (Bezet) Calculated P [place] 60 degrees MUSE SYSTEM Calculated R [place] -13 degrees MUSE SYSTEM Calculated T [place] 42 degrees MUSE SYSTEM INTERPRETATION Sinus bradycardia MUSE SY STEM RSR' or QR pattern in V1 suggests right ventricular conducti on delay Anterior infarct (cited on or before 23-AUG-2021) Abnormal ECG When compared with ECG of 28-AUG-2021 18:12, No significant change was found Confirmed by MD Edmar, Emilee ([id number]) on 10/08/2021 3:53:32 PM Specimen Anatomical Collection Method Collection Time Receive d Time (Source) Location / / Volume Laterality 10/08/2021 1:01 PM 3:53 EDT PM EDT Camron Melissa MD ECG ORDERABLES Performing Organization Address City/State/ZIP Code Phon e Number MUSE SYSTEM XR Chest PA & Lateral (Generic) (10/08/2021 [...] who have questions please contact the health field care coordinator that requested your imaging first. ? Narrative 10/08/2021 1:50 PM EDT EXAMINATION: XR [...] ho have questions please contact the health field care coordinator that requested your imaging first. Camron Melissa MD IMG DX ORDERABLES documented in this encounter Visit Diagnoses Diagnosis Coronary artery disease, unspecified ves nathan or lesion type, unspecified whether angina present, unspecified whether aimee ve or transplanted heart Coronary artery disease, unspecified ves nathan or lesion type, unspecified whether angina present, unspecified whether aimee ve or transplanted heart documented in this encounter Care Teams Sensitized Paper Tester Relationship Specialty Start Date End Date Nisa Machado MD PCP - General 07/26/14 [address] [place] [address] documented as of this encounter
--- OUTSIDE RECORDS SUMMARY | 2021-11-08 08:46 | XMS_ITS | Encounter Summary ---
:1955 Author Organization [facility] Address [address] [place] [address] Care Team Providers Name Role Phone Nisa Bowen MD Primary Care Provider Encounter Details Date Type Department Care Team Description 10/08/2021 Office Visit Cardiac Surgery at [facility] artery [facility] MD Monserrat disease, unspecified [facility] ves nathan or lesion type, Drive unspecified whether [place], [place], [phone] SURGERY unspecified whether [phone] [place], [place] [address] [place] or transplanted [phone] heart (Work) Social History Tobacco Use Types [...] Sign Reading Time Taken Comments Blood Pressure 137/71 10/08/2021 12:50 PM EDT Pulse 48 10/08/2021 12:50 PM notified EDT Temperature - - Respiratory Rate - - Oxygen Saturation 100% 10/08/2021 12:50 PM EDT Inhaled Oxygen Concentration - - Weight 84.9 kg (187 lb 3.2 10/08/2021 12:50 PM oz) EDT Height 185.4 cm (6' 1) 10/08/2021 12:50 PM patient rep orted EDT Body Mass Index 24.7 10/08/2021 12:50 PM EDT documented in this encounter Progress Notes Camron Melissa MD - 10/08/2021 1:00 PM EDT Post-OP Note: Nisa Bowen MD [address] [place] [address] NISA BOWEN Mr. Calhoun returns to clinic following his CABG surgery. Since discharge, he has been doing well. Has been having no pain. He is eating well, urinating, and moving his bowels without problems. He has had no fevers, chills, or other problems with the wounds. He has been reasonably active. Problem List Patient Active Problem List Diagnosis ??? Chest pain ??? CAD (coronary artery disease) ??? Nevus ??? Seborrheic keratosis Past Medical History Past Medical History: Diagnosis Date ??? High blood pressure last 3 to 4 months b/p high 10/17/19 ??? in the past 3 months ??? Transfusion history Past Surgical History Past Surgical History: Procedure Laterality Date ??? ANKLE SURGERY Right 1979 ? ? PRG CATH [facility] LEFT HEART CATH & ARTS W/INJ & ANGIO IMG S&I N/A 08/23/2021 CORONARY ANGIOGRAPHY; W C,POSSIBLE PCI performed by Renard Weber MD at [facility] CATH LABS ??? PRO CABG, ARTERIAL, SINGLE N/A 08/28/2021 @CABG, USING ARTERIAL GRAFT;SINGLE ARTERIAL GRAFT (WRVU 33.75) performed by Camron Melissa MD at [facility] MAIN OR ??? PRO CABG, ARTERY-VEIN, FIVE N/A 08/28/2021 @CABG; 5 VENOUS GRAFTS & ARTERIAL GRAFT (WRVU 14.14) performed by Camron Melissa MD at [facility] MAIN OR ??? PRO ENDOSCOPY W/VIDEO-ASST VEIN HARVEST, CABG N/A 08/28/2021 ENDOSCOPIC HARVEST VEIN(S) FOR CABG (WRVU 0.31) performed by Camron Melissa MD at [facility] MAIN OR ??? PRO LAMINOTOMY, LUMBAR DISK, 1 INTRSP Left 10/18/2019 LAMINOTOMY, DECOMPRESSION, FORAMINOTOMY, LUMBAR (WRVU 13.18) performed by Jelani Zuñiga MD at [facility] MAIN OR ??? PRO MICROSURG TECHNIQUES, REQ OPER MICROSCOPE Left 10/18/2019 MICROSCOPE USE (WRVU 3.46) performed by Jelani Zuñiga MD at [facility] MAIN OR ??? VASECTOMY 1994 Outpatient Medications Marked as Taking for the 10/08/21 encounter (Office Visit) with Camron Melissa MD Medication Sig Dispense Refill ??? acetaminophen (Tylenol) 500 mg Tablet Take 2 tablets by mouth every 6 hours as needed for Pain. 30 tablet 1 ??? atorvastatin (Lipitor) 80 mg Tablet Take 0.5 tablets by mouth every evening. 30 tablet 1 ??? clopidogreL (Plavix) 75 mg Tablet Take 1 tablet by mouth daily. 90 tablet 3 ??? metoproloL tartrate (Lopressor) 25 mg Tablet Take 1 tablet by mouth 2 times daily. 60 tablet 1 ??? aspirin EC 81 mg Tablet, Delayed Release (E.C.) Take 81 mg by mouth daily. ??? cyanocobalamin, Vitamin B-12, (Vitamin B-12) 1,000 mcg Tablet Take 1,000 mcg by mouth daily. ??? folic acid (FOLVITE) 800 mcg Tablet Take 800 mcg by mouth daily. ??? ketoconazole (NIZORAL) 2 % Cream Apply topically to affected area on the eyebrows twice daily asneeded. 60 g 3 No data found. 84.9 kg (187 lb 3.2 oz) Weight: 84.9 kg (187 lb 3.2 oz) On physical exam, he looks well. Incisions are healing well without erythema or signs of infection. Lungs are clear bilaterally. Heart is RR&R. ECG shows no acute changes. CXR shows clear lung hernandez and sternal cables are in place. Echo was not performed. Assessment and Plan: Overall he is doing very well following his surgery. I told him that he may continue to increase hisactivity as tolerated. I told him I would be happy to see him again should any further problems arise. Sincerely, Camron Melissa MD documented in this encounter Plan of Treatment Upcoming Encounters Date Type Specialty Care Team Description 11/26/2021 Appointment Radiology Camron Melissa MD [facility] [place], [place] [address] (Wo rk) 11/26/2021 Office Visit Cardiac Surgery Camron Melissa MD [facility] [place], [place] [address] (Wo rk) documented as of this encounter Procedures Procedure Name Priority Date/Time Associated Diagnosis Comme nts EKG 12-LEAD Routine 10/08/2021 1:01 PM Coronary artery Result s for this EDT disease, unspecified procedu re are in vessel or lesion type, the r esults unspecified whether section. angina present, unspecified whether [place] or transplanted heart documented in this encounter Results EKG 12 Lead (10/08/2021 1:01 PM EDT) Component Value Ref Range Test Analysis Performed Pathologis t Method Time At Signature Ventricular rate 51 BPM MUSE SYSTEM Atrial Rate 51 BPM MUSE SYSTEM P-R Interval 166 ms MUSE SYSTEM QRS Duration 100 ms MUSE SYSTEM Q-T Interval 478 ms MUSE SYSTEM QTC Calculated 440 ms MUSE SYSTEM (Bezet) Calculated P [place] 60 degrees MUSE SYSTEM Calculated R [place] -13 degrees MUSE SYSTEM Calculated T [place] 42 degrees MUSE SYSTEM INTERPRETATION Sinus bradycardia MUSE SY STEM RSR' or QR pattern in V1 suggests right ventricular conducti on delay Anterior infarct (cited on or before 23-AUG-2021) Abnormal ECG When compared with ECG of 28-AUG-2021 18:12, No significant change was found Confirmed by MD Edmar, Emilee ([id number]) on 10/08/2021 3:53:32 PM Specimen Anatomical Collection Method Collection Time Receive d Time (Source) Location / / Volume Laterality 10/08/2021 1:01 PM 08/16/202 2 3:53 EDT PM EDT Camron Melissa MD ECG ORDERABLES Performing Organization Address City/State/ZIP Code Phon e Number MUSE SYSTEM documented in this encounter Visit Diagnoses Diagnosis Coronary artery disease, unspecified ves nathan or lesion type, unspecified whether angina present, unspecified whether [place] or transplanted heart documented in this encounter Care Teams Gauge And Weigh Machine Adjuster Relationship Specialty Start Date End Date Nisa Bowen MD PCP - General 07/26/14 [address] [place] [address] documented as of this encounter
--- OUTSIDE RECORDS SUMMARY | 2021-11-08 08:46 | XMS_ITS | Clinical Summary ---
:1955 Author Organization [place] [place] [address] Care Team Providers Name Role Phone Nisa Machado MD Primary Care Provider Allergies Active Allergy Reactions Severity Noted Date Comments Gluten Diarrhea Medium 10/13/2014 Medications Medication Sig Dispensed Refills Start Date End Date Status ketoconazole (NIZORAL) Apply topically to 60 g 3 01/04/20 20 Active 2 % Cream affected area on the eyebrows twice daily as needed. aspirin EC 81 mg Take 81 mg by 0 Active Tablet, Delayed mouth daily. Release (E.C.) cyanocobalamin, Take 1,000 mcg by 0 Active Vitamin B-12, (Vitamin mouth daily. B-12) 1,000 mcg Tablet folic acid (FOLVITE) Take 800 mcg by 0 Active 800 mcg Tablet mouth daily. acetaminophen Take 2 tablets by 30 tablet 1 09/02/2021 Active (Tylenol) 500 mg mouth every 6 Tablet hours as needed for Pain. AMIOdarone (Paceron) Take 1 tablet by 60 tablet 0 09/02/2021 Active 200 mg Tablet mouth 2 times daily. Additional Information Patient not taking. Reported on 10/08/2021 atorvastatin (Lipitor) 80 mg Take 0.5 tablets by 30 tablet 1 0 09/02/2021 Active Tablet mouth every evening. clopidogreL (Plavix) 75 mg Take 1 tablet by mouth 90 tablet 3 09/02/2021 Active Tablet daily. metoproloL tartrate Take 1 tablet by mouth 2 60 tablet 1 09/02 Active (Lopressor) 25 mg Tablet times daily. Active Problems Problem Noted Date Chest pain 08/25/2021 CAD (coronary artery disease) 08/23/2021 Nevus 10/13/2014 Seborrheic keratosis 10/13/2014 Encounters Date Type Specialty Care Team Description 10/17/2021 Orders Only Surgery Pancho Lopez S/P CABG (coron yeni A, PA artery bypass g raft) 10/08/2021 Office Visit Cardiac Surgery Shin, Coronary art dwayne German MD disease, unspec ified vessel or lesio n type, unspecifi ed whether angina present, unspec ified whether [place] or transplanted he art 10/08/2021 Hospital Encounter Radiology Shin Coronary artery Camron German MD disease, unspec ified vessel or lesio n type, unspecifi ed whether angina present, unspec ified whether [place] or transplanted he art 09/06/2021 Hospital Encounter General Surgery 08/29/2021 Orders Only Cardiothoracic Shin, Coronary josee ry Surgery Camron German MD disease, unspec ified vessel or lesio n type, unspecifi ed whether angina present, unspec ified whether [place] or transplanted he art 08/28/2021 Anesthesia Event Surgery Julio C Linton MD Hickerson, Leigh C, MD 08/28/2021 Surgery Surgery Shin, @CABG, USING AR TERIAL Camron German MD GRAFT;SINGLE AR TERIAL GRAFT (WRVU 33. 75) 08/25/2021 Hospital Encounter Cardiology Sunitha S/Monserrat CABG (coronary artery bypass graft) (Primary Dx); - Oxana Daly Chest pain; 09/02/2021 A, DO Coronary artery disease of [place] artery of [place] heart with stable angina pectoris; Shin, Coronary artery disease involving [place] coronary artery of [place] heart with unstable angina pectoris Camron German MD 08/23/2021 Hospital Encounter Radiology Shin, Coronary artery Camron German MD disease involvi ng [place] coronary artery of nativ e heart with unst able angina pectoris 08/23/2021 Clinical Support 08/23/2021 Surgery Cardiology Xiomara Weber CARDIAC MD Reyes CATHETERIZATION 08/23/2021 Hospital Encounter General Surgery Xiomara Weber Scre ening for cardiovascular condition; MD Reyes Abnormal stress test; Chest discomfor t; Coronary artery disease, unspecified vessel or lesion type, unspecified whether angina present, unspecified whether [place] or transplanted heart; Coronary artery disease involving [place] coronary artery of [place] heart with unstable angina pectoris 08/23/2021 Unscheduled Cardiac Surgery Shin, Coronary art dwayne Encounter Camron German MD disease involvi ng [place] coronary artery of nativ e heart with unst able angina pectoris 08/21/2021 Telephone Cardiology Dona Hays PA 08/21/2021 External Results Emergency Medicine 08/09/2021 Orders Only Cardiology [place] Leon Screening for cardiovascular condition; DANIEL Conrad Abnormal stress test; Chest discomfor t from Last 3 Months Immunizations Name Administration Dates Next Due Moderna 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) Vaccine 12/15/2020, 2020, 04/25/2020 Social History [...] 48 10/08/2021 12:50 PM notified EDT Temperature 36.6 ??C (97.9 ??F) 09/02/2021 3:59 AM EDT Respiratory Rate 16 09/02/2021 3:59 AM EDT Oxygen Saturation 100% 10/08/2021 12:50 PM EDT Inhaled Oxygen Concentration - - Weight 84.9 kg (187 lb 3.2 10/08/2021 12:50 PM oz) EDT Height 185.4 cm (6' 1) 10/08/2021 12:50 PM patient rep orted EDT Body Mass Index 24.7 10/08/2021 12:50 PM EDT Plan of Treatment Upcoming Encounters Date Type Specialty Care Team Description 11/26/2021 Appointment Radiology Camron Melissa MD [facility] [place], [place] [address] (Wo rk) 11/26/2021 Office Visit Cardiac Surgery Camron Melissa MD [facility] [place], [place] [address] (Wo rk) Health Maintenance Due Date Last Done Comments Hepatitis C Screening 08/09/1971 Tdap adult 1972 Tetanus vaccine 1972 Colonoscopy 1998 Zoster vaccine (1 of 2) 08/09/2003 Pneumoccocal Vaccine: 65+ (1 - PCV) 2018 Covid-19 Vaccine (4 - Booster for 04/17/2021 12/15/2020, , Moderna series) 04/25/2020 Influenza (Flu) vaccine (1 of 1 - 10/24/2021 Influenza standard series) Medical Devices Implanted Type Area Ignition Mechanic Device Shelf Model / Identifier Expiration Serial / Date Lot Cable Sternal Tapered Blunt Needle Cutti ng Edge [employer]s [place] ([id number]) - [id number] IMPLANTS N/A: [employer] 01/10/2026 [id number] / Implanted: Qty: 1 on 08/28/2021 by Camron Melissa MD at [facility] Stern[place] - [employer] / [id number] Procedures Procedure Name Priority Date/Time Associated Diagnosis Comme nts EKG 12-LEAD Routine 10/08/2021 1:01 Coronary artery Results f or this PM EDT disease, unspecified procedu re are in vessel or lesion the results type, unspecified section. whether angina present, unspecified whether [place] or transplanted heart XR CHEST PA AND LATERAL Routine 10/08/2021 11:36 Coronary josee ry Results for this AM EDT disease, unspecified procedu re are in vessel or lesion the results type, unspecified section. whether angina present, unspecified whether [place] or transplanted heart LAB SCAN 09/03/2021 12:00 AM EDT SCAN DOC: TELEMETRY 09/02/2021 10:42 STRIPS AM EDT SCAN DOC: TELEMETRY 09/02/2021 5:56 STRIPS AM EDT HC POTASSIUM Routine 09/02/2021 4:15 Results for this AM EDT procedure are i n the results section. SCAN DOC: TELEMETRY 09/01/2021 6:37 STRIPS PM EDT SCAN DOC: TELEMETRY 09/01/2021 5:18 STRIPS AM EDT HC VENIPUNCTURE Routine 09/01/2021 4:48 Results f or this AM EDT procedure are i n the results section. SCAN DOC: TELEMETRY 08/31/2021 6:39 STRIPS PM EDT XR CHEST PA AND LATERAL Routine 08/31/2021 8:50 R esults for this AM EDT procedure are i n the results section. SCAN DOC: TELEMETRY 08/31/2021 5:10 STRIPS AM EDT SCAN DOC: TELEMETRY 08/30/2021 11:28 STRIPS PM EDT DIFFERENTIAL, AUTOMATED Routine 08/30/2021 11:08 Results for [...] procedure are i n the results section. SCAN DOC: TELEMETRY 08/29/2021 7:55 STRIPS PM EDT POCT GLUCOSE Routine 08/29/2021 12:15 Results for [...] EDT procedure are in the results section. HC CBC,PLT & AUTO [...] s for this PM EDT artery bypass graft) procedu re are in the results section. PREPARE PLATELETS, STAT 08/28/2021 [...] procedure are i n the results section. SCAN DOC: TELEMETRY 08/28/2021 1:31 STRIPS PM EDT ENDOSCOPIC HARVEST Yes 08/28/2021 1:22 Coronary artery VEIN(S) FOR CABG (WRVU PM EDT disease involving 0.31) [place] coronary artery of [place] heart with unstable angina pectoris @CABG; 5 VENOUS GRAFTS Yes 08/28/2021 1:22 Coronary artery & ARTERIAL GRAFT (VU PM EDT disease involving 14.14) [place] coronary artery of [place] heart with unstable angina pectoris @CABG, USING ARTERIAL Yes 08/28/2021 1:22 Coronary artery GRAFT;SINGLE ARTERIAL PM EDT disease involving [facility] [place] coronary artery of [place] heart with unstable angina pectoris TRANSESOPHAGEAL Routine 08/28/2021 12:50 Chest pain Results for this ECHOCARDIOGRAM IN THE PM EDT proced ure are in OR the results section. PREPARE RBC STAT 08/28/2021 12:30 Results for this PM EDT procedure are i n the results section. POCT GLUCOSE Routine 08/28/2021 12:12 Results for this PM EDT procedure are i n the results section. ENDOSCOPIC HARVEST Routine 08/28/2021 9:47 Coronary artery VEIN(S) FOR CABG AM EDT disease involving [place] coronary artery of [place] heart with unstable angina pectoris @CABG,USING ARTERIAL Routine 08/28/2021 9:47 Coronary artery GRAFT;SINGLE ARTERIAL AM EDT disease involving GRAFT [place] coronary artery of [place] heart with unstable angina pectoris @CABG;5 VENOUS GRAFTS & Routine 08/28/2021 9:47 Coronary arter y ARTERIAL GRAFT AM EDT disease involving [place] coronary artery of [place] heart with unstable angina pectoris HC UNFRACTIONATED Routine 08/28/2021 5:17 Results for this HEPARIN (HEP UFH) AM EDT procedure are in the results section. DIFFERENTIAL, AUTOMATED Routine 08/28/2021 5:17 R esults for this AM EDT procedure are i n the results section. HEMOGRAM Routine 08/28/2021 5:17 Results for this AM EDT procedure are i n the results section. HC VENIPUNCTURE Routine 08/28/2021 5:17 AM EDT SCAN DOC: TELEMETRY 08/28/2021 4:26 STRIPS AM EDT SCAN DOC: TELEMETRY 08/27/2021 4:49 STRIPS PM EDT EKG 12-LEAD STAT 08/27/2021 11:43 Chest pain Results for this AM EDT procedure are i n the results section. HC UNFRACTIONATED Routine 08/27/2021 4:48 Results for this HEPARIN (HEP UFH) AM EDT procedure are in the results section. DIFFERENTIAL, AUTOMATED Routine 08/27/2021 4:48 R esults for this AM EDT procedure are i n the results section. HEMOGRAM Routine 08/27/2021 4:48 Results for this AM EDT procedure are i n the results section. HC CBC,PLT & AUTO DIFF Routine 08/27/2021 4:48 AM EDT SCAN DOC: TELEMETRY 08/27/2021 4:22 STRIPS AM EDT HC VENIPUNCTURE Routine 08/26/2021 9:57 Results f or this PM EDT procedure are i n the results section. SCAN DOC: TELEMETRY 08/26/2021 4:25 STRIPS PM EDT HC TROPONIN T STAT 08/26/2021 4:46 Results for this AM EDT procedure are i n the results section. SCAN DOC: TELEMETRY 08/26/2021 4:08 STRIPS AM EDT HC TROPONIN T STAT 08/25/2021 7:55 Results for this PM EDT procedure are i n the results section. POCT GLUCOSE Routine 08/25/2021 7:54 Results for this PM EDT procedure are i n the results section. SCAN DOC: TELEMETRY 08/25/2021 4:11 STRIPS PM EDT TYPE AND SCREEN STAT 08/25/2021 1:26 Results f or this VALIDITY PM EDT procedure are i n the [...] ANTIBODY STAT 08/25/2021 1:26 DETECTION,CAPTURE-R PM EDT DIFFERENTIAL, AUTOMATED STAT 08/25/2021 12:44 Results for this PM EDT procedure are i n the results section. HEMOGRAM STAT 08/25/2021 12:44 Results for this PM EDT procedure are i n the results section. HC PROTHROMBIN TIME STAT 08/25/2021 12:44 Resu lts for this PM EDT procedure are i n the results section. HC TROPONIN T STAT 08/25/2021 12:44 Results fo r this PM EDT procedure are i n the results section. BASIC METABOLIC PANEL STAT 08/25/2021 12:44 Re sults for this (NON-FASTING) PM EDT procedure are in the results section. HC CBC,PLT & AUTO DIFF STAT 08/25/2021 12:44 PM EDT EKG 12-LEAD STAT 08/25/2021 12:38 Results for this PM EDT procedure are i n the results section. XR CHEST PA AND LATERAL Routine 08/23/2021 3:02 Coronary arter y Results for this PM EDT disease involving procedure are in [place] coronary the results artery of [place] section. heart with unstable angina pectoris TYPE AND SCREEN Routine 08/23/2021 1:46 Results f or this VALIDITY PM EDT procedure are i n the results section. ABORH RECHECK STATUS Routine 08/23/2021 1:46 Resu lts for this PM EDT procedure are i n the results section. ANTIBODY SCREEN Routine 08/23/2021 1:46 Coronary artery Result s for this PM EDT disease involving procedure are in [place] coronary the results artery of [place] section. heart with unstable angina pectoris ABO/RH TYPING Routine 08/23/2021 1:46 Coronary artery Results for this PM EDT disease involving procedure are in [place] coronary the results artery of [place] section. heart with unstable angina pectoris DIFFERENTIAL, AUTOMATED Routine 08/23/2021 1:46 Coronary arter y Results for this PM EDT disease involving procedure are in [place] coronary the results artery of [place] section. heart with unstable angina pectoris HEMOGRAM Routine 08/23/2021 1:46 Coronary artery Results f or this PM EDT disease involving procedure are in [place] coronary the results artery of [place] section. heart with unstable angina pectoris HC ANTIBODY Routine 08/23/2021 1:46 Coronary artery DETECTION,CAPTURE-R PM EDT disease involving [place] coronary artery of [place] heart with unstable angina pectoris HC CBC,PLT & AUTO DIFF Routine 08/23/2021 1:46 Coronary artery PM EDT disease involving [place] coronary artery of [place] heart with unstable angina pectoris BASIC METABOLIC PANEL Routine 08/23/2021 1:46 Coronary artery Results for this (NON-FASTING) PM EDT disease involving procedure are in [place] coronary the results artery of [place] section. heart with unstable angina pectoris ECHOCARDIOGRAM COMPLETE Routine 08/23/2021 1:28 Coronary arter y Results for this W CONTRAST PM EDT disease, unspecified procedu re are in vessel or lesion the results type, unspecified section. whether angina present, unspecified whether [place] or transplanted heart CARDIAC CATHETERIZATION Routine 08/23/2021 11:06 Screening for Results for this AM EDT cardiovascular procedure are in condition the results Abnormal stress test section. Chest discomfort CORONARY ANGIOGRAPHY; W 08/23/2021 10:23 Screening for LHC,POSSIBLE PCI AM EDT cardiovascular condition Abnormal stress test Chest discomfort EKG 12-LEAD Routine 08/23/2021 9:26 Screening for Results for this AM EDT cardiovascular procedure are in condition the results Abnormal stress test section. Chest discomfort DIFFERENTIAL, AUTOMATED Routine 08/23/2021 7:33 Screening for Results for this AM EDT cardiovascular procedure are in condition the results Abnormal stress test section. Chest discomfort HEMOGRAM Routine 08/23/2021 7:33 Screening for Results for this AM EDT cardiovascular procedure are in condition the results Abnormal stress test section. Chest discomfort HC CBC,PLT & AUTO DIFF Routine 08/23/2021 7:33 Screening for AM EDT cardiovascular condition Abnormal stress test Chest discomfort HC VENIPUNCTURE Routine 08/23/2021 7:33 Screening for Results for this AM EDT cardiovascular procedure are in condition the results Abnormal stress test section. Chest discomfort LAB SCAN 08/23/2021 12:00 AM EDT ECG SCAN Routine 08/21/2021 Results for thi s procedure are i n the results section. ECG SCAN Routine 08/21/2021 Results for thi s procedure are i n the results section. ECG SCAN Routine 08/21/2021 Results for thi s procedure are i n the results section. from Last 3 Months Results EKG 12 Lead (10/08/2021 1:01 PM EDT)Only the most recent of5 resultswithin the time period is included. Component Value Ref Range Test Analysis Performed Pathologis t Method Time At Signature Ventricular rate 51 BPM MUSE SYSTEM Atrial Rate 51 BPM MUSE SYSTEM P-R Interval 166 ms MUSE SYSTEM QRS Duration 100 ms MUSE SYSTEM Q-T Interval 478 ms MUSE SYSTEM QTC Calculated 440 ms MUSE SYSTEM (Bezet) Calculated P [place] 60 degrees MUSE SYSTEM Calculated R [place] -13 degrees MUSE SYSTEM Calculated T [place] 42 degrees MUSE SYSTEM INTERPRETATION Sinus bradycardia MUSE SY STEM RSR' or QR pattern in V1 suggests right ventricular conducti on delay Anterior infarct (cited on or before 23-AUG-2021) Abnormal ECG When compared with ECG of 28-AUG-2021 18:12, No significant change was found Confirmed by MD Edmar, Emilee ([id number]) on 10/08/2021 3:53:32 PM Specimen Anatomical Collection Method Collection Time Receive d Time (Source) Location / / Volume Laterality 10/08/2021 1:01 PM 3:53 EDT PM EDT Camron Melissa MD ECG ORDERABLES Performing Organization Address City/State/ZIP Code Phon e Number MUSE SYSTEM XR Chest PA & Lateral (Generic) (10/08/2021 11:36 AM EDT)Only the most recent of 3 resultswithin the time period is included. Anatomical Region Laterality Modality Chest N/A Digital [...] who have questions please contact the health home care manager rn that requested your imaging first. ? Electronically signed by: Juanita García, [facility] ([phone]), at 10/08/2021 1:50 PM Narrative 10/08/2021 1:50 [...] ho have questions please contact the health home care manager rn that requested your imaging first. Electronically signed by: Juanita García, [facility] ([phone]), at 10/08/2021 1:50 PM Camron Melissa MD IMG DX ORDERABLES SCAN DOC: LAB (09/03/2021 12:00 AM EDT)Only the most recent of2 resultswithin the time period is included. Narrative This result has an attachment that is no t available. Unknown MEDIA MGR SCAN EXT ORDR/RSLT SCAN DOC: TELEMETRY STRIPS (09/02/2021 10:42 AM EDT)Only the most recent of15 resultswithin the time period is included. Narrative This result has an attachment that is no t available. Unknown MEDIA MGR SCAN EXT ORDR/RSLT Potassium (09/02/2021 4:15 AM EDT)Only the most recent of4 resultswithin the time period is included. athologist Signature Potassium 4.0 3.5 - 5.0 [facility] mmol/L [facility] Comment: Please note: ??Patients with WBC >100,00 0 may have falsely elevated Potassium levels. ??For accurate Potassium quantif ication in these patients send serum separator tube (gold top) for subsequent determinations. ??Contact the Clinical Chemistry Laboratory if there are any qu estions. Specimen Anatomical Collection Method Collection Time Receive d Time (Source) Location / / Volume Laterality Blood 09/02/2021 4:15 AM 4:57 EDT AM EDT Resulting Agency Comment Spec In Lab Camron Melissa MD CHEMISTRY ORDERABLES Performing Organization Address City/State/[place] [address] (ABNORMAL) Hemogram (08/30/2021 11:08 PM EDT)Only the most recent of8 results within the time period is included. Analysis Performed At Patho logist Time Signature WBC 9.6 (H) 4.0 - 9.5 [facility] LABORATORY RBC 3.64 (L) 4.58 - [place] 5.54 [facility] x10(6)/[facility] LABORATORY Hemoglobin 11.2 (L) 13.7 - [place] 16.5 g/dL [facility] Hematocrit 32.6 (L) 40.5 - [facility] 48.5 % [facility] MCV 89.6 82.9 - [facility] 93.1 [facility] LABORATORY MCH 30.8 27.5 - [place] 32.1 pg [facility] MCHC 34.4 32.0 - [facility] 35.7 g/dL [facility] Platelets 162 145 - 357 [facility] x10(3)/[facility] LABORATORY RDWSD 39.8 36.0 - [place] 45.0 [facility] LABORATORY RDWCV 12.2 11.4 - [place] 13.8 % [facility] MPV 10.8 7.6 - 12.9 [facility] nRBC % Auto 0.0 % [facility] nRBC Abs Auto 0.000 0.000 - [place] 0.000 [facility] x10(3)/[facility] LABORATORY Specimen Anatomical Collection Method Collection Time Receive d Time (Source) Location / / Volume Laterality Blood 08/30/2021 11:08 08/30/2021 PM EDT 11:22 PM EDT Resulting Agency Comment Spec In Lab Jay SANCHEZ HEMATOLOGY ORDERABLES Performing Organization Address City/State/[place] [address] (ABNORMAL) Differential, Automated (08/30/2021 11:08 PM EDT)Only the most recent of7 resultswithin the time period is included. [facility] Method Time Signature Neutrophils % 74.4 % [facility] Neutr Abs (ANC) 7.11 (H) 1.70 - [facility] 6.10 [facility] x10(3)/[facility] LABORATORY Lymphocytes % 10.7 % [facility] Lymphocytes Abs 1.0 0.9 - 3.2 [facility] x10(3)/[facility] LABORATORY Monocytes % 11.3 % [facility] Monocyte Abs 1.1 (H) 0.3 - 0.9 [facility] x10(3)/[facility] LABORATORY Eosinophils % 2.8 % [facility] Eosinophils Abs 0.3 0.0 - 0.4 [facility] x10(3)/[facility] LABORATORY Basophils % 0.4 % [facility] Basophils Abs 0.0 0.0 - 0.1 [facility] x10(3)/[facility] LABORATORY Immature Gran % 0.40 % [facility] Comment: Immature granulocytes(IG's)percentage an d absolute count will include metamyelocytes, myelocytes, and promyelo cytes. Blood smears from CBCs yielding IG's will be scanned manually for concor dance. If this scan disagrees with the automated IG or if promyelocytes are not ed, a manual differential will be performed. Lily Gran Abs 0.04 0.00 - 0.04 x10(3)/[facility] LABORATORY Specimen Anatomical Collection Method Collection Time Receive d Time (Source) Location / / Volume Laterality Blood 08/30/2021 11:08 08/30/2021 PM EDT 11:22 PM EDT Resulting Agency Comment Spec In Lab Jay SANCHEZ HEMATOLOGY ORDERABLES Performing Organization Address City/State/[place] [address] (ABNORMAL) Basic Metabolic Panel (non-fasting) (08/30/2021 11:08 PM EDT)Only the most recent of5 resultswithin the time period is included. P athologist Signature Glucose Lvl 125 65 - 199 [facility] mg/dL [facility] Comment: Diabetes: >=200 mg/dL plus symp toms BUN 13 10 - 20 mg/dL [facility] Creatinine 0.88 0.80 - 1.50 mg/dL [facility] LABORATORY Sodium 136 135 - 145 mmol/L [facility] Potassium 3.8 3.5 - 5.0 mmol/L [facility] Comment: Please note: ??Patients with WBC >100,00 0 may have falsely elevated Potassium levels. ??For accurate Potassium quantif ication in these patients send serum separator tube (gold top) for subsequent determinations. ??Contact the Clinical Chemistry Laboratory if there are any qu estions. Chloride 102 98 - 107 mmol/L [facility] CO2 26 22 - 31 mmol/L [facility] Anion Gap 8 5 - 15 mmol/L [facility] Calcium 8.2 (L) 8.5 - 10.5 mg/dL [facility] Estimated GFR 94 >=60 mL/min/1.73 m?? [facility] Comment: This patient's estimated GFR [...] Resulting Agency Comment Spec In Lab Camron Melissa MD CHEMISTRY ORDERABLES Performing Organization Address City/State/ZIP Code [facility] e Number [address] POCT Glucose (08/29/2021 12:15 PM EDT)Only the most recent of7 resultswithin the time period is included. athologist Signature POC Glucose 125 65 - 199 [facility] mg/dL [facility] Comment: Supplemental ranges: <140 mg/dL before meals <180 mg/dL all other times of the day Specimen Anatomical Collection Method Collection Time Receive d Time (Source) Location / / Volume Laterality Blood 08/29/2021 12:15 08/29/2021 PM EDT 12:15 PM EDT Camron Melissa MD POINT OF CARE TEST ORDERABLE S Performing Organization Address City/[facility]/ZIP [facility] [place] [address] (ABNORMAL) Troponin (08/29/2021 2:15 AM EDT)Only the most recent of4 results within the time period is included. athologist XIHA Troponin-T 0.45 (H) 0.00 - [place] 0.00 ng/mL [facility] Comment: The 99th percentile for Troponin T is le ss than 0.01 ng/mL, any detectable cTnT concentration using this assay should be considered elevated. According to the third universal definit ion of myocardial infarction the following criteria with a clinical prese ntation consistent with acute myocardial ischemia meets the diagnosis for a myocardial infarction (VT). Detection of a rise and/or fall of [...] additional sample may be indicated. Reference: Third [place] Definition of Myocardial Infarction. Journal of the [place] [employer] 2012;60:1581-98 Specimen Anatomical Collection Method Collection Time Receive d Time (Source) Location / / Volume Laterality Blood 08/29/2021 2:15 AM 2 2:20 EDT AM EDT Resulting Agency Comment Spec In Lab Camron Melissa MD CHEMISTRY ORDERABLES Performing Organization Address City/[facility]/[place] [address] (ABNORMAL) Hemoglobin (08/28/2021 9:51 PM EDT) athologist Signature Hemoglobin 13.1 (L) 13.7 - [facility] 16.5 g/dL [facility] Specimen Anatomical Collection Method Collection Time Receive d Time (Source) Location / / Volume Laterality Blood 08/28/2021 9:51 PM 2 EDT 10:01 PM EDT Resulting Agency Comment Spec In Lab Camron Melissa MD HEMATOLOGY ORDERABLES Performing Organization Address City/[facility]/ZIP [facility] [place] [address] (ABNORMAL) BLOOD GAS 2 ARTERIAL (08/28/2021 9:49 PM EDT)Only the most recent of7 resultswithin the time period is included. Analysis Performed At Patho logist Time Signature pH Art 7.34 (L) 7.35 - [facility] 7.45 [facility] pCO2 Art 42 35 - 45 [facility] LABORATORY pO2 Art 90 85 - 104 [facility] LABOR[facility]ORY HCO3 Art 21.7 20.0 - [facility] 26.0 [facility] mmol/L [facility] BE Art -4.2 (L) -3.0 - 3.0 [facility] mmol/L [facility] Hgb Blood Gas 14.2 13.7 - [facility] 16.5 g/dL [facility] O2HB Art 94.7 94.0 - [facility] 97.0 % [facility] COHB Art 0.3 % [facility] Comment: Nonsmokers: 0.5-1.5% COHB Smokers: Variable, but usually less than 10% Toxic: 20-30% COHB Lethal: Greater than 60% COHB METHB Art 0.8 <=1.5 % [facility] Na Whole Blood 137 135 - 145 mmol/L [facility] K Whole Blood 4.5 3.5 - 5.0 mmol/L [facility] Comment: Please note: Patients with WBC >100,000 may have falsely elevated Potassium levels. Contact the Clinical Chemistry L aboratory if there are any questions. ICa Whole Blood 1.22 1.15 - 1.33 mmol/L [facility] Comment: Note: ??Total bilirubin higher than 20 m g/dL may lead to falsely low ionized calcium. CL Whole Blood 106 98 - 107 mmol/L [facility] Gluc Whole Bld 145 65 - 199 mg/dL [facility] Comment: Diabetes: >=200 mg/dL plus symp toms. Lactate WB 1.4 0.5 - 2.2 mmol/L [facility] FIO2 Art 40 % [facility] PF Ratio Art 225 [facility] Specimen Anatomical Collection Method Collection Time Receive d Time (Source) Location / / Volume Laterality Blood 08/28/2021 9:49 PM 9:49 EDT PM EDT Camron Melissa MD CHEMISTRY ORDERABLES Performing Organization Address City/State/[place] [address] XR Chest One View (08/28/2021 7:35 PM EDT)Only the most recent of2 resultswithin the time period is included. Anatomical Region Laterality Modality Chest N/A Digital [...] who have questions please contact the health home care manager rn that requested your imaging first. ? Electronically signed by: Kayleen Mckeon MD , [facility] ([phone]), at 08/28/2021 7:37 PM Narrative 08/28/2021 7:37 [...] ho have questions please contact the health home care manager rn that requested your imaging first. Electronically signed by: Kayleen Mckeon MD , [facility] ([phone]), at 08/28/2021 7:37 PM Camron Melissa MD IMG DX ORDERABLES Prepare Platelets, Apheresis (08/28/2021 5:30 PM EDT) P athologist Signature Dispensed? Yes [facility] Specimen Anatomical Collection Method Collection Time Receive d Time (Source) Location / / Volume Laterality Blood 08/28/2021 5:30 PM 2 5:26 EDT PM EDT Camron Melissa MD BLOOD BANK ORDERABLES Performing Organization Address City/[facility]/[place] [address] Scan, Peripheral Blood (08/28/2021 5:01 PM EDT) Patholo gist Method Time Signature Plat Estimate Decreased [facility] RBC Morphology Normal [facility] Specimen Anatomical Collection Method Collection Time Receive d Time (Source) Location / / Volume Laterality Blood 08/28/2021 5:01 PM 2 5:17 EDT PM EDT Resulting Agency Comment Spec In Lab Haydee Mejia MD HEMATOLOGY ORDERABLES Performing Organization Address City/[facility]/[place] [address] APTT (08/28/2021 5:01 PM EDT) P athologist Signature PTT 31 25 - 37 sec [facility] Comment: OR Result called by ?? CHE OR Result s read back by: ? Candi Flowers at 2021-08-28 17:33:38 The PTT is [...] Organization Address City/State/[place] [address] (ABNORMAL) Prothrombin Time (08/28/2021 5:01 PM EDT)Only the most recent of2 resultswithin the time period is included. P athologist Signature PT 16.6 (H) 9.4 - 12.5 [facility]ORATORY Comment: OR Result called by ?? GRAIJK OR Result s read back by: ? Candi Flowers at 2021-08-28 17:33:38 INR 1.5 [facility] Comment: OR Result called by ?? GRAIJK OR Result s read back by: ? Candi Flowers at 2021-08-28 17:33:38 An INR <2.0 [...] Linton MD HEMATOLOGY ORDERABLES Performing Organization Address City/[facility]/[place] [address] (ABNORMAL) Fibrinogen (08/28/2021 5:01 PM EDT)Only the most recent of2 results within the time period is included. P athologist Signature Fibrinogen 193 (L) 200 - 393 [facility] mg/dL [facility] Comment: OR Result called by ?? GRAIJK OR Result s read back by: ? Candi Flowers at 2021-08-28 17:33:38 A fibrinogen level >100 mg/dL is adequat e for hemostasis in most patients without underlying bleeding disorders. Specimen Anatomical Collection Method Collection Time Receive d Time (Source) Location / / Volume Laterality Blood 08/28/2021 5:01 PM 2 5:17 EDT PM EDT Resulting Agency Comment Spec In Lab Julio C Linton MD HEMATOLOGY ORDERABLES Performing Organization Address City/[facility]/[place] [address] (ABNORMAL) Hemoglobin and Hematocrit, blood (08/28/2021 4:19 PM EDT) athologist Signature Hemoglobin 9.2 (L) 13.7 - 16.5 [facility] Comment: This result has been called to RUPAL CONLEY by Mayela Linder on 08 28 2021 at 1637, and has been read back. Hematocrit 27.0 (L) 40.5 - 48.5 % [facility] Comment: This result has been called to RUPAL CONLEY by Mayela Linder on 08 28 2021 at 1637, and has been read back. Specimen Anatomical Collection Method Collection Time Receive d Time (Source) Location / / Volume Laterality Blood 08/28/2021 4:19 PM 2 4:28 EDT PM EDT Resulting Agency Comment Spec In Lab Camron Melissa MD HEMATOLOGY ORDERABLES Performing Organization Address City/[facility]/[place] [address] Platelet count (08/28/2021 4:19 PM EDT) athologist Signature Platelets 159 145 - 357 [facility] LAB[facility] Plat Immature 4.2 0.0 - 7.4 [facility] % % [facility] Comment: Limitation of the Immature Platelet Frac tion (IPF)-May be less reliable when the platelet count is less than 09i794/u L due to statistical imprecision. The IPF [...] in a decreased state of production. References: [employer] The Clinical Value of the Immature Platelet Fraction (IPF) in Cell Recovery Document Number [id number] 07/2010 [employer] The Role of the Imm ature Platelet Fraction (IPF) in the Differential Diagnosis of Thrombocytopen ia, Document [id number] V05 P007/06 Specimen Anatomical Collection Method Collection Time Receive d Time (Source) Location / / Volume Laterality Blood 08/28/2021 4:19 PM 4:28 EDT PM EDT Resulting Agency Comment Spec In Lab Camron Melissa MD HEMATOLOGY ORDERABLES Performing Organization Address City/State/[place] [address] (ABNORMAL) BLOOD GAS 2 VENOUS (08/28/2021 2:59 PM EDT) Analysis Performed At Patho logist Time Signature pH Dick 7.30 (L) 7.32 - [facility] 7.42 [facility] pCO2 Dick 48 41 - 51 [facility] LABORATORY pO2 Dick 66 (H) 25 - 40 [facility] LABORATORY HCO3 Dick 22.9 mmol/L [facility] BE Dick -3.5 mmol/L [facility] Hgb Blood Gas 10.8 (L) 13.7 - [facility] 16.5 g/dL [facility] O2HB Dick 89.6 % [facility] COHB Dick 0.3 % [facility] Comment: Nonsmokers: 0.5-1.5% COHB Smokers: Variable, but usually less than 10% Toxic: 20-30% COHB Lethal: Greater than 60% COHB METHB Dick 0.3 <=1.5 % [facility] Na Whole Blood 131 (L) 135 - 145 mmol/L [facility] K Whole Blood 3.8 3.5 - 5.0 mmol/L [facility] Comment: Please note: Patients with WBC >100,000 may have falsely elevated Potassium levels. Contact the Clinical Chemistry L aboratory if there are any questions. ICa Whole Blood 1.06 (L) 1.15 - 1.33 mmol/L [facility] Comment: Note: ??Total bilirubin higher than 20 m g/dL may lead to falsely low ionized calcium. CL Whole Blood 102 98 - 107 mmol/L [facility] Gluc Whole Bld 90 65 - 199 mg/dL [facility] Comment: Diabetes: >=200 mg/dL plus symp toms Lactate WB 1.0 0.5 - 2.2 mmol/L [facility] BGas Source Venous [facility] Specimen Anatomical Collection Method Collection Time Receive d Time (Source) Location / / Volume Laterality Blood 08/28/2021 2:59 PM 2 2:59 EDT PM EDT Camron Melissa MD CHEMISTRY ORDERABLES Performing Organization Address City/State/[place] [address] Transesophageal Echo/OR (08/28/2021 12:50 PM EDT) Anatomical Region Laterality Modality Cardiac Other Specimen (Source) Anatomical Collection Method Collection Time Re ceived Time Location / / Volume Laterality 08/28/2021 12:50 PM EDT Narrative 08/29/2021 11:20 AM EDT ?[facility] ?[address] ? [place] [address] ?Voice: ?Fax: Name: RENÉ CALHOUN ? Study Date: 08/28/2021 12:50 PM ?Patient Location: OR^OR18^A : 1955 ? Account: [id number] Age: 66 yrs Gender: Male Ordering Physician: CAMRON MELISSA Referring Physician: CAMRON MELISSA Performed By: Julio C Linton MD Post Tricuspid ValveExam Location: No anges from pre-bypass exam. Interpretation Summary Pre Procedure [...] note might be different from the original. [facility] [address] [place] [address] Voice: Fax: Name: RENÉ CALHOUN Study Date: 08/28/2021 12:50 PM Patient Location: OR^[facility]^ : 1955 Account: [id number] Age: 66 yrs Gender: Male Ordering Physician: CAMRON MELISSA Referring Physician: CAMRON MELISSA Performed By: Julio C Linton MD Post Tricuspid ValveExam Location: [facility] from pre-bypass exam. Interpretation Summary Pre [...] AV VR_phl: 0.33 SV(LVOT): 22.5 ml Camron Melissa MD ECHO ORDERABLES Prepare RBC (08/28/2021 12:30 PM EDT) athologist Signature Dispensed? Yes [facility] Specimen Anatomical Collection Method Collection Time Receive d Time (Source) Location / / Volume Laterality Blood 08/28/2021 12:30 08/28/2021 PM EDT 12:25 PM EDT Resulting Agency Comment Spec In Lab Camron Melissa MD BLOOD BANK ORDERABLES Performing Organization Address City/[facility]/ZIP Code Phon e Number [place] [id number] Heparin (unfractionated) Level (08/28/2021 5:17 AM EDT)Only the most recent of3 resultswithin the time period is included. athologist Signature Heparin UFH 0.43 IU/mL [facility] LABORATORY Comment: Heparin (anti-Xa) levels should be [...] Resulting Agency Comment Spec In Lab Camron Melissa MD HEMATOLOGY ORDERABLES Performing Organization Address City/[facility]/[place] [address] Type and Screen Validity (08/25/2021 1:26 PM EDT)Only the most recent of2 resultswithin the time period is included. [facility] gist Method Time Signature T&S only valid [facility] LABORATORY Comment: This Type and Screen result is only valid at the [facility] Specimen Anatomical Collection Method Collection Time Receive d Time (Source) Location / / Volume Laterality Blood 08/25/2021 1:26 PM 2 1:29 EDT PM EDT Resulting Agency Comment Spec In Lab William SANCHEZ BLOOD BANK ORDERABLES Performing Organization Address City/[facility]/ZIP Code Phon e Number [address] ABORH Recheck Status (08/25/2021 1:26 PM EDT)Only the most recent of2 results within the time period is included. [facility] gist Method Time Signature ABORH Type Completed [facility] LABORATORY Specimen Anatomical Collection Method Collection Time Receive d Time (Source) Location / / Volume Laterality Blood 08/25/2021 1:26 PM 2 1:29 EDT PM EDT Resulting Agency Comment Spec In Lab William SANCHEZ BLOOD BANK ORDERABLES Performing Organization Address City/[facility]/[place] [address] ABO/Rh Typing (08/25/2021 1:26 PM EDT)Only the most recent of2 resultswithin the time period is included. P athologist Signature ABORh Type O Neg [facility] Specimen Anatomical Collection Method Collection Time Receive d Time (Source) Location / / Volume Laterality Blood 08/25/2021 1:26 PM 2 1:29 EDT PM EDT Resulting Agency Comment Spec In Lab William SANCHEZ BLOOD BANK ORDERABLES Performing Organization Address City/[facility]/[place] [address] Antibody screen (08/25/2021 1:26 PM EDT)Only the most recent of2 resultswithin the time period is included. [facility] [employer] Method Time Signature Ab Screen Negative [facility] LABORATORY Expires at 08/28/2021 [facility] [id number] on: [facility] Specimen Anatomical Collection Method Collection Time Receive d Time (Source) Location / / Volume Laterality Blood 08/25/2021 1:26 PM 2 1:29 EDT PM EDT Resulting Agency Comment Spec In Lab William SANCHEZ BLOOD BANK ORDERABLES Performing Organization Address City/State/ZIP Code Phon e Number [place] [address] ECHOCARDIOGRAM COMPLETE W CONTRAST (08/23/2021 1:28 PM EDT) Anatomical Region Laterality Modality Cardiac Other Specimen (Source) Anatomical Collection Method Collection Time Re ceived Time Location / / Volume Laterality 08/23/2021 12:35 PM EDT Narrative 08/23/2021 2:03 PM EDT ?[facility] ?[address] ? [place] [address] ?Voice: ?Fax: ? Echocardiogram Report Name: RENÉ CALHOUN ?Study Date: 08/23/2021 12:35 PM ? Patient Location: [facility] : 1955 ? Height: 73 in ? Account: [id number] Age: 66 yrs ? Weight: 181 lb Gender: Male ?BSA: 2.1 m2 Ordering Physician: XIOMARA WEBER Referring Physician: ANISA NOYOLA Performed By: Ajay aGrrido RDCS Reason For Study: Coronary artery diseas e, unspecified vessel or lesion type, unspecified whether angina present, unsp ecified whether [place] or transplanted heart Exam Location: [facility]. Interpretation Summary 1. Left ventricular size and systolic fu nction is normal. The left ventricular ejection fraction is 57% by Briggs's bi plane. There are segmental wall motion abnormalities present in the anteroseptu m. 2.The right ventricle is of normal size. Right ventricular systolic function is normal. 3. There is mild mitral and tricuspid re gurgitation. No prior for comparison. See report for additional findings. Procedure Complete-[id number]. Image enhancement Optiso n was used for left ventricular opacification. Suboptimal quality. There is normal sinus rhythm. Left Ventricle Left ventricle is of normal size. Wall t hickness is normal. Left ventricular size and systolic function is normal. The lef t ventricular ejection fraction is 57% by Briggs's biplane. There are segmental w all motion abnormalities. Right Ventricle The right ventricle is of normal size. R ight ventricular systolic function is normal. Left Atrium The left atrium is mildly dilated. LAESV Index 37 ml/m2. There is no evidence for a patent foramen ovale. Right Atrium The right atrium is mildly dilated. Aortic Valve The aortic valve is tricuspid. There is no aortic stenosis. There is mild aortic regurgitation. Mitral Valve The mitral valve is structurally normal. There is no mitral stenosis. There is mild mitral regurgitation. Tricuspid Valve The tricuspid valve is structurally norm al. There is no tricuspid stenosis. There is mild tricuspid regurgitation. Pulmonic Valve The pulmonic valve appears to be structu rally normal. There is no valvular pulmonic stenosis. There is trace pulmon ic valve regurgitation. Great Arteries The aortic root is of normal size. No ab normalities are identified. Ascending aorta is normal in size. Venous Inferior vena cava is normal in size. In ferior vena cava collapse greater than 50% with respiration. Pericardium/Pleural The pericardium appears normal. Hemodynamics The peak right ventricular systolic pres sure is 18 mmHg. The estimated right atrial pressure is 3mmHg. Left ventricul ar diastolic function is normal. Left ventricular filling pressure is normal. Ejection Fraction ?2D Measurem ents ? Volumes LV Biplane EF: 56.5 % ? IVSd: 1.0 cm ? LAV(MOD-bp) Indexed: ?L VIDd: 5.1 cm ?L VIDs: 3.5 cm ?37.1 ml/m2 ?L VPWd: 0.91 cm ? RA A4Cs_phl: 23.7 cm2 ? EDV Biplane: 132.7 ml ?L V mass(C)d: 178.5 grams ? EDV Biplane Index: 64.5 ?L V mass(C)dI: 86.7 grams/m2 ?ESV Biplane: 57.8 ml ?A o root diam: 3.6 cm ? ESV Biplane Index: 28.1 ?A o root diam index: 1.8 ?a sc Aorta Diam: 3.5 cm ?L VOT diam: 1.9 cm ?T APSE_phl: 2.8 cm Doppler TR max sp: 203.3 cm/sec MV E max sp: 65.7 cm/sec MV A max sp: 54.1 cm/sec MV E/A: 1.2 MV dec time: 0.18 sec Lat Peak E' Sp: 10.1 cm/sec E/ e' (lat): 6.5 Med Peak E' Sp: 7.6 cm/sec E/e' (med): 8.6 E/e' Average: 7.6 I ?WMSI = 1.25 ? % Normal = 7 5 ?Segments ??Size X - Cannot ?2 - ?4 - ?1-2 ? small Interpret ?1 - Normal ?? Hypokinetic 3 - Akinetic Dyskinetic ?? 3-5 ? moderate 5 - ? 6-14 ?large Aneurysmal ?15-16 ?? diffuse Procedure Note Ronny Argueta MD - 08/23/2021F ormatting of this note might be different from the original. [facility] [address] [place] [address] Voice: Fax: Echocardiogram Report Name: RENÉ CALHOUN Study Date: 08/23 12:35 PM Patient Location: [facility] : 1955 Height: 73 in Account: [id number] Age: 66 yrs Weight: 181 lb Gender: Male BSA: 2.1 m2 Ordering Physician: XIOMARA WEBER Referring Physician: ANISA NOYOLA Performed By: Ajay Garrido RDCS Reason For Study: Coronary artery diseas e, unspecified vessel or lesion type, unspecified whether angina present, unsp ecified whether [place] or transplanted heart Exam Location: [facility]. Interpretation Summary 1. Left ventricular size and systolic fu nction is normal. The left ventricular ejection fraction is 57% by Briggs's bi plane. There are segmental wall motion abnormalities present in the anteroseptu m. 2.The right ventricle is of normal size. Right ventricular systolic function is normal. 3. There is mild mitral and tricuspid re gurgitation. No prior for comparison. See report for additional findings. Procedure Complete-[id number]. Image enhancement Optiso n was used for left ventricular opacification. Suboptimal quality. There is normal sinus rhythm. Left Ventricle Left ventricle is of normal size. Wall t hickness is normal. Left ventricular size and systolic function is normal. The lef t ventricular ejection fraction is 57% by Briggs's biplane. There are segmental w all motion abnormalities. Right Ventricle The right ventricle is of normal size. R ight ventricular systolic function is normal. Left Atrium The left atrium is mildly dilated. LAESV Index 37 ml/m2. There is no evidence for a patent foramen ovale. Right Atrium The right atrium is mildly dilated. Aortic Valve The aortic valve is tricuspid. There is no aortic stenosis. There is mild aortic regurgitation. Mitral Valve The mitral valve is structurally normal. There is no mitral stenosis. There is mild mitral regurgitation. Tricuspid Valve The tricuspid valve is structurally norm al. There is no tricuspid stenosis. There is mild tricuspid regurgitation. Pulmonic Valve The pulmonic valve appears to be structu rally normal. There is no valvular pulmonic stenosis. There is trace pulmon ic valve regurgitation. Great Arteries The aortic root is of normal size. No ab normalities are identified. Ascending aorta is normal in size. Venous Inferior vena cava is normal in size. In ferior vena cava collapse greater than 50% with respiration. Pericardium/Pleural The pericardium appears normal. Hemodynamics The peak right ventricular systolic pres sure is 18 mmHg. The estimated right atrial pressure is 3mmHg. Left ventricul ar diastolic function is normal. Left ventricular filling pressure is normal. Ejection Fraction 2D Measurements Volume s LV Biplane EF: 56.5 % IVSd: 1.0 cm LAV(M OD-bp) Indexed: LVIDd: 5.1 cm LVIDs: 3.5 cm 37.1 ml/m2 LVPWd: 0.91 cm RA A4Cs_phl: 23.7 cm2 EDV Biplane: 132.7 ml LV mass(C)d: 178.5 grams EDV Biplane In dex: 64.5 LV mass(C)dI: 86.7 grams/m2 ESV Biplane : 57.8 ml Ao root diam: 3.6 cm ESV Biplane Index: 28.1 Ao root diam index: 1.8 asc Aorta Diam: 3.5 cm LVOT diam: 1.9 cm TAPSE_phl: 2.8 cm Doppler TR max sp: 203.3 cm/sec MV E max sp: 65.7 cm/sec MV A max sp: 54.1 cm/sec MV E/A: 1.2 MV dec time: 0.18 sec Lat Peak E' Sp: 10.1 cm/sec E/ e' (lat): 6.5 Med Peak E' Sp: 7.6 cm/sec E/e' (med): 8.6 E/e' Average: 7.6 I WMSI = 1.25 % Normal = 75 Segments Size X - Cannot 2 - 4 - 1-2 small Interpret 1 - Normal Hypokinetic 3 - Abhay netic Dyskinetic 3-5 moderate 5 - 6-14 large Aneurysmal 15-16 diffuse Xiomara Weber MD ECHO ORDERABLES CARDIAC CATHETERIZATION (08/23/2021 11:06 AM EDT) Anatomical Region Laterality Modality Other Specimen (Source) Anatomical Location Collection Method / Collectio n Time Received Time / Laterality Volume Narrative 08/23/2021 12:19 PM EDT ?[facility] ? Cardiac Cathete rization/Intervention Report ? Patient Name: René Calhoun L. ? Procedure Date: 08/23/2021 ? A #: [id number] ? Primary Physician: Gus, Xiomara Chambers ? Case #: [id number] ? File Name: [id number] ? Catheterization Order Number: [id number] ? [facility] ?An/Sqq 89(V)15 Sonar System [facility] ? Final Report [place], [place] ? Patient Name: ? René L. Tir ey ? ID#: ?[id number] ? : ?1955 ? Procedure Date: ? August 23, 2021 ? Case #: ? [id number] ? Room: ? 6 ? Case Physician: ? Xiomara Weber M.D. ?Start: ?10:41 ?Fellow: ? Negro E G acad, M.D. ?Admission: ??08/23/2021 ? Discharge: ??08/23/2021 ? Referring Physician: ??Wilma Soto ? Procedures: ?* Coronary Angiography ?* Left Heart Catheterization ? History ?René Calhoun is a 66 year o ld man. He has hypertension. The patient's ?smoking status is Never. Prior to the initiation of this procedure, the ?patient was designated as ASA C lass II. The [facility] clinical frailty scale ?is 2: Well. ? Diagnostic Tests: ?Electrocardiography: ? EKG was assessed by ECG. EKG was Abnormal. EKG showed other ? abnormality. ?Stress or Imaging Studies: ? A stress test without im aging was performed on 07/29/2021 and was ? Positive with High resul ts. ?Medications Prior to Procedure: ? Aspirin, Angiotensin II Receptor Kimberly and Beta Kimberly. ? Indications for Diagnostic Cath: ?The priority of the diagnostic procedure was Elective. The indication for ?the supervisor dental laboratory visit is worsening angina. Chest pain symptom assessment ?was: Typical Angina. ? Technique: ?A 6 SLFr sheath was inserted in the right radial artery utilizing the ?Seldinger technique. The left c oronary artery was injected utilizing a ?5Fr ANNA RADIAL catheter. A 5F r ANNA RADIAL catheter was used to inject ?the right coronary artery. Left ventricular pressure was performed ?utilizing a 5Fr ANNA RADIAL ca theter. 5,000 units of heparin were ?administered. A total of 50cc o f Iso-Farhad were opened, 49cc of Iso-Farhad ?were administered and 1cc of Is o-Farhad were wasted. Radiation: Fluoro time ?was 4.0 minutes, dose area prod uct was 24,000 mGYcm2 and air kerma was ?305 mGY. See the case log for a dditional details. ?The patient received the follow ing medications prior to and during the ?procedure: ? Unfractionated Heparin. ? Hemodynamics: ?Left Heart Pressures ? Resting: ? Syst D iast ? EDP ?a ?v ? m ?Ao 117 ?? 64 ?87 ?LV 118 ? 10 ? Coronary Angiography: ?Dominance: Right ?Left Main ? There was a 50% diffuse stenosis of the distal segment of the left ? main artery. ??The left main was large. ?Left Anterior Descending ? There was a single discr ete total occlusion of the proximal segment ? of the left anterior silvino cending artery (LAD). ??The LAD was large. ? Distal flow was via john aterals from the LCX and collaterals from ? the RCA. ?Left Circumflex ? There was an 80% single discrete stenosis of the mid segment of the ? first obtuse marginal br anch (OM1) of the left circumflex (LCX). ? The OM1 was small. ?Right Coronary Artery ? There was a single discr ete total occlusion of the proximal segment ? of the right coronary ar mony (RCA). ??The RCA was large. ??Distal flow ? was via collaterals from the LAD and collaterals from the RCA. ? There was a 70% single d iscrete stenosis of the mid segment of the ? right posterior descendi ng branch (RPDA) of the RCA. ??The RPDA was ? large. ? There was a 70% single d iscrete stenosis of the proximal segment of ? the right first posterol ateral branch (RPL1) of the RCA. ??The RPL1 ? was moderate in size. ?? The distal segment of the RPL1 had a single ? discrete 70% stenosis. ?Ramus ? There was a 50% single d iscrete stenosis of the proximal segment of ? the ramus. ??The ramus w as large. ? Vascular Access: ?Vascular Access Management: ? Mechanical Compression o f the right radial artery access site was ? performed. ? Conclusions: ?* Significant stenosis of the l eft main ?* Three vessel coronary artery disease (LAD, LCX and RCA) ? Complications/Events: ?The patient had no complication s during these procedures. ? Recommendations: ?Based upon the results of this procedure, it was recommended that ?coronary artery bypass surgery be considered. ? Comments: ?I discussed the results with th e patient and his , including ?treatment options. CT surgery c onsultation submitted and images reviewed ?with Dr. Melissa. ??Call also placed to my referring partner, ?Connor, to update. ?The attending physician was dieudonne baeza for the entire procedure. ?Dr. Xiomara Weber M.D. was pres ent during the moderate sedation ?intraservice time as documented by the sedation nurse. ??Case time = 00:19. ?Dr. Xiomara Weber M.D. performe d the coronary angiography and left heart ?catheterization. ? Xiomara Weber M.D. ? Electronically Signed by: Xiomara maria M.D. ? Report Finalized: 08/23/2021 ??12:09 ? Report Last Ammended: 09/03/2021 ??12:20 ? Procedure Note Xiomaar Weber MD - 09/03/2021Formatt ing of this note might be different from the original. [facility] Cardiac Catheterization/Intervention Re port Patient Name: René Calhoun Procedure Date: 08/23/2021 A #: [id number] Primary Physician: Xiomara Weber Case #: [id number] File Name: [id number] Catheterization Order Number: [id number] [facility] An/Sqq 89(V)15 Sonar System [facility] Final Report [place], [place] Patient Name: René Calhoun ID#: [id number] : 1955 Procedure Date: August 23, 2021 Case #: [id number] Room: 6 Case Physician: Xiomara Weber M.D. art: 10:41 Fellow: Negro Win M.D. Admission : 08/23/2021 Discharge: 08/23/2021 Referring Physician: Anisa Noyola M.D. Procedures: * Coronary Angiography * Left Heart Catheterization History René Calhoun is a 66 year old man. He has hypertension. The patient's smoking status is Never. Prior to the i nitiation of this procedure, the patient was designated as ASA Class II. The [facility] clinical frailty scale is 2: Well. Diagnostic Tests: Electrocardiography: EKG was assessed by ECG. EKG was Abnorm al. EKG showed other abnormality. Stress or Imaging Studies: A stress test without imaging was perfo rmed on 07/29/2021 and was Positive with High results. Medications Prior to Procedure: Aspirin, Angiotensin II Receptor Blocke r and Beta Kimberly. Indications for Diagnostic Cath: The priority of the diagnostic procedur e was Elective. The indication for the supervisor dental laboratory visit is worsening angina. Chest pain symptom assessment was: Typical Angina. Technique: A 6 SLFr sheath was inserted in the rig ht radial artery utilizing the Seldinger technique. The left coronary artery was injected utilizing a 5Fr ANNA RADIAL catheter. A 5Fr ANNA RADIAL catheter was used to inject the right coronary artery. Left ventric ular pressure was performed utilizing a 5Fr ANNA RADIAL catheter. 5,000 units of heparin were administered. A total of 50cc of Iso-Vu e were opened, 49cc of Iso-Farhad were administered and 1cc of Iso-Farhad we re wasted. Radiation: Fluoro time was 4.0 minutes, dose area product was 24,000 mGYcm2 and air kerma was 305 mGY. See the case log for additiona l details. The patient received the following medi cations prior to and during the procedure: Unfractionated Heparin. Hemodynamics: Left Heart Pressures Resting: Syst Diast EDP a v m Ao 117 64 87 LV 118 10 Coronary Angiography: Dominance: Right Left Main There was a 50% diffuse stenosis of the distal segment of the left main artery. The left main was large. Left Anterior Descending There was a single discrete total occlu avtar of the proximal segment of the left anterior descending artery (LAD). The LAD was large. Distal flow was via collaterals from th e LCX and collaterals from the RCA. Left Circumflex There was an 80% single discrete stenos is of the mid segment of the first obtuse marginal branch (OM1) of t he left circumflex (LCX). The OM1 was small. Right Coronary Artery There was a single discrete total occlu avtar of the proximal segment of the right coronary artery (RCA). The RCA was large. Distal flow was via collaterals from the LAD and co llaterals from the RCA. There was a 70% single discrete stenosi s of the mid segment of the right posterior descending branch (RPDA ) of the RCA. The RPDA was large. There was a 70% single discrete stenosi s of the proximal segment of the right first posterolateral branch ( RPL1) of the RCA. The RPL1 was moderate in size. The distal segmen t of the RPL1 had a single discrete 70% stenosis. Ramus There was a 50% single discrete stenosi s of the proximal segment of the ramus. The ramus was large. Vascular Access: Vascular Access Management: Mechanical Compression of the right rad ial artery access site was performed. Conclusions: * Significant stenosis of the left main * Three vessel coronary artery disease (LAD, LCX and RCA) Complications/Events: The patient had no complications during these procedures. Recommendations: Based upon the results of this procedur e, it was recommended that coronary artery bypass surgery be consi dered. Comments: I discussed the results with the patien aryan and his , including treatment options. CT surgery consultat ion submitted and images reviewed with Dr. Melissa. Call also placed to my referring partner, Dr. Ryan, to update. The attending physician was present for the entire procedure. Dr. Xiomara Weber M.D. was present d uring the moderate sedation intraservice time as documented by the sedation nurse. Case time = 00:19. Dr. Xiomara Weber M.D. performed the coronary angiography and left heart catheterization. Xiomara Weber M.D. Electronically Signed by: Xiomara maria M.D. Report Finalized: 08/23/2021 12:09 Report Last Ammended: 09/03/2021 12:20 Xiomara Weber MD CARDIAC CATH ORDERABLES Scan Doc: ECG (08/21/2021)Only the most recent of3 resultswithin the time period is included. Narrative This result has an attachment that is no t available. 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 on Advance Directives and Living 03/02/2020 3:41 PM 0 02/26/2020 Will Latest Code Status on File Code Status Date Activated Date Inactivated Comments Attempt Cardiopulmonary Resuscitation - 08/28/2021 8:24 AM 09/03/19 22 1:02 PM Inpatient Code Status decision made by: Patient Attempt Cardiopulmonary Resuscitation - Inpatient 08/25/2021 1 :26 PM 08/28/2021 8:24 AM Code Status decision made by: Patient Attempt Cardiopulmonary Resuscitation - 08/23/2021 10:09 AM 08/24/19 22 3:56 PM Inpatient Code Status decision made by: Patient Care Teams City Council Member Relationship Specialty Start Date End Date Nisa Machado MD PCP - General 07/26/14 [address] [place] [address]
--- OUTSIDE RECORDS SUMMARY | 2021-11-08 08:46 | XMS_ITS | Encounter Summary ---
:1955 Author Organization [facility] Address [address] [address] Care Team Providers Name Role Phone Nisa Machado MD Primary Care Provider Encounter Details Date Type Department Care Team Description 10/17/2021 Orders Only Main Operating Room Pancho Lopez PA S/P CABG (coronary [facility] artery bypass graft) [facility] [address] [address] [place] [address] [phone] Social History Tobacco Use Types Packs/Day Years [...] Description 11/26/2021 Appointment Radiology Camron Melissa MD [facility] CARDIOTHORACIC S URGERY [place], [place] [address] (Wo rk) 11/26/2021 Office Visit Cardiac Surgery Camron Melissa MD [facility] CARDIOTHORACIC S [place], [place] [address] (Wo rk) Scheduled Orders Name Type Priority Associated Diagnoses Order S chedule XR Chest PA & Lateral Imaging Routine S/P CABG (coronary Expected: 11/17/2021 (Generic) artery bypass graft) (Approx imate), Expires: 2022 documented as of this encounter Visit Diagnoses Diagnosis S/P CABG (coronary artery bypass graft) Postsurgical aortocoronary bypass status documented in this encounter Care Teams Settlement Processor Relationship Specialty Start Date End Date Nisa Machado MD PCP - General 07/26/14 [address] [place] [address] documented as of this encounter
--- OUTSIDE RECORDS SUMMARY | 2021-11-08 08:46 | XMS_ITS | Encounter Summary ---
:1955 [place] [address] Care Team Providers Name Role Phone Nisa Machado MD Primary Care Provider Encounter Details Date Type Department Care Team Description 09/06/2021 Hospital Encounter [place] [address] Social History Tobacco Use Types Packs/Day [...] Description 11/26/2021 Appointment Radiology Camron Melissa MD [facility] CARDIOTHORACIC S [place], [place] [address] (Wo rk) 11/26/2021 Office Visit Cardiac Surgery Camron Melissa MD [facility] CARDIOTHORACIC S [place], [place] [address] (Wo rk) documented as of this encounter Visit Diagnoses Not on filedocumented in this encounter Care Teams Bicycle Assembler Relationship Specialty Start Date End Date Nisa Machado MD PCP - General 07/26/14 [address] [facility] [address] documented as of this encounter
--- OUTSIDE RECORDS SUMMARY | 2021-11-08 08:47 | XMS_ITS | Encounter Summary ---
:1955 Author Organization [facility] Address [address] [place] [address] Care Team Providers Name Role Phone Nisa Machado MD Primary Care Provider Reason for Visit Reason Comments Skin Cancer Examination Encounter Details Date Type Department Care Team Description 01/31/2021 Office Visit Dermatology at [facility] borrheic keratoses; Mee Cheatham MD Dermal nevus; [address] [facility] Lipoma of left upper extremi ty; [place] [address] Multiple benign nevi; [phone] [facility] History of basa l cell carcinoma (BCC) [address] [place], [place] [address] Social History Tobacco Use Types [...] nevi N SCC N BCC 06/01/2018: right sikhism, BCC, S/P Mohs 06/01/2018: right cheek, BCC, S/p Mohs 01/04/2020: right superior sikhism, BCC, S/P Mohs AKs N UV Exposure & Protection N Other relevant past medical history Lipoma (left upper arm) Family History Details Melanoma Father NMSC N Other relevant family history N Social History 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 B. Dermal Nevus - [place], fleshy papule on the left cheek. - [...] 1 year for FSE []Note routed to accredited legal secretary [x]Recall placed in scheduling system []Appointment scheduled at checkout Scribe attestation: Katarzyna Sutherland and Mell Nettles CMA have performed the documentation forthis encounter in the presence of and acting as a scribe for BILL BELLA MD. I performed the above scribed service and agree with the accuracy of the documentation in this encounter. Reviewed and signed by: BILL BELLA MD Dermatology [facility] documented in this encounter Plan of Treatment Upcoming Encounters Date Type Specialty Care Team Description 11/26/2021 Appointment Radiology Camron Melissa MD [facility] CARDIOTHORACIC S [place], [place] [address] (Wo denisse) 11/26/2021 Office Visit Cardiac Surgery Camron Melissa MD [facility] CARDIOTHORACIC S [place], [place] [address] (Wo denisse) documented as of this encounter Visit Diagnoses Diagnosis Seborrheic keratoses Dermal nevus Benign neoplasm of skin, site unspecifie d Lipoma of left upper extremity Multiple benign nevi Benign neoplasm of skin, site unspecifie d History of basal cell carcinoma (BCC) documented in this encounter Care Teams Customer Field Representative Relationship Specialty Start Date End Date Nisa Machado MD PCP - General 07/26/14 [address] [place] [address] documented as of this encounter
--- OUTSIDE RECORDS SUMMARY | 2021-11-08 08:47 | XMS_ITS | Encounter Summary ---
:1955 Author Organization 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 [place] [address] Referral ID Status Reason Start Date Expiration Date Visits Requ ested Visits Authorized [id number] 1 1 Encounter Details Date Type Department Care Team Description 08/28/2021 Surgery Main Operating Room Camron Guthrie, @ CABG, USING ARTERIAL Thania Muñoz MD GRAFT;SINGLE ARTERIAL Hospital [facility] GRAFT (WRVU 33.75) [facility] [place] [address] SURGERY [phone] [place], [place] [address] (Wo rk) Social History Tobacco [...] Sign Reading Time Taken Comments Blood Pressure 106/61 08/28/2021 11:30 AM EDT Pulse 67 08/28/2021 6:00 PM EDT Temperature 35.3 ??C (95.5 ??F) 08/28/2021 6:00 PM EDT Respiratory Rate 14 08/28/2021 6:00 PM EDT Oxygen Saturation 100% 08/28/2021 6:00 PM EDT Inhaled Oxygen Concentration - - Weight 81.9 kg (180 lb 8.9 oz) 08/28/2021 5:54 AM EDT Height 185.4 cm (6' 1) 08/25/2021 12:31 PM EDT Body Mass Index 24.72 08/25/2021 12:31 PM EDT documented in this encounter Discharge Summaries Timo Dotson PA - 09/02/2021 6:46 AM EDT Inpatient - Discharge Summary Patient Name: Alex Bingham Patient Age: 66 y.o. Birthdate: 1955 Language: Salvadorean Race: White Ethnicity: Not nor Admit Date: [...] x-ray and EKG. Inpatient Provider Contact Information: [facility] [phone] FAX [phone] Discharge Diagnoses (Hospital Problems) Primary Diagnoses: Unstable [...] SURGERY Right 1979 ? ? PRG CATH [facility] LEFT HEART CATH & ARTS W/INJ & ANGIO IMG S&I N/A 08/23/2021 CORONARY ANGIOGRAPHY; W LHC,POSSIBLE PCI performed by Renard Weber MD at [facility] CATH LABS ??? PRO CABG, ARTERIAL, SINGLE N/A 08/28/2021 @CABG, USING ARTERIAL GRAFT;SINGLE ARTERIAL GRAFT (WRVU 33.75) performed by Camron Guthrie MD at [facility] MAIN OR ??? PRO CABG, ARTERY-VEIN, FIVE N/A 08/28/2021 @CABG; 5 VENOUS GRAFTS & ARTERIAL GRAFT (WRVU 14.14) performed by Camron Guthrie MD at [facility] MAIN OR ??? PRO ENDOSCOPY W/VIDEO-ASST VEIN HARVEST, CABG N/A 08/28/2021 ENDOSCOPIC HARVEST VEIN(S) FOR CABG (WRVU 0.31) performed by Camron Guthrie MD at [facility] MAIN OR ??? PRO LAMINOTOMY, LUMBAR DISK, 1 INTRSP Left 10/18/2019 LAMINOTOMY, DECOMPRESSION, FORAMINOTOMY, LUMBAR (WRVU 13.18) performed by Jelani Zuñiga MD at [facility] MAIN OR ??? PRO MICROSURG TECHNIQUES, REQ OPER MICROSCOPE Left 10/18/2019 MICROSCOPE USE (WRVU 3.46) performed by Jelani Zuñiga MD at [facility] MAIN OR ??? VASECTOMY 1994 Prior To Admission [...] s/p CABGx6 Alex Bingham was admitted to [facility] on 08/25/2021 via the Cardiac Surgery Service [...] he autodiuresed appropriately. Plavix was started for egegik CAD. He was transferred to the Intermediate [...] History Administered Date(s) Administered ??? Moderna Covid-19 (Improvement Director 100mcg) Vaccine 04/25/2020, 05/23/2020, 12/15/2020 Smoking Status [...] Camron Guthrie and/or the Cardiac Surgery Physician Fitter'S Assistant Team may be reached at . Weight: [...] Dr. Camron Guthrie. You may use a [place] Track or treadmill but avoid any pulling [...] friends, go to a movie, go to jewish, etc. Heavy activities: No hunting, skiing, jogging, snow shoveling, snowmobiling, lawn mowing, swimming, golf or tennis until after your return appointment with the surgeon. Do not ride motorcycles, Patient Feed's tractors or horses. Avoid the use of [...] should resume a low fat, low cholesterol, [place] Heart Association Diet. Driving: No driving until [...] while being managed by your PCP and/or Agricultural Equipment Test Engineer. For future medication refills, please refer to your PCP and/or Agricultural Equipment Test Engineer after your discharge from our service. Thank you REMOVE CHEST TUBE SUTURES ON OR AFTER 09/07/21 Home oxygen therapy: N/A Follow up appointments: ??? You have an appointment with your Cardiac Surgeon, Dr. Camron German. Shin, 4 weeks on 10/08 with a chest x-ray and EKG before your appointment. Cardiac Rehabilitation: You will be contacted as an outpatient. Future Appointments and Orders Future Appointments and Orders Future Appointments Provider Department Dept Phone 10/08/2021 11:45 AM [facility] DX ROOM 1 XRay at [facility] Arrive at: Manager Helpdesk Area 3T [phone] Please go to Manager Helpdesk Area 3T ([place] Location). 10/08/2021 1:00 PM Camron Guthrie MD Cardiac Surgery at [facility] Arrive at: Manager Helpdesk Area 4A [phone] Future Orders Complete By Expires Referral to Home Health [REF34 Custom] As directed Process Instructions: If no progress note charted, please enter Clinical details in comments. Scheduling Instructions: Comments: Please evaluate Alex Bingham for admission to Home Health. [address] [address] (home) Date of : 1955 Inpatient DOCUMENTATION FOR VNA SERVICES (INCLUDING THOSE PATIENTS WITH MEDICARE COVERAGE REQUIRING HOME VNA SERVICES AND/OR HOSPICE SERVICES) PATIENT'S LOCATION: Alex Bingham [address] [address] (home) Cell: Telephone Information: Oil Gauger's Name: Self In discussion with the attending physician, it is certified that this patient is under their care and that they, or a Nurse Practitioner,Clinical Nurse specialist or Physician Fitter'S Assistant who is working directly with them, had [...] for managing ADL's. HOME HEALTH CARE AGENCY: [facility] [address] [place] [address] Start of care: 24 to 48 hours [...] obtained from this patient'sPCP: Nisa Machado MD [address] [place] [phone] All VNA agencies which cover the area of patient's residence have been reviewed, either verbally or in writing, and patient/family have chosen the home health care agency noted Questions: Disciplines Requested: Nursing Physical Therapy Occupational Therapy Arrangements for VNA/home care: As above. VN RN OR PCP TO PLEASE REMOVE CHEST TUBE SUTURES ON OR AFTER 09/07/21 Signed: TIMO DOTSON PA-C [facility] [phone] FAX [phone] Date: 09/02/2021 CC: MD Shin Belle Joseph P, MD [facility] DR [place] [address] documented in this encounter Discharge Instructions Patient [...] Camron Guthrie and/or the Cardiac Surgery Physician Fitter'S Assistant Team may be reached at . Weight: [...] Dr. Camron Guthrie. You may use a [place] Track or treadmill but avoid any pulling [...] friends, go to a movie, go to jewish, etc. Heavy activities: No hunting, skiing, jogging, snow shoveling, snowmobiling, lawn mowing, swimming, golf or tennis until after your return appointment with the surgeon. Do not ride motorcycles, Patient Feed's tractors or horses. Avoid the use of [...] should resume a low fat, low cholesterol, [place] Heart Association Diet. Driving: No driving until [...] while being managed by your PCP and/or Agricultural Equipment Test Engineer. For future medication refills, please refer to your PCP and/or Agricultural Equipment Test Engineer after your discharge from our service. Thank [...] of stairs to bedroom. 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 Does not use [...] Therapy: 30 (TEF x 2 745-8:00 and [phone]) YUAN CORTEZ, PT Pager: [phone] Physical Therapy Inpatient Rehabilitation Department William Willis [...] prn No lasix Plavix for burden of egegik CAD. Indefinitely if tolerated. Neuro: APAP 1g q6h, Oxy 5-10 q4h prn CV: metop 25, amio 200 bid, statin Pulm: RA, pulm toilet GI: Regular diet, protonix, RBOs : Voiding Renal: UOP adequate, no lasix Heme: ASA 81, Plavix for egegik burden of CAD, B12, folate ID: no [...] Post- Op??s/p CABGx6 Interval History: Moved to [facility]. Short bursts of afib overnight. Social History: Pt lives with his in a multi-level home with 3 stairs to enter and a flight of stairs to bedroom. 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 Does not use [...] CDI. ?? Musculoskeletal: ROM: WFL Strength: B LE's 5/5 Bed Mobility: HOB flat, without bed [...] plan as stated. Time IN / OUT: 3890-0965 Total Minutes, Physical Therapy: 25 Vidhya Hdz PT , DPT Pager: [phone] Physical Therapy Inpatient Rehabilitation Department Cinthia Nagy V RN - 08/31/2021 3:04 PM EDT OUTCOME [...] PO amio load began. -Plavix started for egegik burden of coronary disease S: Doing ok. [...] bolus No lasix Plavix for burden of egegik CAD. Indefinitely if tolerated. Neuro:APAP 1g q6h, Oxy 5-10 q4h prn CV: metop 25, amio gtt and bolus, statin Pulm: NC to keep spo2>92%, pulm toilet GI: Regular diet, protonix, RBOs : Voiding Renal: UOP adequate, no lasix Heme: ASA 81, Plavix for egegik burden of CAD ID: periop abx complete [...] 08/30/2021 10:19 PM EDT Report called to [facility] DRE Stearns, pt transferred to [facility] in wheelchair with belongings/chart. Transferred on RA, no active gtts. Jay Ortiz PA - 08/30/2021 10:30 AM EDT Cardiac Surgery Progress Note HPI Alex Bingham is a 66 y.o. male with PMH of CAD, pre-diabetic, peripheral neuropathy, HTN, s/p lumbar discectomy who is 2 Days Post-Op s/p CABGx6 Events: Pathway, floor status Metop CTs out Continues to autodiurese Plavix started for egegik burden of coronary disease S: Pain controlled. [...] 12.5' No lasix Plavix for burden of egegik CAD. Indefinitely if tolerated. PW out Valladares out Neuro:APAP 1g q6h, Oxy 5-10 q4h prn CV: metop 12.5', statin Pulm: NC to keep spo2>92%, pulm toilet GI: Regular diet, protonix, RBOs : Valladares out Renal: UOP adequate, no lasix Heme: ASA 81, Plavix for egegik burden of CAD ID: periop abx complete [...] 33.75) performed by Camron Guthrie MD at [facility] MAIN OR ??? PRO CABG, ARTERY-VEIN, FIVE N/A 08/28/2021 @CABG; 5 VENOUS GRAFTS & ARTERIAL GRAFT (WRVU 14.14) performed by Camron Guthrie MD at [facility] MAIN OR ??? PRO ENDOSCOPY W/VIDEO-ASST VEIN HARVEST, CABG N/A 08/28/2021 ENDOSCOPIC HARVEST VEIN(S) FOR CABG (WRVU 0.31) performed by Camron Guthrie MD at [facility] MAIN OR ??? PRO LAMINOTOMY, LUMBAR DISK, 1 INTRSP Left 10/18/2019 LAMINOTOMY, DECOMPRESSION, FORAMINOTOMY, LUMBAR (WRVU 13.18) performed by Jelani Zuñiga MD at [facility] MAIN OR ??? PRO MICROSURG TECHNIQUES, REQ OPER MICROSCOPE Left 10/18/2019 MICROSCOPE USE (WRVU 3.46) performed by Jelani Zuñiga MD at [facility] MAIN OR ??? VASECTOMY 1994 Social History: Pt lives with his in a multi-level home with 3 stairs to enter and a flight of stairs to bedroom. 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 Does not use [...] be good.?? Objective: Pt seen in the [facility] for initial evaluation, post operative protocol exs [...] Sternal incision CDI. Musculoskeletal: ROM: WFL Strength: B LE's 5/5 Bed Mobility: Supine ->Sit: not [...] in this evaluation. SONG SHEN, PT Pager: [phone] Physical Therapy Inpatient Rehabilitation Department Time IN / OUT: 145-215 Total time: 30 mins (eval) Jay Ortiz PA - 08/29/2021 9:05 AM EDT Cardiac Surgery Progress Note HPI Alex Bingham is a 66 y.o. male with PMH of CAD, pre-diabetic, peripheral neuropathy, HTN, s/p lumbar discectomy who is 1 Day Post-Op s/p CABGx6 Events: Pathway Extubated 2199 On nitro/nicard overnight for HTN Autodiuresing ~2L [...] lasix CTs out Plavix for burden of egegik CAD. Indefinitely if tolerated. Transfer Neuro:APAP 1g q6h, Oxy 5-10 q4h prn CV: metop 12.5, statin Pulm: NC to keep spo2>92%, pulm toilet GI: NPO till flatus, protonix, RBOs : Valladares Renal: UOP adequate, no lasix Heme: ASA 81, Plavix for egegik burden of CAD ID: periop abx complete [...] 30 Hep gtt 08/27 700 - 08/28 699 In: 820 [P.O.:820] Out: 2425 [Urine:2425] Admit [...] 0600 and on the weekends please page [phone]. Roxy Parkinson RN - 08/28/2021 5:13 AM [...] bpm] Drips: Nitro 30 Hep gtt 08/26 07 - 08/27 0700 In: 440 [P.O.:440] Out: [...] 0600 and on the weekends please page [phone]. Roxy Parkinson RN - 08/27/2021 6:00 AM [...] SpO2: [54 bpm] Drips: Nitro 20 08/25 0701 - 08/26 0700 In: 736.3 [P.O.:670; I.V.:66.3] Out: 1100 [Urine:1100] [...] 0600 and on the weekends please page [phone]. Oxana Herrera RN - 08/25/2021 5:22 PM [...] 13.18) performed by Jelani Zuñiga MD at [facility] MAIN OR ??? PRO MICROSURG TECHNIQUES, REQ OPER MICROSCOPE Left 10/18/2019 MICROSCOPE USE (WRVU 3.46) performed by Jelani Zuñiga MD at [facility] MAIN OR ??? VASECTOMY 1994 Denies previous [...] 42.8 08/25/2021 PLATELET 193 08/25/2021 Recent Labs 08/25/21 1244 INR 1.0 Lab Results Component Value [...] Rate: 53 [08/25/21 1230] Resp: 14 [08/25/21 123] Temp: 36.6 ??C (97.9 ??F) [08/25/21 123] Temp src: Temporal [08/25/211230] SpO2: 98 % [08/25/21 123] O2 Device: RA [08/25/211230] O2 Flow Rate (L/min): n/a Physical Exam: General: AAOx4, in NAD, reclined in bed HEENT: Normocephalic/atraumatic, EOMI Neck: Supple, full range of motion Cardiovascular: Regular rhythm. HR 55, no murmus Pulmonary: LCTAB, no retractions, no apparent respiratory dirstress Abdomen: Soft, non-distended Skin: Molena, warm, dry Extremities: No deformities. ROM: full, [...] Thursday, 08/28. Cullen Basilio MD Resident 08/25/21 5424 Associated attestation - Oxana Helton DO - [...] 13.18) performed by Jelani Zuñiga MD at [facility] MAIN OR ??? PRO MICROSURG TECHNIQUES, REQ OPER MICROSCOPE Left 10/18/2019 MICROSCOPE USE (WRVU 3.46) performed by Jelani Zuñiga MD at [facility] MAIN OR ??? VASECTOMY 1994 Social History [...] admitted to their service. Oxana Helton DO 08/26/21 0911 Emi Gonsalez RN - 08/25/2021 12:34 PM EDT DANIEL Villatoro paged by this RN per Dr. Guthrie request- returned call and confirmed that he will be in to see patient. documented in this encounter Miscellaneous Notes Consult Note - Macarena Aviles RN - 09/02/2021 10:17 AM EDT [facility] Alex Conrad Acesloane was seen today regarding participation in the outpatient Phase 2 Cardiac Rehabilitation at [facility]. The patient agrees to a referral to [...] information for follow-up [facility] H[facility], [place] [address] Transportation: family or friend will provide Wheelchair van/Ambulance? No Functional status prior to admission: Independent Home Environment: Others in the home: spouse, child(patel), adult (Lives with Lyudmila and son Jorge). Current Living Arrangements: home/apartment/condo. Accessibility Concerns:Multilevel home. Current Functional Ability: Independent DME used at home: none DME Needed at Discharge: None Patient is insured through: Primary Insurance: [employer] MANAGED MEDICARE Payor: [employer] MEDICARE / Plan: [employer] TRUE CHOICE MANAGED MEDICARE PPO / Product [...] through: Primary Insurance: CIGNA MANAGED MEDICARE Payor: [employer] MEDICARE / Plan: [employer] MEDICARE PPO / Product Type: *No Product type* / Secondary Insurance: N/A Last Physical Therapy Recommendation: (home with ) with None Last Occupational Therapy Recommendation: with Plan for discharge is: Home w/ Services Outpatient Agency/Support Group Needs: Homecare agency Home Health Services: Registered Nurse, Physical Therapy, Anticoagulation monitoring, Wound care Agency Referrals: Not Applicable - [facility] Transportation: family or friend will provide Barriers [...] Operative Note Patient Name: Alex Bingham : [id number] MR#: [id number] Case Date: 08/28/2021 Surgeon: Surgeon(s) and Role: * Camron Guthrie MD - Primary * Keiko Torres PA - Physician Fitter'S Assistant * Dona Oropeza PA - Physician Fitter'S Assistant Preoperative diagnosis: CAD Postoperative diagnosis: CAD Procedure(s) [...] MD - 08/28/2021 2:12 PM EDT 08/30/2021 Alexhema Bingham 1955 [id number] Preoperative Diagnosis: Coronary artery disease Unstable Angina Postoperative Diagnosis: Coronary artery diseaseUnstable Angina Procedure: CABG times 6: FERNANDO to LAD, SVG to rca and pl, svg to om1 with svg to om2 and om3 y'ed off it. Endoscopic vein harvest Surgeon: Camron Guthrie M.D. Fitter'S Assistant: Sarita MARQUEZ Anesthesia: General endotracheal anesthesia Drains: [...] applied. The patient was transported to the [facility] on [place]. All counts were correct. Care [...] through: Primary Insurance: CIGNA MANAGED MEDICARE Payor: [employer] MEDICARE / Plan: [employer] TRUE CHOICE MANAGED MEDICARE PPO / Product [...] discuss discharge planning needs. ?? provide the [facility], Office of Care Management letter from the Emergency Veterinary Assistant pertaining to rehab referrals. ?? provide a letter describing our affiliations within the [facility] and educate about their right to choose where referrals are sent. ?? provide a list of Home Health Agencies / Durable Medical Equipment vendors which serve their preferred geographic area. ?? provided patient with [facility] Star Quality Rating handout. They have requested referrals to: [facility] [employer]. [address] [place] [id number] Note routed to a Senior Power Plant Operator who will communicate referrals to facilities and [...] as needed. CABG tomorrow. Consult Note - Mlel Quiroga, [facility] - 08/26/2021 9:42 AM EDT TelePharmacy Home Medication List Update for Medication Reconciliation [...] be reconciled bythe provider. Please contact the TelePharmacy Medication Reconciliation Pharmacist at for any questions. Mell Quiroga RPH Initial Assessments - Ramana Chavez, RN - 08/25/2021 2:28 PM EDTSummary: No [...] discharged to wait at home for 08/28 laborer cook house appointment.) Patient receiving hospital care under Inpatient status. Admission order reviewed. Primary Insurance on file: CIGNA MANAGED MEDICARE Secondary Insurance on file: None Primary care provider on file: Nisa Machado MD [phone] Pharmacy: [id number] [place] [address] Advance Care Planning: Attempt Cardiopulmonary Resuscitation - Inpatient Received -Advanced Directive: Yes, on file Who is your DPOA-HC?: Child (Amor Patel [phone] is primary DPOAH; amor Goldsmith [phone] secondary.) Current Functional Ability: Independent Functional Status Prior to Admission: Independent Home Environment: Others in the home: spouse, child(patel), adult (Lives with Lyudmila and son Jorge). Current Living Arrangements: home/apartment/condo. Accessibility Concerns:Multilevel home Current DME: none [address] [place] [id number] Social & Family Supports: Extended Emergency Contact Information Primary Emergency Contact: Lyudmila Porter Address: [address] [place], [place] [id number] [facility] Mobile Relation: Spouse Secondary Emergency Contact: Jorge Bingham Address: [address] [place], [place] [id number] [place] [address] Mobile Relation: Child Current Care Provided by: [...] private vehicle when medically ready. Registered Nurse Truck Supervisor / Mechanical Manager will continue to follow patient???s progress and [...] Description 11/26/2021 Appointment Radiology Camron Guthrie MD [facility] CARDIOTHORACIC [place], [place] [address] (Wo rk) 11/26/2021 Office Visit Cardiac Surgery Cmaron Guthrie MD [facility] CARDIOTHORACIC [address] [place] [address] (Wo rk) Scheduled Orders Name Type Priority Associated Order Schedule Diagnoses Transesophageal Echo/OR Echocardiography Routine Coronary josee ry One Time for 1 disease of egegik Occurrence s artery of egegik starting heart with stable 08/25/2021 until angina pectoris 08/25/2021 Transesophageal Echo/OR Echocardiography Routine Coronary josee ry One Time for 1 disease involving Occurrence s egegik coronary starting artery of egegik 08/25/2021 until heart with 08/25/2021 unstable angina [...] 08/28/2021 1:22 Coronary artery VEIN(S) FOR CABG ([facility] PM EDT disease involving 0.31) egegik coronary artery of egegik heart with unstable angina pectoris @CABG; 5 VENOUS GRAFTS & Yes 08/28/2021 1:22 Coronary josee ry ARTERIAL GRAFT ([facility] PM EDT disease involving 14.14) egegik coronary artery of egegik heart with unstable angina pectoris @CABG, USING ARTERIAL Yes 08/28/2021 1:22 Coronary artery GRAFT;SINGLE ARTERIAL PM EDT disease involving GRAFT (WRVU 33.75) egegik coronary artery of egegik heart with unstable angina pectoris TRANSESOPHAGEAL Routine [...] VEIN(S) FOR CABG AM EDT disease involving egegik coronary artery of egegik heart with unstable angina pectoris @CABG,USING ARTERIAL Routine 08/28/2021 9:47 Coronary artery GRAFT;SINGLE ARTERIAL AM EDT disease involving GRAFT egegik coronary artery of egegik heart with unstable angina pectoris @CABG;5 VENOUS GRAFTS & Routine 08/28/2021 9:47 Coronary arter y ARTERIAL GRAFT AM EDT disease involving egegik coronary artery of egegik heart with unstable angina pectoris HC UNFRACTIONATED [...] EXT ORDR/RSLT Potassium (09/02/2021 4:15 AM EDT) P athologist Signature Potassium 4.0 3.5 - 5.0 [facility] mmol/[facility] Comment: Please note: ??Patients with WBC [...] Guthrie MD CHEMISTRY ORDERABLES Performing Organization Address City/[facility]/ZIP Code Phon e Number [address] Potassium (09/01/2021 4:48 AM EDT) athologist Signature Potassium 4.3 3.5 - 5.0 [facility] mmol/[facility] Comment: Please note: ??Patients with WBC [...] Guthrie MD CHEMISTRY ORDERABLES Performing Organization Address City/[facility]/ZIP [facility] [place] [address] XR Chest PA & [...] who have questions please contact the health long term acute care registered nurse that requested your imaging first. ? Narrative 08/31/2021 8:59 AM EDT EXAMINATION: XR CHEST PA AND LATERAL (GENERIC) CLINICAL HISTORY: s/p CABG TECHNIQUE: PA and lateral views of the chest COMPARISON: August 28, 2021 FINDINGS: See impression. Procedure Note Geovani Collins MD - 08/31/2021For matting of this note might be different from the original. EXAMINATION: XR CHEST PA AND LATERAL (GE [...] ho have questions please contact the health long term acute care registered nurse that requested your imaging first. Camron Guthrie MD IMG DX ORDERABLES (ABNORMAL) Differential, Automated (08/30/2021 11:08 PM EDT) Patholo gist Method Time Signature Neutrophils % 74.4 % [facility] Neutr Abs (ANC) 7.11 (H) 1.70 - [facility] 6.10 [facility] x10(3)/[facility] LABORATORY Lymphocytes % 10.7 % [facility] Lymphocytes Abs 1.0 0.9 - 3.2 [facility] x10(3)/[facility] LABORATORY Monocytes % 11.3 % [facility] Monocyte Abs 1.1 (H) 0.3 - 0.9 [facility] x10(3)/[facility] LABORATORY Eosinophils % 2.8 % [facility] Eosinophils Abs 0.3 0.0 - 0.4 [facility] x10(3)/[facility] LABORATORY Basophils % 0.4 % [facility] Basophils Abs 0.0 0.0 - 0.1 [facility] x10(3)/[facility] [facility] Immature Gran % 0.40 % [facility] LABORATORY Comment: Immature granulocytes(IG's)percentage an d absolute count will include metamyelocytes, myelocytes, and promyelo cytes. Blood smears from CBCs yielding IG's will be scanned manually for concor dance. If this scan disagrees with the automated IG or if promyelocytes are not ed, a manual differential will be performed. Lily Gran Abs 0.04 0.00 - 0.04 x10(3)/[facility] LABORATORY Specimen Anatomical Collection Method Collection Time Receive d Time (Source) Location / / Volume Laterality Blood 08/30/2021 11:08 08/30/2021 PM EDT 11:22 PM EDT Resulting Agency Comment Spec In Lab Jay SANCHZE HEMATOLOGY ORDERABLES Performing Organization Address City/State/[place] [address] (ABNORMAL) Hemogram (08/30/2021 11:08 PM EDT) Analysis Performed At [facility] logist Time Signature WBC 9.6 (H) 4.0 - 9.5 [facility] x10(3)/[facility] LABORATORY RBC 3.64 (L) 4.58 - [facility] x10(6)/[facility] LABORATORY Hemoglobin 11.2 (L) 13.7 - [facility] 16.5 g/dL [facility] LABORATORY Hematocrit 32.6 (L) 40.5 - [facility] 48.5 % [facility] LABORATORY MCV 89.6 82.9 - [facility] 93.1 [facility] LABORATORY MCH 30.8 27.5 - [facility] 32.1 pg [facility] LABORATORY MCHC 34.4 32.0 - [facility] 35.7 g/dL [facility] LABORATORY Platelets 162 145 - 357 [facility] x10(3)/[facility] LABORATORY RDWSD 39.8 36.0 - [facility] 45.0 [facility] LABORATORY RDWCV 12.2 11.4 - [facility] 13.8 % [facility] LABORATORY MPV 10.8 7.6 - 12.9 [facility] LABORATORY nRBC % Auto 0.0 % [facility] LABORATORY nRBC Abs Auto 0.000 0.000 - [facility] 0.000 [facility] x10(3)/[facility] LABORATORY Specimen Anatomical Collection Method Collection Time Receive d Time (Source) Location / / Volume Laterality Blood 08/30/2021 11:08 08/30/2021 PM EDT 11:22 PM EDT Resulting Agency Comment Spec In Lab Jay SANCHEZ HEMATOLOGY ORDERABLES Performing Organization Address City/State/[place] [address] (ABNORMAL) Basic Metabolic Panel (non-fasting) (08/30/2021 11:08 PM EDT) P athologist Signature Glucose Lvl 125 65 - 199 [facility] mg/dL [facility] LABORATORY Comment: Diabetes: >=200 mg/dL plus symp toms BUN 13 10 - 20 mg/dL [facility] LABORATORY Creatinine 0.88 0.80 - 1.50 mg/dL [facility] LABORATORY Sodium 136 135 - 145 mmol/L [facility] LABORATORY Potassium 3.8 3.5 - 5.0 mmol/L [facility] LABORATORY Comment: Please note: ??Patients with WBC >100,00 0 may have falsely elevated Potassium levels. ??For accurate Potassium quantif ication in these patients send serum separator tube (gold top) for subsequent determinations. ??Contact the Clinical Chemistry Laboratory if there are any qu estions. Chloride 102 98 - 107 mmol/L [facility] LABORATORY CO2 26 22 - 31 mmol/L [facility] LABORATORY Anion Gap 8 5 - 15 mmol/L [facility] LABORATORY Calcium 8.2 (L) 8.5 - 10.5 mg/dL [facility] LABORATORY Estimated GFR 94 >=60 mL/min/1.73 m?? [facility] LABORATORY Comment: This patient's estimated GFR [...] Organization Address City/State/[place] [address] Potassium (08/30/2021 5:00 AM EDT) athologist Signature Potassium 4.2 3.5 - 5.0 [facility] LABORATORY Comment: Please note: ??Patients with WBC >100,00 0 may have falsely elevated Potassium levels. ??For accurate Potassium quantif ication in these patients send serum separator tube (gold top) for subsequent determinations. ??Contact the Clinical Chemistry Laboratory if there are any qu estions. Specimen Anatomical Collection Method Collection Time Receive d Time (Source) Location / / Volume Laterality Blood 08/30/2021 5:00 AM 2 5:14 EDT AM EDT Resulting Agency Comment Spec In Lab Camron Guthrie MD CHEMISTRY ORDERABLES Performing Organization Address City/State/ZIP Code Phon e Number [address] POCT Glucose (08/29/2021 12:15 PM EDT) athologist Signature POC Glucose 125 65 - 199 [facility] [place] mg/dL [facility] LABORATORY Comment: Supplemental ranges: <140 mg/dL before meals <180 mg/dL all other times of the day Specimen Anatomical Collection Method Collection Time Receive d Time (Source) Location / / Volume Laterality Blood 08/29/2021 12:15 08/29/2021 PM EDT 12:15 PM EDT Camron Guthrie MD POINT OF CARE TEST ORDERABLE S Performing Organization Address City/State/ZIP Code Phon e Number [address] POCT Glucose (08/29/2021 8:08 AM EDT) athologist Signature POC Glucose 143 65 - 199 [place] mg/dL [facility] LABORATORY Comment: Supplemental ranges: <140 mg/dL before meals <180 mg/dL all other times of the day Specimen Anatomical Collection Method Collection Time Receive d Time (Source) Location / / Volume Laterality Blood 08/29/2021 8:08 AM 2 8:08 EDT AM EDT Camron Guthrie MD POINT OF CARE TEST ORDERABLE S Performing Organization Address City/State/ZIP Code Phon e Number [address] POCT Glucose (08/29/2021 6:00 AM EDT) athologist Signature POC Glucose 121 65 - 199 [place] mg/dL [facility] LABORATORY Comment: Supplemental ranges: <140 mg/dL before meals <180 mg/dL all other times of the day Specimen Anatomical Collection Method Collection Time Receive d Time (Source) Location / / Volume Laterality Blood 08/29/2021 6:00 AM 6:00 EDT AM EDT Camron Guthrie MD POINT OF CARE TEST ORDERABLE S Performing Organization Address City/State/[place] [address] (ABNORMAL) Differential, Automated (08/29/2021 2:15 AM EDT) [facility] Method Time Signature Neutrophils % 89.6 % [facility] LABORATORY Neutr Abs (ANC) 9.77 (H) 1.70 - [facility] 6.10 [facility] x10(3)/[facility] LABORATORY Lymphocytes % 4.1 % [facility] LABORATORY Lymphocytes Abs 0.4 (L) 0.9 - 3.2 [facility] x10(3)/[facility] LABORATORY Monocytes % 5.2 % [facility] LABORATORY Monocyte Abs 0.6 0.3 - 0.9 [facility] x10(3)/[facility] LABORATORY Eosinophils % 0.2 % [facility] LABORATORY Eosinophils Abs 0.0 0.0 - 0.4 [facility] x10(3)/[facility] LABORATORY Basophils % 0.4 % [facility] LABORATORY Basophils Abs 0.0 0.0 - 0.1 [facility] x10(3)/[facility] LABORATORY Immature Gran % 0.50 % [facility] LABORATORY Comment: Immature granulocytes(IG's)percentage an d absolute count will include metamyelocytes, myelocytes, and promyelo cytes. Blood smears from CBCs yielding IG's will be scanned manually for concor dance. If this scan disagrees with the automated IG or if promyelocytes are not ed, a manual differential will be performed. Lily Gran Abs 0.06 (H) 0.00 - 0.04 x10(3)/[facility] LABORATORY Specimen Anatomical Collection Method Collection Time Receive d Time (Source) Location / / Volume Laterality Blood 08/29/2021 2:15 AM 2 2:20 EDT AM EDT Resulting Agency Comment Spec In Lab William SANCHEZ HEMATOLOGY ORDERABLES Performing Organization Address City/State/[place] [address] (ABNORMAL) Hemogram (08/29/2021 2:15 AM EDT) Analysis Performed At Patho logist Time Signature WBC 10.9 (H) 4.0 - 9.5 [facility] x[facility](3[facility] LABORATORY RBC 4.20 (L) 4.58 - [place] 5.54 [facility] x10(6)/[facility] LABORATORY Hemoglobin 12.9 (L) 13.7 - [facility] 16[facility] g/dL [facility] LABORATORY Hematocrit 37.4 (L) 40.5 - [facility] 48.5 % [facility] LAB[facility]ATORY MCV 89.0 82.9 - [facility] 93.1 [facility] LABORATORY MCH 30.7 27.5 - [facility] 32.1 pg [facility] LABORATORY MCHC 34.5 32.0 - [facility] 35.7 g/dL [facility] LABORATORY Platelets 180 145 - 357 [facility] x10(3)/[facility] LABORATORY RDWSD 38.7 36.0 - [facility] 45.0 [facility] LABORATORY RDWCV 11.9 11.4 - [facility] 13.8 % [facility] LABORATORY MPV 10.5 7.6 - 12.9 [facility] LABORATORY nRBC % Auto 0.0 % [facility] LABORATORY nRBC Abs Auto 0.000 0.000 - [facility] [place] 0.000 [facility] x10(3)/[facility] LABORATORY Specimen Anatomical Collection Method Collection Time Receive d Time (Source) Location / / Volume Laterality Blood 08/29/2021 2:15 AM 2 2:20 EDT AM EDT Resulting Agency Comment Spec In Lab William SANCHEZ HEMATOLOGY ORDERABLES Performing Organization Address City/State/[place] [address] (ABNORMAL) Basic Metabolic Panel (non-fasting) (08/29/2021 2:15 AM EDT) P athologist Signature Glucose Lvl 146 65 - 199 [facility] mg/dL [facility] LABORATORY Comment: Diabetes: >=200 mg/dL plus symp toms BUN 10 10 - 20 mg/dL [facility] LABORATORY Creatinine 0.75 (L) 0.80 - 1.50 mg/dL [facility] LABORATORY Sodium 135 135 - 145 mmol/L [facility] LABORATORY Potassium 4.1 3.5 - 5.0 mmol/L [facility] LABORATORY Comment: Please note: ??Patients with WBC >100,00 0 may have falsely elevated Potassium levels. ??For accurate Potassium quantif ication in these patients send serum separator tube (gold top) for subsequent determinations. ??Contact the Clinical Chemistry Laboratory if there are any qu estions. Chloride 105 98 - 107 mmol/L [facility] LABORATORY CO2 21 (L) 22 - 31 mmol/L [facility] LABORATORY Anion Gap 9 5 - 15 mmol/L [facility] LABORATORY Calcium 7.7 (L) 8.5 - 10.5 mg/dL [facility] LABORATORY Estimated GFR 98 >=60 mL/min/1.73 m?? [facility] LABORATORY Comment: This patient's estimated GFR [...] Organization Address City/State/[place] [address] (ABNORMAL) Troponin (08/29/2021 2:15 AM EDT) athologist Signature Troponin-T 0.45 (H) 0.00 - [facility] 0.00 ng/mL [facility] LABORATORY Comment: The 99th percentile for Troponin T is le ss than 0.01 ng/mL, any detectable cTnT concentration using this assay should be considered elevated. According to the third universal definit ion of myocardial infarction the following criteria with a clinical prese ntation consistent with acute myocardial ischemia meets the diagnosis for a myocardial infarction (NE). Detection of a rise and/or fall of [...] additional sample may be indicated. Reference: Third [place] Definition of Myocardial Infarction. Journal of the [place] [employer] 2012;60:1581-98 Specimen Anatomical Collection Method Collection Time Receive d Time (Source) Location / / Volume Laterality Blood 08/29/2021 2:15 AM 2 2:20 EDT AM EDT Resulting Agency Comment Spec In Lab Camron Guthrie MD CHEMISTRY ORDERABLES Performing Organization Address City/[facility]/[place] [address] POCT Glucose (08/29/2021 2:11 AM EDT) athologist Signature POC Glucose 135 65 - 199 [facility] [place] mg/dL [facility] LABORATORY Comment: Supplemental ranges: <140 mg/dL before meals <180 mg/dL all other times of the day Specimen Anatomical Collection Method Collection Time Receive d Time (Source) Location / / Volume Laterality Blood 08/29/2021 2:11 AM 2 2:11 EDT AM EDT Camron Guthrie MD POINT OF CARE TEST ORDERABLE S Performing Organization Address City/[facility]/[place] [address] POCT Glucose (08/29/2021 12:02 AM EDT) athologist Signature POC Glucose 122 65 - 199 [facility]dL [facility] LAB[facility]ORY Comment: Supplemental ranges: <140 mg/dL before meals <180 mg/dL all other times of the day Specimen Anatomical Collection Method Collection Time Receive d Time (Source) Location / / Volume Laterality Blood 08/29/2021 12:02 08/29/2021 AM EDT 12:02 AM EDT Camron Guthrie MD POINT OF CARE TEST ORDERABLE S Performing Organization Address City/State/[place] [address] (ABNORMAL) Hemoglobin (08/28/2021 9:51 PM EDT) athologist Signature Hemoglobin 13.1 (L) 13.7 - [facility] 16.5 g/dL [facility] LABORATORY Specimen Anatomical Collection Method Collection Time Receive d Time (Source) Location / / Volume Laterality Blood 08/28/2021 9:51 PM 2 EDT 10:01 PM EDT Resulting Agency Comment Spec In Lab Camron Guthrie MD HEMATOLOGY ORDERABLES Performing Organization Address City/State/[place] [address] Potassium (08/28/2021 9:51 PM EDT) athologist Signature Potassium 4.6 3.5 - 5.0 [facility] mmol/L [facility] LABORATORY Comment: Please note: ??Patients with [...] Organization Address City/State/[place] [address] (ABNORMAL) BLOOD GAS 2 ARTERIAL (08/28/2021 9:49 PM EDT) Analysis Performed At Patho logist Time Signature pH Art 7.34 (L) 7.35 - [facility] 7.45 [facility] LABORATORY pCO2 Art 42 35 - 45 [facility] mmHg [facility] LABORATORY pO2 Art 90 85 - 104 [facility] LABORATORY HCO3 Art 21.7 20.0 - [facility] 26.0 [facility] mmol/[facility] LABORATORY BE Art -4.2 (L) -3.0 - 3.0 [facility] mmol/L [facility] LABORATORY Hgb Blood Gas 14.2 13.7 - [facility] 16.5 g/dL [facility] LABORATORY O2HB Art 94.7 94.0 - [facility] 97.0 % [facility] LABORATORY COHB Art 0.3 % [facility] LABORATORY Comment: Nonsmokers: 0.5-1.5% COHB Smokers: Variable, but usually less than 10% Toxic: 20-30% COHB Lethal: Greater than 60% COHB METHB Art 0.8 <=1.5 % [facility] LABORATORY Na Whole Blood 137 135 - 145 mmol/L [facility] LABORATORY K Whole Blood 4.5 3.5 - 5.0 mmol/L [facility] LABORATORY Comment: Please note: Patients with WBC >100,000 may have falsely elevated Potassium levels. Contact the Clinical Chemistry L aboratory if there are any questions. ICa Whole Blood 1.22 1.15 - 1.33 mmol/L [facility] LABORATORY Comment: Note: ??Total bilirubin higher than 20 m g/dL may lead to falsely low ionized calcium. CL Whole Blood 106 98 - 107 mmol/L [facility] LABORATORY Gluc Whole Bld 145 65 - 199 mg/dL [facility] LABORATORY Comment: Diabetes: >=200 mg/dL plus symp toms. Lactate WB 1.4 0.5 - 2.2 mmol/L [facility] LABORATORY FIO2 Art 40 % [facility] LABORATORY PF Ratio Art 225 [facility] LABORATORY Specimen Anatomical Collection Method Collection Time Receive d Time (Source) Location / / Volume Laterality Blood 08/28/2021 9:49 PM 9:49 EDT PM EDT Camron Guthrie MD CHEMISTRY ORDERABLES Performing Organization Address City/State/[place] [address] XR Chest One View [...] who have questions please contact the health long term acute care registered nurse that requested your imaging first. ? Narrative 08/28/2021 7:37 PM EDT EXAMINATION: XR [...] ho have questions please contact the health long term acute care registered nurse that requested your imaging first. Camron Guthrie MD IMG DX ORDERABLES XR [...] who have questions please contact the health long term acute care registered nurse that requested your imaging first. ? Narrative 08/28/2021 7:04 PM EDT EXAMINATION: XR CHEST ONE VIEW CLINICAL HISTORY: s/p cabg TECHNIQUE: 1 view of the chest COMPARISON: August 23, 2021 FINDINGS: Endotracheal tube tip is obscured by julio c rnotomy cables. Mediastinal drains. Enteric tube satisfactorily positioned w ith port just beyond the anticipated region of the gastroesophageal junction. Right internal jugular [place] catheter tip in the descending interloba r [...] of the gastroesophageal junction. Right internal jugular [place] catheter tip in the descending interloba r [...] ho have questions please contact the health long term acute care registered nurse that requested your imaging first. Camron Guthrie MD IMG DX ORDERABLES (ABNORMAL) BLOOD GAS 2 ARTERIAL (08/28/2021 6:32 PM EDT) Analysis Performed At Patho logis Time Signature pH Art 7.41 7.35 - [facility] 7.45 [facility] LABORATORY pCO2 Art 33 (L) 35 - 45 [facility] LABORATORY pO2 Art 399 (H) 85 - 104 [facility] LABORATORY HCO3 Art 20.5 20.0 - [facility] 26.0 [facility] mmol/L [facility] LABORATORY BE Art -4.1 (L) -3.0 - 3.0 [facility] mmol/L [facility] LABORATORY Hgb Blood Gas 12.4 (L) 13.7 - [facility] 16.5 g/dL [facility] O2HB Art 97.9 (H) 94.0 - [facility] 97.0 % [facility] LABORATORY COHB Art 0.3 % [facility] LABORATORY Comment: Nonsmokers: 0.5-1.5% COHB Smokers: Variable, but usually less than 10% Toxic: 20-30% COHB Lethal: Greater than 60% COHB METHB Art 0.9 <=1.5 % [facility] LABORATORY Na Whole Blood 136 135 - 145 mmol/L [facility] LABORATORY K Whole Blood 3.9 3.5 - 5.0 mmol/L [facility] LABORATORY Comment: Please note: Patients with WBC >100,000 may have falsely elevated Potassium levels. Contact the Clinical Chemistry L aboratory if there are any questions. ICa Whole Blood 1.12 (L) 1.15 - 1.33 mmol/L [facility] LABORATORY Comment: Note: ??Total bilirubin higher than 20 m g/dL may lead to falsely low ionized calcium. CL Whole Blood 109 (H) 98 - 107 mmol/L [facility] LABORATORY Gluc Whole Bld 122 65 - 199 mg/dL [facility] LABORATORY Comment: Diabetes: >=200 mg/dL plus symp toms. Lactate WB 1.0 0.5 - 2.2 mmol/L [facility] LABORATORY FIO2 Art 100 % [facility] LABORATORY PF Ratio Art 399 [facility] LABORATORY Specimen Anatomical Collection Method Collection Time Receive d Time (Source) Location / / Volume Laterality Blood 08/28/2021 6:32 PM 6:32 EDT PM EDT Camron Guthrie MD CHEMISTRY ORDERABLES Performing Organization Address City/State/[place] [address] EKG 12 Lead (08/28/2021 6:12 PM EDT) [facility] Method Time Signature Ventricular rate 67 BPM MUSE SYSTEM Atrial Rate 67 BPM MUSE SYSTEM P-R Interval 186 ms MUSE SYSTEM QRS Duration 104 ms MUSE SYSTEM Q-T Interval 448 ms MUSE SYSTEM QTC Calculated 473 ms MUSE SYSTEM (Bezet) Calculated P [place] 75 degrees MUSE SYSTEM Calculated R [place] -30 degrees MUSE SYSTEM Calculated T [place] 26 degrees MUSE SYSTEM INTERPRETATION Normal sinus rhythm MUSE SYSTEM Incomplete right bundle branch block Anterior infarct (cited on or before 23-AUG-2021) Abnormal ECG When compared with ECG of 27-AUG-2021 11:43, Vent. rate has increased BY ??23 BPM Confirmed by Ronny Argueta ([id number]) on 08/29/2021 5:46:3 6 PM Specimen Anatomical Collection Method Collection Time Receive d Time (Source) Location / / Volume Laterality 08/28/2021 6:12 PM 2 5:46 EDT PM EDT Camron Guthrie MD ECG ORDERABLES Performing Organization Address [facility]/ZIP Code Phon e Number MUSE SYSTEM Prepare Platelets, Apheresis (08/28/2021 5:30 PM EDT) athologist Signature Dispensed? Yes [facility] LABORATORY Specimen Anatomical Collection Method Collection Time Receive d Time (Source) Location / / Volume Laterality Blood 08/28/2021 5:30 PM 2 5:26 EDT PM EDT Camron Guthrie MD BLOOD BANK ORDERABLES Performing Organization Address City/[facility]/[place] [address] Scan, Peripheral Blood (08/28/2021 5:01 PM EDT) [facility] Method Time Signature Plat Estimate Decreased [facility] LABORATORY RBC Morphology Normal [facility] LABORATORY Specimen Anatomical Collection Method Collection Time Receive d Time (Source) Location / / Volume Laterality Blood 08/28/2021 5:01 PM 2 5:17 EDT PM EDT Resulting Agency Comment Spec In Lab Haydee Mejia MD HEMATOLOGY ORDERABLES Performing Organization Address City/[facility]/[place] [address] (ABNORMAL) Fibrinogen (08/28/2021 5:01 PM EDT) P athologist Signature Fibrinogen 193 (L) 200 - 393 [facility] mg/dL [facility] LABORATORY Comment: OR Result called by [...] Linton MD HEMATOLOGY ORDERABLES Performing Organization Address [facility]/[place] [address] APTT (08/28/2021 5:01 PM EDT) P athologist Signature PTT 31 25 - 37 sec [facility] LABORATORY Comment: OR Result called by ?? CHUYK OR Result s read back by: ? [...] Linton MD HEMATOLOGY ORDERABLES Performing Organization Address City/[facility]/[place] [address] (ABNORMAL) Prothrombin Time (08/28/2021 5:01 PM EDT) P athologist Signature PT 16.6 (H) 9.4 - 12.5 [facility] LABORATORY Comment: OR Result called by [...] Organization Address City/State/[place] [address] (ABNORMAL) Hemogram (08/28/2021 5:01 PM EDT) athologist Signature WBC 3.8 (L) 4.0 - 9.5 [facility] x10(3)/[facility] LABORATORY RBC 2.96 (L) 4.58 - [facility] 5.54 [facility] x10(6)/[facility] LABORATORY Hemoglobin 9.2 (L) 13.7 - [facility] 16.5 g/dL [facility] LABORATORY Hematocrit 27.0 (L) 40.5 - [facility] 48.5 % [facility] LABORATORY Comment: This result has been called to ALYCIA LERMA by Iesha Gonzalez on 08 28 2021 at 1813, and has been read back. correct platelet count MCV 91.2 82.9 - 93.1 fL [facility] LABORATORY MCH 31.1 27.5 - 32.1 pg [facility] LABORATORY MCHC 34.1 32.0 - 35.7 g/dL [facility] LABORATORY Platelets 41 (L) 145 - 357 x10(3)/[facility] LABORATORY RDWSD 39.7 36.0 - 45.0 fL [facility] LABORATORY RDWCV 11.9 11.4 - 13.8 % [facility] LABORATORY MPV 10.8 7.6 - 12.9 fL [facility] LABORATORY nRBC % Auto 0.0 % [facility] LABORATORY nRBC Abs Auto 0.000 0.000 - 0.000 x10(3)/[facility] LABORATORY Specimen Anatomical Collection Method Collection Time Receive d Time (Source) Location / / Volume Laterality Blood 08/28/2021 5:01 PM 5:17 EDT PM EDT Resulting Agency Comment Spec In Lab Julio C Linton MD HEMATOLOGY ORDERABLES Performing Organization Address City/State/[place] [address] (ABNORMAL) BLOOD GAS 2 ARTERIAL (08/28/2021 4:34 PM EDT) Analysis Performed At Patho logist Time Signature pH Art 7.35 7.35 - [facility] 7.45 [facility] LABORATORY pCO2 Art 44 35 - 45 [facility] LABORATORY pO2 Art 484 (H) 85 - 104 [facility] LABORATORY HCO3 Art 23.6 20.0 - [facility] 26.0 [facility] mmol/L [facility] LABORATORY BE Art -2.1 -3.0 - 3.0 [facility] mmol/L [facility] LABORATORY Hgb Blood Gas 10.1 (L) 13.7 - [facility] 16.5 g/dL [facility] LABORATORY O2HB Art 98.6 (H) 94.0 - [facility] 97.0 % [facility] LAB[facility]ORY COHB Art 0.2 % [facility] LABORATORY Comment: Nonsmokers: 0.5-1.5% COHB Smokers: Variable, but usually less than 10% Toxic: 20-30% COHB Lethal: Greater than 60% COHB METHB Art 0.3 <=1.5 % [facility] LABORATORY Na Whole Blood 132 (L) 135 - 145 mmol/L [facility] LABORATORY K Whole Blood 4.6 3.5 - 5.0 mmol/L [facility] LABORATORY Comment: Please note: Patients with WBC >100,000 may have falsely elevated Potassium levels. Contact the Clinical Chemistry L aboratory if there are any questions. ICa Whole Blood 1.05 (L) 1.15 - 1.33 mmol/L [facility] LABOR[facility]ORY Comment: Note: ??Total bilirubin higher than 20 m g/dL may lead to falsely low ionized calcium. CL Whole Blood 106 98 - 107 mmol/L [facility] LABORATORY Gluc Whole Bld 114 65 - 199 mg/dL [facility] LABORATORY Comment: Diabetes: >=200 mg/dL plus symp toms. Lactate WB 1.0 0.5 - 2.2 mmol/L [facility] LABORATORY Specimen Anatomical Collection Method Collection Time Receive d Time (Source) Location / / Volume Laterality Blood 08/28/2021 4:34 PM 4:34 EDT PM EDT Camron Guthrie MD CHEMISTRY ORDERABLES Performing Organization Address City/State/[place] [address] Platelet count (08/28/2021 4:19 PM EDT) athologist Signature Platelets 159 145 - 357 [facility] x10(3)/[facility] LABORATORY Plat Immature 4.2 0.0 - 7.4 [facility] % % [facility] Comment: Limitation of the Immature Platelet Frac tion (IPF)-May be less reliable when the platelet count is less than 80x182/u L due to statistical imprecision. The IPF [...] in a decreased state of production. References: [employer] The Clinical Value of the Immature Platelet Fraction (IPF) in Cell Recovery Document Number [id number] 07/2010 [employer] The Role of the Imm ature Platelet Fraction (IPF) in the Differential Diagnosis of Thrombocytopen ia, Document [id number] V007/04/13 P007/06 Specimen Anatomical Collection Method Collection Time Receive d Time (Source) Location / / Volume Laterality Blood 08/28/2021 4:19 PM 2 4:28 EDT PM EDT Resulting Agency Comment Spec In Lab Camron Guthrie MD HEMATOLOGY ORDERABLES Performing Organization Address City/[facility] [place] [address] (ABNORMAL) Hemoglobin and Hematocrit, blood (08/28/2021 4:19 PM EDT) athologist Signature Hemoglobin 9.2 (L) 13.7 - 16.5 [facility] g/dL [facility] Comment: This result has been called to RUPAL CONLEY by Mayela Linder on 08 28 2021 at 1637, and has been read back. Hematocrit 27.0 (L) 40.5 - 48.5 % [facility] Comment: This result has [...] Guthrie MD HEMATOLOGY ORDERABLES Performing Organization Address City/[facility]/[place] [address] (ABNORMAL) Fibrinogen (08/28/2021 4:19 PM EDT) P athologist Signature Fibrinogen 190 (L) 200 - 393 [facility] Comment: OR Result called by [...] Organization Address City/State/[place] [address] (ABNORMAL) BLOOD GAS 2 ARTERIAL (08/28/2021 4:00 PM EDT) Analysis Performed At Patho logist Time Signature pH Art 7.38 7.35 - [facility] 7.45 [facility] LABORATORY pCO2 Art 41 35 - 45 [facility] mmHg [facility] LABORATORY pO2 Art 483 (H) 85 - 104 [facility] LABORATORY HCO3 Art 23.8 20.0 - [facility] 26.0 [facility] mmol/L [facility] LABORATORY BE Art -1.4 -3.0 - 3.0 [facility] mmol/L [facility] LABOR[facility]ORY Hgb Blood Gas 10.1 (L) 13.7 - [facility] 16.5 g/dL [facility] LABORATORY O2HB Art 98.7 (H) 94.0 - [facility] 97.0 % [facility] LAB[facility] COHB Art 0.2 % [facility] LAB[facility] Comment: Nonsmokers: 0.5-1.5% COHB Smokers: Variable, but usually less than 10% Toxic: 20-30% COHB Lethal: Greater than 60% COHB METHB Art 0.3 <=1.5 % [facility] LABORATORY Na Whole Blood 132 (L) 135 - 145 mmol/L [facility]OR[facility] K Whole Blood 4.9 3.5 - 5.0 mmol/L [facility] Comment: Please note: Patients with WBC >100,000 may have falsely elevated Potassium levels. Contact the Clinical Chemistry L aboratory if there are any questions. ICa Whole Blood 1.03 (L) 1.15 - 1.33 mmol/L [facility] Comment: Note: ??Total bilirubin higher than 20 m g/dL may lead to falsely low ionized calcium. CL Whole Blood 105 98 - 107 mmol/L [facility]ORY Gluc Whole Bld 104 65 - 199 mg/dL [facility]OR[facility]ORY Comment: Diabetes: >=200 mg/dL plus symp toms. Lactate WB 1.0 0.5 - 2.2 mmol/L [facility] LABORATORY Specimen Anatomical Collection Method Collection Time Receive d Time (Source) Location / / Volume Laterality Blood 08/28/2021 4:00 PM 4:00 EDT PM EDT Camron Guthrie MD CHEMISTRY ORDERABLES Performing Organization Address City/State/[place] [address] (ABNORMAL) BLOOD GAS 2 ARTERIAL (08/28/2021 3:22 PM EDT) Analysis Performed At Patho logist Time Signature pH Art 7.37 7.35 - [facility] 7.45 [facility] pCO2 Art 42 35 - 45 [facility] mmHg [facility] pO2 Art 527 (H) 85 - 104 [facility] mmHg [facility] HCO3 Art 24.1 20.0 - [facility] 26.0 [facility] mmol/L [facility] LABORATORY BE Art -1.2 -3.0 - 3.0 [facility] mmol/L [facility] Hgb Blood Gas 10.1 (L) 13.7 - [facility] 16.5 g/dL [facility] O2HB Art 98.8 (H) 94.0 - [facility] 97.0 % [facility] COHB Art 0.3 % [facility] Comment: Nonsmokers: 0.5-1.5% COHB Smokers: Variable, but usually less than 10% Toxic: 20-30% COHB Lethal: Greater than 60% COHB METHB Art 0.3 <=1.5 % [facility]ORY Na Whole Blood 132 (L) 135 - 145 mmol/L [facility] K Whole Blood 4.7 3.5 - 5.0 mmol/L [facility] Comment: Please note: Patients with WBC >100,000 may have falsely elevated Potassium levels. Contact the Clinical Chemistry L aboratory if there are any questions. ICa Whole Blood 1.02 (L) 1.15 - 1.33 mmol/L [facility] Comment: Note: ??Total bilirubin higher than 20 m g/dL may lead to falsely low ionized calcium. CL Whole Blood 106 98 - 107 mmol/L [facility] Gluc Whole Bld 94 65 - 199 mg/dL [facility] Comment: Diabetes: >=200 mg/dL plus symp toms. Lactate WB 1.1 0.5 - 2.2 mmol/L [facility] LABORATORY Specimen Anatomical Collection Method Collection Time Receive d Time (Source) Location / / Volume Laterality Blood 08/28/2021 3:22 PM 2 3:22 EDT PM EDT Camron Guthrie MD CHEMISTRY ORDERABLES Performing Organization Address City/State/[place] [address] (ABNORMAL) BLOOD GAS 2 ARTERIAL (08/28/2021 3:00 PM EDT) Analysis Performed At Patho logist Time Signature pH Art 7.33 (L) 7.35 - [facility] 7.45 [facility] pCO2 Art 43 35 - 45 [facility] mmHg [facility] pO2 Art 500 (H) 85 - 104 [facility] mmHg [facility] HCO3 Art 22.6 20.0 - [facility] 26.0 [facility] mmol/L [facility] LABORAT[facility] BE Art -3.3 (L) -3.0 - 3.0 [facility] mmol/L [facility] Hgb Blood Gas 10.8 (L) 13.7 - [facility] 16.5 g/dL [facility] O2HB Art 98.9 (H) 94.0 - [facility] 97.0 % [facility] COHB Art 0.3 % [facility] LAB[facility] Comment: Nonsmokers: 0.5-1.5% COHB Smokers: Variable, but usually less than 10% Toxic: 20-30% COHB Lethal: Greater than 60% COHB METHB Art 0.3 <=1.5 % [facility] Na Whole Blood 128 (L) 135 - 145 mmol/L [facility] K Whole Blood 3.7 3.5 - 5.0 mmol/L [facility] Comment: Please note: Patients with WBC >100,000 may have falsely elevated Potassium levels. Contact the Clinical Chemistry L aboratory if there are any questions. ICa Whole Blood 1.01 (L) 1.15 - 1.33 mmol/L [facility] Comment: Note: ??Total bilirubin higher than 20 m g/dL may lead to falsely low ionized calcium. CL Whole Blood 102 98 - 107 mmol/L [facility] Gluc Whole Bld 91 65 - 199 mg/dL [facility] Comment: Diabetes: >=200 mg/dL plus symp toms. Lactate WB 1.0 0.5 - 2.2 mmol/L [facility] LABOR[facility]ORY Specimen Anatomical Collection Method Collection Time Receive d Time (Source) Location / / Volume Laterality Blood 08/28/2021 3:00 PM 3:00 EDT PM EDT Camron Guthrie MD CHEMISTRY ORDERABLES Performing Organization Address City/State/[place] [address] (ABNORMAL) BLOOD GAS 2 VENOUS (08/28/2021 2:59 PM EDT) Analysis Performed At Patho logist Time Signature pH Dick 7.30 (L) 7.32 - [facility] 7.42 [facility] LABORATORY pCO2 Dick 48 41 - 51 [facility] LABORATORY pO2 Dick 66 (H) 25 - 40 [facility] LABORATORY HCO3 Dick 22.9 mmol/L [facility]OR[facility] BE Dick -3.5 mmol/L [facility]OR[facility]ORY Hgb Blood Gas 10.8 (L) 13.7 - [facility] 16.5 g/dL [facility] LABOR[facility]ORY O2HB Dick 89.6 % [facility]ORY COHB Dick 0.3 % [facility] Comment: Nonsmokers: 0.5-1.5% COHB Smokers: Variable, but usually less than 10% Toxic: 20-30% COHB Lethal: Greater than 60% COHB METHB Dick 0.3 <=1.5 % [facility] LABOR[facility]ORY Na Whole Blood 131 (L) 135 - 145 mmol/L [facility] K Whole Blood 3.8 3.5 - 5.0 mmol/L [facility] Comment: Please note: Patients with WBC >100,000 may have falsely elevated Potassium levels. Contact the Clinical Chemistry L aboratory if there are any questions. ICa Whole Blood 1.06 (L) 1.15 - 1.33 mmol/L [facility] Comment: Note: ??Total bilirubin higher than 20 m g/dL may lead to falsely low ionized calcium. CL Whole Blood 102 98 - 107 mmol/L [facility] Gluc Whole Bld 90 65 - 199 mg/dL [facility] Comment: Diabetes: >=200 mg/dL plus symp toms Lactate WB 1.0 0.5 - 2.2 mmol/L [facility] LABORATORY BGas Source Venous [facility] LABORATORY Specimen Anatomical Collection Method Collection Time Receive d Time (Source) Location / / Volume Laterality Blood 08/28/2021 2:59 PM 2 2:59 EDT PM EDT Camron Guthrie MD CHEMISTRY ORDERABLES Performing Organization Address City/State/[place] [address] (ABNORMAL) BLOOD GAS 2 ARTERIAL (08/28/2021 2:07 PM EDT) Analysis Performed At Patho logist Time Signature pH Art 7.46 (H) 7.35 - [facility] 7.45 [facility] LABOR[facility]ORY pCO2 Art 31 (L) 35 - 45 [facility] LABORATORY pO2 Art 314 (H) 85 - 104 [facility] LABORATORY HCO3 Art 21.5 20.0 - [facility] 26.0 [facility] mmol/L [facility] LABORATORY BE Art -2.4 -3.0 - 3.0 [facility] mmol/L [facility] LABORATORY Hgb Blood Gas 12.6 (L) 13.7 - [facility] 16.5 g/dL [facility] LABORATORY O2HB Art 98.9 (H) 94.0 - [facility] 97.0 % [facility] LAB[facility]ORY COHB Art 0.4 % [facility] LAB[facility]ORY Comment: Nonsmokers: 0.5-1.5% COHB Smokers: Variable, but usually less than 10% Toxic: 20-30% COHB Lethal: Greater than 60% COHB METHB Art 0.3 <=1.5 % [facility]ORY Na Whole Blood 139 135 - 145 mmol/L [facility] K Whole Blood 3.4 (L) 3.5 - 5.0 mmol/L [facility] Comment: Please note: Patients with WBC >100,000 may have falsely elevated Potassium levels. Contact the Clinical Chemistry L aboratory if there are any questions. ICa Whole Blood 1.08 (L) 1.15 - 1.33 mmol/L [facility] Comment: Note: ??Total bilirubin higher than 20 m g/dL may lead to falsely low ionized calcium. CL Whole Blood 111 (H) 98 - 107 mmol/L [facility] LAB[facility]ORY Gluc Whole Bld 91 65 - 199 mg/dL [facility] Comment: Diabetes: >=200 mg/dL plus symp toms. Lactate WB 0.9 0.5 - 2.2 mmol/L [facility] LABOR[facility]ORY Specimen Anatomical Collection Method Collection Time Receive d Time (Source) Location / / Volume Laterality Blood 08/28/2021 2:07 PM 2 2:07 EDT PM EDT Camron Guthrie MD CHEMISTRY ORDERABLES Performing Organization Address City/State/[place] [address] Transesophageal Echo/OR (08/28/2021 12:50 PM EDT) Anatomical Region Laterality Modality Cardiac Other Specimen (Source) Anatomical Collection Method Collection Time Re ceived Time Location / / Volume Laterality 08/28/2021 12:50 PM EDT Narrative 08/29/2021 11:20 AM EDT [facility] ?[address] ? [place] [address] ?Voice: ?Fax: Name: ALEX BINGHAM ? Study Date: 08/28/2021 12:50 PM ?Patient Location: OR^OR18^A : 1955 ? Account: [id number] Age: 66 yrs Gender: Male Ordering Physician: CAMRON GUTHRIE Referring Physician: CAMRON GUTHRIE Performed By: Julio C Linton MD Post Tricuspid ValveExam Location: [facility] from pre-bypass exam. Interpretation Summary Pre [...] note might be different from the original. [place] [id number] [address] [place] [phone] Voice: Fax: Name: ZACHERY ALEX L Study Date: 08/28/2021 12:50 PM Patient Location: OR^OR18^A : 1955 Account: [id number] Age: 66 yrs Gender: Male Ordering Physician: CAMRON GUTHRIE Referring Physician: CAMRON GUTHRIE Performed By: Julio C Linton MD Post Tricuspid ValveExam Location: [facility] from pre-bypass exam. Interpretation Summary Pre Procedure [...] 12:30 PM EDT) athologist Signature Dispensed? Yes [facility] LABORATORY Specimen Anatomical Collection Method Collection Time Receive d Time (Source) Location / / Volume Laterality Blood 08/28/2021 12:30 08/28/2021 PM EDT 12:25 PM EDT Resulting Agency Comment Spec In Lab Camron Guthrie MD BLOOD BANK ORDERABLES Performing Organization Address City/State/ZIP Code Phon e Number [address] POCT Glucose (08/28/2021 12:12 PM EDT) athologist Signature POC Glucose 95 65 - 199 [facility] mg/dL [facility] LABORATORY Comment: Supplemental ranges: <140 mg/dL before meals <180 mg/dL all other times of the day Specimen Anatomical Collection Method Collection Time Receive d Time (Source) Location / / Volume Laterality Blood 08/28/2021 12:12 08/28/2021 PM EDT 12:12 PM EDT Camron Guthrie MD POINT OF CARE TEST ORDERABLE S Performing Organization Address City/[facility]/[place] [address] Heparin (unfractionated) Level (08/28/2021 5:17 AM EDT) athologist Signature Heparin UFH 0.43 IU/mL [facility] LABORATORY Comment: Heparin (anti-Xa) levels should be [...] Organization Address City/State/[place] [address] Differential, Automated (08/28/2021 5:17 AM EDT) athologist Signature Neutrophils % 64.1 % [facility] LABORATORY Neutr Abs (ANC) 4.12 1.70 - [facility] 6.10 [facility] x10(3)/[facility] LABORATORY Lymphocytes % 22.7 % [facility] LABORATORY Lymphocytes Abs 1.5 0.9 - 3.2 [facility] x10(3)/[facility] LABORATORY Monocytes % 8.4 % [facility] LABORATORY Monocyte Abs 0.5 0.3 - 0.9 [facility] x10(3)/[facility] LABORATORY Eosinophils % 3.9 % [facility] LABORATORY Eosinophils Abs 0.2 0.0 - 0.4 [facility] x10(3)/[facility] LABORATORY Basophils % 0.6 % [facility] LABORATORY Basophils Abs 0.0 0.0 - 0.1 [facility] x10(3)/[facility] LABORATORY Immature Gran % 0.30 % [facility] LABORATORY Comment: Immature granulocytes(IG's)percentage an d absolute count will include metamyelocytes, myelocytes, and promyelo cytes. Blood smears from CBCs yielding IG's will be scanned manually for concor dance. If this scan disagrees with the automated IG or if promyelocytes are not ed, a manual differential will be performed. Lily Gran Abs 0.02 0.00 - 0.04 x10(3)/[facility] LABORATORY Specimen Anatomical Collection Method Collection Time Receive d Time (Source) Location / / Volume Laterality Blood 08/28/2021 5:17 AM 5:29 EDT AM EDT Resulting Agency Comment Spec In Lab Dona SANCHEZ HEMATOLOGY ORDERABLES Performing Organization Address City/State/[place] [address] (ABNORMAL) Hemogram (08/28/2021 5:17 AM EDT) Analysis Performed At Patho logist Time Signature WBC 6.4 4.0 - 9.5 [facility] x10(3)/[facility] LABORATORY RBC 4.07 (L) 4.58 - [facility] 5.54 [facility] x10(6)/[facility] Hemoglobin 12.7 (L) 13.7 - [facility] g/dL [facility] LABORATORY Hematocrit 37.1 (L) 40.5 - [facility] IRISH 48.5 % [facility] LABORATORY MCV 91.2 82.9 - [facility] 93.1 [facility] LABORATORY MCH 31.2 27.5 - [place] [facility] 32.1 pg [facility] LABORATORY MCHC 34.2 32.0 - [facility] 35.7 g/dL [facility] LABORATORY Platelets 173 145 - 357 [facility] x10(3)/[facility] LABORATORY RDWSD 40.2 36.0 - [facility] IRISH 45.0 [facility] RDWCV 12.1 11.4 - [facility] IRISH 13.8 % [facility] LABORATORY MPV 10.5 7.6 - 12.9 [facility] LABORATORY nRBC % Auto 0.0 % [facility] LABORATORY nRBC Abs Auto 0.000 0.000 - [facility] 0.000 [facility] x10(3)/[facility] LABORATORY Specimen Anatomical Collection Method Collection Time Receive d Time (Source) Location / / Volume Laterality Blood 08/28/2021 5:17 AM 5:29 EDT AM EDT Resulting Agency Comment Spec In Lab Dona SANCHEZ HEMATOLOGY ORDERABLES Performing Organization Address City/State/[place] [address] EKG 12 Lead (08/27/2021 11:43 AM EDT) Component Value Ref Range Test Analysis Performed Pathologis t Method Time At Signature Ventricular rate 44 BPM MUSE SYSTEM Atrial Rate 44 BPM MUSE SYSTEM P-R Interval 156 ms MUSE SYSTEM QRS Duration 104 ms MUSE SYSTEM Q-T Interval 446 ms MUSE SYSTEM QTC Calculated 381 ms MUSE SYSTEM (Bezet) Calculated P Brighton 50 degrees MUSE SYSTEM Calculated R [place] -33 degrees MUSE SYSTEM Calculated T Brighton -10 degrees MUSE SYSTEM INTERPRETATION Marked sinus bradycardia MUSE SYSTEM Left axis deviation Minimal voltage criteria for LVH, may be normal variant ( R in aVL ) Cannot rule out Anteroseptal infarct (cited on or before Aug-2021) Abnormal ECG When compared with ECG of 25-AUG-2021 12:38, No significant change was found Confirmed by MD May, Fish ([id number]) on 08/27/2021 1:14: 33 PM Specimen Anatomical Collection Method Collection Time Receive d Time (Source) Location / / Volume Laterality 08/27/2021 11:43 08/27/2021 1:14 AM EDT PM EDT Camron Guthrie MD ECG ORDERABLES Performing Organization Address City/State/ZIP Code Phon e Number MUSE SYSTEM Heparin (unfractionated) Level (08/27/2021 4:48 AM EDT) P athologist Signature Heparin UFH 0.41 IU/mL [facility] LABORATORY Comment: Heparin (anti-Xa) levels should be [...] Organization Address City/State/[place] [address] Differential, Automated (08/27/2021 4:48 AM EDT) athologist Signature Neutrophils % 67.0 % [facility] LABORATORY Neutr Abs (ANC) 4.56 1.70 - [facility] 6.10 [facility] x10(3)[facility] LABORATORY Lymphocytes % 20.9 % [facility] LABORATORY Lymphocytes Abs 1.4 0.9 - 3.2 [facility] x10(3)/[facility] LABORATORY Monocytes % 7.9 % [facility] LABORATORY Monocyte Abs 0.5 0.3 - 0.9 [facility] x10(3)/[facility] LABORATORY Eosinophils % 3.2 % [facility] LABORATORY Eosinophils Abs 0.2 0.0 - 0.4 [facility] x10(3)/[facility] LABORATORY Basophils % 0.6 % [facility] LABORATORY Basophils Abs 0.0 0.0 - 0.1 [facility] x10(3)/[facility] LABORATORY Immature Gran % 0.40 % [facility] LABORATORY Comment: Immature granulocytes(IG's)percentage an d absolute count will include metamyelocytes, myelocytes, and promyelo cytes. Blood smears from CBCs yielding IG's will be scanned manually for flaco danac. If this scan disagrees with the automated IG or if promyelocytes are not ed, a manual differential will be performed. Lily Gran Abs 0.03 0.00 - 0.04 x10(3)/[facility] LABORATORY Specimen Anatomical Collection Method Collection Time Receive d Time (Source) Location / / Volume Laterality Blood 08/27/2021 4:48 AM 5:12 EDT AM EDT Resulting Agency Comment Spec In Lab Dona SANCHEZ HEMATOLOGY ORDERABLES Performing Organization Address City/State/[place] [address] (ABNORMAL) Hemogram (08/27/2021 4:48 AM EDT) Analysis Performed At Patho logist Time Signature WBC 6.8 4.0 - 9.5 [facility] x10(3)/[facility] LABORATORY RBC 4.43 (L) 4.58 - [facility] 5.54 [facility] x10(6)/[facility] LABORATORY Hemoglobin 13.9 13.7 - [facility] 16.[facility] g/dL [facility] LABORATORY Hematocrit 40.3 (L) 40.5 - [facility] 48.5 % [facility] LABORATORY MCV 91.0 82.9 - [facility] 93.1 [facility] LABORATORY MCH 31.4 27.5 - [facility] 32.1 pg [facility] LAB[facility]ATORY MCHC 34.5 32.0 - [facility] [facility]ITAL[facility] 35.7 g/dL [facility] Platelets 177 145 - 357 [facility] x10(3)/[facility] LABORATORY RDWSD 40.1 36.0 - [facility] IRISH 45.0 [facility] LABORATORY RDWCV 12.0 11.4 - [facility] 13.8 % [facility] MPV 10.6 7.6 - 12.9 [facility] LABORATORY nRBC % Auto 0.0 % [facility] nRBC Abs Auto 0.000 0.000 - [facility] 0.000 [facility] x10(3)/[facility] LABORATORY Specimen Anatomical Collection Method Collection Time Receive d Time (Source) Location / / Volume Laterality Blood 08/27/2021 4:48 AM 2 5:12 EDT AM EDT Resulting Agency Comment Spec In Lab Dona SANCHEZ HEMATOLOGY ORDERABLES Performing Organization Address City/[facility]/[place] [address] Heparin (unfractionated) Level (08/26/2021 9:57 PM EDT) athologist Signature Heparin UFH 0.37 IU/mL [facility] LABORATORY Comment: Heparin (anti-Xa) levels should be [...] Guthrie MD HEMATOLOGY ORDERABLES Performing Organization Address City/[facility]/[place] [address] Troponin (08/26/2021 4:46 AM EDT) athologist Signature Troponin-T <0.01 0.00 - 0.00 [facility] ng/mL [facility] Comment: The 99th percentile for Troponin T is le ss than 0.01 ng/mL, any detectable cTnT concentration using this assay should be considered elevated. According to the third universal definit ion of myocardial infarction the following criteria with a clinical prese ntation consistent with acute myocardial ischemia meets the diagnosis for a myocardial infarction (NE). Detection of a rise and/or fall of [...] additional sample may be indicated. Reference: Third [place] Definition of Myocardial Infarction. Journal of the [place] [employer] 2012;60:1581-98 Specimen Anatomical Collection Method Collection Time Receive d Time (Source) Location / / Volume Laterality Blood 08/26/2021 4:46 AM 4:56 EDT AM EDT Resulting Agency Comment Spec In Lab Camron Guthrie MD CHEMISTRY ORDERABLES Performing Organization Address City/State/[place] [address] Troponin (08/25/2021 7:55 PM EDT) athologist Signature Troponin-T <0.01 0.00 - 0.00 [facility]mL [facility] Comment: The 99th percentile for Troponin T is le ss than 0.01 ng/mL, any detectable cTnT concentration using this assay should be considered elevated. According to the third universal definit ion of myocardial infarction the following criteria with a clinical prese ntation consistent with acute myocardial ischemia meets the diagnosis for a myocardial infarction (NE). Detection of a rise and/or fall of [...] additional sample may be indicated. Reference: Third [place] Definition of Myocardial Infarction. Journal of the [place] [employer] 2012;60:1581-98 Specimen Anatomical Collection Method Collection Time Receive d Time (Source) Location / / Volume Laterality Blood 08/25/2021 7:55 PM 2 8:00 EDT PM EDT Resulting Agency Comment Spec In Lab Camron Guthrie MD CHEMISTRY ORDERABLES Performing Organization Address City/[facility]/ZIP Code Phon e Number [address] POCT Glucose (08/25/2021 7:54 PM EDT) athologist Signature POC Glucose 98 65 - 199 [facility] mg/dL [facility] Comment: Supplemental ranges: <140 mg/dL before meals <180 mg/dL all other times of the day Specimen Anatomical Collection Method Collection Time Receive d Time (Source) Location / / Volume Laterality Blood 08/25/2021 7:54 PM 2 7:54 EDT PM EDT Camron Guthrie MD POINT OF CARE TEST ORDERABLE S Performing Organization Address City/[facility]/[place] [address] Type and Screen Validity (08/25/2021 1:26 PM EDT) [facility] gist Method Time Signature T&S only valid [facility] Comment: This Type and Screen result is only valid at the [facility] Specimen Anatomical Collection Method Collection Time Receive d Time (Source) Location / / Volume Laterality Blood 08/25/2021 1:26 PM 2 1:29 EDT PM EDT Resulting Agency Comment Spec In Lab William SANCHEZ BLOOD BANK ORDERABLES Performing Organization Address City/[facility]/[place] [address] ABORH Recheck Status (08/25/2021 1:26 PM EDT) [facility] Method Time Signature ABORH Type Completed [facility] LABORATORY Specimen Anatomical Collection Method Collection Time Receive d Time (Source) Location / / Volume Laterality Blood 08/25/2021 1:26 PM 2 1:29 EDT PM EDT Resulting Agency Comment Spec In Lab William Willis PA BLOOD BANK ORDERABLES Performing Organization Address City/[facility]/ZIP Code Phon e Number [address] Antibody screen (08/25/2021 1:26 PM EDT) [facility] Method [place] Signature Ab Screen Negative [facility] LABORATORY Expires at 08/28/2021 [facility] [id number] on: [facility] Specimen Anatomical Collection Method Collection Time Receive d Time (Source) Location / / Volume Laterality Blood 08/25/2021 1:26 PM 2 1:29 EDT PM EDT Resulting Agency Comment Spec In Lab William Willis PA BLOOD BANK ORDERABLES Performing Organization Address City/State/ZIP Code Phon e Number [address] ABO/Rh Typing (08/25/2021 1:26 PM EDT) P athologist Signature ABORh Type O Neg [facility]OR[facility]ORY Specimen Anatomical Collection Method Collection Time Receive d Time (Source) Location / / Volume Laterality Blood 08/25/2021 1:26 PM 2 1:29 EDT PM EDT Resulting Agency Comment Spec In Lab William Beckert PA BLOOD BANK ORDERABLES Performing Organization Address City/[facility]/ZIP Code Phon e Number [address] Differential, Automated (08/25/2021 12:44 PM EDT) P athologist Signature Neutrophils % 70.6 % [facility] Neutr Abs (ANC) 3.76 1.70 - [facility] 6.10 [facility] x10(3)/[facility] LABORATORY Lymphocytes % 17.4 % [facility] Lymphocytes Abs 0.9 0.9 - 3.2 [facility] x10(3)/[facility] LABORATORY Monocytes % 7.5 % [facility] Monocyte Abs 0.4 0.3 - 0.9 [facility] x10(3)/[facility] LABORATORY Eosinophils % 3.2 % [facility] Eosinophils Abs 0.2 0.0 - 0.4 [facility] x10(3)/[facility] LABORATORY Basophils % 0.9 % [facility] Basophils Abs 0.0 0.0 - 0.1 [facility] x10(3)/[facility] LABORATORY Immature Gran % 0.40 % [facility] Comment: Immature granulocytes(IG's)percentage an d absolute count will include metamyelocytes, myelocytes, and promyelo cytes. Blood smears from CBCs yielding IG's will be scanned manually for concor dance. If this scan disagrees with the automated IG or if promyelocytes are not ed, a manual differential will be performed. Lily Gran Abs 0.02 0.00 - 0.04 x10(3)/[facility] LABORATORY Specimen Anatomical Collection Method Collection Time Receive d Time (Source) Location / / Volume Laterality Blood 08/25/2021 12:44 08/25/2021 PM EDT 12:52 PM EDT Resulting Agency Comment Spec In Lab Oxana Helton DO HEMATOLOGY ORDERABLES Performing Organization Address City/State/[place] [address] Hemogram (08/25/2021 12:44 PM EDT) P athologist Signature WBC 5.3 4.0 - 9.5 [facility] x10(3)/[facility] LABORATORY RBC 4.70 4.58 - [facility] 5.54 [facility] x10(6)/[facility] LABORATORY Hemoglobin 14.3 13.7 - [facility] 16.5 g/dL [facility] Hematocrit 42.8 40.5 - [facility] 48.5 % [facility] MCV 91.1 82.9 - [facility] 93.1 [facility] LABORATORY MCH 30.4 27.5 - THANIA TEJADACK 32.1 pg [facility] MCHC 33.4 32.0 - THANIA COBURN 35.7 g/dL [facility] Platelets 193 145 - 357 [facility] x10(3)/[facility] LABORATORY RDWSD 39.7 36.0 - [place] IRISH 45.0 [facility] LABORATORY RDWCV 11.9 11.4 - [facility] [place] 13.8 % [facility] MPV 10.2 7.6 - 12.9 [facility] LABORATORY nRBC % Auto 0.0 % [facility] LABORATORY nRBC Abs Auto 0.000 0.000 - [place] 0.000 [facility] x10(3)/[facility] LABORATORY Specimen Anatomical Collection Method Collection Time Receive d Time (Source) Location / / Volume Laterality Blood 08/25/2021 12:44 08/25/2021 PM EDT 12:52 PM EDT Resulting Agency Comment Spec In Lab Oxana Helton DO HEMATOLOGY ORDERABLES Performing Organization Address City/State/[place] [address] Prothrombin Time (08/25/2021 12:44 PM EDT) P athologist Signature PT 10.8 9.4 - 12.5 [facility] LABORATORY INR 1.0 [facility] LABORATORY Comment: An INR <2.0 indicates [...] Resulting Agency Comment Spec In Lab Oxana Malika Helton DO HEMATOLOGY ORDERABLES Performing Organization Address City/[facility]/[place] [address] Troponin (08/25/2021 12:44 PM EDT) athologist Signature Troponin-T <0.01 0.00 - 0.00 [facility] ng[facility]mL [facility] Comment: The 99th percentile for Troponin T is le ss than 0.01 ng/mL, any detectable cTnT concentration using this assay should be considered elevated. According to the third universal definit ion of myocardial infarction the following criteria with a clinical prese ntation consistent with acute myocardial ischemia meets the diagnosis for a myocardial infarction (NE). Detection of a rise and/or fall of [...] additional sample may be indicated. Reference: Third [place] Definition of Myocardial Infarction. Journal of the [place] [employer] 2012;60:1581-98 Specimen Anatomical Collection Method Collection Time Receive d Time (Source) Location / / Volume Laterality Blood 08/25/2021 12:44 08/25/2021 PM EDT 12:52 PM EDT Resulting Agency Comment Spec In Lab Oxana Malika Helton DO CHEMISTRY ORDERABLES Performing Organization Address City/[facility]/[place] [address] Basic Metabolic Panel (non-fasting) (08/25/2021 12:44 PM EDT) athologist Signature Glucose Lvl 104 65 - 199 [facility] mg/dL [facility] Comment: Diabetes: >=200 mg/dL plus symp toms BUN 13 10 - 20 mg/dL [facility] LABORATORY Creatinine 0.99 0.80 - 1.50 mg/dL [facility] LABORATORY Sodium 140 135 - 145 mmol/L [facility] LABOR[facility]ORY Potassium 4.2 3.5 - 5.0 mmol/L [facility] Comment: Please note: ??Patients with WBC >100,00 0 may have falsely elevated Potassium levels. ??For accurate Potassium quantif ication in these patients send serum separator tube (gold top) for subsequent determinations. ??Contact the Clinical Chemistry Laboratory if there are any qu estions. Chloride 105 98 - 107 mmol/L [facility] CO2 26 22 - 31 mmol/L [facility] Anion Gap 9 5 - 15 mmol/L [facility] Calcium 9.0 8.5 - 10.5 mg/dL [facility] Estimated GFR 83 >=60 mL/min/1.73 m?? [facility] Comment: This patient's estimated GFR [...] Organization Address City/State/[place] [address] EKG 12 Lead (08/25/2021 12:38 PM EDT) Component Value Ref Range Test Analysis Performed Pathologis t Method Time At Signature Ventricular rate 49 BPM MUSE SYSTEM Atrial Rate 49 BPM MUSE SYSTEM P-R Interval 154 ms MUSE SYSTEM QRS Duration 100 ms MUSE SYSTEM Q-T Interval 450 ms MUSE SYSTEM QTC Calculated 406 ms MUSE SYSTEM (Bezet) Calculated P [place] 42 degrees MUSE SYSTEM Calculated R [place] -31 degrees MUSE SYSTEM Calculated T [place] -17 degrees MUSE SYSTEM INTERPRETATION Sinus bradycardia [...] Chest pain, unspecified 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 artery disease involving [place] coronary artery of [place] heart with unstable angina pectoris Coronary artery disease involving [place] coronary artery of [place] heart with unstable angina pectoris documented in this encounter Admitting Diagnoses Diagnosis Chest pain Chest pain, unspecified documented in this encounter Administered Medications Inactive Administered Medications - up to 3 most recent administrations Medication Order MAR Action Action Date Dose Rate Site acetaminophen (Tylenol) tablet Given 09/02/2021 5:46 AM EDT 1,00 0 mg 1,000 mg 1,000 mg, Oral, EVERY 6 [...] 09/01/2021 5:43 PM EDT 1,000 mg AMIOdarone (Paceron) tablet 200 mg Given 09/02/2021 9:00 AM EDT 200 mg 200 mg, Oral, 2 TIMES DAILY, First dose on Thu09/01/21 at 0915, Until Discontinued, Routine Given 09/01/2021 8:56 PM EDT 200 mg Given 09/01/2021 8:34 AM EDT 200 mg aspirin chewable tablet 81 mg Given 09/02/2021 8:15 AM EDT 81 mg 81 mg, Oral, DAILY, First dose on Thu08/29/21 at 0900, Until Discontinued, Routine Given 09/01/2021 8:29 AM EDT 81 mg Given 08/31/2021 8:26 AM EDT 81 mg atorvastatin (Lipitor) tablet [...] PRN, Starting on 08/31/21 at 0000, Until Thu09/02/21 at 1302, Constipation, Starting post-op day 3., Routine calcium chloride 10% (100 mg/mL) injecti on Given 08/28/2021 4:41 PM EDT 1 g ONCE PRN, Starting on Thu08/28/21 at 1641, Until Thu08/28/21 at 1759, Intra-Operative (Intra-Procedure), Routine cardioplegic solution no.16 (Cardioplegia New Bag 2021 3:47 PM EDT 450 mLs [place] Formula) solution CONTINUOUS PRN, Starting on Thu08/28/21 at 1538, Until Thu08/28/21 at 1547, Intra-Operative (Intra-Procedure) New Bag 08/28/2021 3:38 PM EDT 1,000 mLs clopidogreL (Plavix) tablet 75 mg Given 09/02/2021 [...] Given 08/31/2021 8:26 AM EDT 1,000 mcg electrolyte replacement solution (pH New Bag 08/28/2021 3:38 PM ED T 1,350 mLs 7.4) (Normosol-R, Plasmalyte-A) infusion CONTINUOUS PRN, Starting on Thu08/28/21 at 1538, Until Thu08/28/21 at 1538, Intra-Operative (Intra-Procedure) folic acid (Folvite) tablet 400 mcg Given 09/02/2021 9:00 AM EDT 400 mcg 400 mcg, Oral, DAILY, First dose on Thu08/26/21 at 0900, Until Discontinued, Routine Given 09/01/2021 9:00 AM EDT 400 mcg Given 08/31/2021 8:26 AM EDT 400 mcg heparin (porcine) (1,000 units/mL) Given 08/28/2021 4:05 PM EDT 5,000 Units injection ONCE PRN, Starting on Thu08/28/21 at 1539, Until Thu08/28/21 at 1759, Intra-Operative (Intra-Procedure), Routine Given 08/28/2021 3:39 PM EDT 5,000 Units Given 08/28/2021 3:00 PM EDT 5,000 Units magnesium hydroxide (Milk of Magnesia) (240 Given 09/01/2021 8:28 AM EDT 10 mLs mg/mL) oral liquid 10 mL 10 mL, Oral, DAILY, First dose on Thu08/30/21 at 0900, Until Discontinued, Post-op day 2. Do not use with renal insufficiency., Routine Given 08/31/2021 8:26 AM EDT 10 mLs Given 08/30/2021 9:14 AM EDT 10 mLs mannitoL (Osmitrol) 20 % infusion New Bag 08/28/2021 3:38 PM EDT 40 g CONTINUOUS PRN, Starting on Thu08/28/21 at 1538, Until Thu08/28/21 at 1538, Intra-Operative (Intra-Procedure) metoproloL tartrate (Lopressor) tablet 2 5 mg Given 09/02/2021 8:15 AM EDT 25 mg 25 mg, Oral, EVERY 12 HOURS SCHEDULED (2 times per day), First dose (after last modification) on Thu08/31/21 at 0900, Until Discontinued, Hold for SBP <90 or HR <60, Routine Given 09/01/2021 8:56 PM EDT 25 mg Given 09/01/2021 8:29 AM EDT 25 mg nitroGLYcerin 100 mcg/mL Given 08/28/2021 3:28 PM 2,000 mcg 19- Surgical Site intracoronary dilution EDT ONCE PRN, Starting on Thu08/28/21 at 1528, Until Thu08/28/21 at 1759, Intra-Operative (Intra-Procedure), Routine oxyCODONE (Roxicodone) tablet 5-10 mg Given 08/30/2021 [...] 08/29/2021 2:08 PM EDT 5 mg pantoprazole EC (Protonix) tablet 40 mg Given 09/02/2021 8:15 AM EDT 40 mg 40 mg, Oral, DAILY, First dose on Thu08/28/21 at 1900, Until Discontinued, DO NOT CRUSH OR OPEN If unable to take PO, may give IV, Routine Given 09/01/2021 8:29 AM EDT 40 mg Given 08/31/2021 8:25 AM EDT 40 mg senna-docusate (Pericolace) 8.6-50 mg per Given 2021 [...] Dunia 08/29/21 at 1100, Until Discontinued, Routine Given 08/31/2021 11:51 AM EDT 5 mLs Given 08/30/2021 5:00 AM EDT 5 mLs vancomycin (Vancocin) injection Given 08/28/2021 2:12 PM EDT 1 g 19- S urgical Site ONCE PRN, Starting on Thu08/28/21 at 1412, Until Thu08/28/21 at 1759, Intra-Operative (Intra-Procedure), Routine verapamiL (Isoptin) (2.5 mg/mL) Given 08/28/2021 2:12 PM EDT 5 m g 19- Surgical Site injection ONCE PRN, Starting on Thu08/28/21 at 1412, Until Thu08/28/21 at 1759, Administer over 2 Minutes, Intra-Operative (Intra-Procedure) documented in this encounter Active and Recently Administered Medications Times are shown in EDT. Scheduled Medication Order 08/31/2021 09/01/2021 09/02/2021 acetaminophen (Tylenol) tablet 1,000 mg 0528 (Given - Provider: Jenny Zayas RN)1146 (Given - Provider: Cinthia Angela RN)1738 (Given - Provider: Cinthia Angela RN) 0000 (Not Given - Provider: Dave aburto RN - Reason: Patient/family refused)0528 (Given - Provider: Jenny Zayas RN)1204 (Given - Provider: Donna Felder RN)1743 (Given - Provider: Donna Felder RN) [...] bolus from bag 150 mg (COMPLETE D) 09 (Bolus from Bag - Provider: Cinthia Angela RN) 150 mg, Intravenous, ONCE, 1 dose, On Sa t 08/31/21 at 1000, Warning Vesicant/Irritant Medication , Routine AMIOdarone (Paceron) tablet 200 mg 0834 (Given - Provider: Donna Felder RN)2055 (Given - Provider: Amy Adan RN) 0900 (Given - Provider: Donna Felder, DRE) 200 mg, Oral, 2 TIMES DAILY, First dose on 09/01/21 at 0915, Until Discontinued, Routine AMIOdarone (Paceron) tablet 400 mg (CANCELED) 0553 (Gi dick - Provider: Jenny Zayas RN - Comment: QTC 0.42) 400 mg, Oral, 3 TIMES DAILY, 9 doses, Fi rst dose on 08/31/21 at 0630, Last dose on 09/02/21 at 2100, Routine aspirin chewable tablet 81 [...] Angela RN) 08 (Given - Provider: Donna taylor RN) 08 (Given - Provider: Donna taylor RN) 1,000 mcg, Oral, DAILY, First dose on Mo n 08/26/21 at 0900, Until Discontinued, Routine folic acid (Folvite) tablet 400 mcg 08 (Given - Prov ider: Cinthia Angela RN) 09 (Given - Provider: Donna Felder RN) 09 (Given - Provider: Donna Felder RN) 400 mcg, Oral, DAILY, First dose on 08/26/21 at 0900, Until Discontinued, Routine HYDROmorphone (Dilaudid) (0.5 mg/0.5 mL) injection syr lavelle 0.3 mg (COMPLETED) 923 (Given - Provider: Cinthia Angela RN) 0.3 mg, Intravenous, ONCE, 1 dose, On 08/31/21 at 1015, Routin e magnesium hydroxide (Milk of Magnesia) (240 mg/mL) ora l liquid 10 mL 08 (Given - Provider: Cinthia Angela RN) 08 (Given - Provider: Donna taylor RN) 0900 (Not Given - Provider: Donna Jacques RN - Reason: Patient/family refused) 10 mL, Oral, DAILY, First dose on 10/14 at 0900, Until Discontinued, Post- op day 2. Do not use with renal insufficiency., Routine magnesium sulfate 2 g in sterile water 50 mL infusion (COMPLETED) 242 (New Bag - Provider: Jenny Zayas RN)442 (Stopped - Provider: Jenny Zayas RN) 2 g, Intravenous, ONCE, 1 dose, On Sat at 0330, Administer over 120 Minutes metoproloL tartrate (Lopressor) tablet 25 mg 825 (Giv en - Provider: Cinthia Angela RN)2004 (Given - Provider: Jenny Zayas RN) 828 (Given - Provider: Donna Felder, DRE)2055 (Given - Provider: Amy Adan RN) 814 (Given - Provider: Donna Felder RN) 25 mg, Oral, EVERY 12 HOURS SCHEDULED (2 times per day), First dose (after last modification) on Thu08/31/21 at 0900, Until Discontinued, Hold for SBP <90 or HR <60, Routine pantoprazole EC (Protonix) tablet 40 mg 824 (Given - Provider: Cinthia Angela RN) 828 (Given - Provider: Donna Felder RN) 814 (Given - Provider: Donna Felder RN) 40 mg, Oral, DAILY, First dose on 08/14 at 1900, Until Discontinued, DO NOT CRUSH OR OPEN If unable to take PO, may give IV, Routine senna-docusate (Pericolace) 8.6-50 mg per tablet 2 tab let 2004 (Given - Provider: Jenny Zayas RN) 2099 (Not Given - Provider: Amy dexter RN - Reason: Patient/family refused) 2 tablet, Oral, DAILY, First dose on Thu08/29/21 at 2100, Until Discontinued, Post-op day 1, Routine sodium chloride 0.9 % (flush) (BD PosiFlush Normal Yomi ine 0.9) flush 5 mL 0300 (Not Given - Provider: Jenny Zayas RN - Reason: Order parameters not met)115 (Given - Provider: Cinthia Angela RN)1900 (Not Given - Provider: Jenny Zayas RN - Reason: Order parameters not met) 0300 (Not Given - Provider: Jenny Zayas RN - Reason: Order parameters not met)1100 (Not Given - Provider: Donna Felder RN - Reason: See comment - Comment: infusing)2056 (Given - Provider: Amy Adan RN) 0300 (Not Given - Provider: Amy Adan RN - Reason: See comment)1100 (Due) 5 mL, Intravenous, EVERY 8 HOURS, First dose on Thu08/29/21 at 1100, Until Discontinued, Routine Continuous Medication Order 08/31/2021 09/01/2021 09/02/2021 AMIOdarone (Nexterone) (1.8 mg/mL) in de xtrose (iso-osmotic) infusion (CANCELED) 0925 (New Bag - Provider: Cinthia Angela RN)1147 (New Bag - Provider: Cinthia Nagy V, RN)1739 (New Bag - Provider: Cinthia Angela RN)1747 (Rate/Dose Change - Provider: Cinthia Angela RN) 0528 (New Bag - Provider: Jenny Zayas, DRE)1152 (Stopped - Provider: Donna Felder, DRE) 1 mg/min (33.3333 mL/hr, rounded to 33.3 mL/hr), Intravenous, CONTINUOUS, Starting on 08/31/21 at 1000, Until 09/01/21 at 1100, 1 mg/min for 6 hrs, then 0.5 mg/min for 18 hrs. After first 24 hours, 1999 (Rate/Dose Verify - Provider: Jenny Zayas, DRE) order maintenance dose 0.5 mg/min. Use in-line filter. Warning Vesicant/Irritant Medication PRN Medication Order 08/31/2021 09/01/2021 09/02/2021 bisacodyL (Dulcolax) suppository 10 mg 1741 (Given - P rovider: Cinthia Angela RN) [...] Routine documented in this encounter Care Teams .Net Architect Relationship Specialty Start Date End Date Nisa Machado MD PCP - General 07/26/14 [address] [place] [address] documented as of this encounter
--- OUTSIDE RECORDS SUMMARY | 2021-11-08 08:47 | XMS_ITS | Encounter Summary ---
:1955 Author Organization [facility] [place] [address] Care Team Providers Name Role Phone Nisa Machado MD Primary Care Provider Reason for Visit Auth/Cert Specialty Diagnoses / Procedures Referred By Contact Refer red To Contact Diagnoses Chest pain Coronary artery disease of [place] artery of [place] heart with stable angina pectoris Camron Melissa MD [facility] Procedures PRO INPT INITIAL COMP/COMP/HIGH 70 MIN ER IPI [facility] [place] [address] Referral ID Status Reason Start Date Expiration Date Visits Requ ested Visits Authorized [id number] 1 1 Encounter Details Date Type Department Care Team Description 08/23/2021 Clinical Support Same Day at [facility] [place] [address] Social History Tobacco Use Types Packs/Day [...] documented as of this encounter Progress Notes Kortney Merino RN - 08/23/2021 2:00 PM EDT Anesthesia questionnaire reviewed with patient and while in the [facility]ioperative Care [facility]. Pre-operative instruction booklet reviewed with patient. Reviewed importance of pain control and cough and deep breathing exercise during the post-operative period. Instructed patient on use of Hibiclens soap to shower with the night before surgery or the morning of surgery. Pt verbalizes a good understanding of all information reviewed. Patient received the cardiac packet of information with a booklet called A Patient's Guide to Cardiac Surgery along with a you tube link for a video about [facility] while in the [facility]. Instructed to bring the booklet back in on the day of surgery, as it will be used daily by the inpatient nurses caring for them, to review all of their teaching needs each daythat they are here in the hospital. Has not had COVID or COVID symptoms in the past 3 months. PLAN Testing: Sent to Radiology for chest x-ray. Special medication instructions: none Procedure date: Not yet booked. Tentative date 7- Shin documented in this encounter Plan of Treatment Upcoming Encounters Date Type Specialty Care Team Description 11/26/2021 Appointment Radiology Camron Melissa MD [facility] CARDIOTHORACIC S [place], [place] [address] (Wo rk) 11/26/2021 Office Visit Cardiac Surgery Camron Melissa MD [facility] ER CARDIOJESSICAORACIC [place], [place] [address] (Wo rk) documented as of this encounter Visit Diagnoses Not on filedocumented in this encounter Care Teams Windshield Repair Technician Relationship Specialty Start Date End Date Nisa Machado MD PCP - General 07/26/[address] [place] [address] [place] [address] documented as of this encounter
--- OUTSIDE RECORDS SUMMARY | 2021-11-08 08:47 | XMS_ITS | Encounter Summary ---
:1955 Author Organization [facility] Address [address] [place] [address] Care Team Providers Name Role Phone Nisa Machado MD Primary Care Provider Reason for Visit Reason Comments Skin Check FSE Encounter Details Date Type Department Care Team Description 01/04/2020 Office Visit Dermatology at [facility] oplasm of uncertain behavior; Mee Cheatham MD SK (seborrheic keratosis); [address] [facility] Dermal nevus; [place] [address] [address] Seborrheic dermatitis; [phone] [facility] History of basa l cell carcinoma (BCC) [address] [place], [place] [address] Social History Tobacco Use Types [...] N BCC Y 06/01/18 A. Skin, right voodoo, shave biopsy: - Basal cell carcinoma, infiltrating [...] social history -?? 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 Family History Y/N Parents, siblings, children Melanoma Y Father NMSC N Other N Patient Preferences Preferred name Jared Preferred contact method [] Home [x] Cell [] myD-H [] Other: Permission to leave detailed message including results [x] Yes [] No Permission to discuss care with Lyudmila Preferred pharmacy [facility] Procedure Screening Questions Y/N Allergies to lidocaine or epinephrine N Blood thinners N Pacemaker or defibrillator N HPI Alex Calhoun is a 64 y.o. male, established patient last seen by me on 01/04/2019. Here today for a full skin exam with the following concerns: - [place] last [place] - Lesion on right voodoo, seems to have started opening up in the last week, otherwise asymptomatic - New raised mole on the left postauricular - Dryness beneath his eyes - Raised area on left cheek Last FSE: 01/04/2019 MEDS Current Outpatient Medications Medication Sig Dispense Refill ??? HYDROcodone-acetaminophen ([place]) 5-325 mg Tablet Take 1-2 tablets by [...] [] No Significant Skin Findings: A. Right voodoo: 0.4cm pink scaly papule [Figure 1, Specimen A] Figure 1. A right voodoo Photo(s) taken and charted with patient's verbal consent. B. Left cheek: [place], fleshy papule. C. Face, left postauricular: Brown [...] Skin biopsy by shave technique Location: right voodoo Time: 10:30AM Discussed indications for procedure and [...] documentation in this encounter. Dilcia Bella MD Acetaldehyde Converter Operator of Dermatology Department of Dermatology [facility] cc: Nisa Machado MD Dilcia Bella MD - 01/04/2020 10:00 AM EST CD, Biopsy shows BCC, recommend Mohs. Please notify patient and refer for Mohs. documented in this encounter Plan of Treatment Upcoming Encounters Date Type Specialty Care Team Description 11/26/2021 Appointment Radiology Camron Melissa MD [facility] CARDIOTHORACIC S [place], [place] [address] (Wo rk) 11/26/2021 Office Visit Cardiac Surgery Camron Melissa MD [facility] CARDIOTHORACIC S [place], [place] [address] (Wo rk) documented as of this encounter Procedures Procedure Name Priority Date/Time Associated Diagnosis Comme nts SPECIMEN TO Routine 01/04/2020 11:07 AM Neoplasm of Results for this PATHOLOGY EST uncertain behavior procedure are in the results section. SURGICAL PATHOLOGY Routine 01/04/2020 10:30 AM Mildred darling for this REPORT EST procedure are i n the results section. documented in this encounter Results Specimen to Pathology (01/04/2020 11:07 AM EST) Specimen Anatomical Collection Method Collection Time Receive d Time (Source) Location / / Volume Laterality AP Specimen 01/04/2020 11:07 01/04/2020 4:03 AM EST PM EST Narrative [facility] - 01/04/2020 4:03 PM EST Specimen requisition ordered. ??Separate Pathology report to follow Resulting Agency Comment Spec In Lab Dilcia Bella MD PATHOLOGY/CYTOLOGY ORDERABLE S Performing Organization Address City/State/ZIP [place] [address] Surgical Pathology Report (01/04/2020 10:30 AM EST) Component Value Ref Test Analysis Performed At [facility] gist Range Method Time Signature Surgical [id number] ? Location: [facility] Report The signing pathologist has (i) examined the relevant preparation(s) for the [facility] specimen(s) and (ii) rendered or confirmed the diagnosis(es) . HOSPITAL LABORATORY . ?Surgic al Pathology DIAGNOSIS Right voodoo, skin shave biopsy: - ??Basal cell carcinoma, nodular type, present at the speci men edges Electronically signed by: ??Larry Paez MD Verified: ??01/10/2020 ?Dermatopathologist Performed at: ??-[facility] Dept. of [place]ology, [place], [place] SPECIMEN(S) SUBMITTED A - right voodoo, skin shave biopsy (1) CLINICAL INFORMATION 4 [...] Organization Address City/State/ZIP [place] [address] documented in this encounter Visit Diagnoses Diagnosis Neoplasm of uncertain behavior Neoplasm of uncertain behavior, site uns pecified SK (seborrheic keratosis) Other seborrheic keratosis Dermal nevus Benign neoplasm of skin, site unspecifie d Seborrheic dermatitis Seborrheic dermatitis, unspecified History of basal cell carcinoma (BCC) documented in this encounter Care Teams Mid Level Business Analyst Relationship Specialty Start Date End Date Nisa Machado MD PCP - General 07/26/14 [address] [place] [address] documented as of this encounter
--- OUTSIDE RECORDS SUMMARY | 2021-11-08 08:47 | XMS_ITS | Encounter Summary ---
:1955 Author Organization [facility] [place] [address] Care Team Providers Name Role Phone Nisa Machado MD Primary Care Provider Encounter Details Date Type Department Care Team Description 10/17/2019 External Results Pre-Admission Testing at [facility] Day [address] [place] [address] Social History Tobacco Use Types Packs/Day [...] Description 11/26/2021 Appointment Radiology Camron Melissa MD [facility] [place] [address] (Wo rk) 11/26/2021 Office Visit Cardiac Surgery Camron Melissa MD [facility]ACIC [facility] [place] [address] (Wo rk) documented as of [...] on filedocumented in this encounter Care Teams Optomechanical Technician Relationship Specialty Start Date End Date Nisa Machado MD PCP - General 07/26/[address] [place] [address] documented as of this encounter
--- OUTSIDE RECORDS SUMMARY | 2021-11-08 08:47 | XMS_ITS | Encounter Summary ---
:1955 Author Organization [facility] [place] [address] Care Team Providers Name Role Phone Nisa Machado MD Primary Care Provider Reason for Visit Auth/Cert Specialty Diagnoses / Procedures Referred By Contact Refer red To Contact Diagnoses Chest pain Coronary artery disease of [place] artery of [place] heart with stable angina pectoris Camron Melissa MD [facility] Procedures PRO INPT INITIAL COMP/COMP/HIGH 70 MIN ER IPI [facility] [place] [address] Referral ID Status Reason Start Date Expiration Date Visits Requ ested Visits Authorized [id number] 1 1 Encounter Details Date Type Department Care Team Description 08/23/2021 Hospital Encounter XRay at [facility] Camron Melissa Coronary artery [address] [place] [address] Dr Monserrat MD disease involving [facility] MEDICAL [place] coronary [address] [place] artery of [place] [phone] CARDIOTHORACIC heart with un stable [place] [address] Social History Tobacco Use Types Packs/Day Years [...] Sig Dispensed Refills Start Date End Date aspirin EC 81 mg Take 81 mg by mouth 0 Tablet, Delayed Release daily. (E.C.) cyanocobalamin, Vitamin Take 1,000 mcg by 0 B-12, (Vitamin B-12) mouth daily. 1,000 mcg Tablet folic acid (FOLVITE) Take 800 mcg by mouth 0 800 mcg Tablet daily. ketoconazole (NIZORAL) Apply topically to 60 g 3 01/03 2 % Cream affected area on the eyebrows twice daily as needed. chlorhexidine Apply topically daily 120 mL 0 08/23/2021 08/26/2021 (HIBICLENS) 4 % Liquid as needed. Shower from head to toe with Chlorhexidine the night before surgery . metoprolol succinate XL Take 25 mg by mouth 0 10/202109/02/2021 (Toprol-XL) 25 mg daily. Tablet Sustained Release 24 hr isosorbide mononitrate Take 30 mg by mouth 0 09/02/2021 CR (Imdur) 30 mg Tablet daily. Sustained Release 24 hr losartan (Cozaar) 50 mg Take 50 mg by mouth 0 09/02/2021 Tablet daily. documented as of this encounter Plan of Treatment Upcoming Encounters Date Type Specialty Care Team Description 11/26/2021 Appointment Radiology Camron Melissa MD [facility] CARDIOTHORACIC S [place], [place] [address] (Wo denisse) 11/26/2021 Office Visit Cardiac Surgery Camron Melissa MD [facility] CARDIOTHORACIC S [place], [place] [address] (Esau salcedo) documented as of this encounter Procedures Procedure Name Priority Date/Time Associated Diagnosis Comme nts XR CHEST PA AND Routine 08/23/2021 3:02 PM Coronary artery Res ults for this LATERAL EDT disease involving procedure are in [place] coronary the results artery of [place] section. heart with unstable angina pectoris documented in this encounter Results XR Chest PA & Lateral (Generic) (08/23/2021 3:02 PM EDT) Anatomical Region Laterality Modality Chest N/A Digital Radiography Specimen (Source) Anatomical Location Collection Method / Collectio n Time Received Time / Laterality Volume Impressions 08/23/2021 4:14 PM EDT No acute cardiopulmonary process. I have personally reviewed the image(s) and the resident's interpretation and agree with the findings, Kayleen Mckeon MD at 08/23/2021 4:14 PM Thank you for letting us participate in the care of this patient. ??If you are a health care provider and have any questi ons regarding this report, please contact the number below. ??For patients who have questions please contact the health director of critical care that requested your imaging first. ? Electronically signed by: Kayleen Mckeon MD , [facility] ([phone]), at 08/23/2021 4:14 PM Narrative 08/23/2021 4:14 PM EDT EXAMINATION: XR CHEST PA AND LATERAL (GENERIC) CLINICAL HISTORY: cad TECHNIQUE: PA and lateral views of the chest COMPARISON: None FINDINGS: No focal airspace opacity. No pneumothor ax or pleural effusion. Cardiomediastinal silhouette and hilar c ontours are within normal limits. No acute rib fractures. Degenerative change s of the spine. Procedure Note Kayleen Mckeon MD - 08/23/2021 EXAMINATION: XR CHEST PA AND LATERAL (MyLorryIC) CLINICAL HISTORY: cad TECHNIQUE: PA and lateral views of the chest COMPARISON: None FINDINGS: No focal airspace opacity. No pneumothor ax or pleural effusion. Cardiomediastinal silhouette and hilar c ontours are within normal limits. No acute rib fractures. Degenerative change s of the spine. IMPRESSION No acute cardiopulmonary process. I have personally reviewed the image(s) and the resident's interpretation and agree with the findings, Kayleen Mckeon MD at 08/23/2021 4:14 PM Thank you for letting us participate in the care of this patient. If you are a health care provider and have any questi ons regarding this report, please contact the number below. For patients w ho have questions please contact the health director of critical care that requested your imaging first. Electronically signed by: Kayleen Mckeon MD , [facility] ([phone]), at 08/23/2021 4:14 PM Camron Melissa MD IMG DX ORDERABLES documented in this encounter Visit Diagnoses Diagnosis Coronary artery disease involving [place] coronary artery of [place] heart with unstable angina pectoris documented in this encounter Care Teams Contact Assembler Relationship Specialty Start Date End Date Nisa Machado MD PCP - General 07/26/[address] [place] [address] documented as of this encounter
--- OUTSIDE RECORDS SUMMARY | 2021-11-08 08:47 | XMS_ITS | Encounter Summary ---
:1955 Author Organization [facility] [place] [address] Care Team Providers Name Role Phone Nisa Machado MD Primary Care Provider Encounter Details Date Type Department Care Team Description 03/14/2020 [facility] Basal cell carcinoma Mee Lewis MD (BCC) of right [address] [facility] [address] [facility] [phone] [place] [address] Social History Tobacco Use Types Packs/Day Years [...] Cell Carcinoma location on the Right [employer]. The dermatologic preoperative information sheet was reviewed with pertinent positive and negative as below. DERMATOLOGIC PRE-OPERATIVE EVALUATION AND REVIEW OF SYSTEMS History of Mohs surgery- Yes 06/11/2018 Right Pentecostalism region,Right Cheek,Dr. Rubio Pacemaker/Defibrillator-No Joint replacement or [...] Description 11/26/2021 Appointment Radiology Camron Melissa MD [facility] CARDI[facility]ACIC [place] [facility] [place] [address] (Wo rk) 11/26/2021 Office Visit Cardiac Surgery Camron Melissa MD [facility] CARDIOSMITA [place], [place] [address] (Wo rk) documented as of this encounter Visit Diagnoses Diagnosis Basal cell carcinoma (BCC) of right temp le region documented in this encounter Care Teams Director Global Market Research Relationship Specialty Start Date End Date Nisa Machado MD PCP - General 07/26/14 [address] [place] [address] documented as of this encounter
--- OUTSIDE RECORDS SUMMARY | 2021-11-08 08:47 | XMS_ITS | Encounter Summary ---
:[address] [facility] [place] [address] Care Team Providers Name Role Phone Nisa Machado MD Primary Care Provider Reason for Visit Auth/Cert Specialty Diagnoses / Procedures Referred By Contact Refer red To Contact Diagnoses Chest pain Coronary artery disease of [place] artery of [place] heart with stable angina pectoris Camron Melissa MD [facility] Procedures PRO INPT INITIAL COMP/COMP/HIGH 70 MIN ER IPI [facility] [place] [address] Referral ID Status Reason Start Date Expiration Date Visits Requ ested Visits Authorized [id number] 1 1 Encounter Details Date Type Department Care Team Description 08/23/2021 Surgery Supervisor Looping Xiomara Nunn, CARDIAC CATHETERIZATION [facility] [place] [address] [place] [address] [phone] (Wo rk) Social History Tobacco Use Types [...] Sign Reading Time Taken Comments Blood Pressure 126/74 08/23/2021 9:05 AM EDT Pulse 50 08/23/2021 9:05 AM EDT Temperature 36.2 ??C (97.2 ??F) 08/23/2021 9:05 AM EDT Respiratory Rate 12 08/23/2021 9:05 AM EDT Oxygen Saturation 99% 08/23/2021 9:05 AM EDT Inhaled Oxygen Concentration - - Weight 82.1 kg (181 lb) 08/23/2021 9:05 AM EDT Height 185.4 cm (6' 1) 08/23/2021 9:05 AM EDT Body Mass Index 23.88 08/23/2021 9:05 AM EDT documented in this encounter Discharge Instructions Discharge Uzma Sow RN - 08/23/2021 12:22 PM EDT Activity If you are discharged the same day as your procedure, do not drive yourself home. Arrange to have another person drive. You may walk around when you get home, but keep your activity at a minimum until the morning. Do not bend over, strain, or lift heavy objects for 24 hours after the procedure. Do not participatein active sports for 48 hours. You may engage in sexual activity after 48 hours. These restrictions will not apply if the catheter was placed in a blood vessel in your arm. Catheter Insertion Area Care Take the band-aid off the catheter insertion area the morning following the procedure. You may take a shower if you wish. Wash the area with soap and water. Look for signs of infection over the next several days. A little spot of blood at the catheter insertion area is not unusual. A bruise or small lump under the skin is normal; they generally disappear in 3-4 days. For the first several days at home if you cough or sneeze, hold your groin to help prevent bleeding. Expect some mild tenderness over the area where the catheter was inserted. You will notice this after the local anesthetic (numbing medicine) wears off. This should improve during the 24-48 hours afterthe procedure. Take tylenol if needed. Contact your doctor if the discomfort worsens. Problems to Watch For If there is bright red blood flowing from the catheter insertion area: *stop what you are doing and lie down *Hold pressure steadily on the area for 15 minutes *Call for Help *If the bleeding does not stop in 15 minutes call 911 for an ambulance. If there is swelling with black and blue color at the catheter insertion area, there may be bleeding inside. Contact the doctor if there is any increase in size. Look at the insertion site for the first few days at home. Signs of infection are: *redness *Swelling *Yellow, white, green or brown foul smelling drainage. *increased soreness If you think there is an infection, take your temperature. Then call your doctor. The limb on the side where you had your catheterization should look and feel normal in its color, sensation, and temperature. If your leg becomes cool, pale, blue or changing color with numbness and tingling, contact your doctor. If you feel faint or dizzy, lie down with your feet elevated. Have someone call the doctor. If you are alert, drink fluids. How to Deal with Chest pain If you had only the cardiac catheterization, treat any angina or chest discomfort as instructed. Stop what you are doing, and sit or lie down. If prescribed, take nitroglycerin under your tongue. If the angina isn't relieved, take another nitroglycerine in 5 minutes. After another 5 minutes, a third ni troglycerine may be taken. If the angina isn't improved you should call for an ambulance to bring you to the nearest hospital emergency room. If your angina is more frequent or more sever than before, contact your doctor. We usually would not expect to have angina after an angioplasty. If you do get angina, treat it as you did before but also contact your doctor. Return to Work The doctor will usually have told you when to return to work. If you do not perform heavy physical labor, most people can return to work in a few days. Diet Follow your previous diet unless otherwise instructed. Cardiac Risk Factors If you have coronary artery disease, it is important that you help control it by reducing your cardiac risk factors. If you smoke, we urge you to stop now. If you think this is going to be a problem, let us know so that we may help you. We have dieticians who can help you learn about low fat, low cholesterol diet. Cardiac rehabilitation programs can help you set up a regular exercise program. Work with your doctor if you have high blood pressure or sugar diabetes to keep these under control. Medications ____Take your usual medications If you are taking medicines prescribed by your doctor, do not take any cals-auu-ilrnabn medicines orherbal preparations without first discussing this with your doctor or pharmacist. There is the possibility of side effect and interactions when these are combined. Follow up Care Who to Call with Questions or Problems If there are any questions or problems that you think might be related to your cardiac cath or angioplasty, contact the packer and carry out business control specialist by calling [facility] at . documented in this encounter Medications at Time [...] Tablet daily. documented as of this encounter Progress Notes Dona Harris RN - 08/23/2021 1:28 PM EDT 1320: IV fluids complete. documented in this encounter H&P Notes Negro Win MD - 08/23/2021 10:09 AM EDT Images from the original note were not included. Cardiac Cath Pre-Procedure Note René Calhoun is a 66 y.o. male with PMH HTN, celiac disease who presents for coronary angiogram. Pt notes chest pressure and WILLIAMSON for the past 2 months. Noted when he walks up multiple flights of stairs or hills. He was started on antianginals, and had some improvement with SL nitroglycerin. Pain is retrosternal pressure and left arm pain. There is occasionally some left arm pain. Pt recently had ER visit for these pains He underwent ETT which showed 2.5-3mm ST depressions which is highly suspicious for ischemia. Patient Vitals for the past 24 hrs: Temp Pulse Resp BP SpO2 O2 Device 08/23/21 0905 36.2 ??C (97.2 ??F) 50 12 126/74 99 % -- 08/23/21920 -- -- -- -- -- RA Cardiovascular ROS: positive for - chest pain and dyspnea on exertion Physical Exam ASA: 2: Patient with mild systemic disease Mallampati: II: tonsillar pillars are blocked by the tongue Sedation Plan: moderate (conscious sedation) Assessment and Plan: Proceed with cardiac cath today, see progress note from today for further details. The indications, expected benefits, and potential risks of heart catheterization were reviewed in detail with the patient. The potential for , heart attack, stroke, kidney failure, hemorrhage, allergic reaction, vascular complications and infection were reviewed in detail. The possibility of stenting and other percutaneous intervention, with associated risk, was reviewed. The possible need for emergent coronary artery bypass surgery was reviewed. Alternatives were discussed and the patient's questions were answered in full. Following this discussion, the patient consented to the procedure and signed a form attesting to this, which is in the chart. No contraindication to DAPT Labs and previous imaging were reviewed Chronic antiplatelet: Aspirin, last taken Today Will proceed with coronary angiogram / LHC . Discussed with Dr Weber. Negro Win MD PGY7 Interventional Cardiology [facility] documented in this encounter Plan of Treatment Upcoming Encounters Date Type Specialty Care Team Description 11/26/2021 Appointment Radiology Camron Melissa MD [facility] [place] [place] [address] (Wo rk) 11/26/2021 Office Visit Cardiac Surgery Camron Melissa MD [facility] [place] [address] (Wo rk) documented as of this encounter Procedures Procedure Name Priority Date/Time Associated Diagnosis Comme nts TYPE AND SCREEN Routine 08/23/2021 1:46 Results f or this VALIDITY PM EDT procedure are i n the results section. ABORH RECHECK STATUS Routine 08/23/2021 1:46 Resu lts for this PM EDT procedure are i n the results section. HEMOGRAM Routine 08/23/2021 1:46 Coronary artery Results f or this PM EDT disease involving procedure are in [place] coronary the results artery of [place] section. heart with unstable angina pectoris DIFFERENTIAL, AUTOMATED Routine 08/23/2021 1:46 Coronary arter y Results for this PM EDT disease involving procedure are in [place] coronary the results artery of [place] section. heart with unstable angina pectoris HC ANTIBODY Routine 08/23/2021 1:46 Coronary artery DETECTION,CAPTURE-R PM EDT disease involving [place] coronary artery of [place] heart with unstable angina pectoris ABO/RH TYPING Routine 08/23/2021 1:46 Coronary artery Results for this PM EDT disease involving procedure are in [place] coronary the results artery of [place] section. heart with unstable angina pectoris HC CBC,PLT & AUTO DIFF Routine 08/23/2021 1:46 Coronary artery PM EDT disease involving [place] coronary artery of [place] heart with unstable angina pectoris ANTIBODY SCREEN Routine 08/23/2021 1:46 Coronary artery Result s for this PM EDT disease involving procedure are in [place] coronary the results artery of [place] section. heart with unstable angina pectoris BASIC METABOLIC PANEL Routine 08/23/2021 1:46 Coronary artery Results for this (NON-FASTING) PM EDT disease involving procedure are in [place] coronary the results artery of [place] section. heart with unstable angina pectoris ECHOCARDIOGRAM COMPLETE Routine 08/23/2021 1:28 Coronary arter y Results for this W CONTRAST PM EDT disease, unspecified procedu re are in vessel or lesion the results type, unspecified section. whether angina present, unspecified whether [place] or transplanted heart CARDIAC CATHETERIZATION Routine 08/23/2021 [...] discomfort LAB SCAN 08/23/2021 12:00 AM EDT documented in this encounter Results Type and Screen Validity (08/23/2021 1:46 PM EDT) [facility] Method Time Signature T&S only valid [facility] DEB TEJADACK at [facility] Comment: This Type and Screen result is only valid at the [facility] Specimen Anatomical Collection Method Collection Time Receive d Time (Source) Location / / Volume Laterality Blood 08/23/2021 1:46 PM 2 1:56 EDT PM EDT Resulting Agency Comment Spec In Lab Camron Melissa MD BLOOD BANK ORDERABLES Performing Organization Address City/State/[place] [address] ABORH Recheck Status (08/23/2021 1:46 PM EDT) [facility] Method Time Signature ABORH Recheck Order Placed [facility] JOSE K Order [facility] ABORH Type Not Performed [facility] LABORATORY Specimen Anatomical Collection Method Collection Time Receive d Time (Source) Location / / Volume Laterality Blood 08/23/2021 1:46 PM 2 1:56 EDT PM EDT Resulting Agency Comment Spec In Lab Camron Melissa MD BLOOD BANK ORDERABLES Performing Organization Address City/State/ZIP Code Phon e Number [address] Antibody screen (08/23/2021 1:46 PM EDT) [facility] Method [place] Signature Ab Screen Negative [facility] LABORATORY Expires at 08/22/2021 [facility] 2359 on: [facility] Comment: Corrected from 10/07/21 0:00:00 EDT [Unk nown] on 08/27/21 13:04:[address] Specimen Anatomical Collection Method Collection Time Receive d Time (Source) Location / / Volume Laterality Blood 08/23/2021 1:46 PM 2 1:56 EDT PM EDT Resulting Agency Comment Spec In Lab Camron Melissa MD BLOOD BANK ORDERABLES Performing Organization Address City/State/[place] [address] ABO/Rh Typing (08/23/2021 1:46 PM EDT) P athologist Signature ABORh Type O Neg [facility] Specimen Anatomical Collection Method Collection Time Receive d Time (Source) Location / / Volume Laterality Blood 08/23/2021 1:46 PM 2 1:56 EDT PM EDT Resulting Agency Comment Spec In Lab Camron Melissa MD BLOOD BANK ORDERABLES Performing Organization Address City/State/[place] [address] Differential, Automated (08/23/2021 1:46 PM EDT) P athologist Signature Neutrophils % 70.8 % [facility] Neutr Abs (ANC) 3.69 1.70 - [facility] 6.10 [facility] x10(3)/[facility] LABORATORY Lymphocytes % 20.2 % [facility] Lymphocytes Abs 1.0 0.9 - 3.2 [facility] x10(3)/[facility] LABORATORY Monocytes % 6.1 % [facility] Monocyte Abs 0.3 0.3 - 0.9 [facility] x10(3)/[facility] LABORATORY Eosinophils % 2.1 % [facility] Eosinophils Abs 0.1 0.0 - 0.4 [facility] x10(3)/[facility] LABORATORY Basophils % 0.6 % [facility] Basophils Abs 0.0 0.0 - 0.1 [facility] x10(3)/[facility] LABORATORY Immature Gran % 0.20 % [facility] Comment: Immature granulocytes(IG's)percentage an d absolute count will include metamyelocytes, myelocytes, and promyelo cytes. Blood smears from CBCs yielding IG's will be scanned manually for concor dance. If this scan disagrees with the automated IG or if promyelocytes are not ed, a manual differential will be performed. Lily Gran Abs 0.01 0.00 - 0.04 x10(3)/[facility]ATORY Specimen Anatomical Collection Method Collection Time Receive d Time (Source) Location / / Volume Laterality Blood 08/23/2021 1:46 PM 2 2:04 EDT PM EDT Resulting Agency Comment Spec In Lab Camron Melissa MD HEMATOLOGY ORDERABLES Performing Organization Address City/State/[place] [address] (ABNORMAL) Hemogram (08/23/2021 1:46 PM EDT) Analysis Performed At Patho logist Time Signature WBC 5.2 4.0 - 9.5 [facility] x10(3)/[facility] LABORATORY RBC 4.45 (L) 4.58 - [facility] 5.54 [facility] x10(6)/[facility] LABORATORY Hemoglobin 13.8 13.7 - [facility] 16.5 g/dL [facility] Hematocrit 41.2 40.5 - [facility] 48.5 % [facility] MCV 92.6 82.9 - [facility] 93.1 [facility] LABORATORY MCH 31.0 27.5 - [facility] 32.1 pg [facility] MCHC 33.5 32.0 - [facility] 35.7 g/dL [facility] Platelets 169 145 - 357 [facility] x10(3)/[facility] LABORATORY RDWSD 40.5 36.0 - [facility] 45.0 [facility] LABORATORY RDWCV 11.9 11.4 - [facility] 13.8 % [facility] MPV 10.6 7.6 - 12.9 [facility] LABORATORY nRBC % Auto 0.0 % [facility] nRBC Abs Auto 0.000 0.000 - [facility] 0.000 [facility] x10(3)/[facility] LABORATORY Specimen Anatomical Collection Method Collection Time Receive d Time (Source) Location / / Volume Laterality Blood 08/23/2021 1:46 PM 2 2:04 EDT PM EDT Resulting Agency Comment Spec In Lab Camron Melissa MD HEMATOLOGY ORDERABLES Performing Organization Address City/State/[place] [address] Basic Metabolic Panel (non-fasting) (08/23/2021 1:46 PM EDT) athologist Signature Glucose Lvl 103 65 - 199 [facility] mg/dL [facility] Comment: Diabetes: >=200 mg/dL plus symp toms BUN 10 10 - 20 mg/dL [facility] Creatinine 0.94 0.80 - 1.50 mg/dL [facility] Sodium 140 135 - 145 mmol/L [facility] Potassium 4.2 3.5 - 5.0 mmol/L [facility] Comment: Please note: ??Patients with WBC >100,00 0 may have falsely elevated Potassium levels. ??For accurate Potassium quantif ication in these patients send serum separator tube (gold top) for subsequent determinations. ??Contact the Clinical Chemistry Laboratory if there are any qu estions. Chloride 105 98 - 107 mmol/L [facility] CO2 28 22 - 31 mmol/L [facility] Anion Gap 7 5 - 15 mmol/L [facility] Calcium 8.8 8.5 - 10.5 mg/dL [facility] Estimated GFR 88 >=60 mL/min/1.73 m?? [facility] [...] (Source) Location / / Volume Laterality Blood 08/23/2021 1:46 PM 2 2:04 EDT PM EDT Resulting Agency Comment Spec In Lab Camron Melissa MD CHEMISTRY ORDERABLES Performing Organization Address City/State/[place] [address] ECHOCARDIOGRAM COMPLETE W CONTRAST (08/23/2021 1:28 PM EDT) Anatomical Region Laterality Modality Cardiac Other Specimen (Source) Anatomical Collection Method Collection Time Re ceived Time Location / / Volume Laterality 08/23/2021 12:35 PM EDT Narrative 08/23/2021 2:03 PM EDT ?[facility] ?[address] ? [place] [address] ?Voice: ?Fax: ? Echocardiogram Report Name: JIN CALHOUNHEMA Conrad ?Study Date: 08/23/2021 12:35 PM ? Patient Location: SDP : 1955 ? Height: 73 in ? Account: [id number] Age: 66 yrs ? Weight: 181 lb Gender: Male ?BSA: 2.1 m2 Ordering Physician: XIOMARA WEBER Referring Physician: ANISA NOYOLA Performed By: Ajay Garrido RDCS Reason For Study: Coronary artery diseas e, unspecified vessel or lesion type, unspecified whether angina present, unsp ecified whether [place] or transplanted heart Exam Location: [facility]. Interpretation Summary 1. Left ventricular size and [...] comparison. See report for additional findings. Procedure Complete-[id number]. Image enhancement Optiso n was used for [...] note might be different from the original. [facility] [address] [place] [address] Voice: Fax: Echocardiogram Report Name: RENÉ CALHOUN Study Date: 08/23 12:35 PM Patient Location: [facility] : 1955 Height: 73 in Account: [id number] Age: 66 yrs Weight: 181 lb Gender: Male BSA: 2.1 m2 Ordering Physician: XIOMARA WEBER Referring Physician: ANISA NOYOLA Performed By: Ajay Garrido RDCS Reason For Study: Coronary artery diseas e, unspecified vessel or lesion type, unspecified whether angina present, unsp ecified whether [place] or transplanted heart Exam Location: [facility]. Interpretation Summary 1. Left ventricular size and [...] comparison. See report for additional findings. Procedure Complete-[id number]. Image enhancement Optiso n was used for [...] Laterality Volume Narrative 08/23/2021 12:19 PM EDT ?[facility] ? Cardiac Cathete rization/Intervention Report ? Patient Name: Lj René L. ? Procedure Date: 08/23/2021 ? A #: [id number] ? Primary Physician: Xiomara Weber ? Case #: [id number] ? File Name: [id number] ? Catheterization Order Number: [id number] ? [facility] ?Supervisor [facility] ? Final Report [place], [place] ? Patient Name: ? René L. Tir ey ? ID#: ?[id number] ? : ?1955 ? Procedure Date: ? August 23, 2021 ? Case #: ? [id number] ? Room: ? 6 ? Case Physician: [...] procedure was Elective. The indication for ?the lab intern visit is worsening angina. Chest pain symptom [...] ?Connor, to update. ?The attending physician was presen t for the entire procedure. ?Dr. Xiomara Weber M.D. was pres ent during the moderate sedation ?intraservice time as documented by the sedation nurse. ??Case time = 00:19. ?Jessy Rincon d the coronary angiography and left heart ?catheterization. ? Xiomara Weber M.D. ? Electronically Signed by: Xiomara maria M.D. ? Report Finalized: 08/23/2021 ??12:09 ? Report Last Ammended: 09/03/2021 ??12:20 ? Procedure Note Xiomara Weber MD - 09/03/2021Formatt ing of this note might be different from the original. [facility] Cardiac Catheterization/Intervention Re port Patient Name: Jin Calhounhema Oneal Procedure Date: 08/23/2021 A #: [id number] Primary Physician: Xiomara Weber Case #: [id number] File Name: [id number] Catheterization Order Number: [id number] [facility] Final Report [place], [place] Patient Name: René Calhoun ID#: [...] was designated as ASA Class II. The [facility] clinical frailty scale is 2: Well. Diagnostic [...] e was Elective. The indication for the lab intern visit is worsening angina. Chest pain symptom [...] 12:20 Xiomara Weber MD CARDIAC CATH ORDERABLES EKG 12 Lead (08/23/2021 9:26 AM EDT) Component Value Ref Range Test Analysis Performed Pathologis t Method Time At Signature Ventricular rate 52 BPM MUSE SYSTEM Atrial Rate 52 BPM MUSE SYSTEM P-R Interval 152 ms MUSE SYSTEM QRS Duration 96 ms MUSE SYSTEM Q-T Interval 434 ms MUSE SYSTEM QTC Calculated 403 ms MUSE SYSTEM (Bezet) Calculated P [place] 37 degrees MUSE SYSTEM Calculated R [place] -30 degrees MUSE SYSTEM Calculated T [place] -35 degrees MUSE SYSTEM INTERPRETATION Sinus bradycardia MUSE SY STEM Left axis deviation Left ventricular hypertrophy with repolarization abnormality Anterior infarct , age undetermined Abnormal ECG No previous ECGs available Confirmed by MD Mary, Zeb Stephen ([id number]) on 08/26/2021 10 :24:08 PM Specimen Anatomical Collection Method Collection Time Receive d Time (Source) Location / / Volume Laterality 08/23/2021 9:26 AM EDT 10:24 PM EDT Williams Rodriguez MD ECG ORDERABLES Performing Organization Address City/State/ZIP Code Phon e Number MUSE SYSTEM Differential, Automated (08/23/2021 7:33 AM EDT) P athologist Signature Neutrophils % 69.4 % [facility] Neutr Abs (ANC) 3.85 1.70 - [facility] 6.10 [facility] x10(3)/[facility] LABORATORY Lymphocytes % 19.3 % [facility] Lymphocytes Abs 1.1 0.9 - 3.2 [facility] x10(3)/[facility] LABORATORY Monocytes % 7.2 % [facility] Monocyte Abs 0.4 0.3 - 0.9 [facility] x10(3)/[facility] LABORATORY Eosinophils % 3.2 % [facility] Eosinophils Abs 0.2 0.0 - 0.4 [facility] x10(3)/[facility] LABORATORY Basophils % 0.7 % [facility] Basophils Abs 0.0 0.0 - 0.1 [facility] x10(3)/[facility] LABORATORY Immature Gran % 0.20 % [facility] Comment: Immature granulocytes(IG's)percentage an d absolute count will include metamyelocytes, myelocytes, and promyelo cytes. Blood smears from CBCs yielding IG's will be scanned manually for concor dance. If this scan disagrees with the automated IG or if promyelocytes are not ed, a manual differential will be performed. Lily Gran Abs 0.01 0.00 - 0.04 x10(3)/[facility] LABORATORY Specimen Anatomical Collection Method Collection Time Receive d Time (Source) Location / / Volume Laterality Blood 08/23/2021 7:33 AM 7:36 EDT AM EDT Resulting Agency Comment Spec In Lab [place] [facility] HEMATOLOGY ORDERABLES Performing Organization Address City/State/[place] [address] Hemogram (08/23/2021 7:33 AM EDT) P athologist Signature WBC 5.6 4.0 - 9.5 [facility] x10(3)/[facility] LABORATORY RBC 4.71 4.58 - [facility] 5.54 [facility] x10(6)/[facility] LABORATORY Hemoglobin 14.2 13.7 - [facility] 16.5 g/dL [facility] LABORATORY Hematocrit 43.3 40.5 - [facility] [place] 48.5 % [facility] MCV 91.9 82.9 - [facility] 93.1 [facility] LABORATORY MCH 30.1 27.5 - [facility] [place] 32.1 pg [facility] MCHC 32.8 32.0 - [facility] 35.7 g/dL [facility] Platelets 184 145 - 357 [facility] x10(3)/[facility] LABORATORY RDWSD 40.3 36.0 - [facility] [place] 45.0 [facility] RDWCV 11.8 11.4 - [facility] 13.8 % [facility] MPV 10.4 7.6 - 12.9 [facility] LABORATORY nRBC % Auto 0.0 % [facility] LABORATORY nRBC Abs Auto 0.000 0.000 - [facility] 0.000 [facility] x10(3)/[facility] LABORATORY Specimen Anatomical Collection Method Collection Time Receive d Time (Source) Location / / Volume Laterality Blood 08/23/2021 7:33 AM 7:36 EDT AM EDT Resulting Agency Comment Spec In Lab [place] [facility] HEMATOLOGY ORDERABLES Performing Organization Address City/State/[place] [address] Basic Metabolic Panel (non-fasting) (08/23/2021 7:33 AM EDT) P athologist Signature Glucose Lvl 111 65 - 199 [facility] mg/dL [facility] Comment: Diabetes: >=200 mg/dL plus symp toms BUN 12 10 - 20 mg/dL [facility] LABORATORY Creatinine 1.00 0.80 - 1.50 mg/dL [facility] LABORATORY Sodium 136 135 - 145 mmol/L [facility] LABORATORY Potassium 3.8 3.5 - 5.0 mmol/L [facility] LABORATORY Comment: Please note: ??Patients with WBC >100,00 0 may have falsely elevated Potassium levels. ??For accurate Potassium quantif ication in these patients send serum separator tube (gold top) for subsequent determinations. ??Contact the Clinical Chemistry Laboratory if there are any qu estions. Chloride 101 98 - 107 mmol/L [facility] LABORATORY CO2 27 22 - 31 mmol/L [facility]OR[facility] Anion Gap 8 5 - 15 mmol/L [facility] LABORATORY Calcium 9.0 8.5 - 10.5 mg/dL [facility] LABORATORY Estimated GFR 82 >=60 mL/min/1.73 m?? [facility] LABORATORY [...] (Source) Location / / Volume Laterality Blood 08/23/2021 7:33 AM 7:36 EDT AM EDT Resulting Agency Comment Spec In Lab Williams Rodriguez MD CHEMISTRY ORDERABLES Performing Organization Address City/State/[place] [address] SCAN DOC: LAB (08/23/2021 12:00 AM EDT) Narrative This result has an attachment that is no t available. Unknown MEDIA MGR SCAN EXT ORDR/RSLT documented in this encounter Visit Diagnoses Diagnosis Screening for cardiovascular condition Screening for other and unspecified card iovascular conditions Abnormal stress test Other nonspecific abnormal cardiovascula r system function study Chest discomfort Other chest pain Coronary artery disease, unspecified ves nathan or lesion type, unspecified whether angina present, unspecified whether aimee ve or transplanted heart Coronary artery disease involving [place] coronary artery of [place] heart with unstable angina pectoris Screening for cardiovascular condition Screening for other and unspecified card iovascular conditions Abnormal stress test Other nonspecific abnormal cardiovascula r system function study Chest discomfort Other chest pain documented in this encounter Admitting Diagnoses Diagnosis CAD (coronary artery disease) Coronary atherosclerosis of unspecified type of vessel, [place] or graft documented in this encounter Administered Medications Inactive Administered Medications - up to 3 most recent administrations Medication Order MAR Action Action Date Dose Rate Site atropine (0.1 mg/mL) injection 1 mg 1 mg, Intravenous, EVERY 5 MIN PRN, 2 do ses, Starting on Thu08/23/21 at 1116, Until Thu08/23/21 at 1357, Other, vasovagal episode, Call int elbert MARRERO. , Cath (Recovery-Hospital Unit), Routine fentaNYL (PF) (50 mcg/mL) injection 25 m cg 25 mcg, Intravenous, EVERY 30 MIN PRN, S tarting on Thu08/23/21 at 1116, Until Thu08/23/21 at 1357, Pain, sheath removal, Maximum of 4 dos es while in Cath Recovery Unit, Cath (Recovery-Hospital Unit), Routine fentaNYL (pf) (50 mcg/mL) multi-dose Given 08/23/2021 10:41 AM E DT 25 mcg injection ONCE PRN, Starting on Thu08/23/21 at 1041, Until Thu08/23/21 at 1104, Intra-Operative (Intra-Procedure), Routine heparin (porcine) (1,000 units/mL) Given 08/23/2021 10:43 AM EDT 5,000 Units injection ONCE PRN, Starting on Thu08/23/21 at 1043, Until Thu08/23/21 at 1104, Cath (Intra-Procedure), Routine iohexoL (Omnipaque) (350 mg/mL) solution Given 08/23/2021 11:03 AM EDT 49 mLs ONCE PRN, Starting on Thu08/23/21 at 1103, Until Thu08/23/21 at 1104, Cath (Intra-Procedure), Routine lidocaine (Xylocaine) 1% (10 mg/mL) inje ction 3 mg 3 mg (0.3 mL), Subcutaneous, ONCE PRN, 1 dose, Startin g on Thu08/23/21 at 0922, Until Thu08/23/21 at 1357, with discomfort with PIV ins ertion, Cath (Day of Procedure), Routine midazolam (pf) (Versed) (1 mg/mL) inject ion 1 mg 1 mg, Intravenous, EVERY 1 HOUR PRN, Starting on Thu at 1116, Until Thu08/23/21 at 1357, For sheath removal, Maxi mum of 2 doses while in Cath Recovery Unit, Cath (Recovery-Hospital Unit), Routine midazolam (pf) (Versed) (1 mg/mL) multi-dose Given 10:41 AM EDT 1 mg injection ONCE PRN, Starting on Thu08/23/21 at 1041, Until Thu08/23/21 at 1104, Cath (Intra-Procedure), Routine nitroGLYcerin (Nitrostat) disintegrating tablet 0.4 mg 0.4 mg, Sublingual, EVERY 5 MIN PRN, Starting on Thu at 1116, Until Thu08/23/21 at 1357, Chest pain, May repeat e very 5 minutes for a total of three doses. Notify provider if chest pain not reliev ed with nitroglycerin. Do not administer nitroglycerin if the patient has received or taken beltran sphodiesterase (PDE-5) inhibitors such as sildenafil, tadalafil or vardenafil within the last 24 to 72 hours., Recovery (Recovery-Hospital Unit), Routine nitroGLYcerin 100 mcg/mL intracoronary Given 08/23/2021 10:42 AM EDT 150 mcg dilution ONCE PRN, Starting on Thu08/23/21 at 1042, Until Thu08/23/21 at 1104, Cath (Intra-Procedure), Routine perflutren protein-A microsphers (Optison) Given 08/23/2021 1:29 PM EDT 0.6 mLs (0.22 mg/mL) injection 0.6 mL 0.6 mL, Intravenous, ONCE PRN, 1 dose, Starting on Thu08/23/21 at 1329, Until Thu08/23/21 at 1329, Per Protocol, Routine sodium chloride 0.9 % (flush) (BD PosiFl ush Normal Saline 0.9) flush 5 mL 5 mL, Intravenous, EVERY 12 HOURS, First dose on Thu at 0945, Until Discontinued, Cath (Day of Procedure), Routine sodium chloride 0.9 % (flush) (BD PosiFl ush Normal Saline 0.9) flush 5-20 mL 5-20 mL, Intravenous, EVERY 1 MIN PRN, S tarting on Thu08/23/21 at 0922, Until Thu08/23/21 at 1357, flush, Flush pertains to all indwelling lines. Flush per protocol found in the job aid using the link prov ided on this medication record., Cath (Day of Procedure), Routine sodium chloride 0.9% infusion 200 mL/hr, Intravenous, CONTINUOUS, Starting on 03/16 at 0945, Until Thu08/23/21 at 1357, Cath (Day of Procedure) sodium chloride 0.9% infusion New Bag 08/23/2021 11:20 AM EDT 100 mL/hr 100 mL/hr 100 mL/hr, Intravenous, CONTINUOUS, Starting on Thu08/23/21 at 1145, Until Thu08/23/21 at 1344, Recovery (Recovery-Hospital Unit) verapamiL (Isoptin) (2.5 mg/mL) injectio n Given 08/23/2021 10:42 AM EDT 2.5 mg ONCE PRN, Starting on Thu08/23/21 at 1042, Until Thu08/23/21 at 1104, Administer over 2 Minutes, Cath (Intra-Procedure) documented in this encounter Active and Recently Administered Medications Times are shown in EDT. Scheduled Medication Order 08/21/2021 08/22/2021 08/23/2021 sodium chloride 0.9 % (flush) (BD PosiFlush Normal Saline 0.9) f lush 5 mL 0945 (Due) 5 mL, Intravenous, EVERY 12 HOURS, First dose on Thu08/23/21 at 0945, Until Discontinued, Cath (Day of Procedure), Routine Continuous Medication Order 08/21/2021 08/22/2021 08/23/2021 sodium chloride 0.9% infusion 09 45 (Due) 200 mL/hr, Intravenous, CONTINUOUS, Star ting on Thu08/23/21 at 0945, Until Thu08/23/21 at 1357, Cath (Day of Procedure) sodium chloride 0.9% infusion 11 20 (New Bag - Provider: Hope Sauceda RN) 100 mL/hr, Intravenous, CONTINUOUS, Star ting on Thu08/23/21 at 1145, Until Thu08/23/21 at 1344, Recovery (Recovery-Hospital Unit) PRN Medication Order 08/21/2021 08/22/2021 08/23/2021 atropine (0.1 mg/mL) injection 1 mg 1 mg, Intravenous, EVERY 5 MIN PRN, 2 do ses, Starting on Thu08/23/21 at 1116, Until Thu08/23/21 at 1357, Other, vasovagal episode, Call interventional , Cath (Recovery-Hospital Unit), Routine fentaNYL (PF) (50 mcg/mL) injection 25 mcg 25 mcg, Intravenous, EVERY 30 MIN PRN, S tarting on Thu08/23/21 at 1116, Until Thu08/23/21 at 1357, Pain, sheath removal, Maximum of 4 doses while in Cath Recovery Unit, Cath (Recovery-Hospital Unit), Routine fentaNYL (pf) (50 mcg/mL) multi-dose injection (CANCELED) 1041 (Given - Provider: Nadya Milner RN) ONCE PRN, Starting on Thu08/23/21 at 1041 , Until Thu08/23/21 at 1104, Intra- Operative (Intra-Procedure), Routine heparin (porcine) (1,000 units/mL) injection (CANCELED) 104 (Given - Provider: Nadya Milner RN) ONCE PRN, Starting on Thu08/23/21 at 1043 , Until Thu08/23/21 at 1104, Cath (Intra- Procedure), Routine iohexoL (Omnipaque) (350 mg/mL) solution (CANCELED) 110 (Given - Provider: Xiomara Weber MD) ONCE PRN, Starting on Thu08/23/21 at 1103 , Until Thu08/23/21 at 1104, Cath (Intra- Procedure), Routine lidocaine (Xylocaine) 1% (10 mg/mL) injection 3 mg 3 mg (0.3 mL), Subcutaneous, ONCE PRN, 1 dose, Starting on Thu08/23/21 at 0922, Until Thu08/23/21 at 1357, with discomfort with PIV insertion, Cath (Day of Procedure), Routine midazolam (pf) (Versed) (1 mg/mL) injection 1 mg 1 mg, Intravenous, EVERY 1 HOUR PRN, Sta rting on Thu08/23/21 at 1116, Until Thu08/23/21 at 1357, For sheath removal, Maximum of 2 doses while in Cath Recovery Unit, Cath (Recovery-Hospital Unit), Routine midazolam (pf) (Versed) (1 mg/mL) multi-dose injection (CANCELED ) 104 (Given - Provider: Nadya Milner RN) ONCE PRN, Starting on Thu08/23/21 at 1041 , Until Thu08/23/21 at 1104, Cath (Intra- Procedure), Routine nitroGLYcerin (Nitrostat) disintegrating tablet 0.4 mg 0.4 mg, Sublingual, EVERY 5 MIN PRN, Sta rting on Thu08/23/21 at 1116, Until Thu08/23/21 at 1357, Chest pain, May repeat every 5 minutes for a total of three doses. Notify provider if chest pain not reliev ed with nitroglycerin. Do not administer nitroglycerin if the patient has received or taken phosphodiesterase (PDE-5) inhibitors such as sildenafil, tadalafil or vardenafil within the last 24 to 72 hours., Recovery (Recovery- Hospital Unit), Routine nitroGLYcerin 100 mcg/mL intracoronary dilution (CANCELED) 1042 (Given - Provider: Negro Win MD) ONCE PRN, Starting on Thu08/23/21 at 1042 , Until Thu08/23/21 at 1104, Cath (Intra- Procedure), Routine perflutren protein-A microsphers (Optiso n) (0.22 mg/mL) injection 0.6 mL (COMPLETED) 1329 (Given - Provid er: Ajay Garrido) 0.6 mL, Intravenous, ONCE PRN, 1 dose, S tarting on Thu08/23/21 at 1329, Until Thu08/23/21 at 1329, Per Protocol, Routine sodium chloride 0.9 % (flush) (BD PosiFlush Normal Saline 0.9) f lush 5-20 mL 5-20 mL, Intravenous, EVERY 1 MIN PRN, S tarting on Thu08/23/21 at 0922, Until Thu08/23/21 at 1357, flush, Flush pertains to all indwelling lines. Flush per protocol found in the job aid using the link pro vided on this medication record., Cath (Day of Procedure), Routi ne verapamiL (Isoptin) (2.5 mg/mL) injection (CANCELED) 1042 (Given - Provider: Negro Win MD) ONCE PRN, Starting on Thu08/23/21 at 1042 , Until Thu08/23/21 at 1104, Administer over 2 Minutes, Cath (Intra-Procedure) documented in this encounter Care Teams Trauma Program Manager Relationship Specialty Start Date End Date Nisa Machado MD PCP - General 07/26/[address] [place] [address] documented as of this encounter
--- OUTSIDE RECORDS SUMMARY | 2021-11-08 08:47 | XMS_ITS | Encounter Summary ---
:1955 Author Organization [place] [address] Care Team Providers Name Role Phone Nisa Machado MD Primary Care Provider Encounter Details Date Type Department Care Team Description 08/23/2021 Unscheduled Cardiac Surgery at [facility] artery Encounter LONA German MD disease involving [facility] artery of [place], [place] CARDIOTHORACIC heart with un stable [id number] SURGERY angina pectoris [phone] [place] [address] Social History Tobacco Use Types Packs/Day Years [...] documented as of this encounter Progress Notes [facility] MD - 08/23/2021 1:12 PM EDT Cardiac surgery new patient visit This is a patient being referred by Mu Ryan MD for evaluation of CAD. This is a 66-year-old male with substernal chest pain that also radiates to his shoulders and up into his face. This has been happening with more frequency and less exertion. He was just recently in anemergency room and started on isosorbide nitrate. He has noticed with the isosorbide that its gottenless but it has not gone away completely. He has had to take some sublingual nitro. He does not get the symptoms at rest. 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 He has many good targets please see further details of the cath report in the EMR. His echo is pending. Impression 66-year-old male with unstable angina. We discussed staying in the hospital versus going home and we have agreed that he will go home however if he runs into any trouble he should call my plan is to talk to him on Thursday and we will make anassessment of whether or not he needs to be admitted to the hospital prior to his surgery. 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 The plan is for surgery Thursday plus minus preadmit. documented in this encounter Plan of Treatment Upcoming Encounters Date Type Specialty Care Team Description 11/26/2021 Appointment Radiology Camron Melissa MD [facility] CARDIOTHORACIC [place], [place] [address] (Wo rk) 11/26/2021 Office Visit Cardiac Surgery Camron Melissa MD [facility] CARDIOTH[facility]ACIC [place], [place] [address] (Wo rk) documented as of this encounter Results XR Chest PA & [...] questions please contact the health home care provider that requested your imaging first. ? Electronically signed by: Kayleen Mckeon MD , [facility] ([phone]), at 08/23/2021 4:14 PM Narrative 08/23/2021 4:14 [...] 08/23/2021 EXAMINATION: XR CHEST PA AND LATERAL (GE NERIC) CLINICAL HISTORY: cad TECHNIQUE: PA and lateral [...] questions please contact the health home care provider that requested your imaging first. Electronically signed by: Kayleen Mckeon MD , [facility] ([phone]), at 08/23/2021 4:14 PM Camron Melissa MD IMG DX ORDERABLES Basic Metabolic Panel (non-fasting) (08/23/2021 1:46 PM EDT) P athologist Signature Glucose Lvl 103 65 - 199 [facility] mg/dL [facility]OR[facility] Comment: Diabetes: >=200 mg/dL plus symp toms BUN 10 10 - 20 mg/dL [facility] Creatinine 0.94 0.80 - 1.50 mg/dL [facility] Sodium 140 135 - 145 mmol/L [facility] Potassium 4.2 3.5 - 5.0 mmol/L [facility] Comment: Please note: ??Patients with WBC >100,00 0 may have falsely elevated Potassium levels. ??For accurate Potassium quantif ication in these patients send serum separator tube (gold top) for subsequent determinations. ??Contact the Clinical Chemistry Laboratory if there are any qu estions. Chloride 105 98 - 107 mmol/L [facility] CO2 28 22 - 31 mmol/L [facility] Anion Gap 7 5 - 15 mmol/L [facility] Calcium 8.8 8.5 - 10.5 mg/dL [facility] Estimated GFR 88 >=60 mL/min/1.73 m?? [facility] Comment: This patient's estimated GFR [...] Organization Address City/State/[place] [address] documented in this encounter Visit Diagnoses Diagnosis Coronary artery disease involving [place] coronary artery of [place] heart with unstable angina pectoris Coronary artery disease involving [place] coronary artery of [place] heart with unstable angina pectoris documented in this encounter Care Teams Photographic Supervisor Relationship Specialty Start Date End Date Nisa Machado MD PCP - General 07/26/[address] [place] [address] documented as of this encounter
--- OUTSIDE RECORDS SUMMARY | 2021-11-08 08:47 | XMS_ITS | Encounter Summary ---
:1955 Author Organization [facility] [place] [address] Care Team Providers Name Role Phone Nisa [...] Expiration Date Visits Requ ested Visits Authorized [id number] 1 1 Encounter Details Date Type Department Care Team Description 10/18/2019 Anesthesia Event Operating Room Jeff Garcia Ziegler Day ON SITE SOIL EVALUATOR [address] [place] [phone] ANESTHESIOLOGY [phone] [place], [place] [address] (Wo rk) Anesthesia Record Procedure Summary Procedure Name Responsible Anesthesia Start Anesthesia Stop Time Anesthesiologist Time Rush ÁLVAREZ Matthew D, ON SITE SOIL EVALUATOR 10/18/19 1010 10/18/19 1151 DECOMPRESSION, FORAMINOTOMY, LUMBAR [...] Drains, and Airways Type Details Placement Removal PIV 10/18/19; 914; cephalic 10/18/19 0915 by Ramez, 10/18/19 1302 by vein (lateral side of arm), Sloane Conrad RN Stok es, Sarah Monsalve RN left; [id number] catheter system; 20 gauge; es; distraction; 1; cephalic vein (lateral side of arm), left, no redness, ecchymosis, warmth, swelling, pain, drainage; no longer indicated, removed per policy/procedure, catheter/device intact; 10/18/19; 1302 ETT Mask Ventilation: Easy (1); 10/18/19 1015 by Bakari alvares, 10/18/19 1127 by ETT Type: Cuffed, Oral; ETT SANA Acosta, Jeff Mancia, ON SITE SOIL EVALUATOR Size: 7.5 mm; Mac Blade: 4; Notes: Asleep, Pre-O2, Stylette; Attempts: 1; Laryngoscopy Grade: 2; ETT Placement Verified By: Auscultation, Capnometry, Visual; Secured at Teeth: 24 cm Incision 10/18/19; 1030; thoracic 10/18/19 1030 by Ray ospina, 09/01/21 2309 by spine; LDA not present upon DRE Long on, Amy Marin RNbill checker; 09/01/21; 2309 documented in this encounter Social History Tobacco [...] Procedure Summary Date: 10/18/19 Room / Location: [facility] OR MAIN OR Anesthesia Start: 1010 Anesthesia Stop: 115 Procedures: LAMINOTOMY, DECOMPRESSION, FORAMINOTOMY, LUMBAR (WRVU 13.18) [...] Description 11/26/2021 Appointment Radiology Camron Melissa MD [facility] CARDI[facility]ACIC [facility] [place], [place] [address] ([place]o) 11/26/2021 Office Visit Cardiac Surgery Camron Melissa MD [facility] CARDIOJESSICAORACIC [place] [facility] [place] [address] ([place]) documented as of this encounter Visit Diagnoses Not on filedocumented in this encounter Administered Medications Inactive Administered Medications - up to 3 most recent administrations Medication Order MAR Action Action Date Dose Rate Site ceFAZolin (Ancef) 2 g in dextrose Given 10/18/2019 10:23 AM EDT 2 g 5% 100 mL infusion 2 g, Intravenous, ONCE, 1 dose, On e 10/18/19 at 0915, Administer over 30 Minutes, To [...] PRN, Starting on Thu10/18/19 at 1015, Until Tu10/18/19 at 1151, Anesthesia Intra-op, Routine lidocaine (PF) (XYLOCAINE) 100 mg/5 mL (2 %) Given 10:15 AM EDT 100 mg injection PRN, Starting on Thu10/18/19 at 1015, Until Tu10/18/19 at 1151, Anesthesia Intra-op, Routine midazolam (PF) (VERSED) multi-dose injec tion Given 10/18/2019 10:10 AM EDT 2 mg PRN, Starting on Thu10/18/19 at 1010, Until Tu10/18/19 at 1151, Anesthesia Intra-op, Routine ondansetron (ZOFRAN) injection Given 10/18/2019 10:15 AM EDT 4 mg PRN, Starting on Thu10/18/19 at 1015, Until Tu10/18/19 at 1151, Anesthesia Intra-op, Routine propofol (DIPRIVAN) 10 mg/mL bolus injection Given 10:15 AM EDT 200 mg (Anesthesia) PRN, Starting on Thu10/18/19 at 1015, Until Thu10/18/19 at 1151, Anesthesia Intra-op rocuronium (Zemuron) 10 mg/mL injection Given 10/18/2019 10:15 AM EDT 40 mg PRN, Starting on Thu10/18/19 at 1015, Until Thu10/18/19 at 1151, Anesthesia Intra-op, Routine documented in this encounter Care Teams Cross Tie Tram Loader Relationship Specialty Start Date End Date Nisa Machado MD PCP - General 07/26/14 [address] [place] [address] documented as of this encounter
--- OUTSIDE RECORDS SUMMARY | 2021-11-08 08:47 | XMS_ITS | Encounter Summary ---
:1955 Author Organization [facility] [place] [address] Care Team Providers Name Role Phone Nisa Macahdo MD Primary Care Provider Encounter Details Date Type Department Care Team Description 08/09/2021 Orders Only Float Remover Cleveland Berg, Screening for cardiovascular condition; [facility] Abnormal stress test; [facility] Chest discomfort [facility] [place] [address] [place], [place] [phone] (Work) [phone] Social History Tobacco Use Types Packs/Day Years [...] Description 11/26/2021 Appointment Radiology Camron Melissa MD [facility] [place] [address] (Wo rk) 11/26/2021 Office Visit Cardiac Surgery Camron Melissa MD [facility] CARDI[facility] S [place], [place] [address] (Wo rk) documented as of this encounter Results Basic Metabolic Panel (non-fasting) (08/23/2021 7:33 AM EDT) athologist Signature Glucose Lvl 111 65 - 199 [facility] mg/dL [facility] Comment: Diabetes: >=200 mg/dL plus symp toms BUN 12 10 - 20 mg/dL [facility] Creatinine 1.00 0.80 - 1.50 mg/dL [facility] Sodium 136 135 - 145 mmol/L [facility] Potassium 3.8 3.5 - 5.0 mmol/L [facility] Comment: Please note: ??Patients with WBC >100,00 0 may have falsely elevated Potassium levels. ??For accurate Potassium quantif ication in these patients send serum separator tube (gold top) for subsequent determinations. ??Contact the Clinical Chemistry Laboratory if there are any qu estions. Chloride 101 98 - 107 mmol/L [facility] CO2 27 22 - 31 mmol/L [facility] Anion Gap 8 5 - 15 mmol/L [facility] Calcium 9.0 8.5 - 10.5 mg/dL [facility] Estimated GFR 82 >=60 mL/min/1.73 m?? [facility] Comment: This patient's estimated GFR [...] Rodriguez MD CHEMISTRY ORDERABLES Performing Organization Address City/State/[facility] [place] [address] documented in this encounter Visit Diagnoses Diagnosis Screening for cardiovascular condition Screening for other and unspecified card iovascular conditions Abnormal stress test Other nonspecific abnormal cardiovascula r system function study Chest discomfort Other chest pain documented in this encounter Care Teams Tail Dogger Relationship Specialty Start Date End Date Nisa Machado MD PCP - General 07/26/14 [address] [place] [address] documented as of this encounter
--- OUTSIDE RECORDS SUMMARY | 2021-11-08 08:47 | XMS_ITS | Encounter Summary ---
:1955 [place] [address] Care Team Providers Name Role Phone Nisa Machado MD Primary Care Provider Encounter Details Date Type Department Care Team Description 10/11/2019 Ancillary Procedure Radiology Library at [facility], Ara Cardenas [facility] [place] [address] [facility] [phone] [place], [place] [address] (Wo rk) Social History Tobacco Use Types Packs/Day Years Used Date Never Smoker Smokeless Tobacco: Never Used Sex Assigned at Date Recorded Male 01/25/2021 11:16 AM EST documented as of this encounter Plan of Treatment Upcoming Encounters Date Type Specialty Care Team Description 11/26/2021 Appointment Radiology Camron Melissa MD [facility] CARDIOTHORACIC S [place], [place] [address] (Wo rk) 11/26/2021 Office Visit Cardiac Surgery Camron Melissa MD [facility] DR CHEKO Berg [place], [place] [address] (Wo rk) documented as of [...] is for storage only. Jay Moore MD [facility] FILM LIBRARY ORDERABLES Performing Organization Address City/State/ZIP Code Phon e Number RAD [place], [place] documented in this encounter Visit Diagnoses Not on filedocumented in this encounter Care Teams Ultrasound Technologist Sonographer Relationship Specialty Start Date End Date Nisa Machado MD PCP - General 07/26/14 [address] [place] [address] documented as of this encounter
--- OUTSIDE RECORDS SUMMARY | 2021-11-08 08:47 | XMS_ITS | Encounter Summary ---
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 Camron Melissa MD [facility] Procedures PRO INPT INITIAL COMP/COMP/HIGH [facility] [place] [address] Referral ID Status Reason Start Date Expiration Date Visits Requ ested Visits Authorized [id number] 1 1 Encounter Details Date Type Department Care Team Description 08/28/2021 Anesthesia Event Main Operating Room Julio C Thomas MD [facility] [place] [address] [facility] Mar Olvera MD [facility] [place] [address] [facility] [place] [address] Anesthesia Record Procedure Summary Procedure Name Responsible Anesthesia Start Anesthesia Stop Time Anesthesiologist Time @CABG, USING Julio C Linton MD 08/28/21 1323 08/28/21 18 00 ARTERIAL GRAFT;SINGLE ARTERIAL GRAFT (VU 33.75) (N/A Chest) Events Date Time Event Comment 08/28/2021 0947 1323 AN Verify 1323 Start 1323 An Start Data 1334 An Induction 1337 An Intubation 1345 TRAVON w/ REPORT 1353 Anesthesia Ready 1413 Sternotomy 1426 Heparin 1426 Heparin 1443 AN AORTIC CANNULA 1447 AN Venous Cannula 1457 CV Bypass init 1500 An Clamp start 1639 An Clamp Remove 1639 CP Bypass Ended 1722 Chest Closed 1800 an stop data 1800 Recovery or ICU Handoff Patient care was transferred to the destination unit staff after review of the patient's medica l history, current anesthetic/surgi jose status and plan, according to the Provider Handoff Checklist. 1800 Stop Name Total Midazolam 4 mg fentaNYL 750 mcg Propofol 140 mg PHENYLephrine 80 mcg PHENYLephrine INF 5,400 mcg Vecuronium 17.5 mg Heparin 25,000 Units Protamine 250 mg Tranexamic Acid 820 mg Tranexamic Acid INF 337.16 mg cefTRIAXone 2 g heparin (porcine) 50 units/mL in sodium chloride 0.45% 500 mL Cannot be calculated infusion nitroGLYcerin (200 mcg/mL) in dextrose 5% 250 mL infus ion 0 mcg Rocuronium 100 mg Dexmedetomidine INF 96.64 mcg Agents Name O2 Air N2O Isoflurane (et) Blood No blood administrations on file. Lines, Drains, and Airways Type Details Placement Removal Incision 08/28/21; 1412; anterior, 08/28/21 1412 by midline; chest; vertical Malorie Melvin RN Incision 08/28/21; 1412; Right, 08/28/21 1412 by medial; leg; Malorie Melvin RN non-laparascopic puncture Incision 08/28/21; 1430; Right; 08/28/21 1430 by groin; non-laparascopic Candi Flowers RN puncture Incision 10/18/19; 1030; thoracic 10/18/19 1030 by 2309 by spine; LDA not present Magali Yousif Wilso n, Cecily C, upon assessment; 09/01/21; RN RN 2309 PIV 08/25/21; 1246; median 08/25/21 1246 by 09/01/21 2100 by cubital vein (antecubital Emi Gonsalez, RN Jonel guerita, Amy Tania, fossa), right; RN adpr-ejm-wzcipv catheter system; Anatomical Landmarks; US Not Used; 20 gauge, 1 in length; KRB; LDA not present upon assessment; 09/01/21; 2100 CVC Single/Intro. 08/28/21; 1000; internal 08/28/21 1000 by 070 09/13 1451 by jugular vein, right; Emilie Mosqueda, Marlen Booth, introducer; 9 Fr; placed RN RN in OR; 08/29/21; 1451 Arterial Line 08/28/21; 1332; radial 08/28/21 1332 by 08/29/21 1451 by artery, right; 20 gauge; Suzan Mejia Nicole D, Anatomical Landmarks, MD Haydee RN Guidewire; US Not Used; continuous blood pressure monitoring, frequent blood gas measurement; Roberto MARRERO; Sterile Prep, Sterile Gloves; 08/29/21; 1451 ETT Mask Ventilation: Adjunct 08/28/21 1337 by 08/28 2207 by (2); ETT Type: Cuffed, Stephan Mejia B rad, COLD STORAGE SUPERINTENDENT Oral; ETT Size: 8 mm; MD Haydee Knight Blade: 2; Notes: Asleep, Pre-O2, Cricoid Pressure, Stylette; Attempts: 1; Laryngoscopy Grade: 2; Secured at Teeth: 23 cm; Inserted by: Jessy Cobian Urethral Catheter 08/28/21; 1345; Surgery 08/28/21 1345 by 08/30 1100 by longer than 2 hours, Lilo Mccain, RN Marlen Mares, Physician order, Need for RN intraoperative urine output monitoring; indwelling catheter with core temperature probe; latex; 14; present on admission to this facility; 1; 10; 10; none; drainage bag to dependent drainage; 08/30/21; 1100 PA Catheter 08/28/21; 1353; Right; 08/28/21 1353 by 08/29/21 0232 by internal jugular vein; Jack Mjeia , alan thermodilution MD Alonso Hubbard , DRE catheter, VIP; 9 Fr; Emergent Care - CVC Bundle Precluded; Roberto MARRERO; 08/29/21; 0232 Closed/Suction Drain 08/28/21; 1509; 1; Right, 08/28/21 1509 by 08/29/21 0232 by Medial; Leg; Bulb; 7 Lilo Mccain RN Todorovi c, Elias Gupta RN Chest Tube 08/28/21; 1646; Right; 08/28/21 1646 by 08/29/21 1900 by anterior; mediastinum; 28f Lilo Mccain RN Ri vera Jaiden, straight chest tube DRE Zaragoza inserted to anterior mediastinum connected to waterseal suction via pleurevac device; 08/29/21; 1900 (not present on assessment) Chest Tube 08/28/21; 1647; Left; 08/28/21 1647 by 08/29/21 1900 by posterior; mediastinum; Lilo Mccain RN River a Jaiden, 28f right angle chest tube Beatnadya mayo RN inserted to posterior mediastinum connected to waterseal suction via pleurevac device; 08/29/21; 1900 (not present on assessment) documented in this encounter Social History Tobacco [...] encounter OR Notes Anesthesia Postprocedure Evaluation - Julio C Linton MD - 08/28/2021 6:04 PM EDT Department of Anesthesiology Post-procedure Note Patient: Alex Calhoun Procedure Summary Date: 08/28/21 Room / Location: [address] MAIN OR Anesthesia Start: 1323 Anesthesia Stop: 1800 Procedures: @CABG, USING ARTERIAL GRAFT;SINGLE ARTERIAL GRAFT (WRVU 33.75) (N/A Chest) @CABG; 5 VENOUS GRAFTS & ARTERIAL GRAFT (WRVU 14.14) (N/A Chest) ENDOSCOPIC HARVEST VEIN(S) FOR CABG (WRVU 0.31) (N/A Leg) Diagnosis: Coronary artery disease involving naknek coronary artery of naknek heart with unstable angina pectoris (CAD) Surgeons: Camron Melissa MD Responsible Provider: Julio C Linton MD Anesthesia Type: general ASA Status: 4 All Anesthesia Providers: Anesthesiologist: Julio C Lniton MD Scrummaster: Haydee Mejia MD Vitals Value Taken Time BP Temp Pulse 67 08/28/21 1804 Resp 12 08/28/21 1804 SpO2 100 % 08/28/21 1804 Pain Level Vitals shown include unvalidated device data. Patient Location: [facility] Level of Consciousness: Sedated (Pharmacologic/Intentional) Pain Management: Pain Being Addressed PONV: None Cardiovascular Status: Hemodynamically Stable Respiratory Status: Intubated/Ventilated and Stable Respiratory Status Postoperative Fluid Status: Intravascular EUvolemia Possible Anesthetic Complications: NONE apparent at time of evaluation Final Primary Anesthesia Type: General (The anesthetic type performed was the same as planned.) Comments: Anesthesia Preprocedure Evaluation - Haydee Mejia MD - 08/27/2021 1:46 PM EDT Pre-Anesthesia Evaluation for: Alex Calhoun a 66 y.o. male. Procedure(s): @CABG, USING ARTERIAL GRAFT;SINGLE ARTERIAL GRAFT (WRVU 33.75) @CABG; 5 VENOUS GRAFTS & ARTERIAL GRAFT (WRVU 14.14) ENDOSCOPIC HARVEST VEIN(S) FOR CABG (WRVU 0.31) Patient Active Problem List Diagnosis Date Noted ??? Chest pain 08/25/2021 ??? CAD (coronary artery disease) 08/23/2021 ??? Nevus 10/13/2014 ??? Seborrheic keratosis 10/13/2014 Past Medical History: Diagnosis Date ??? High blood pressure last 3 to 4 months b/p high 10/17/19 ??? in the past 3 months ??? Transfusion history Past Surgical History: Procedure Laterality Date ??? ANKLE SURGERY Right 1979 ??? PRO LAMINOTOMY, LUMBAR DISK, 1 INTRSP Left 10/18/2019 LAMINOTOMY, DECOMPRESSION, FORAMINOTOMY, LUMBAR (WRVU 13.18) performed by Jelani Zuñiga MD at [facility] MAIN OR ??? PRO MICROSURG TECHNIQUES, REQ OPER MICROSCOPE Left 10/18/2019 MICROSCOPE USE (WRVU 3.46) performed by Jelani Zuñiga MD at [facility] MAIN OR ??? VASECTOMY 1994 Social History [...] home medications have been reviewed. Physical Exam: Preprocedure Vitals Current as of 08/27/21 1346 BP: 122/66 Pulse: 50 Resp: 16 SpO2: 100 Temp: 36.9 ??C (98.4 ??F) Height: 185.4 cm (6' 1) (08/25/21) Weight: 81.6 kg (179 lb 14.3 oz) (08/27/21) BMI: 23.73 IBW: 79.9 kg (176 lb 1.7 oz) Last edited 08/27/21 1133 by PM Currently displaying vitals information from multiple entries within 180 minutes of most recent vitals. Airway Assessment: Mallampati: III TM distance: <3 FB Neck ROM: limited Cardiovascular Assessment: Rate: normal Pulmonary Assessment: unlabored breathing Dental Assessment: Misc Assessment: Other exam findings: Upper lip bite test to mid-lip, unable to extend to enedelia border. Slightlyretrognathic. Last Filed Perioperative Cognitive Screening Value Time User AD8 Total Score: 0 08/23/2021 3:00 PM Kortney Merino RN AD8 Informant: Other Informant 08/23/2021 3:00 PM Kortney Merino RN CFS Frailty Score: 1 08/23/2021 3:00 PM Kortney Merino, RN Anesthesia Plan: ASA 4 general, with a(n) intravenous induction Alex Calhoun is a 66 y.o. male presenting for IP CABG for Unstable Angina w/ Multivessel Disease ([facility] 08/2021: 50% LM Disease, FITNESS CENTRE MANAGER LAD w/ RCA Collaterals, 80% mOM1 of LCx, FITNESS CENTRE MANAGER pRCA w/ LAD Collaterals, 70% RPDA, 70% RPL1) on a background of HTN, HFpEF (EF 57% TTE 08/2021), Mild MR, Mild TR. NPO adequate. ROS reviewed. Activity prior to surgery: METS<4 limited by L arm pain, currently onnitro gtt 50 with some residual symptoms. Meds/Allgs reviewed. Labs/Imaging reviewed. Anesthesia Hx: - Prior Airway Exam: reviewed - Prior Anesthesia G2v mac4 - Complications: none - Fhx Anesthetic Complications: none Anesthetic Plan: - Premedication: Midazolam - GA w/ ETT - Standard ASA monitoring, Pre-induction a line, TRAVON - Adequate IV access, CVC/SGC Haydee Mejia MD CA2, Anesthesiology Region - Intrathoracic Cardiac Informed Consent: Anesthetic plan and risks discussed with patient and spouse. Use of blood products discussed with patient and spouse who. Plan discussed with resident. Anesthesia Screening documented in this encounter Plan of Treatment Upcoming Encounters Date Type Specialty Care Team Description 11/26/2021 Appointment Radiology Camron Melissa MD [facility] CARDIOTH[facility]IC S [place], [place] [address] (Esau salcedo) 11/26/2021 Office Visit Cardiac Surgery Camron Melissa MD [facility] CARDIOTHORACIC S [place], [place] [address] (Esau salcedo) documented as of this encounter Visit Diagnoses Not on filedocumented in this encounter Administered Medications Inactive Administered Medications - up to 3 most recent administrations Medication Order MAR Action Action Date Dose Rate Site cefTRIAXone (Rocephin) injection Given 08/28/2021 1:56 PM EDT 2 g Intravenous, PRN, Starting on Thu08/28/21 at 1356, Until Thu08/28/21 at 1800, Anesthesia Intra-op, Routine dexmedeTOMIDine (Precedex) (4 New Bag 08/28/2021 3:03 PM 0.4 m cg/kg/hr 8.19 mL/hr mcg/mL) in sodium chloride 0.9% EDT 50 mL infusion Intravenous, CONTINUOUS PRN, Starting on Thu08/28/21 at 1503, Until Thu08/28/21 at 1800, Anesthesia Intra-op fentaNYL (pf) (50 mcg/mL) multi-dose Given 08/28/2021 2:32 PM ED T 250 mcg injection Intravenous, PRN, Starting on Thu08/28/21 at 1334, Until Thu08/28/21 at 1800, Anesthesia Intra-op, Routine Given 08/28/2021 2:13 PM EDT 250 mcg Given 08/28/2021 2:12 PM EDT 150 mcg heparin (porcine) (1,000 units/mL) Given 08/28/2021 2:26 PM EDT 25,000 Units injection Intravenous, PRN, Starting on Thu08/28/21 at 1426, Until Thu08/28/21 at 1800, Anesthesia Intra-op, Routine midazolam (pf) (Versed) (1 mg/mL) multi-dose Given 08/28/2021 4: 40 PM EDT 1 mg injection Intravenous, PRN, Starting on Thu08/28/21 at 1331, Until Thu08/28/21 at 1800, Anesthesia Intra-op, Routine Given 08/28/2021 2:58 PM EDT 1 mg Given 08/28/2021 1:31 PM EDT 2 mg PHENYLephrine (Devin-Synephrine) (80 New Bag 08/28/2021 1:30 PM 20 mcg/min 15 mL/hr mcg/mL) in sodium chloride 0.9% EDT 250 mL infusion Intravenous, CONTINUOUS PRN, Starting on Thu08/28/21 at 1330, Until Thu08/28/21 at 1800, Anesthesia Intra-op, Routine PHENYLephrine in NS (PF) (DEVIN-SYNEPHRINE) 0.8 Given 4:49 PM EDT 80 mcg mg/10 mL (80 mcg/mL) multi-dose injection Syrg Intravenous, PRN, Starting on Thu08/28/21 at 1649, Until Thu08/28/21 at 1800, Anesthesia Intra-op, Routine propofoL (Diprivan) 10 mg/mL bolus injection Given 07/2021 1:34 PM EDT 140 mg (Anesthesia) Intravenous, PRN, Starting on Thu08/28/21 at 1334, Until Thu08/28/21 at 1800, Anesthesia Intra-op protamine (10 mg/mL) injection Given 08/28/2021 4:56 PM EDT 250 mg Intravenous, PRN, Starting on Thu08/28/21 at 1656, Until Thu08/28/21 at 1800, Anesthesia Intra-op, Routine rocuronium (Zemuron) (10 mg/mL) multi-dose Given 08/28/2021 1:34 PM EDT 100 mg injection Intravenous, PRN, Starting on Thu08/28/21 at 1334, Until Thu08/28/21 at 1800, Anesthesia Intra-op, Routine tranexamic acid (Cyklokapron) New Bag 08/28/2021 1:53 PM 1 mg/kg/h r 0.819 mL/hr (100 mg/mL) infusion EDT Intravenous, CONTINUOUS PRN, Starting on Thu08/28/21 at 1353, Until Thu08/28/21 at 1800, Anesthesia Intra-op, Routine tranexamic acid (Cyklokapron) (100 mg/mL) IV Given 07/2021 1:53 PM EDT 820 mg bolus Intravenous, PRN, Starting on Thu08/28/21 at 1353, Until Thu08/28/21 at 1800, Anesthesia Intra-op, Routine vecuronium (Norcuron) injection Given 08/28/2021 5:22 PM EDT 2.5 mg Intravenous, PRN, Starting on Thu08/28/21 at 1433, Until Thu08/28/21 at 1800, Anesthesia Intra-op, Routine Given 08/28/2021 3:09 PM EDT 5 mg Given 08/28/2021 2:58 PM EDT 5 mg documented in this encounter Care Teams Radio Division Officer Relationship Specialty Start Date End Date Nisa Machado MD PCP - General 07/26/14 [address] [place] [address] documented as of this encounter
--- OUTSIDE RECORDS SUMMARY | 2021-11-08 08:47 | XMS_ITS | Encounter Summary ---
:1955 Author Organization [facility] [place] [address] Care Team Providers Name Role Phone Nisa [...] Expiration Date Visits Requ ested Visits Authorized [id number] 1 1 Encounter Details Date Type Department Care Team Description 10/18/2019 Ancillary Procedure Radiology Xray at [facility] [place] [address] Social History Tobacco Use Types Packs/Day [...] 11/26/2021 Appointment Radiology Camron Melissa MD [facility] C[facility] S [place], [place] [address] (Wo rk) 11/26/2021 Office Visit Cardiac Surgery Camron Melissa MD [facility] CARD[facility] S [place], [place] [address] (Wo rk) documented as of [...] Address City/State/ZIP Code Phon e Number RAD [place], [place] documented in this encounter Visit Diagnoses Not on filedocumented in this encounter Care Teams Sales Support Coordinator Relationship Specialty Start Date End Date Nisa Machado MD PCP - General 07/26/14 [address] [place] [address] documented as of this encounter
--- OUTSIDE RECORDS SUMMARY | 2021-11-08 08:47 | XMS_ITS | Encounter Summary ---
:1955 Author Organization [facility] [place] [address] Care Team Providers Name Role Phone Nisa [...] Expiration Date Visits Requ ested Visits Authorized [id number] 1 1 Encounter Details Date Type Department Care Team Description 10/18/2019 Hospital Encounter Post Acute Care Jelani Zuñiga acement of lumbar Unit at Estela Cardenas MD intervertebral disc Day 10 ESTEL[address] MATTHEW without myelopathy [address] [place] [facility] [address] [place] [address] Social History Tobacco Use Types Packs/Day Years [...] six weeks after surgery with a Physician???s Production Material Handler at the surgeon???s office. You will have [...] to stop taking it. ??? Only take wjae-rps-vgnoroj or prescription medicine for pain, discomfort or [...] If you have any questions, please call [facility] Neurology and Neurosurgery at [phone], during business hours of Thursday through Thursday from 8:00 a.m. until 4:00 p.m. In case of emergency duringnon-business hours, please call the same main number and follow the prompts to page the neurosurgeonon call. SMOKING CESSATION INFORMATION: ??? [place] QUITLINE: ??? [place] QUITLINE: ??? [email or web address] If you smoke, stop now! Smoking may impede healing. MAKE SURE YOU: ??? Understand these instructions. ??? Will seek medical care if you are feeling poor, or get worse. ??? Will call the surgeon???s office with any questions or concerns at : [phone] The above information has been presented or demonstrated. I/we have had the opportunity to ask questions. I/we fully understand the instructions given. I/we have received a copy of this form. documented in this encounter Medications at Time of Discharge Medication Sig Dispensed Refills Start Date End Date HYDROcodone-acetaminophe Take 1-2 tablets by 10 tablet 0 03/14/2020 n ([place]) 5-325 mg mouth every 6 hours Tablet [...] Zuñiga MD - 10/18/2019 11:41 AM EDT [facility] [place] [address] Patient Name: Alex Calhoun : [id number] MR#: [id number] Case Date: 10/18/2019 Case Scheduled Time: 1003 Surgeon: Surgeon(s) and Role: * Jelani Zuñiga MD - Primary * Katherine Castro PA - Physician Production Material Handler Preoperative diagnosis: HNP Postoperative diagnosis: HNP Procedure(s) [...] the duration of the operative session. The inventory assistant adequately prepped the operative site and maintained the best possible exposure of anatomy incident to the procedure. Jelani Zuñiga MD 10/18/2019 documented in this encounter Plan of Treatment Upcoming Encounters Date Type Specialty Care Team Description 11/26/2021 Appointment Radiology Camron Melissa MD [facility] CARD[facility]ACIC S [place], [place] [address] (Esau salcedo) 11/26/2021 Office Visit Cardiac Surgery Camron Melissa MD [facility] CARDI[facility]IC [place], [place] [address] (Esau salcedo) documented as of [...] City/State/ZIP Code Phon e Number RAD RAD [place], [place] documented in this encounter Visit Diagnoses Diagnosis Displacement of lumbar intervertebral di sc without myelopathy documented in this encounter Administered Medications Inactive Administered Medications - up to 3 most recent administrations Medication Order MAR Action Action Date Dose Rate Site HYDROcodone-acetaminophen Given 10/18/2019 12:22 PM EDT 1 tablet ([place]) 5-325 mg per tablet 2 tablet 2 tablet, Oral, EVERY 4 HOURS PRN, Starting on 10/18/19 at 1153, Until 10/18/19 at 1309, Pain, For moderate to severe pain (4-10) Initial dose 5mg. If pain control not adequate in 60 minutes, give an additional 5 mg., PACU Recovery, Routine lactated ringers infusion New Bag 10/18/2019 9:15 AM EDT 1,000 mLs 50 mL/hr 1,000 mL, at 50 mL/hr, Intravenous, CONTINUOUS, Starting on 10/18/19 at 1030, Until 10/18/19 at 1309, [...] at 1310, Intra- Operative (Intra-Procedure), Routine HYDROcodone-acetaminophen ([place]) 5-325 mg per tablet 2 tablet ( CANCELED) 1222 (Given - Provider: Gricel Mota RN) 2 tablet, Oral, EVERY 4 HOURS PRN, Start ing 10/18/19 at 1153, Until 10/18/19 at 1309, Pain, For moderate to severe pain (4-10) Initial dose 5mg. If pain control not adequate in 60 minutes, give an additional 5 mg., PACU Recovery, Routine thrombin (bovine) (THROMBIN-JMI) solution (CANCELED) 1042 (Given - Provider: Jelani Zuñiga MD) ONCE PRN, Starting 10/18/19 at 1042, Until Tu10/18/19 at 1310, Intra- Operative (Intra-Procedure) documented in this encounter Care Teams Spaghetti Machine Operator Relationship Specialty Start Date End Date Nisa Machado MD PCP - General 07/26/14 [address] [place] [address] documented as of this encounter
--- OUTSIDE RECORDS SUMMARY | 2021-11-08 08:47 | XMS_ITS | Encounter Summary ---
:1955 Author Organization [facility] [place] [address] Care Team Providers Name Role Phone Nisa Machado MD Primary Care Provider Reason for Visit Reason Comments Skin Check Focused Exam Encounter Details Date Type Department Care Team Description 01/04/2019 Office Visit Dermatology at Dil[facility] Wilson De rmal nevus; Mee Cheatham MD SK (seborrheic keratosis); [address] [facility] History of basal cell carcin kirsten (BCC) [place] [address] [address] [phone] [facility] [place], [place] [address] Social History Tobacco Use Types [...] Exam SKIN HISTORY: 06/01/18 A. 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 No Pacemaker or Defibrillator? No Preferred name: Jared Preferred method of contact for results: Cell Phone OK to leave detailed message including biopsy results?: Yes Are there any other people with whom we may discuss your care with? , Lyudmila Porter Preferred Pharmacy? [facility] in [facility] Alex Calhoun is a 63 y.o. year [...] following: Significant skin findings: A. Left cheek: Brier, fleshy papule. B. Face: Brown papule/plaques with waxy stuck-on appearance. C. Right restorationism, right cheek: Well-healed hypopigmented scars per skin [...] documentation in this encounter. Dilcia Bella MD Concrete Mixer of Dermatology, Department of Surgery [facility] documented in this encounter Plan of Treatment Upcoming Encounters Date Type Specialty Care Team Description 11/26/2021 Appointment Radiology Camron Melissa MD [facility] CARDIOTHORACIC S [place], [place] [address] (Wo rk) 11/26/2021 Office Visit Cardiac Surgery Camron Melissa MD [facility] CARDIOTHORACIC S [place], [place] [address] (Wo rk) documented as of this encounter Visit Diagnoses Diagnosis Dermal nevus Benign neoplasm of skin, site unspecifie d SK (seborrheic keratosis) Other seborrheic keratosis History of basal cell carcinoma (BCC) documented in this encounter Care Teams Exhaust Worker Relationship Specialty Start Date End Date Nisa Machado MD PCP - General 07/26/14 [address] [place] [address] documented as of this encounter
--- OUTSIDE RECORDS SUMMARY | 2021-11-08 08:47 | XMS_ITS | Encounter Summary ---
:1955 Author Organization [facility] [place] [address] Care Team Providers Name Role Phone Nisa Machado MD Primary Care Provider Encounter Details Date Type Department Care Team Description 01/12/2020 Telephone Dermatology at [facility] Dilcia Pablo MD [address] [place] [address] [facility] [phone] [place], [place] [address] (Wo rk) Social History Tobacco [...] results today indicating a BCC on the denominational. Reviewed recommendation from Dr. Bella for MOHS. Patient verbalized understanding. Will refer to MOHS and patient will wait for call from [facility] board of education secretary to schedule documented in this encounter Plan of Treatment Upcoming Encounters Date Type Specialty Care Team Description 11/26/2021 Appointment Radiology Camron Melissa MD [facility] CARDIOTHORACIC S [place], [place] [address] (Wo rk) 11/26/2021 Office Visit Cardiac Surgery Camron Melissa MD [facility] CARDIOTHORACIC S [place], [place] [address] (Wo rk) documented as of this encounter Visit Diagnoses Not on filedocumented in this encounter Care Teams Direct Sales Professional Relationship Specialty Start Date End Date Nisa Machado MD PCP - General 07/26/14 [address] [place] [address] documented as of this encounter
--- OUTSIDE RECORDS SUMMARY | 2021-11-08 08:47 | XMS_ITS | Encounter Summary ---
:1955 Author Organization [facility] [place] [address] Care Team Providers Name Role Phone Nisa Machado MD Primary Care Provider Encounter Details Date Type Department Care Team Description 03/14/2020 Procedure visit Dermatology at [facility] Jeff Abebe Basal cell carcinoma Mee Lewis MD (BCC) of right [address] [facility] [address] [facility] [phone] [address]-DERMATOLOGY [place] [address] Social History Tobacco Use Types Packs/Day Years [...] Abebe MD. Your wound(s) was repaired by ieym-xi-ggja stitchescalled a primary repair. You do not [...] until your sutures are removed. 5. Some stone mason may need to be delayed or delegated [...] as often as is recommended by your machine stonecutter, for new skin cancers. This is once [...] it. If after hours, please call the apple peeler operator or [phone] and ask for the machine stonecutter on-call. If you have any non-urgent questions or concerns, please feel free to call my office or contact me through our patient portal, [employer], at [email or web address] How to contact us during business hours Dermatology at [facility] [address]: Mohs scheduling or Mohs follow-up appointments: [phone] documented in this encounter Progress Notes Jeff Abebe MD - 03/14/2020 8:00 AM EST Images from the original note were not included. Summary of Procedure(s): Site: Right Superior Scientologist Tumor Type: Basal Cell Carcinoma Stages to [...] Cell Carcinoma,nodular, located on the Right Superior Scientologist Plan: 1. Findings from the biopsy report, [...] and follow up with his or her machine stonecutter or other skin provider. 6. Discussed avoiding [...] 03/14/2020 Staff Surgeon: Jeff Abebe MD PhD Nursing/Class A Regional Truck Driver(s): Iesha Chowdhury LPN Inspector Open Die (s): Isatu Davies Pre-operative diagnosis: Basal Cell Carcinoma,nodular Post-operative diagnosis: Basal Cell Carcinoma,nodular Location/Site: Right Superior Scientologist Procedure: Mohs micrographic surgery Indication(s) for Mohs [...] The site was confirmed with the patient/authorized product support representative/referring physician and/or a photograph form time [...] 1.5 x 1.4 cm Location/Site: Right Superior Scientologist Indication: repair of wound for buddhism of function/anatomy Procedure: Complex linear layered closure of Mohs defect Staff Surgeon: Jeff Abebe MD PhD Nursing/Class A Regional Truck Driver(s): Sumaya Robles RN, Izabella Augustin TECHNOLOGY METHODOLOGY CONSULTANT, Iesha Chowdhury LPN, Radha Stinson CMA Due [...] Surgery and Dermatologic Oncology Department of Dermatology [address] [place] [address] documented in this encounter Plan of Treatment Upcoming Encounters Date Type Specialty Care Team Description 11/26/2021 Appointment Radiology Camron Melissa MD [facility] CARDIOTHORACIC S [place], [place] [address] (Wo rk) 11/26/2021 Office Visit Cardiac Surgery Camron Melissa [facility] [place] [place] [address] (Wo rk) documented as of this encounter Visit Diagnoses Diagnosis Basal cell carcinoma (BCC) of right temp le region documented in this encounter Care Teams Global Marketing Manager Relationship Specialty Start Date End Date Nisa Machado MD PCP - General 07/26/14 [address] [place] [address] documented as of this encounter
--- OUTSIDE RECORDS SUMMARY | 2021-11-08 08:47 | XMS_ITS | Encounter Summary ---
:1955 Author Organization [facility] [address] Care Team Providers Name Role Phone Nisa Machado MD Primary Care Provider Encounter Details Date Type Department Care Team Description 08/21/2021 Telephone Cardiology at [facility] Dona Hays [place] [facility] [place] [address] [place] [address] [phone] (Wo rk) Social History Tobacco Use Types [...] this encounter Miscellaneous Notes Telephone Encounter - Dona Hays PA - 08/21/2021 1:02 PM EDT Images from the original note were not included. 08/21/2021 Alex Calhoun Initial Contact Date: 08/21/2021 Initial contact time: 1:02 PM Referring Provider: Dr. Molina Patient Location: [facility] Past Medical History: Angina symptoms with recent + stress test 07/29/[address] Brand awaiting C 08/29/21 HLD Presenting Symptoms per OSH: Alex Calhoun has been followed by his PCP and tanbark peeler for symptoms of fatigue, WILLIAMSON and chest/left arm pain. Underwent ETT 07/29/21 that was positive for ischemia with 2.5-3.0mm of downsloping STDin the ant/lat region. He was seen by Dr. Brand and referred to for LHC scheduled for 08/29/21.He was started on metoprolol and aspirin and given SL NTG PRN. Since his visit with his cardiologisthe has increased angina symptoms and taking his NTG more frequently. Recurrent angina symptoms priorto ER presentation resolved with 1 SL NTG in ER. Provider calling for recommendations. Vital Signs: HR 50s, SBP 140-120s. Pertinent Diagnostic Findings: EKG SB 50s without acute changes Troponin negative x2 CK normal Past cardiac studies: ETT 07/29/21 positive for ant/lat ischemia OSH Interventions: SL NTG Assessment & Plan: Alex Calhoun is a 66 y.o. male with a recent positive stress test awaiting [facility] (08/29/21) who presented to the ER with accelerating angina requiring more SL NTG use. Reassuringly his EKG has no ischemic changes and his troponin and CK levels are negative. He has remained symptom free since 1 SL NTG given at time of presentation. Unfortunately we have no capacity to accept this patient today or tomorrow for transfer. Provider looking to possibly send the patient home. I recommended starting Imdur 30or 60mg if BP will allow. Unable to up-titrate beta yoel due to bradycardia. Continue aspirin 81mg daily and start statin (if patient agreeable). I recommended patient remain in observation for 24 hours. If patient tolerates addition of Imdur without recurrence of angina symptoms with activity, then could consider discharge with LHC scheduled on 08/29/21 (I did not give clearance for discharge). If symptoms recur I would keep the patient until transfer to a cath capable facility is available. If discharged, patient to have a very low threshold to re-present to the ER if symptoms continue. Discussed case with Ying (cath project scheduler), unable to accommodate outpatient [facility] any sooner that 08/29/21. I encouraged Dr. Molina to contact us if there is any change in symptoms, decision-making, or further need for guidance in management. The above recommendations were based on my discussion with Dr. Molina; I have not personally interviewed or examined this patient. Dona Hays PA-C Cardiovascular Medicine Pager [phone] 08/21/2021 documented in this encounter Plan of Treatment Upcoming Encounters Date Type Specialty Care Team Description 11/26/2021 Appointment Radiology Camron Melissa MD [facility] CARDIOTHORACIC S [place], [place] [address] (Wo rk) 11/26/2021 Office Visit Cardiac Surgery Camron Melissa MD [facility] CARDIOTHORACIC S [place], [place] [address] (Wo rk) documented as of this encounter Visit Diagnoses Not on filedocumented in this encounter Care Teams Maintenance Journeyman Relationship Specialty Start Date End Date Nisa Machado MD PCP - General 07/26/14 [address] [place] [address] documented as of this encounter
--- OUTSIDE RECORDS SUMMARY | 2021-11-08 08:47 | XMS_ITS | Encounter Summary ---
:1955 Author Organization [facility] [address] Care Team Providers Name Role Phone Nisa Machado MD Primary Care Provider Encounter Details Date Type Department Care Team Description 10/17/2019 Telephone Pre-Admission Jimena maria at [facility] [address] [place] [address] Social History Tobacco Use Types Packs/Day [...] Description 11/26/2021 Appointment Radiology Camron Melissa MD [facility] CARDIOTHORACIC S [place], [place] [address] (Wo rk) 11/26/2021 Office Visit Cardiac Surgery Camron Melissa MD [facility] CARDIOTHORACIC S [place], [place] [address] (Wo rk) documented as of this encounter Visit Diagnoses Not on filedocumented in this encounter Care Teams Carpenter Cradle And Dolly Relationship Specialty Start Date End Date Nisa Machado MD PCP - General 07/26/14 [address] [place] [address] documented as of this encounter
--- OUTSIDE RECORDS SUMMARY | 2021-11-08 08:47 | XMS_ITS | Encounter Summary ---
:1955 Author Organization [facility] [place] [address] Care Team Providers Name Role Phone Nisa [...] Expiration Date Visits Requ ested Visits Authorized [id number] 1 1 Encounter Details Date Type Department Care Team Description 10/18/2019 Surgery Operating Room Maureen Mathis MD LAMINOTOMY, [address] DECOMPRESSION, [address] FORAMINOTOMY, [place] [address] NEUROSURGERY-UVNN (WRVU 13.18) [phone] [place], [place] [address] (Wo rk) Social History Tobacco [...] six weeks after surgery with a Physician???s Gear Nicker at the surgeon???s office. You will have [...] to stop taking it. ??? Only take olvi-fil-yitedbo or prescription medicine for pain, discomfort or [...] If you have any questions, please call [facility] Neurology and Neurosurgery at [phone], during business hours of Thursday through Thursday from 8:00 a.m. until 4:00 p.m. In case of emergency duringnon-business hours, please call the same main number and follow the prompts to page the neurosurgeonon call. SMOKING CESSATION INFORMATION: ??? [place] QUITLINE: ??? [place] QUITLINE: ??? [email or web address] If you smoke, stop now! Smoking may impede healing. MAKE SURE YOU: ??? Understand these instructions. ??? Will seek medical care if you are feeling poor, or get worse. ??? Will call the surgeon???s office with any questions or concerns at : [phone] The above information has been presented or demonstrated. I/we have had the opportunity to ask questions. I/we fully understand the instructions given. I/we have received a copy of this form. documented in this encounter Medications at Time of Discharge Medication Sig Dispensed Refills Start Date End Date HYDROcodone-acetaminophe Take 1-2 tablets by 10 tablet 0 03/14/2020 n (Fence) 5-325 mg mouth every 6 hours Tablet [...] Zuñiga MD - 10/18/2019 11:41 AM EDT [facility] [place] [address] Patient Name: Alex Calhoun : [id number] MR#: [id number] Case Date: 10/18/2019 Case Scheduled Time: 1003 Surgeon: Surgeon(s) and Role: * Jelani Zuñiga MD - Primary * Katherine Castro PA - Physician Gear Nicker Preoperative diagnosis: HNP Postoperative diagnosis: HNP Procedure(s) [...] the duration of the operative session. The assistant professor of sociology adequately prepped the operative site and maintained the best possible exposure of anatomy incident to the procedure. Jelani Zuñiga MD 10/18/2019 documented in this encounter Plan of Treatment Upcoming Encounters Date Type Specialty Care Team Description 11/26/2021 Appointment Radiology Camron Melissa MD [facility] CARDIOTHORACIC S [place], [place] [address] (Esau salcedo) 11/26/2021 Office Visit Cardiac Surgery Camron Melissa MD [facility] CARDIOSMITA Berg [facility] [place], [place] [address] (Esau salcedo) documented as of this encounter Procedures Procedure Name Priority Date/Time Associated Comments Diagnosis XR FLUORO NO RAD Routine 10/18/2019 11:30 AM Resu lts for this <1HR - OR USE EDT procedure are in the results section. MICROSCOPE USE (WRVU 10/18/2019 10:09 AM HNP 3.46) EDT LAMINOTOMY, 10/18/2019 10:09 AM HNP DECOMPRESSION, EDT FOR[facility]INOTOMY, LUMBAR [facility] documented in this encounter Results XR [...] Address City/State/ZIP Code Phon e Number RAD [place], [place] documented in this encounter Visit Diagnoses Not on filedocumented in this encounter Administered Medications Inactive Administered Medications - up to 3 most recent administrations Medication Order MAR Action Action Date Dose Rate Site BUpivacaine (PF) Given 10/18/2019 10:40 AM 30 mLs 19- Surgical Site (MARCAINE) 0.5 % (5 EDT mg/mL) injection ONCE PRN, Starting on Thu10/18/19 at 1040, Until Thu10/18/19 at 1310, Intra-Operative (Intra-Procedure), Routine BUpivacaine liposome (PF) Given 10/18/2019 10:41 AM 20 mLs 19- Surgical Site (EXPAREL) 1.3 % (13.3 mg/mL) EDT injection for infiltration ONCE PRN, Starting on Thu10/18/19 at 1041, Until Thu10/18/19 at 1310, Intra-Operative (Intra-Procedure) ceFAZolin (Ancef) injection Given 10/18/2019 10:41 AM EDT 1 g 19- Surgical Site ONCE PRN, Starting on Thu10/18/19 at 1041, Until Thu10/18/19 at 1310, Intra-Operative (Intra-Procedure), Routine HYDROcodone-acetaminophen (Fence) 5-325 mg Given 10/17 12:22 PM EDT [...] (THROMBIN-JMI) solution EDT ONCE PRN, Starting on 10/18/19 at 1042, Until 10/18/19 at 1310, Intra-Operative (Intra-Procedure) documented in this encounter Active and Recently Administered Medications Times are shown in EDT. Scheduled Medication Order 10/16/2019 10/17/2019 10/18/2019 ceFAZolin (Ancef) 2 g in dextrose 5% 100 mL infusion (COMPLETED) 1023 (Given - Provider: Jeff Beverly CRNA) 2 g, Intravenous, ONCE, 1 dose, e 10/17 at 0915, Administer over 30 Minutes, [...] ONCE PRN, Starting 10/18/19 at 1040, Until 8/25/20 at 1310, Intra- Operative (Intra-Procedure), Routine BUpivacaine [...] at 1310, Intra- Operative (Intra-Procedure), Routine HYDROcodone-acetaminophen (Fence) 5-325 mg per tablet 2 tablet ( [...] (Intra-Procedure) documented in this encounter Care Teams Column Precaster Relationship Specialty Start Date End Date Nisa Machado MD PCP - General 07/26/[address] [place] [address] documented as of this encounter
--- OUTSIDE RECORDS SUMMARY | 2021-11-08 08:47 | XMS_ITS | Encounter Summary ---
:1955 [place] [address] Care Team Providers Name Role Phone Nisa Machado MD Primary Care Provider Encounter Details Date Type Department Care Team Description 08/21/2021 External Results Emergency Department [facility] [place] [address] Social History Tobacco Use Types Packs/Day [...] Description 11/26/2021 Appointment Radiology Camron Melissa MD [facility] CARDIOTHORACIC S [place], [place] [address] (Wo rk) 11/26/2021 Office Visit Cardiac Surgery Camron Melissa MD [facility] CARDIOTHORACIC S [place], [place] [address] (Wo rk) documented as of this encounter Procedures Procedure Name Priority Date/Time Associated Diagnosis Comme nts ECG SCAN Routine 08/21/2021 Results for thi s procedure are in the resu lts section. ECG SCAN Routine 08/21/2021 Results for thi s procedure are in the resu lts section. ECG SCAN Routine 08/21/2021 Results for thi s procedure are in the resu lts section. documented in this encounter Results Scan Doc: ECG (08/21/2021) Narrative This result has an attachment that is no t available. Historical Provider MD MEDIA MGR SCAN EXT ORDR/RSLT Scan Doc: ECG (08/21/2021) Narrative This result has an attachment that is no t available. Historical Provider MD MEDIA MGR SCAN EXT ORDR/RSLT Scan Doc: ECG (08/21/2021) Narrative This result has an attachment that is no t available. Historical Provider MD MEDIA MGR SCAN EXT ORDR/RSLT documented in this encounter Visit Diagnoses Not on filedocumented in this encounter Care Teams Mine Captain Relationship Specialty Start Date End Date Nisa Machado MD PCP - General 07/26/14 [address] [place] [address] documented as of this encounter
--- OUTSIDE RECORDS SUMMARY | 2021-11-08 08:47 | XMS_ITS | Encounter Summary ---
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 Camron Melissa MD [facility] Procedures PRO INPT INITIAL COMP/COMP/HIGH 70 MIN ER IPI [facility] [place] [address] Referral ID Status Reason Start Date Expiration Date Visits Requ ested Visits Authorized [id number] 1 1 Encounter Details Date Type Department Care Team Description 08/23/2021 Hospital Encounter Same Day Program at [facility] Weber Screening for cardiovascular condition; Thania Chambers MD Abnormal stress test; [facility] Chest discomfort; [facility] Coronary artery disease, unspecified ves nathan or lesion type, unspecified whether angina present, unspecified whether eyak or transplanted heart; [place], [place] Coronary artery disease invo lving eyak coronary artery of eyak heart with unstable [place] [id number] [phone] Social History Tobacco Use Types Packs/Day Years [...] Sign Reading Time Taken Comments Blood Pressure 127/78 08/23/2021 1:00 PM EDT Pulse 53 08/23/2021 1:00 PM EDT Temperature 36.4 ??C (97.5 ??F) 08/23/2021 12:15 PM EDT Respiratory Rate 14 08/23/2021 1:00 PM EDT Oxygen Saturation 99% 08/23/2021 1:00 PM EDT Inhaled Oxygen Concentration - - [...] by your doctor, do not take any ohze-sev-elpxogw medicines orherbal preparations without first discussing this with your doctor or pharmacist. There is the possibility of side effect and interactions when these are combined. Follow up Care Who to Call with Questions or Problems If there are any questions or problems that you think might be related to your cardiac cath or angioplasty, contact the auto damage insurance appraiser industrial relations director by calling [facility] at . documented in this encounter [...] ??F) 50 12 126/74 99 % -- 08/23/21 09 -- -- -- -- -- RA Cardiovascular [...] Weber. Negro Win MD PGY7 Interventional Cardiology [facility] documented in this encounter Plan of Treatment Upcoming Encounters Date Type Specialty Care Team Description 11/26/2021 Appointment Radiology Camron Melissa MD [facility] [place] [facility] [place] [address] (Wo rk) 11/26/2021 Office Visit Cardiac Surgery Camron Melissa MD [facility]AC[facility] [place] [facility] [place] [address] (Wo rk) documented as of [...] PM EDT disease involving procedure are in eyak coronary the results artery of eyak section. heart with unstable angina pectoris DIFFERENTIAL, AUTOMATED Routine 08/23/2021 1:46 Coronary arter y Results for this PM EDT disease involving procedure are in eyak coronary the results artery of eyak section. heart with unstable angina pectoris HC ANTIBODY Routine 08/23/2021 1:46 Coronary artery DETECTION,CAPTURE-R PM EDT disease involving eyak coronary artery of eyak heart with unstable angina pectoris ABO/RH TYPING Routine 08/23/2021 1:46 Coronary artery Results for this PM EDT disease involving procedure are in eyak coronary the results artery of eyak section. heart with unstable angina pectoris HC CBC,PLT & AUTO DIFF Routine 08/23/2021 1:46 Coronary artery PM EDT disease involving eyak coronary artery of eyak heart with unstable angina pectoris ANTIBODY SCREEN Routine 08/23/2021 1:46 Coronary artery Result s for this PM EDT disease involving procedure are in eyak coronary the results artery of eyak section. heart with unstable angina pectoris BASIC METABOLIC PANEL Routine 08/23/2021 1:46 Coronary artery Results for this (NON-FASTING) PM EDT disease involving procedure are in eyak coronary the results artery of eyak section. heart with unstable angina pectoris ECHOCARDIOGRAM COMPLETE Routine 08/23/2021 1:28 Coronary arter y Results for this W CONTRAST PM EDT disease, unspecified procedu re are in vessel or lesion the results type, unspecified section. whether angina present, unspecified whether eyak or transplanted heart CARDIAC CATHETERIZATION Routine 08/23/2021 [...] and Screen Validity (08/23/2021 1:46 PM EDT) [facility] Method Time Signature T&S only valid [facility] at [facility] Comment: This Type and Screen result is only valid at the [facility] Specimen Anatomical Collection Method Collection Time Receive d Time (Source) Location / / Volume Laterality Blood 08/23/2021 1:46 PM 2 1:56 EDT PM EDT Resulting Agency Comment Spec In Lab Camron Melissa MD BLOOD BANK ORDERABLES Performing Organization Address City/[facility] [address]/ZIP [place] [address] ABORH Recheck Status (08/23/2021 1:46 PM EDT) [facility] Method Time Signature ABORH Recheck Order Placed [facility] LABORATORY ABORH Type Not Performed [facility] LABORATORY Specimen Anatomical Collection Method Collection Time Receive d Time (Source) Location / / Volume Laterality Blood 08/23/2021 1:46 PM 2 1:56 EDT PM EDT Resulting Agency Comment Spec In Lab Camron Melissa MD BLOOD BANK ORDERABLES Performing Organization Address City/[facility] [address]/ZIP [place] [address] Antibody screen (08/23/2021 1:46 PM EDT) [facility] Method Time Signature Ab Screen Negative [facility] LABORATORY Expires at 08/22/2021 [facility] [id number] on: [facility] Comment: Corrected from 10/07/21 0:00:00 EDT [Unk nown] on 08/27/21 13:04:[address] Specimen Anatomical Collection Method Collection Time Receive d Time (Source) Location / / Volume Laterality Blood 08/23/2021 1:46 PM 2 1:56 EDT PM EDT Resulting Agency Comment Spec In Lab Camron Melissa MD BLOOD BANK ORDERABLES Performing Organization Address City/[facility] [address]/ZIP Code Phon e Number [address] ABO/Rh Typing (08/23/2021 1:46 PM EDT) P athologist Signature ABORh Type O Neg [facility]ORY Specimen Anatomical Collection Method Collection Time Receive d Time (Source) Location / / Volume Laterality Blood 08/23/2021 1:46 PM 2 1:56 EDT PM EDT Resulting Agency Comment Spec In Lab Camron Melissa MD BLOOD BANK ORDERABLES Performing Organization Address City/State/[place] [address] Differential, Automated (08/23/2021 1:46 PM EDT) athologist Signature Neutrophils % 70.8 % [facility] Neutr Abs (ANC) 3.69 1.70 - [facility] 6.10 [facility] x10(3)/[facility] LABORATORY Lymphocytes % 20.2 % [facility] LABORATORY Lymphocytes Abs 1.0 0.9 - 3.2 [facility] x10(3)/[facility] LABORATORY Monocytes % 6.1 % [facility]OR[facility]ORY Monocyte Abs 0.3 0.3 - 0.9 [facility] x10(3)/[facility] LABORATORY Eosinophils % 2.1 % [facility] Eosinophils Abs 0.1 0.0 - 0.4 [facility] x10(3)/[facility] LABORATORY Basophils % 0.6 % [facility] Basophils Abs 0.0 0.0 - 0.1 [facility] x10(3)/[facility] LABORATORY Immature Gran % 0.20 % [facility] Comment: Immature granulocytes(IG's)percentage an d absolute count will include metamyelocytes, myelocytes, and promyelo cytes. Blood smears from CBCs yielding IG's will be scanned manually for concor dance. If this scan disagrees with the automated IG or if promyelocytes are not ed, a manual differential will be performed. Lily Gran Abs 0.01 0.00 - 0.04 x10(3)/[facility] Y [facility] LABORATORY Specimen Anatomical Collection Method Collection Time Receive d Time (Source) Location / / Volume Laterality Blood 08/23/2021 1:46 PM 2 2:04 EDT PM EDT Resulting Agency Comment Spec In Lab Camron Melissa MD HEMATOLOGY ORDERABLES Performing Organization Address City/State/[place] [address] (ABNORMAL) Hemogram (08/23/2021 1:46 PM EDT) Analysis Performed At Patho logist Time Signature WBC 5.2 4.0 - 9.5 [place] x10(3)/[facility] LABORATORY RBC 4.45 (L) 4.58 - [place] 5.54 [facility] x10(6)/[facility] LABORATORY Hemoglobin 13.8 13.7 - [place] 16.5 g/dL [facility] Hematocrit 41.2 40.5 - [place] 48.5 % [facility] MCV 92.6 82.9 - [facility] [place] 93.1 [facility] LABORATORY MCH 31.0 27.5 - [place] 32.1 pg [facility] MCHC 33.5 32.0 - [place] 35.7 g/dL [facility] Platelets 169 145 - 357 [facility] x[facility](3[facility] LABORATORY RDWSD 40.5 36.0 - [place] 45.0 [facility] LABORATORY RDWCV 11.9 11.4 - [place] 13.8 % [facility] MPV 10.6 7.6 - 12.9 [facility] [place] [facility] LABORATORY nRBC % Auto 0.0 % [facility] nRBC Abs Auto 0.000 0.000 - [facility] [place] 0.000 [facility] x10(3)/[facility] LABORATORY Specimen Anatomical Collection Method Collection Time Receive d Time (Source) Location / / Volume Laterality Blood 08/23/2021 1:46 PM 2 2:04 EDT PM EDT Resulting Agency Comment Spec In Lab Camron Melissa MD HEMATOLOGY ORDERABLES Performing Organization Address City/State/[place] [address] Basic Metabolic Panel (non-fasting) (08/23/2021 1:46 PM EDT) P athologist Signature Glucose Lvl 103 65 - 199 [facility] mg/dL [facility] Comment: Diabetes: >=200 mg/dL plus symp toms BUN 10 10 - 20 mg/dL [facility] Creatinine 0.94 0.80 - 1.50 mg/dL [facility] Sodium 140 135 - 145 [...] estions. Chloride 105 98 - 107 mmol/L [facility] CO2 28 22 - 31 mmol/L [facility] Anion Gap 7 5 - 15 mmol/L [facility] Calcium 8.8 8.5 - 10.5 mg/dL [facility] Estimated GFR 88 >=60 mL/min/1.73 m?? [facility] Comment: This patient's estimated GFR was calcula shsahi using the 2020 CKD-EPI equation. The estimated [...] Organization Address City/State/[place] [address] ECHOCARDIOGRAM COMPLETE W CONTRAST (08/23/2021 1:28 PM EDT) Anatomical Region Laterality Modality Cardiac Other Specimen (Source) Anatomical Collection Method Collection Time Re ceived Time Location / / Volume Laterality 08/23/2021 12:35 PM EDT Narrative 08/23/2021 2:03 PM EDT [facility] ?[address] ? [place] [address] ?Voice: ?Fax: ? Echocardiogram Report Name: RENÉ CALHOUN ?Study Date: 08/23/2021 12:35 PM ? Patient Location: SDP : 1955 ? Height: 73 in ? Account: [id number] Age: 66 yrs ? Weight: 181 lb Gender: Male ?BSA: 2.1 m2 Ordering Physician: XIOMARA WEBER Referring Physician: ANISA NOYOLA Performed By: Ajay Garrido RDCS Reason For Study: Coronary artery diseas e, unspecified vessel or lesion type, unspecified whether angina present, unsp ecified whether eyak or transplanted heart Exam Location: [facility]. Interpretation Summary 1. Left ventricular size and [...] comparison. See report for additional findings. Procedure Complete-[id number]. Image enhancement Optiso n was used for [...] note might be different from the original. [facility] [address] [place] [address] Voice: Fax: Echocardiogram Report Name: RENÉ CALHOUN Study Date: 08/23 12:35 PM Patient Location: [facility] : 1955 Height: 73 in Account: [id number] Age: 66 yrs Weight: 181 lb Gender: Male BSA: 2.1 m2 Ordering Physician: XIOMARA WEBER Referring Physician: ANISA NOYOLA Performed By: Ajay Garrido RDCS Reason For Study: Coronary artery diseas e, unspecified vessel or lesion type, unspecified whether angina present, unsp ecified whether eyak or transplanted heart Exam Location: [facility]. Interpretation Summary 1. Left ventricular size and [...] comparison. See report for additional findings. Procedure Complete-[id number]. Image enhancement Optiso n was used for [...] Laterality Volume Narrative 08/23/2021 12:19 PM EDT ?[facility] ? Cardiac Cathete rization/Intervention Report ? Patient Name: René Calhoun Anamaria. ? Procedure Date: 08/23/2021 ? A #: [id number] ? Primary Physician: Gus, Xiomara Chambers ? Case #: [id number] ? File Name: [id number] ? Catheterization Order Number: [id number] ? [facility] ? Final Report [place], [place] ? Patient Name: ? René L. Tir ey ? ID#: ?[id number] ? : ?1955 ? Procedure Date: ? August 23, 2021 ? Case #: ? [id number] ? Room: ? 6 ? Case Physician: ? Xiomara Weber M.D. ?Start: ?10:41 ?Fellow: ? Negro magaña MRahul ?Admission: ??08/23/2021 ? Discharge: ??08/23/2021 ? Referring [...] procedure was Elective. The indication for ?the medical lab technologist visit is worsening angina. Chest pain symptom [...] ??Call also placed to my referring partner, . ?Connor, to update. ?The attending physician was [...] note might be different from the original. [facility] Cardiac Catheterization/Intervention Re port Patient Name: Jared Calhounrey AnamariaTalib Procedure Date: 08/23/2021 A #: [id number] Primary Physician: Xiomara Weber Case #: [id number] File Name: [id number] Catheterization Order Number: [id number] [facility] Final Report [place], [place] Patient Name: René Calhoun ID#: [...] was designated as ASA Class II. The [facility] clinical frailty scale is 2: Well. Diagnostic [...] e was Elective. The indication for the medical lab technologist visit is worsening angina. Chest pain symptom [...] 403 ms MUSE SYSTEM (Bezet) Calculated P [place] 37 degrees MUSE SYSTEM Calculated R [place] -30 degrees MUSE SYSTEM Calculated T [place] -35 degrees MUSE SYSTEM INTERPRETATION Sinus bradycardia MUSE SY STEM Left axis deviation Left ventricular hypertrophy with repolarization abnormality Anterior infarct , age undetermined Abnormal ECG No previous ECGs available Confirmed by MD Mary, Zeb Stephen ([id number]) on 08/26/2021 10 :24:08 PM Specimen Anatomical Collection Method Collection Time Receive d Time (Source) Location / / Volume Laterality 08/23/2021 9:26 AM EDT 10:24 PM EDT Williams Rodriguez MD ECG ORDERABLES Performing Organization Address City/State/ZIP Code Phon e Number MUSE SYSTEM Differential, Automated (08/23/2021 7:33 AM EDT) P athologist Signature Neutrophils % 69.4 % [facility] Neutr Abs (ANC) 3.85 1.70 - [facility] 6.10 [facility] x10(3)/[facility] LABORATORY Lymphocytes % 19.3 % [facility] Lymphocytes Abs 1.1 0.9 - 3.2 [facility] x10(3)/[facility] LABORATORY Monocytes % 7.2 % [facility] Monocyte Abs 0.4 0.3 - 0.9 [facility] x10(3)/[facility] LABORATORY Eosinophils % 3.2 % [facility] Eosinophils Abs 0.2 0.0 - 0.4 [facility] x10(3)/[facility] LABORATORY Basophils % 0.7 % [facility] Basophils Abs 0.0 0.0 - 0.1 [facility] x10(3)/[facility] LABORATORY Immature Gran % 0.20 % [facility] Comment: Immature granulocytes(IG's)percentage an d absolute count will include metamyelocytes, myelocytes, and promyelo cytes. Blood smears from CBCs yielding IG's will be scanned manually for concor dance. If this scan disagrees with the automated IG or if promyelocytes are not ed, a manual differential will be performed. Lily Gran Abs 0.01 0.00 - 0.04 x10(3)/[facility] Y [facility] LABORATORY Specimen Anatomical Collection Method Collection Time Receive d Time (Source) Location / / Volume Laterality Blood 08/23/2021 7:33 AM 7:36 EDT AM EDT Resulting Agency Comment Spec In Lab [place] SANCHEZ HEMATOLOGY ORDERABLES Performing Organization Address City/State/[place] [address] Hemogram (08/23/2021 7:33 AM EDT) P athologist Signature WBC 5.6 4.0 - 9.5 [facility] x10(3)/[facility] LABORATORY RBC 4.71 4.58 - [facility] 5.54 [facility] x10(6)/[facility] LABORATORY Hemoglobin 14.2 13.7 - [facility] 16.5 g/dL [facility] Hematocrit 43.3 40.5 - [facility] 48.5 % [facility] MCV 91.9 82.9 - [facility] 93.1 fL [facility] MCH 30.1 27.5 - [facility] 32.1 pg [facility] MCHC 32.8 32.0 - [facility] 35.7 g/dL [facility] Platelets 184 145 - 357 [facility] x10(3)/[facility] LABORATORY RDWSD 40.3 36.0 - [facility] 45.0 [facility] LABORATORY RDWCV 11.8 11.4 - [facility] 13.8 % [facility] MPV 10.4 7.6 - 12.9 [facility] LABORATORY nRBC % Auto 0.0 % [facility] nRBC Abs Auto 0.000 0.000 - [facility] 0.000 [facility] x10(3)/[facility] LABORATORY Specimen Anatomical Collection Method Collection Time Receive d Time (Source) Location / / Volume Laterality Blood 08/23/2021 7:33 AM 7:36 EDT AM EDT Resulting Agency Comment Spec In Lab [place] SANCHEZ HEMATOLOGY ORDERABLES Performing Organization Address City/State/ZIP [place] [address] Basic Metabolic Panel (non-fasting) (08/23/2021 7:33 AM EDT) athologist Signature Glucose Lvl 111 65 - 199 [facility] mg/dL [facility] Comment: Diabetes: >=200 mg/dL plus symp toms BUN 12 10 - 20 mg/dL [facility] Creatinine 1.00 0.80 - 1.50 mg/dL [facility] Sodium 136 135 - 145 [...] estions. Chloride 101 98 - 107 mmol/L [facility] CO2 27 22 - 31 mmol/L [facility] Anion Gap 8 5 - 15 mmol/L [facility] Calcium 9.0 8.5 - 10.5 mg/dL [facility] Estimated GFR 82 >=60 mL/min/1.73 m?? [facility] Comment: This patient's estimated GFR was calcaraceli danielle using the 2020 CKD-EPI equation. The estimated [...] Organization Address City/State/ZIP Code Phon e Number [place] [id number]OS[address] LAB[address] SCAN DOC: LAB (08/23/2021 [...] or transplanted heart Coronary artery disease involving eyak coronary artery of eyak heart with unstable angina pectoris Screening for cardiovascular condition Screening for other and unspecified card iovascular conditions Abnormal stress test Other nonspecific abnormal cardiovascula r system function study Chest discomfort Other chest pain documented in this encounter Admitting Diagnoses Diagnosis CAD (coronary artery disease) Coronary atherosclerosis of unspecified type of vessel, eyak or graft documented in this encounter Administered Medications Inactive Administered Medications - up to 3 most recent administrations Medication Order MAR Action Action Date Dose Rate Site atropine (0.1 mg/mL) injection 1 mg 1 mg, Intravenous, EVERY 5 MIN PRN, 2 do ses, Starting on Thu08/23/21 at 1116, Until Thu08/23/21 at 1357, Other, vasovagal episode, Call int elbert JONES , Cath (Recovery-Hospital Unit), Routine fentaNYL (PF) (50 mcg/mL) injection 25 m cg 25 mcg, Intravenous, EVERY 30 MIN PRN, S tarting on Thu08/23/21 at 1116, Until Thu08/23/21 at 1357, Pain, sheath removal, Maximum of 4 dos es while in Cath Recovery Unit, Cath (Recovery-Hospital Unit), Routine lidocaine (Xylocaine) 1% (10 mg/mL) inje [...] Cath Recovery Unit, Cath (Recovery-Hospital Unit), Routine nitroGLYcerin (Nitrostat) disintegrating tablet 0.4 mg [...] to 72 hours., Recovery (Recovery-Hospital Unit), Routine perflutren protein-A microsphers (Optison) Given 08/23/2021 1:29 PM EDT 0.6 mLs (0.22 mg/mL) injection 0.6 mL 0.6 mL, Intravenous, ONCE PRN, 1 dose, Starting on Thu08/23/21 at 1329, Until Thu08/23/21 at 1329, Per Protocol, Routine sodium chloride 0.9 % (flush) (BD [facility] Normal Saline 0.9) flush 5 mL 5 [...] Until Thu08/23/21 at 1344, Recovery (Recovery-Hospital Unit) documented in this encounter Active and Recently [...] at 1357, Other, vasovagal episode, Call interventional MD. , Cath (Recovery-Hospital Unit), Routine fentaNYL (PF) [...] Routine heparin (porcine) (1,000 units/mL) injection (CANCELED) 1043 (Given - Provider: Nadya Milner RN) ONCE PRN, Starting on Thu08/23/21 at 1043 , Until Thu08/23/21 at 1104, Cath (Intra- Procedure), Routine iohexoL (Omnipaque) (350 mg/mL) solution (CANCELED) 1103 (Given - Provider: Xiomara Weber MD) ONCE [...] (Versed) (1 mg/mL) multi-dose injection (CANCELED ) 1041 (Given - Provider: Nadya Milner RN) [...] Routine nitroGLYcerin 100 mcg/mL intracoronary dilution (CANCELED) 104 (Given - Provider: Negro Win MD) ONCE [...] (Intra-Procedure) documented in this encounter Care Teams Manager Services Relationship Specialty Start Date End Date Nisa Machado MD PCP - General 07/26/14 [address] [place] [address] documented as of this encounter
--- OUTSIDE RECORDS SUMMARY | 2021-11-08 08:48 | XMS_ITS | Encounter Summary ---
:1955 Author Organization [facility] [place] [address] Care Team Providers Name Role Phone Nisa Machado MD Primary Care Provider Encounter Details Date Type Department Care Team Description 06/04/2018 Telephone Dermatology at [facility] [address] Call, Shaka Cedeno MD [address] [facility] [place] [address] [facility] [phone] [place], [place] [address] (Wo rk) Social History Tobacco Use Types Packs/Day Years Used Date Never Smoker Sex Assigned at Date Recorded Male 01/25/2021 11:16 AM EST documented as of this encounter Miscellaneous Notes Telephone Encounter - Shaka Hagen - 06/04/2018 6:14 PM EDT Called patient to discuss the following biopsy results: Surgical Pathology DIAGNOSIS A. Skin, right mu-ism, shave biopsy: - Basal cell carcinoma, infiltrating [...] patient that he will be contacted by corporate secretary for further scheduling. Otherwise, patient states that the biopsy site is healing well. Instructed to continue with follow up in for 6 months for FBSE and to call with any questions or concerns. documented in this encounter Plan of Treatment Upcoming Encounters Date Type Specialty Care Team Description 11/26/2021 Appointment Radiology Camron Melissa MD [facility] CARDIOTHORACIC S [place], [place] [address] (Wo rk) 11/26/2021 Office Visit Cardiac Surgery Camron Melissa MD [facility] ER CARDIOTHORACIC S [place], [place] [address] (Wo rk) documented as of this encounter Visit Diagnoses Not on filedocumented in this encounter Care Teams Rolled Gold Plater Relationship Specialty Start Date End Date Nisa Machado MD PCP - General 07/26/[address] [place] [address] documented as of this encounter
--- OUTSIDE RECORDS SUMMARY | 2021-11-08 08:48 | XMS_ITS | Encounter Summary ---
:1955 Author Organization [facility] [place] [address] Care Team Providers Name Role Phone Nisa Machado MD Primary Care Provider Encounter Details Date Type Department Care Team Description 06/18/2018 Telephone Dermatology at [facility] MisJeff gregory MD [address] [place] [address] [facility]DER[facility] [phone] [place], [place] [address] (Wo rk) Social History Tobacco [...] surgical area? Patient can be reached at [phone] to discuss the above questions. If he is not available when called he has given permission to leave a detailed message. documented in this encounter Plan of Treatment Upcoming Encounters Date Type Specialty Care Team Description 11/26/2021 Appointment Radiology Camron Melissa MD [facility] CARDIOTHORACIC S [place], [place] [address] (Wo rk) 11/26/2021 Office Visit Cardiac Surgery Camron Melissa MD [facility] CARDIOTHORACIC S [place], [place] [address] (Wo rk) documented as of this encounter Visit Diagnoses Not on filedocumented in this encounter Care Teams Sightseeing Guide Relationship Specialty Start Date End Date Nisa Machado MD PCP - General 07/26/14 580 [place] [address] documented as of this encounter
--- OUTSIDE RECORDS SUMMARY | 2021-11-08 08:48 | XMS_ITS | Encounter Summary ---
:1955 Author Organization [facility] [place] [address] Care Team Providers Name Role Phone Nisa Machado MD Primary Care Provider Reason for Visit Reason Comments Basal Cell Carcinoma Encounter Details Date Type Department Care Team Description 06/11/2018 Procedure visit Dermatology at [facility] Basal cell carcinoma (BCC) of right anabaptism region; Mee RMD Basal cell carcinoma (BCC) of right aury k [address] [facility] [address] [facility] [phone] [place] [address] Social History Tobacco Use Types Packs/Day Years [...] Abebe MD. Your wound(s) was repaired by [id number] stitches called a primary repair. You do [...] until your sutures are removed. 5. Some senior sales associate may need to be delayed or delegated [...] as often as is recommended by your marketing services rep, for new skin cancers. This is once [...] it. If after hours, please call the shirt folding machine operator or [phone] and ask for the marketing services rep on-call. If you have any non-urgent questions or concerns, please feel free to call my office or contact me through our patient portal, [employer], at [email or web address] How to contact us during business hours Dermatology at [facility]: Mohs scheduling or Mohs follow-up appointments: [phone] documented in this encounter Progress Notes Jeff Abebe MD - 06/11/2018 10:30 AM EDT Images from the original note were not included. Summary of Procedure(s): Site: right cheek / right anabaptism Tumor Type: Basal Cell Carcinoma Stages to clear tumor: right cheek - one stage, right anabaptism- two stages Repair: Right cheek- intermediate linear closure, right anabaptism- complex linear closure Images: All absorbable sutures [...] deep specimen edges location on the Right Holiness. Basal Cell Carcinoma,superficial and early nodular type,present [...] basal cell carcinoma located on the right anabaptism. Plan: 1. Findings from the biopsy report, [...] and follow up with his or her marketing services rep or other skin provider. 6. Discussed avoiding direct sun exposure to scars for best cosmetic result. Jeff Abebe MD PhD Mohs Micrographic Surgery and Dermatologic Oncology Section of Dermatology, Department of Surgery Jeff Abebe MD - 06/11/2018 10:30 AM EDT Mohs micrographic Surgery Operative Report Site 1- right cheek Patient name: Alex Calhoun : 1955 Date: 06/11/2018 Staff Surgeon: Jeff Abebe MD PhD Nursing/Machine Whitener(s):Assistants: Sumaya Robles LPN, Izabella Judd CMA, Nadia SkeltonTrue JENKINS; Radha Stinson CMA, Ruth Vincent LPN Broommaking Supervisor (s): Anabel Johnson Pre-operative diagnosis: Basal Cell [...] The site was confirmed with the patient/authorized apprenticeship training representative/referring physician and/or a photograph form time [...] cheek Indication: repair of wound for anatomic/functional zoroastrianism Procedure: Intermediate linear closure of Mohs defect [...] micrographic Surgery Operative Report Site 2- right anabaptism Patient name: Alex Calhoun : 1955 Date: 06/11/2018 Staff Surgeon: Jeff Abebe MD PhD Nursing/Machine Whitener(s): Assistants: Sumaya Robles LPN, Izabella Judd CMA, Nadia Pittman RN, Iesha Mortensen LPN; Radha Stinson CMA, Ruth Vincent LPN Broommaking Supervisor (s): Melinda Johnson Pre-operative diagnosis: Basal Cell Carcinoma, infiltrative Post-operative diagnosis: Basal Cell Carcinoma infiltrative Location/Site: right anabaptism Procedure: Mohs micrographic surgery Indication(s) for Mohs [...] The site was confirmed with the patient/authorized apprenticeship training representative/referring physician and/or a photograph form time [...] to Mohs microscopically controlled excision Location/Site: right anabaptism Indication: repair of wound for zoroastrianism of function/anatomy Procedure: Complex linear layered closure [...] Specialty Care Team Description 11/26/2021 Appointment Radiology ShinCamron machado MD [facility] CARDIOTHORACIC S [place], [place] [address] (Wo rk) 11/26/2021 Office Visit Cardiac Surgery Camron Melissa MD [facility] CARDIOTHORACIC [place], [place] [address] (Wo rk) documented as of this encounter Visit Diagnoses Diagnosis Basal cell carcinoma (BCC) of right temp le region Basal cell carcinoma (BCC) of right aury k documented in this encounter Care Teams Manager Money Relationship Specialty Start Date End Date Nisa Machado MD PCP - General 07/26/14 [address] [facility] [place] [address] documented as of this encounter
--- OUTSIDE RECORDS SUMMARY | 2021-11-08 08:48 | XMS_ITS | Encounter Summary ---
:1955 [place] [address] Care Team Providers Name Role Phone Nisa Machado MD Primary Care Provider Reason for Visit Reason Comments Skin Lesion Consultation (Routine) - Specialty Diagnoses / Procedures Referred By Contact Refer red To Contact Dermatology Diagnoses Disorder of the skin and subcutaneous tissue, unspecified Nisa Machado MD [facility] Dermatology [address] [place] [address] [place] [address] [place] [address] Referral ID Status Reason Start Date Expiration Date Visits V isits Requested Authorized [id number] Consult, Test 05/04/2018 11/04/2018 3 3 & Treat PCP Updated and/or Approved Encounter Details Date Type Department Care Team Description 06/01/2018 [facility]; [facility] Neoplasm of uncertain behavi or of skin; [address] [place] (seborrheic keratosis); [place] [address] [facility] Seborrheic keratosis, inflam ed; [phone] RD-DERMATOLOGY Skin tag; [place], [place] [address] Lipoma, unspecified site Social History Tobacco [...] or concerns, please call the office at [phone]. If it is after 5PM, or a holiday or weekend, please call [phone] and ask for the Auto Painter on-call. Inflamed Seborrheic Keratoses You were treated [...] weeks. 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 [place] atrophic 6mm papule on the right evangelical Shave??Biopsy Procedure Note:?? Location: Right evangelical [A] The patient's consent was obtained. Risk [...] by Shaka Hagen MD Resident in Dermatology [facility] Patient seen in conjunction with staff rn or lvn: Katrina Laboy MD Section of Dermatology [facility] Katrina Laboy MD - 06/01/2018 [...] as documented in Dr. Hagen's note. ?? KATRNIA LABOY MD Staff Physician Shaka Hagen - [...] Description 11/26/2021 Appointment Radiology Camron Melissa MD [facility] CARDIOTHORACIC S [place], [place] [address] (Wo rk) 11/26/2021 Office Visit Cardiac Surgery Camron Melissa MD [facility] CARDIOTHORACIC S [place], [place] [address] (Wo rk) documented as of [...] 06/01/2018 6:18 PM EDT PM EDT Narrative [facility] - 06/01/2018 6:18 PM EDT Specimen requisition ordered. ??Separate Pathology report to follow Resulting Agency Comment Spec In Lab Katrina Laboy MD PATHOLOGY/CYTOLOGY ORDERABLE S Performing Organization Address City/State/[place] [address] Surgical Pathology Report (06/01/2018 9:30 AM EDT) Component Value Ref Test Analysis Performed At [facility] gist Range Method Time Signature Surgical [id number] ? Location: [facility] Pathology IRISH Report The signing pathologist has (i) examined the relevant preparation(s) for the [facility]ORIAL specimen(s) and (ii) rendered or confirmed the diagnosis(es) . [facility]PITAL LAB[facility]ORY . ?Surgic al Pathology DIAGNOSIS A. Skin, right evangelical, shave biopsy: - Basal cell carcinoma, infi ltrating type with squamous differentiation, present at the peripheral and deep specimen edges B. Skin, right cheek, shave ?? biopsy: - ??Basal cell carcinoma, loyd perficial and early nodular type, present at the peripheral and deep specimen edges Electronically signed by: ??Savannah MARRERO, Karlos Cedeno Verified: ??06/04/2018 ?Dermatopathologist Performed at: ??-[facility] Dept. of Pathology, [place], [place] CLINICAL INFORMATION Specimen Submitted: A - Skin, right evangelical, shave biopsy (1) B - Skin, right cheek, shave (1) Clinical History and Diagnosis: A - [place]den atrophic 6 mm papule; rule out BCC B - Thin ill-defined 5 mm pink papule; rule out superficial BCC SPECIMEN PROCESSING A - Labeled/Fixative: A right evangelical, formalin. Quantity/Size: ??Single, 0.7 x 0.4 x [...] Organization Address City/State/Z[place] [address] documented in this encounter Visit Diagnoses Diagnosis Benign nevus Benign neoplasm of skin, site unspecifie d Neoplasm of uncertain behavior of skin SK (seborrheic keratosis) Other seborrheic keratosis Seborrheic keratosis, inflamed Inflamed seborrheic keratosis Skin tag Unspecified hypertrophic and atrophic co ndition of skin Lipoma, unspecified site documented in this encounter Care Teams Rural Route Carrier Relationship Specialty Start Date End Date Nisa Machado MD PCP - General 07/26/14 [address] [address] documented as of this encounter
--- OUTSIDE RECORDS SUMMARY | 2021-11-08 08:48 | XMS_ITS | Encounter Summary ---
:1955 Author Organization [facility] [place] [address] Care Team Providers Name Role Phone Nisa Machado MD Primary Care Provider Reason for Visit Reason Comments Skin Check Encounter Details Date Type Department Care Team Description 10/13/2014 Office Visit Dermatology at [facility]; [place] MD Seborrheic keratosis [address] Brice B DERMATOLOGY [place], [place] [id number] [phone] Social History Tobacco Use Types Packs/Day Years [...] Description 11/26/2021 Appointment Radiology Camron Melissa MD [facility] CARDIOTHORACIC S [place], [place] [address] (Wo rk) 11/26/2021 Office Visit Cardiac Surgery Camron Melissa MD [facility] CARDIOTHORACIC S [place], [place] [address] (Wo rk) documented as of this encounter Visit Diagnoses Diagnosis Nevus Benign neoplasm of skin, site unspecifie d Seborrheic keratosis Other seborrheic keratosis documented in this encounter Care Teams Manual Machinist Relationship Specialty Start Date End Date Nisa Machado MD PCP - General 07/26/14 [address] [place] [address] documented as of this encounter
--- OUTSIDE RECORDS SUMMARY | 2021-11-08 08:48 | XMS_ITS | Encounter Summary ---
:1955 [place] [address] Care Team Providers Name Role Phone Nisa Machado MD Primary Care Provider Encounter Details Date Type Department Care Team Description 06/08/2018 Telephone Dermatology at [facility] MisJeff MD [address] [facility] [facility] [place] [address] [facility] [phone] [place], [place] [address] (Wo rk) Social History Tobacco [...] deep specimen edges location on the Right Sabianist. Basal Cell Carcinoma,superficial and early nodular type,present [...] Description 11/26/2021 Appointment Radiology Camron Melissa MD [facility] CARDIOTHORACIC S [place], [place] [address] (Wo rk) 11/26/2021 Office Visit Cardiac Surgery Camron Melissa MD [facility] CARDIOTHORACIC S [place], [place] [address] (Wo rk) documented as of this encounter Visit Diagnoses Not on filedocumented in this encounter Care Teams Liquor Clerk Relationship Specialty Start Date End Date Nisa Machado MD PCP - General 07/26/14 580 [place] [address] documented as of this encounter
--- OUTSIDE RECORDS SUMMARY | 2021-11-08 08:48 | XMS_ITS | Encounter Summary ---
:1955 Author Organization [facility] [address] Care Team Providers Name Role Phone Nisa Machado MD Primary Care Provider Encounter Details Date Type Department Care Team Description 06/18/2018 Telephone Dermatology at [facility] Nadia Pittman RN [address] [place] [address] Social History Tobacco Use Types Packs/Day [...] MD [facility] CARDIOTHORACIC S [place], [place] [address] (Wo rk) 11/26/2021 Office Visit Cardiac Surgery Camron Melissa MD [facility] CARDIOTHORACIC S [place], [place] [address] (Wo rk) documented as of this encounter Visit Diagnoses Not on filedocumented in this encounter Care Teams Package Liner Relationship Specialty Start Date End Date Nisa Machado MD PCP - General 07/26/14 580 [place] [address] documented as of this encounter
--- OUTSIDE RECORDS SUMMARY | 2021-11-08 08:48 | XMS_ITS | Encounter Summary ---
:1955 Author Organization [facility] [place] [address] Care Team Providers Name Role Phone Nisa Machado MD Primary Care Provider Encounter Details Date Type Department Care Team Description 06/25/2018 Telephone Dermatology at [facility] Shaka Hagen MD [address] [place] [address] [facility] [phone] [place], [place] [address] (Wo rk) Social History Tobacco [...] He would like a call back at [phone] and it is ok to leave detailed message. documented in this encounter Plan of Treatment Upcoming Encounters Date Type Specialty Care Team Description 11/26/2021 Appointment Radiology Camron Melissa MD [facility] ER CARDIOTHORACIC S [place], [place] [address] (Wo rk) 11/26/2021 Office Visit Cardiac Surgery Camron Melissa MD [facility] CARDIOTHORACIC S [place], [place] [address] (Wo rk) documented as of this encounter Visit Diagnoses Not on filedocumented in this encounter Care Teams Yoga Coordinator Relationship Specialty Start Date End Date Nisa Machado MD PCP - General 07/26/14 580 [place] [address] documented as of this encounter
--- OUTSIDE RECORDS SUMMARY | 2021-11-08 08:54 | XMS_ITS ---
:1955 Author Organization [facility] Address [address], [place] [id number] Care Team Providers Name Role Phone Nisa Machado Unavailable Unavailable PROBLEMS Type Condition ICD9-CM [id number] Onset Condition SNOMED Cod e Code Code Dates Status Problem Cellulitis and abscess 682.3 Active [id number] of upper arm and forearm Problem Impaired fasting 790.21 Active 390 847775 glucose Problem Idiopathic peripheral 337.00 Active 51948133 autonomic neuropathy, unspecified Problem Pure 272.0 Active 371943742 hypercholesterolemia Problem Unspecified disorder of 709.9 Active 95227087 skin and subcutaneous tissue Problem Unspecified hemorrhoids K64.9 Active 00873129 Problem Male erectile disorder F52.21 Active 142195285 Problem Other and unspecified 272.4 Active 03670256 hyperlipidemia Problem 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 Problem Celiac disease 579.0 Active 37538 1005 Problem Essential (primary) I10 Active 67207178 hypertension Problem Other idiopathic G90.09 Active 864 49538 peripheral autonomic neuropathy Problem Celiac disease K90.0 Active 37412 1005 Problem Pure E78.00 Active 847391618 hypercholesterolemia, unspecified ALLERGIES No Known Allergies ENCOUNTERS Encounter Location Date Diagnosis [facility] [address] Sep, Atheroscl erotic heart disease [facility] [address] [place], of [place] co ronary artery [place] [id number] without angina p ectoris I25.10 and Pure hyperch olesterolemia, unspecified E78. 00 [facility] [address] [place] [address] Rd 19 Sep, 2021 Medicine [address] [place] [id number] [address] 17 Sep, 2021 Medicine [address] [place] [id number] [address] 11 Sep, 2021 Medicine [address] [place], [place] [id number] [address] Aug, Encounter for general adult Medicine [address] [place], medical exam ination without [place] [id number] abnormal finding s Z00.00 ; Encounter for ri reening for malignant neopla sm of prostate Z12.5 ; Vitamin B deficiency, unspecified E53. 9 ; Impaired fasting glucose R73.01 and Atherosclerotic heart disease of [place] tatum ry artery without angina p ectoris I25.10 [facility] [facility] [address] [place] [address] Rd Aug, Encounter for removal of Medicine [address] [place], sutures Z48. 02 [place] [id number] [address] Jul, Chest angie n, unspecified R07.9 Medicine [address] [place], and Dyspnea, unspecified R06.00 [place] [id number] [address] Jul, Pain in r ight knee M25.561 Medicine [address] [place], [place] [id number] [address] June, Chest angie n, unspecified R07.9 ; Medicine [address] [place], Dyspnea, uns pecified R06.00 and [place] [id number] Other fatigue R5 3.[address] Nov, [facility] [address] [place] [id number] [address] Aug, Encounter for general adult Medicine [address] [place], medical exam ination without [place] [id number] abnormal finding s Z00.[address] Aug, Encounter for general adult Medicine [address] [place], medical exam ination without [place] [id number] abnormal finding s Z00.00 ; Essential (prima ry) hypertension I10 ; Other fatigue R53.83 ; Encounter for screening for ma lignant neoplasm of pros [place] Z12.5 and Male erectile di sorder F52.21 [facility] [facility] [address] 18 Feb, 2020 [facility] [address] [place] [id number] [facility] [facility] [address] [place] [address] Rd 15 Feb, 2020 [facility] [address] [place], [place] [id number] [facility] [facility] [address] [place] [address] Rd 10 Dec, 2019 Essential (primary) [facility] [address] [place], hypertension I10 [place] [id number] [facility] [facility] [address] [place] [address] Rd 12 Nov, 2019 Essential (primary) [facility] [address] [place], hypertension I10 [place] [id number] [facility] [facility] [address] [place] [address] Rd 18 Oct, 2019 Pure hype rcholesterolemia, [facility] [address] [place], unspecified E78.00 [place] [id number] [facility] [facility] [address] [place] [address] Rd Oct, Essential (primary) [facility] [address] [place], hypertension I10 [place] [id number] [place] [facility] [address] [place] [address] Rd Sep, Encounter for other [facility] [address] [place], preprocedura l examination [place] [id number] Z01.818 ; Spinal stenosis, lumbar region wi th neurogenic claudication M48 .062 and Encounter for im munization Z23 [facility] [facility] [address] [place] [address] Rd Sep, [facility] [address] [place] [id number] [facility] [facility] [address] [place] [address] Rd Aug, [facility] [address] [place] [id number] [address] Aug, Encounter for general adult [facility] [address] [place], medical exam ination with [place] [id number] abnormal finding s Z00.01 ; Pure hypercholesterol emia, unspecified E78. 00 ; Essential (primary) hypert ension I10 ; Celiac disease K 90.0 ; Encounter for sc reening for malignant neopla sm of prostate Z12.[address] for screening for ma lignant neoplasm of colo n Z12.11 [facility] [facility] [address] [place] [address] Rd Jul, [facility] [address] [place] [id number] [address] Jul, [facility] [address] [place] [id number] [address] 30 Aug, 2018 Olecranon bursitis, left elbow [facility] [address] [place], M70.22 [place] [id number] [address] Jul, Otalgia, bilateral H92.03 and Medicine [address] [place], Pure hyperch olesterolemia, [place] [id number] unspecified E78. 00 [facility] [facility] [address] [place] [address] Rd May, Pure hype rcholesterolemia, Medicine [address] [place], unspecified E78.00 [place] [id number] [facility] [facility] [address] [place] [address] Rd May, Medicine [address] [place], [place] [id number] [address] Apr, Pure hype rcholesterolemia, Medicine [address] [place], unspecified E78.00 [place] [id number] [address] Apr, Encounter for general adult Medicine [address] [place] [address], medical exam ination with [place] [id number] abnormal finding s Z00.01 ; Essential (prima ry) hypertension I10 ; Disorder of the skin and sub cutaneous tissue, unspecif ied L98.9 ; Pain in unspecif ied ankle and joints of unspec ified foot M25.579 ; Encoun ter for screening for ma lignant neoplasm of colo n Z12.11 and Trochanteric bur sitis, left hip M70.[address] Mar, Medicine [address] [place] [id number] Nov, [facility] [address] [place] [id number] Nov, Pain in r ight ankle and joints Medicine [address] [place] [address], of right lazaro t M25.571 [place] [id number] [address] Dec, Pain in l eft ankle and joints Medicine [address] [place] [address], of left foot M25.572 ; [place] [id number] Trochanteric bur sitis, right hip M70.61 ; Ess ential (primary) hypert ension I10 and Encounter for im munization Z23 [address] Aug, Celluliti s of right upper limb Medicine [address] [place] [address], L03.113 and Encounter for [place] [id number] immunization Z23 [address] June, Motion si ckness, sequela Medicine [address] [place] [address], T75.3XXS [place] [id number] [facility] [facility] [address] [place] [address] Rd 18 May, 2016 Encounter for general adult [facility] [address] [place], medical exam ination with [place] [id number] abnormal finding s Z00.01 ; Other idiopathic peripheral autonomic neurop athy G90.09 ; Celiac disease K 90.0 and Essential (prima ry) hypertension I10 [facility] [facility] [address] [place] [address] Rd June, Encounter for general adult [facility] [address] [place], medical exam ination without [place] [id number] abnormal finding s Z00.00 [place] [facility] [address] [place] [address] Rd Dec, Encounter for general adult [facility] [address] [place], medical exam ination with [place] [id number] abnormal finding s Z00.01 ; Unspecified hemo rrhoids K64.9 and Encounter fo r immunization Z23 [place] [facility] [address] [place] [address] Rd Jul, Herpes zo ster without mention [facility] [address] [place], of complicat ion 053.9 and [place] [id number] Unspecified diso rder of skin and subcutaneous tissue 709.9 [place] [facility] [address] [place] [address] Rd Feb, Acute bro nchitis 466.0 [facility] [address] [place], [place] [id number] [facility] [facility] [address] [place] [address] Rd Jan, Pain in j oint, pelvic region [facility] [address] [place], and thigh 71 9.45 [place] [id number] [address] Sep, Concussio n, with loss of [facility] [address] [place], consciousnes s of 30 minutes or [place] [id number] less 850.[address] Aug, [facility] [address] [place] [id number] [address] Aug, [facility] [address] [place] [id number] [address] Aug, Routine g eneral medical [facility] [address] [place], examination at [facility] [id number] facility V70.0 ; Pure hypercholesterol emia 272.0 and Celiac disease 5 79.0 [place] [facility] [address] [place] [address] Rd June, Other and unspecified [facility] [address] [place], hyperlipidem ia 272.4 [place] [id number] [address] May, Routine g eneral medical [facility] [address] [place], examination at [facility] [id number] facility V70.0 ; Idiopathic peripheral auton omic neuropathy, unsp ecified 337.00 ; Impaired fasti ng glucose 790.21 ; Celiac disease 579.0 ; Lipoma of other skin and subcutaneous tis pablo 214.1 and Special screenin g for malignant neoplasm of pros [place]rick[place] V76.44 [place] [facility] [address] Jan, Celluliti s and abscess of upper [facility] [address] [place], arm and fore arm 682.3 [place] [id number] [facility] [facility] [address] 06 Jan, 2011 Routine g eneral medical [facility] [address] [place], examination at [facility] [id number] facility V70.0 IMMUNIZATIONS Vaccine Route Administration Date [...] CARE Activity Details Follow Up prn Reason: Pending Test VITAMIN B12 & FOLATE Pending Test GLYCOHEMOGLOBIN A1C Pending Test PSA - SCREENING Pending Test Urinalysis, Routine Pending Test Urinalysis, [...] Temperature 97.8 degrees Fahrenheit 2011-02-21 Heart Rate 55 /min 2021-09-17 Heart Rate 60 /min 2021-07-29 Heart Rate [...] Rate 72 /min 2012-06-21 Height 72 in 2021-09-17 Height 72 in 2021-07-29 Height 72 in [...] in 2012-06-21 Height 72 in 2011-02-21 Weight 183 lbs 2021-09-17 Weight 181 lbs 2021-07-29 Weight 181 lbs [...] lbs 2012-06-21 Weight 185 lbs 2011-02-21 BMI 24.82 kg/m2 2021-09-17 BMI 24.55 kg/m2 2021-07-29 BMI 24.55 kg/m2 [...] BMI 25.09 kg/m2 2011-02-21 Blood pressure systolic 125 mm Hg 2021-09-17 Blood pressure diastolic 70 mm Hg 2021-09-17 MEDICATIONS Medication Instructions Dosage Frequency Start End Duration Statu s Date Date Atorvastatin Orally Once a 1 tablet 24h 30 day(s) Ac tive Calcium 80 MG day Clopidogrel Orally Once a 1 tablet 24h 30 day(s) Act stacy Bisulfate 75 MG day Metoprolol Orally Twice a 1 tablet 12h 30 day(s) Act stacy Tartrate 25 MG day with food Ibuprofen 800 MG Orally Three 1 tablet 8h N ot-Takin times a day with food g or milk as needed Folic Acid 800 Orally Once a 1 tablet 24h 30 day(s) Active MCG day Sildenafil Orally Once a 1 tablet 24h Nov, days Not-Ta kin Citrate 100 MG day as needed 2020 g Amiodarone HCl Orally Once a 1 tablet 24h 30 day(s) Active 200 MG day Vitamin B 12 500 Orally Once a 1 tablet 24h 30 day(s ) Active MCG day Aspirin EC 81 MG Orally Once a 1 tablet 24h 30 day(s ) Active day Tylenol 325 MG Orally every 4 1 tablet 4h A ctive hrs as needed Losartan Orally Once a 1 tablet 24h Oct, Potassium 50 MG day 2019 PROCEDURES Procedure Date Ordered Result Body Site ASSAY OF PSA, TOTAL June 21, 2012 VENIPUNCT, ROUTINE* Jan 28, 2011 DOT September 06, 2020 VENIPUNCT, ROUTINE* September 16, 2013 IMMUNIZATION ADMIN Jan 12, 2015 VITAMIN B-12 Jan 28, 2011 TD VACCINE NO PRSRV >/= 7 IM September 18, 2016 BLOOD FOLIC ACID SERUM Jan 28, 2011 -ELECTROCARDIOGRAM, COMPLETE Oct 17, 2019 ANNUAL WELLNES VST; PERSNL PPS INIT September 05, 2019 COMPREHEN METABOLIC PANEL Oct 14, 2021 URINALYSIS- COMPLETE September 16, 2013 IMMUNIZATION ADMIN September 18, 2016 GLYCATED HEMOGLOBIN TEST June 21, 2012 ANNUAL WELLNESS VST; PPS SUBSQT VST September 17, 2021 DOT June 25, 2015 VENIPUNCT, ROUTINE* June 21, 2012 LIPID PANEL Jan 12, 2015 IMMUNIZATION ADMIN Dec 31, 2016 COLONOSCOPY AND BIOPSY 2007-08-30 Normal Influenza (split) Jan 12, 2015 ASSAY TEST FOR BLOOD, FECAL May 04, 2018 ANNUAL WELLNESS VST; PPS SUBSQT VST September 06, 2020 URINALYSIS- COMPLETE June 21, 2012 LIPID PANEL Oct 14, 2021 VENIPUNCT, ROUTINE* May 04, 2018 URINALYSIS- COMPLETE May 04, 2018 LIPID PANEL June 21, 2012 General Health Panel Jan 12, 2015 FLUAD QIV Oct 17, 2019 VENIPUNCT, ROUTINE* Jan 12, 2015 FLU VACC 4 NENITA 3 YRS PLUS IM Dec 31, 2016 URINE-NO MICRO September 05, 2019 VENIPUNCT, ROUTINE* June 10, 2016 ADMN FLU VAC NO FEE SCHED SAME DAY Oct 17, 2019 RESULTS Name Result Date Reference Range VITAMIN B12 & FOLATE 2021-10-14 VIT B12 602 180-914 FOLATE >20.0 >=6.0 GLYCOHEMOGLOBIN A1C 2021-10-14 HGBA1c 5.4 4.0-6.0 PSA - SCREENING 2021-10-14 COMPREHENSIVE METABOLIC 2021-10-14 PROFILE ALBUMIN 3.7 3.5-5.0 ALKALINE PHOS 69 38-130 A/GAP 10.0 3.0-12.0 B/CR 15.3 8.0-20.0 OSMOLARITY 274 275-295 GLOBULIN 2.9 2.3-3.5 A/G 1.3 1.0-2.5 LIPID PROFILE 2021-10-14 LDL (CALCULATED) 64 RISK RATIO 2.6 RISK INTERP RISK MALE FEMALE 1/2 average 3.4 3.3 Average 5.0 4.4 2x Average 9.6 7.1 3x Average 23.4 11.0 BASIC METABOLIC PROFILE 2021-08-02 A/GAP 9.0 3.0-12.0 [...] 15 7-25 CREATININE 1.12 0.70-1.25 eGFR NON-AFR. EMIRATI 69 > OR = 60 eGFR 80 [...] 140-400 MPV 11.6 7.5-12.5 ABSOLUTE NEUTROPHILS 3905 [phone] ABSOLUTE LYMPHOCYTES [phone] ABSOLUTE MONOCYTES 479 200-950 ABSOLUTE EOSINOPHILS 251 [...] 15 7-25 CREATININE 1.14 0.70-1.25 eGFR NON-AFR. EMIRATI 69 > OR = 60 eGFR 79 > OR = 60 BUN/CREATININE RATIO NOT APPLICABLE 6-22 SODIUM 140 135-146 POTASSIUM 4.2 3.5-5.3 CHLORIDE [...] 140-400 MPV 9.7 7.5-12.5 ABSOLUTE NEUTROPHILS 4083 [phone] ABSOLUTE LYMPHOCYTES [phone] ABSOLUTE MONOCYTES 429 200-950 ABSOLUTE EOSINOPHILS 209 [...] 16 7-25 CREATININE 1.10 0.70-1.25 eGFR NON-AFR. EMIRATI 72 > OR = 60 eGFR 84 > OR = 60 BUN/CREATININE RATIO NOT APPLICABLE 6-22 SODIUM 140 135-146 POTASSIUM 4.6 3.5-5.3 CHLORIDE [...] 140-400 MPV 9.8 7.5-11.5 ABSOLUTE NEUTROPHILS 3608 [phone] ABSOLUTE LYMPHOCYTES [phone] ABSOLUTE MONOCYTES 496 200-950 ABSOLUTE EOSINOPHILS 148 [...] 11 7-25 CREATININE 1.11 0.70-1.25 eGFR NON-AFR. EMIRATI 72 > OR = 60 eGFR 83 [...] 140-400 MPV 9.7 7.5-11.5 ABSOLUTE NEUTROPHILS 3883 [phone] ABSOLUTE LYMPHOCYTES [phone] ABSOLUTE MONOCYTES 374 200-950 ABSOLUTE EOSINOPHILS 99 [...] SCREENING 2012-06-21 TSH 2012-06-21 REASON FOR VISIT Re:RE:Blood Test, Blood Test, rx, Medicare Annual, remove sutures, follow up on stress test, right knee pain, Concern for BP, Rx Refill Request, Medical Certificate for Sodraft, Medicare Annual, RE:Re:COVID vaccine update, Re:COVID vaccine update, 1 month follow up, follow up, Crestor Medication, BP is high, Pre Op for APD, BP has been high, nerve pain in back, Annual, Update Demographics - Additional Info, Update Demographics - Personal Info, Elbow infection, lipid follow up, Cholesterol Drug, follow up on cholesterol lab, Annual, Update Demographics - Personal Info, x rays, Thinks he may havebroken a toe, hockey puck injury and hip pain, WC, dog bite, Would like a couple of rxs, 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 Insurance Providers [facility] Member Patient Patient Patient Patient Patient Subscriber Subscriber Subscriber Group Insurance Plan Plan Plan Plan ID Relationship Address Phone Name Date of ID Name Date of No Type Insurance Insurance Insurance Coverage to Subscriber Address Phone Name Dates Cigna True [phone] Cigna True self Alex [id number] [id number] [place] [address] Cigna 8 [address] C[address] self Alex [id number] [place] [address] [place] [phone] [place] self Alex [id number] [address] [address] Medicare Nat'l Medicare self Alex [id number] [facility] [employer] [address] [place] [address]
== END 2021-11-22 23:59 | disposition home or self-care (01) ==
LOC: CR 08:12
PROVIDERS: PCP Internal Medicine; Referring Provider Internal Medicine; Visit Provider Internal Medicine Cardiovascular Disease
DX: Z51.89 Encounter for other specified aftercare (principal); I25.10 Atherosclerotic heart disease of native coronary artery without angina pectoris; Z95.1 Presence of aortocoronary bypass graft
CPT/HCPCS: S9472

== ENCOUNTER 2021-12-18 09:29 | Outpatient (RCR) | payer MEDICARE, SELFPAY | END 2021-12-23 23:59 | disposition home or self-care (01) | LOC: CR 09:29 | PROVIDERS: PCP Internal Medicine; Referring Provider Internal Medicine; Visit Provider Internal Medicine Cardiovascular Disease | DX: Z51.89 Encounter for other specified aftercare (principal); I25.10 Atherosclerotic heart disease of native coronary artery without angina pectoris; Z95.1 Presence of aortocoronary bypass graft | CPT/HCPCS: S9472 ==

== ENCOUNTER 2022-01-22 08:00 | Outpatient (RCR) | payer MEDICARE, SELFPAY | END 2022-01-22 23:59 | disposition home or self-care (01) | LOC: CR 08:00 | PROVIDERS: PCP Internal Medicine; Referring Provider Internal Medicine; Visit Provider Internal Medicine Cardiovascular Disease | DX: I25.10 Atherosclerotic heart disease of native coronary artery without angina pectoris (principal); Z51.89 Encounter for other specified aftercare; Z95.1 Presence of aortocoronary bypass graft | CPT/HCPCS: S9472 ==

== ENCOUNTER 2022-02-10 13:00 | Outpatient (RCR) | payer MEDICARE, SELFPAY | END 2022-02-22 23:59 | disposition home or self-care (01) | LOC: CR 13:00 | PROVIDERS: PCP Internal Medicine; Referring Provider Internal Medicine; Visit Provider Internal Medicine Cardiovascular Disease | DX: I25.10 Atherosclerotic heart disease of native coronary artery without angina pectoris (principal); Z95.1 Presence of aortocoronary bypass graft; Z51.89 Encounter for other specified aftercare | CPT/HCPCS: S9472 ==

== ENCOUNTER 2022-03-21 00:43 | Outpatient (CLI) | payer MEDICARE, SELFPAY ==
--- NOTE | 2022-03-21 | DI.MRI_ITS ---
Exam(s) MR UPPER JOINT RT WO EXAM: MR UPPER JOINT RT WO CLINICAL HISTORY: RT ROTATOR CUFF TEAR,M75.121,PAIN. TECHNIQUE: Multiplanar multisequence MRI was performed. COMPARISON: No exams were available for comparison FINDINGS: BONES: There is no fracture or contusion pattern. JOINTS: There are moderate degenerative changes seen at the acromioclavicular joint. Mild degenerati ve changes are seen at the glenohumeral joint. There is impingement of the acromion on the superior aspect of the supraspinatus tendon. TENDONS: Supraspinatus: There is thickening and intermediate signal of the supraspinatus tendon consistent wit h tendinosis. There is hyperintense signal seen at the musculotendinous junction beneath the acromio n consistent with a partial bursal surface tear. Infraspinatus: There is tendinosis of the infraspinatus tendon without evidence of a tear. Subscapularis: There is tendinosis of the subscapularis tendon without evidence of a tear. Teres [place]: Unremarkable. Biceps and [place]: Unremarkable. MUSCLES: Unremarkable. GLENOID LABRUM: No evidence of a tear of the glenoid labrum. SOFT TISSUES: Unremarkable. LIGAMENTS: Unremarkable. OTHER: There is fluid seen in the subacromial and a large amount in the sub deltoid bursa. IMPRESSION: 1. Partial bursal surface tear of the supraspinatus tendon at the musculotendinous junction. 2. Tendinosis of the supraspinatus, infraspinatus and subscapularis tendons. 3. Large amount of fluid seen in the subacromial subdeltoid bursa. 4. Degenerative changes seen at the acromioclavicular joint and the glenohumeral joint. DATA REPOSITORY:
== END 2022-03-21 01:03 ==
PROVIDERS: PCP Internal Medicine; Visit Provider Orthopaedic Surgery
DX: M75.121 Complete rotator cuff tear or rupture of right shoulder, not specified as traumatic (principal); M25.511 Pain in right shoulder; M75.81 Other shoulder lesions, right shoulder; M25.411 Effusion, right shoulder; M19.011 Primary osteoarthritis, right shoulder
CPT/HCPCS: 73221

== ENCOUNTER 2022-10-30 13:48 | Emergency (ER) | payer MEDICARE, SELFPAY ==
[2022-10-30] VITALS (43 sets, daily range): BP systolic 136–165; BP diastolic 65–93; PULSE 52–76; RESP 10–22; TEMP 36.8; O2SAT 94–99
--- NOTE | 2022-10-30 13:45 | RT.EKG_ITS ---
APPROVED REPORT Exam: Resting ECG Reason for Exam: Severe Nausea Patient Location: E HR:62 bpm ECG Measurements Heart Rate 62 AXIS NE 151 P 71 QRSd 107 QRS -42 QT 424 T 80 QTc 430 Conclusion Sinus rhythm...normal P axis, V-rate 60- 99 LVH with secondary repolarization abnormality...multi-LVH criteria, abnrm ST-T Anterior infarct, old...Q >40mS, abnormal ST-T, V2-V5
[2022-10-30 15:13] LABS: Abs Immature Grans 0.02 10^3/uL (0.0-0.06); Absolute Basophil Count 0.05 10^3/uL (0.0-0.2); Absolute Lymphocyte Count 1.19 10^3/uL (1.2-3.4); Absolute Monocyte Count 0.45 10^3/uL (0.1-0.8); Basophils % 0.7; Eosinophils % 2.7; HCT 45.9 % (40.0-50.0); HGB 15.6 g/dL (13.5-17.5); Immature Grans % 0.3; Lymphocytes % 16.3; MCH 30.8 pg (27.0-33.0); MCV 91 fL (80-95); MPV 10.4 fL (8.0-11.0); Monocytes % 6.2; Neutrophils % 73.8; Platelet Count 192 10^3/uL (130-400); RBC 5.06 10^6/uL (4.36-5.78); RDW 11.9 % (11.8-14.1); RDW-SD 39.3 fL; WBC 7.31 10^3/uL (4.4-10.8)
[2022-10-30 15:33] LABS: ALT 31 U/L (16-63); AST 19 U/L (15-37); Albumin 3.5 g/dL (3.4-5.0); Alkaline Phosphatase 97 U/L (46-116); Anion Gap 8.3 mmol/L (3-11); BUN 19 mg/dL (7-18); Bilirubin, Total 0.8 mg/dL (0.2-1.0); CO2 27.7 mmol/L (21.0-32.0); CREATININE 1.1 mg/dL (0.70-1.30); Calcium 9.3 mg/dL (8.5-10.1); Chloride 103 mmol/L (98-107); Estimated GFR 72.67 (mL/min/1.73m2); Glucose 125 mg/dL (74-106); Magnesium 2.1 mg/dL (1.8-2.4); Potassium 3.7 mmol/L (3.5-5.1); Sodium 139 mmol/L (136-145); Total Protein 6.6 g/dL (6.4-8.2); Troponin I < 50 ng/L (<or=60)
--- NOTE | 2022-10-30 16:15 | W.ED.GENAD ---
Discharge Plan Discharge Details Chief Complaint: Nausea/Vomit/Diar Primary Care Provider: Nisa Machado ED Provider: Hermann Rodriguez Home Meds and New Rx's Prescriptions: No Action losartan 50 mg tablet 50 tab PO DAILY Patient Comments: TAKE ONE TABLET BY MOUTH EVERY DAY aspirin 81 mg Tablet,Delayed Release (Dr/Ec) 81 mg PO DAILY nitroglycerin 0.4 mg tablet, sublingual 0.4 tab sublingual PRN PRN Patient Comments: PLACE ONE TABLET UNDER THE TONGUE EVERY DAY metoprolol succinate 25 mg tablet extended release 24 hr 25 mg PO DAILY Patient Comments: TAKE ONE TABLET BY MOUTH EVERY DAY folic acid 800 mcg Tablet 800 mcg PO DAILY B12 Active 1,000 mcg Tablet,Chewable 1,000 mcg PO DAILY Medical Decision Making 67-year-old male with history of coronary artery disease status post CABG 6 vessel in 09/13, here after episode of nausea that occurred last night. No associated chest pain. Patient notes some mild fatigue today but otherwise asymptomatic. Patient is hemodynamically stable. He is well-appearing. EKG was reviewed and interpreted by me: Please report, sinus rhythm 62 bpm, no STEMI. Consider ACS. Initial troponin negative. Plan for delta troponin. Lab Data Lab results reviewed: Yes I reviewed the patient's lab results. Labs: Laboratory Tests Range/Units 10/30/22 10/30/22 14:20 14:20 WBC (4.4-10.8) 10^3/uL 7.31 RBC (4.36-5.78) 10^6/uL 5.06 Hgb (13.5-17.5) g/dL 15.6 Hct (40.0-50.0) % 45.9 MCV (80-95) fL 91 MCH (27.0-33.0) pg 30.8 MCHC (32.0-36.0) % 34.0 RDW (11.8-14.1) % 11.9 Plt Count (130-400) 10^3/uL 192 MPV (8.0-11.0) fL 10.4 Immature Gran % 0.3 Neutrophils % 73.8 Lymphocytes % 16.3 Monocytes % 6.2 Eosinophils % 2.7 Basophils % 0.7 Nucleated RBC % (0.0-0.3) % 0.0 Absolute Neutrophils (1.2-6.7) 10^3/uL 5.40 Absolute Lymphocytes (1.2-3.4) 10^3/uL 1.19 L Absolute Monocytes (0.1-0.8) 10^3/uL 0.45 Absolute Eosinophils (0.0-0.7) 10^3/uL 0.20 Absolute Basophils (0.0-0.2) 10^3/uL 0.05 Sodium (136-145) mmol/L 139 Potassium (3.5-5.1) mmol/L 3.7 Chloride (98-107) mmol/L 103 Carbon Dioxide (21.0-32.0) mmol/L 27.7 Anion Gap (3-11) mmol/L 8.3 BUN (7-18) mg/dL 19 H Creatinine (0.70-1.30) mg/dL 1.1 Est GFR (CKD-EPI 2020) (mL/min/1.73m2) 72.67 Glucose (74-106) mg/dL 125 H Calcium (8.5-10.1) mg/dL 9.3 Magnesium (1.8-2.4) mg/dL 2.1 Total Bilirubin (0.2-1.0) mg/dL 0.8 AST (15-37) U/L 19 ALT (16-63) U/L 31 Alkaline Phosphatase (46-116) U/L 97 Troponin I (<or=60) ng/L < 50 Total Protein (6.4-8.2) g/dL 6.6 Albumin (3.4-5.0) g/dL 3.5 HPI General Mode of arrival: ambulatory. Date/Time Provider Initiated Documentation: 10/30/22 14:38. Limitations to Documentation: no limitations. Information obtained by: patient. HPI Narrative: 67-year-old male with history of coronary artery bypass x6 vessel in 08/2021, presenting with chief complaint of nausea. Patient notes severe nausea came on last night around 10 PM with associated vomiting. Patient notes he does not typically have nausea and it felt similar to when he had his heart attack. He did not have any chest pain or neck pain as he had with prior IA. Patient notes he took 1 sublingual nitroglycerin last night and went to bed. When he woke up this morning he had no nausea. Continues to have no chest pain. He does note some mild fatigue today. 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 Related Data Home Medications Medication Instructions Recorded Confirmed aspirin 81 mg tablet,delayed 81 mg PO DAILY 08/21/21 08/21/21 release folic acid 800 mcg tablet 800 mcg PO DAILY 08/21/21 08/21/21 losartan 50 mg tablet 50 tab PO DAILY 08/21/21 08/21/21 mecobalamin (vitamin B12) 1,000 1,000 mcg PO DAILY 08/21/21 08/21/21 mcg chewable tablet (B12 Active) metoprolol succinate 25 mg 25 mg PO DAILY 08/21/21 08/21/21 tablet,extended release 24 hr nitroglycerin 0.4 mg sublingual 0.4 tab sublingual PRN PRN 08/21/21 08/21/21 tablet Allergies Allergy/AdvReac Type Severity Reaction Status Date / Time No Known Allergies Allergy Unverified 08/21/21 08:59 General Stated Complaint: Nausea/Vomit/Diar GAURAV: 3 Review of Systems All systems reviewed & are unremarkable except as noted in HPI and below Constitutional Constitutional: Denies fever(s) Cardiovascular Cardiovascular: Reports as per HPI PFSH All Active Problems Injury, head (Acute) a. With contusion. b. with loc c. concussion Celiac disease (Chronic) Hypertension (Acute) Prediabetes (Acute) Social History Smoking/Tobacco Use Status: Never Smoking risk assessment performed?: Yes Alcohol Intake: current Alcohol Intake frequency: a few times a week Drug use: Never Substance use type: does not use Do you feel safe at home: Yes Do you feel safe in your relationship?: Yes Exam Const General: cooperative and no acute distress HENMT Mouth: moist mucous membranes Eyes Conjunctivae: normal conjunctivae Sclera: normal sclerae Resp Auscultation: clear to auscultation bilaterally, no rales, no rhonchi and no wheezes Cardio Rate: regular rate and not tachycardic Rhythm: regular rhythm Heart Sounds: no gallops, no murmurs and no rubs GI Palpation: soft, not firm, no guarding, no masses, not rigid and nontender Skin General skin exam: no rashes or lesions noted Neuro General: patient alert, patient awake and tone normal Extrem General: no calf tenderness and no edema Psych Appearance: grossly normal Mental Status: mental status grossly normal Course Vital Signs Vital signs: Vital Signs Temperature 36.8 C 10/30/22 13:53 Pulse 76 10/30/22 13:53 Respiratory Rate 20 10/30/22 13:53 Blood Pressure 162/74 H 10/30/22 13:53 Pulse Oximetry 97 10/30/22 13:53 Temperature 36.8 C 10/30/22 13:53 Temperature Source Oral 10/30/22 13:53 Pulse 54 L 10/30/22 15:46 Pulse 56 L 10/30/22 15:50 Respiratory Rate 17 10/30/22 15:50 Respiratory Effort Normal 10/30/22 14:32 Blood Pressure 138/74 10/30/22 15:46 Blood Pressure Mean 93 10/30/22 15:46 Blood Pressure Position Sitting 10/30/22 13:53 Pulse Oximetry 96 10/30/22 15:50 Oxygen Delivery Method Room Air 10/30/22 13:53 Oxygen Flow Rate 0 10/30/22 13:53 Pain Level 0 10/30/22 13:53 Lab/Test Results Lab/Test Results: Laboratory Tests Range/Units 10/30/22 10/30/22 14:20 14:20 WBC (4.4-10.8) 10^3/uL 7.31 RBC (4.36-5.78) 10^6/uL 5.06 Hgb (13.5-17.5) g/dL 15.6 Hct (40.0-50.0) % 45.9 MCV (80-95) fL 91 MCH (27.0-33.0) pg 30.8 MCHC (32.0-36.0) % 34.0 RDW (11.8-14.1) % 11.9 Plt Count (130-400) 10^3/uL 192 MPV (8.0-11.0) fL 10.4 Immature Gran % 0.3 Neutrophils % 73.8 Lymphocytes % 16.3 Monocytes % 6.2 Eosinophils % 2.7 Basophils % 0.7 Nucleated RBC % (0.0-0.3) % 0.0 Absolute Neutrophils (1.2-6.7) 10^3/uL 5.40 Absolute Lymphocytes (1.2-3.4) 10^3/uL 1.19 L Absolute Monocytes (0.1-0.8) 10^3/uL 0.45 Absolute Eosinophils (0.0-0.7) 10^3/uL 0.20 Absolute Basophils (0.0-0.2) 10^3/uL 0.05 Sodium (136-145) mmol/L 139 Potassium (3.5-5.1) mmol/L 3.7 Chloride (98-107) mmol/L 103 Carbon Dioxide (21.0-32.0) mmol/L 27.7 Anion Gap (3-11) mmol/L 8.3 BUN (7-18) mg/dL 19 H Creatinine (0.70-1.30) mg/dL 1.1 Est GFR (CKD-EPI 2020) (mL/min/1.73m2) 72.67 Glucose (74-106) mg/dL 125 H Calcium (8.5-10.1) mg/dL 9.3 Magnesium (1.8-2.4) mg/dL 2.1 Total Bilirubin (0.2-1.0) mg/dL 0.8 AST (15-37) U/L 19 ALT (16-63) U/L 31 Alkaline Phosphatase (46-116) U/L 97 Troponin I (<or=60) ng/L < 50 Total Protein (6.4-8.2) g/dL 6.6 Albumin (3.4-5.0) g/dL 3.5
--- NOTE | 2022-10-30 17:30 | RT.EKG_ITS ---
APPROVED REPORT Exam: Resting ECG Reason for Exam: chest pain Patient Location: E HR:53 bpm ECG Measurements Heart Rate 53 AXIS CO 161 P 62 QRSd 106 QRS -39 QT 443 T 71 QTc 416 Conclusion Sinus bradycardia...rate< 60 Possible anterolateral infarct, age indeterminate...Q >35mS, flat/neg T, V3-V6,I,aVL No ST segment or T wave abnormalities to suggest occlusive CA
[2022-10-30 18:07] LABS: Troponin I < 50 ng/L (<or=60)
== END 2022-10-30 18:29 | disposition home or self-care (01) ==
PROVIDERS: Student in an Organized Health Care Education/Training Program; Emergency Provider Physician Assistant; PCP Internal Medicine
DX: R11.2 Nausea with vomiting, unspecified (principal); Z95.1 Presence of aortocoronary bypass graft; I25.2 Old myocardial infarction
CPT/HCPCS: 36415; 80053; 93005; 99284; 83735; 84484; 85025; 93010; 99285